=== PATIENT | male | born 1940 | race Caucasian/White ===

== ENCOUNTER → 2019-12-27 | Outpatient (CLI) | payer MEDICARE ==
--- NOTE | 2020-01-03 12:38 | P.ARTDOP ---
Arterial Doppler LOWER EXTREMITY ARTERIAL DOPPLER: DATE OF SERVICE: 12/27/2019 Reason for study: Bilateral leg pain. Doppler waveforms: Multiphasic bilaterally throughout. Pulse volume recording: []. Pressure gradients: None. Ankle-brachial indices: Greater than 1 bilaterally. Toe brachial indices: 0.96 on the right, 0.93 on the left Impression: Normal study.
== END | disposition home or self-care (01) ==
LOC: RADUSWWP 12:59
PROVIDERS: ATTEND Internal Medicine
DX: M79.662 Pain in left lower leg (principal); M79.661 Pain in right lower leg; Z88.8 Allergy status to other drugs, medicaments and biological substances
CPT/HCPCS: 93922

== ENCOUNTER 2021-05-22 09:19 | Inpatient (IN) | payer MEDICARE ==
[2021-05-22] MEDS: SODIUM CHLORIDE 0.9% 1,000 ML IV SCH (11:14)
[2021-05-22 11:39] LABS: Glucose,Whole Blood 158 mg/dL (75-99)
[2021-05-22] MEDS ORDERED: HEPARIN SODIUM 1,000 UN/ML (10ML VL) IV PRN (11:49)
[2021-05-22] MEDS ORDERED: SENNOSIDES 8.6 MG TAB PO PRN (13:17)
[2021-05-22] MEDS ORDERED: FUROSEMIDE 40 MG TAB PO PRN (13:17)
[2021-05-22] MEDS ORDERED: ALPRAZolam 0.25 MG TAB PO PRN (13:19)
--- NOTE | 2021-05-22 14:11 | HP ---
HISTORY AND PHYSICAL DATE OF SERVICE: 05/22/2021 CHIEF COMPLAINT: Shortness of breath. HISTORY OF PRESENT ILLNESS: This 80-year-old gentleman with a past medical history of COPD, hypertension, hyperlipidemia and DJD presented with shortness of breath to [facility]. Because of elevation of troponin, cardiac cath was done which showed three- vessel coronary artery disease. The patient was transferred to [facility] for further evaluation and treatment. There is no history of any chest pain, palpitations, hematochezia or melena at this time. PAST MEDICAL HISTORY: COPD, hypertension, hyperlipidemia. HOME MEDICATIONS: Reviewed. They include fluticasone, prednisone, Flomax and . Doses and other medications are reviewed. ALLERGIES: LISINOPRIL. FAMILY HISTORY: No history of heart disease or strokes in the family. SOCIAL HISTORY: Remote history of smoking. REVIEW OF SYSTEMS: Fourteen-point review of systems negative except as mentioned earlier. PHYSICAL EXAMINATION: Pulse 61, blood pressure 137/84, respiration 18, temperature 97.2. HEENT: Conjunctivae normal. Oral mucosa moist. NECK: No jugular venous distention. No carotid bruit. No lymph node enlargement. CARDIOVASCULAR: S1, S2 muffled. No S3. No S4. RESPIRATION: Breath sounds diminished at the bases. A few scattered rhonchi and crackles. ABDOMEN: Soft, nontender. No mass palpable. LEGS: No edema. No swelling. NERVOUS SYSTEM: Higher functions as mentioned earlier. No focal motor or sensory deficit. LYMPHATICS: No lymph node palpable in neck, axillae or groin. SKIN: No ulcer, rash, bleeding. JOINTS: No active deforming arthropathy. LABS: Glucose 115. Other labs are awaited. ASSESSMENT: 1. Three-vessel coronary artery disease, status post coronary artery bypass grafting. 2. Chronic obstructive pulmonary disease. 3. Hypertension. 4. Hyperlipidemia. 5. History of degenerative joint disease. 6. History of chronic kidney disease. RECOMMENDATIONS AND DISCUSSION: In this 80-year-old gentleman who presented with multiple medical issues, at this time I recommend to continue current medications, resume the home medications. Antiplatelet agents. Cardiology and cardiothoracic surgery evaluations. Prognosis guarded because of the multiple complex medical issues. Will get lab work done also, including chest x- ray and UA. MMODL / IJN: [id number] / [facility]ITALFlora
--- NOTE | 2021-05-22 14:50 | P.CNPUL ---
History of Present Illness Consult date: 05/22/21 Requesting physician: Lalita Dominguez Reason for consult: dyspnea Chief complaint: Acute non-ST elevated myocardial infarction, multivessel CAD History of present illness: This is a 80-year-old white male patient with past medical history of COPD not normally oxygen dependent, stage III chronic kidney disease, diabetes mellitus with diabetic neuropathy, hypertension, hyperlipidemia, carotid artery stenosis, extensive history of smoking, quit 6 months ago but prior to quitting he smoked for 67 years 1 pack a day. Patient was admitted to the [facility] for evaluation of exertional shortness of breath. He was diagnosed with non-ST elevated myocardial infarction, he had a heart catheterization by Dr. Ramirez and was found to have multivessel coronary artery disease with 95% left main stenosis, 90% stenosis of the LAD, 100% stenosis of the left circumflex, and no significant stenosis involving the RCA. Cardiology has recommended transfer to the [facility] and evaluation by the cardiothoracic surgery for possibility of coronary artery bypass grafting. Patient is resting comfortably in bed, room air pulse ox is 96%, he is afebrile, hemodynamically he is stable, patient follows with Dr. Elis Gonzalez for his pulmonary needs, he states he hasn't had a PFT done in over 5 years. He quit smoking 6 months ago, he is maintenance inhalers include Trelegy, Albuterol, and patient states he is on maintenance dose prednisone 5 mg daily. He is currently on heparin infusion per weight-based protocol, he continues on his home dose prednisone 5 mg daily, he i s on Symbicort, Ventolin, she is on oral Lasix 40 mg 3 times daily, is on Coreg, losartan. He is currently awaiting CT surgery evaluation Review of Systems All systems: negative Constitutional: Denies chills, Denies fever Eyes: denies blurred vision, denies pain Ears, nose, mouth and throat: Denies headache, Denies sore throat Cardiovascular: Reports dyspnea on exertion, Denies chest pain, Denies shortness of breath Respiratory: Reports dyspnea, Denies cough Gastrointestinal: Denies abdominal pain, Denies diarrhea, Denies nausea, Denies vomiting Musculoskeletal: Denies myalgias Integumentary: Denies pruritus, Denies rash Neurological: Denies numbness, Denies weakness Psychiatric: Denies anxiety, Denies depression Endocrine: Denies fatigue, Denies weight change Past Medical History Past Medical History: COPD, Hyperlipidemia, Hypertension, Osteoarthritis (OA), Prostate Disorder, Renal Disease, Vascular Disorder Additional Past Medical History / Comment(s): PVC's, CKD stage III, chronic anemia, BPH, urinary retention, UTI, pancreatitis, gastric ulcer, arthritis in multiple joints/occasional low back pain History of Any Multi-Drug Resistant Organisms: None Reported Past Surgical History: Appendectomy, Tonsillectomy Additional Past Surgical History / Comment(s): R caratid endartectomy, arch study, colonoscopies/benign polypectomies, EGD, pilonidal cyst removed x 2, Past Anesthesia/Blood Transfusion Reactions: No Reported Reaction Smoking Status: Former smoker - Past Family History Father Family Medical History: No Reported History Mother Family Medical History: Congestive Heart Failure (CHF) Medications and Allergies Home Medications Medication Instructions Recorded Confirmed Type Albuterol Inhaler [Ventolin Hfa 2 puff INHALATION RT-QID PRN 05/22/21 05/22/21 History Inhaler] Aspirin EC [Ecotrin Low Dose] 81 mg PO DAILY 05/22/21 05/22/21 History Carvedilol [Coreg] 3.125 mg PO BID-W/MEALS 05/22/21 05/22/21 History Cholecalciferol (Vitamin D3) 125 mcg PO DAILY 05/22/21 05/22/21 History [Vitamin D3 (125 MCG = 5,000 IU)] Ferrous Sulfate [Feosol] 325 mg PO W/BRKFST 05/22/21 05/22/21 History Finasteride [Proscar] 5 mg PO DAILY 05/22/21 05/22/21 History Fluticasone/Umeclidin/Vilanter 1 puff INHALATION RT-DAILY 05/22/21 05/22/21 History [Trelegy Ellipta 100-62.5-25] Furosemide [Lasix] 40 mg PO TID PRN 05/22/21 05/22/21 History HYDROcodone/APAP 10-325MG [[place] 1 tab PO Q6H PRN 05/22/21 05/22/21 History 10-325] Losartan Potassium 50 mg PO DAILY 05/22/21 05/22/21 History Omeprazole 20 mg PO DAILY 05/22/21 05/22/21 History Potassium Chloride ER [K-Dur 10] 10 meq PO DAILY 05/22/21 05/22/21 History Rosuvastatin Calcium [Crestor] 20 mg PO HS 05/22/21 05/22/21 History Sennosides [Senna] 8.6 mg PO BID PRN 05/22/21 05/22/21 History Tamsulosin HCl [Flomax] 0.4 mg PO DAILY 05/22/21 05/22/21 History amLODIPine [Norvasc] 10 mg PO DAILY 05/22/21 05/22/21 History predniSONE 5 mg PO DAILY 05/22/21 05/22/21 History Allergies Allergy/AdvReac Type Severity Reaction Status Date / Time lisinopril Allergy Anaphylaxis, Verified 05/22/21 12:58 Tongue swelling Physical Exam Vitals: Vital Signs Temp Pulse Resp BP Pulse Ox 05/22/21 11:14 97.2 F L 61 18 137/84 96 Intake and Output 05/21/21 05/22/21 05/22/21 22:59 06:59 14:59 Intake Total 240 Balance 240 Intake: Oral 240 Other: Weight 111.1 kg GENERAL EXAM: Alert, very pleasant, 80-year-old white male, resting comfortably in bed, on room air with pulse ox of 96% comfortable in no apparent distress. HEAD: Normocephalic/atraumatic. EYES: Normal reaction of pupils, equal size. Conjunctiva pink, sclera white. NOSE: Clear with pink turbinates. THROAT: No erythema or exudates. NECK: No masses, no JVD, no thyroid enlargement, no adenopathy. CHEST: No chest wall deformity. Symmetrical expansion. LUNGS: Equal air entry with no crackles, wheeze, rhonchi or dullness. CVS: Regular rate and rhythm, normal S1 and S2, no gallops, no murmurs, no rubs ABDOMEN: Soft, nontender. No hepatosplenomegaly, normal bowel sounds, no guarding or rigidity. EXTREMITIES: No clubbing, no edema, no cyanosis, 2+ pulses and upper and lower extremities. MUSCULOSKELETAL: Muscle strength and tone normal. SPINE: No scoliosis or deformity SKIN: No rashes CENTRAL NERVOUS SYSTEM: Alert and oriented -3. No focal deficits, tone is normal in all 4 extremities. PSYCHIATRIC: Alert and oriented -3. Appropriate affect. Intact judgment and insight. Results - Laboratory Findings Abnormal lab findings: Abnormal Labs 05/22/21 11:36 POC Glucose (mg/dL) 158 H Assessment and Plan Plan: Assessment: #1. Symptomatic multivessel coronary artery disease with 95% left main stenosis, 90% stenosis of the LAD, and 100% stenosis of the left circumflex, awaiting evaluation for possibility of surgical intervention #2. Acute non-ST elevated myocardial infarction #3. Acute exacerbation of chronic CHF with diastolic dysfunction #4. Hypertensive emergency, currently resolved #5. Acute kidney injury #6. History of stage III chronic kidney disease #7. History of COPD not oxygen dependent at baseline #8. History of smoking, in remission for last 6 months, carries [id number] smoking history #9. Type 2 diabetes mellitus #10. Dyslipidemia #11. History of venous insufficiency #12. History of right carotid artery stenosis status post carotid endarterectomy Plan: Patient was seen and evaluated in consultation Chest x-ray is pending, CT chest without contrast is pending Multiple labs for preop evaluation are ordered and pending Vital signs are currently stable, patient appears to be in no acute distress We will obtain bedside PFT Patient is awaiting surgical evaluation for possibility of surgical intervention Provide incentive spirometer, provide education on the use Continue Symbicort, continue albuterol COPD is stable at this time We'll continue to follow his clinical course I performed a history & physical examination of the patient and discussed their management with my nurse practitioner, Erica Perry. I reviewed the nurse practitioner's note and agree with the documented findings and plan of care. Lung sounds are positive for dim breath sounds throughout the lung almonte. The findings and the impression was discussed with the patient. I attest to the documentation by the nurse practitioner. Time with Patient: Greater than 30
--- NOTE | 2021-05-22 15:08 | XR ---
EXAMINATION TYPE: XR chest 1V portable DATE OF EXAM: 05/22/2021 CLINICAL HISTORY: Difficulty breathing and CHF. TECHNIQUE: Single AP portable upright view of the chest is obtained. COMPARISON: Chest x-ray from one day earlier none FINDINGS: Patchy bibasilar opacities. Cardiac silhouette size mildly enlarged with atherosclerotic c hange aortic knob. No pleural effusion or pneumothorax seen bilaterally. No significant central incre ased markings. Osseous structures are intact. IMPRESSION: Mild cardiomegaly with patchy bibasilar atelectasis and/or infiltrates.
--- NOTE | 2021-05-22 15:36 | P.GSCN ---
<Lalita Dominguez - Last Filed: 05/22/21 15:17> History of Present Illness Consult date: 05/22/21 Reason for Consult: coronary artery disease with left main disease Requesting physician: Zev Ramirez History of present illness: This is an 80-year-old somewhat debilitated gentleman who follows on an outpatient basis with Dr. Ortega for primary care and Dr. Ramirez for cardiology. He has a previous medical history of hypertension, hyperlipidemia, chronic kidney disease stage III, chronic anemia, COPD, pancreatitis, chronic low back pain, right carotid endarterectomy, and previous tobacco dependence with recent cessation 6 months ago. He presented to [facility] yesterday with complaints of exertional shortness of breath. He denied any chest pain. Workup at [facility] revealed non-STEMI as well as evidence of heart failure with BNP greater than 10,000. The patient underwent heart catheterization today by Dr. Ramirez which revealed left main stenosis 90% not involving the bifurcation, proximal LAD stenosis 90%, and circumflex stenosis 100%. Due to these findings the patient was transferred to [facility] for evaluation by cardiothoracic surgery. Of note the patient did have a transthoracic echocardiogram completed at [facility], film is not available at this time but report demonstrates borderline left ventricular systolic function with EF 50%, trace AI without AV stenosis, mild to moderate mitral regurgitation and trace tricuspid regurgitation. Review of Systems review of systems was completed was negative except as noted - Cardiovascular Reports as per HPI, Reports decreased exercise tolerance, Reports dyspnea on exertion, Reports shortness of breath Past Medical History Past Medical History: COPD, Hyperlipidemia, Hypertension, Osteoarthritis (OA), Prostate Disorder, Renal Disease, Vascular Disorder Additional Past Medical History / Comment(s): PVC's, CKD stage III, chronic anemia, BPH, urinary retention, UTI, pancreatitis, gastric ulcer, arthritis in multiple joints/occasional low back pain History of Any Multi-Drug Resistant Organisms: None Reported Past Surgical History: Appendectomy, Cholecystectomy, Tonsillectomy Additional Past Surgical History / Comment(s): R caratid endartectomy, arch study, colonoscopies/benign polypectomies, EGD, pilonidal cyst removed x 2, Past Anesthesia/Blood Transfusion Reactions: No Reported Reaction Past Psychological History: No Psychological Hx Reported Smoking Status: Former smoker Past Alcohol Use History: None Reported Past Drug Use History: None Reported - Past Family History Father Family Medical History: No Reported History Mother Family Medical History: Congestive Heart Failure (CHF) Medications and Allergies Home Medications Medication Instructions Recorded Confirmed Type Carvedilol [Coreg] 3.125 mg PO BID-W/MEALS 05/22/21 05/22/21 History Cholecalciferol (Vitamin D3) 125 mcg PO DAILY 05/22/21 05/22/21 History [Vitamin D3 (125 MCG = 5,000 IU)] Finasteride [Proscar] 5 mg PO DAILY 05/22/21 05/22/21 History Fluticasone/Umeclidin/Vilanter 1 puff INHALATION RT-DAILY 05/22/21 05/22/21 History [Trelegy Ellipta 100-62.5-25] HYDROcodone/APAP 10-325MG [[place] 1 tab PO Q6H PRN 05/22/21 05/22/21 History 10-325] Losartan Potassium 50 mg PO DAILY 05/22/21 05/22/21 History Sennosides [Senna] 8.6 mg PO BID PRN 05/22/21 05/22/21 History Tamsulosin HCl [Flomax] 0.4 mg PO DAILY 05/22/21 05/22/21 History predniSONE 5 mg PO DAILY 05/22/21 05/22/21 History Atorvastatin [Lipitor] 40 mg PO DAILY #90 tab 05/29/21 Rx Clopidogrel [Plavix] 75 mg PO DAILY #90 tab 05/29/21 Rx Ferrous Sulfate [Iron (65 MG 325 mg PO BID-W/MEALS #180 tab 05/29/21 Rx Elemental)] Nitroglycerin Sl Tabs [Nitrostat] 0.4 mg SUBLINGUAL Q5M PRN #100 tab 05/29/21 Rx Albuterol Inhaler [Ventolin Hfa 2 puff INHALATION RT-QID PRN #1 inh 05/30/21 Rx Inhaler] Aspirin EC [Ecotrin Low Dose] 81 mg PO DAILY 30 Days #10 tab 05/30/21 Rx Cefuroxime Axetil [Ceftin] 500 mg PO BID 5 Days #10 tab 05/30/21 Rx Folic Acid 1 mg PO DAILY #30 tablet 05/30/21 Rx Pantoprazole [Protonix] 40 mg PO DAILY #30 tab 05/30/21 Rx predniSONE 10 mg PO DIRECTED #20 tab 05/30/21 Rx Allergies Allergy/AdvReac Type Severity Reaction Status Date / Time lisinopril Allergy Anaphylaxis, Verified 05/22/21 12:58 Tongue swelling Surgical - Exam Vital Signs Temp Pulse Resp BP Pulse Ox 97.2 F L 61 18 137/84 96 05/22/21 11:14 05/22/21 11:14 05/22/21 11:14 05/22/21 11:14 05/22/21 11:14 CONSTITUTIONAL: Awake and alert, appears comfortable, cooperative, well- developed, well-nourished, no pain, no acute distress, very hard of hearing EYES: Pupils equal, round, reactive to light, normal ocular movement ENT: Moist mucous membranes without oral lesions present NECK: No masses, no bruits, trachea midline RESPIRATORY: Lungs sounds clear to auscultation bilaterally. Respirations even, nonlabored. Currently on room air with oxygen saturation 96%. Strong cough. No chest wall deformities. No clubbing or cyanosis present CARDIOVASCULAR: S1, S2 present. Slow but regular rate and rhythm, sinus br adycardia on telemetry. Palpable peripheral pulses bilaterally. No edema present. No calf pain or tenderness noted. No significant lower extremity varicosities noted. GASTROINTESTINAL: Abdomen soft, nontender, nondistended without masses or organomegaly noted. There is no rebound or guarding present. Active bowel sounds present 4 quadrants. GENITOURINARY: Deferred INTEGUMENTARY: Skin is warm and dry with multiple areas of ecchymosis to his upper extremities NEUROLOGIC: Cranial nerves II through XII intact, normal coordination, no obvious motor or sensory deficits, speech is normal MUSKULOSKELETAL: Able to move all extremities, strength equal bilaterally, normal posture, walks with cane PSYCHIATRIC: Alert and oriented to person place and time, appropriate affect, intact judgment and insight Results - Labs Abnormal Lab Results - Last 24 Hours (Table) 05/22/21 Range/Units 11:36 POC Glucose (mg/dL) 158 H (75-99) mg/dL - Imaging Additional studies: heart catheterization films reviewed with Dr. Nicholson Assessment and Plan Assessment: 1. Coronary artery disease with left main disease, non-STEMI 2. Possible heart failure present on admission with BNP greater than 10,000 3. History of hypertension 4. Hyperlipidemia 5. Chronic kidney disease stage III 6. Chronic anemia 7. COPD 8. Pancreatitis 9. Chronic low back pain 10. Right carotid endarterectomy 11. Previous tobacco dependence with recent cessation 6 months ago 12. Vaccinated and boosted against covid Plan: the patient was seen and examined at the bedside on the cardiac stepdown unit with Dr. Nicholson. He was sitting up in bed in no acute distress. Denies any current chest pain or shortness of breath. The usual perioperative course of open heart surgery was discussed in detail with the patient as well as his daughter who was present via phone, risks and benefits were reviewed, all questions were answered. The patient does consent to open heart surgery if that is what is deemed to be appropriate. Preoperative testing was initiated. Will calculate STS risk score and discuss with the patient once testing has been completed. 5 m walk test was completed which patient tolerated without difficulty, #1 8.02 seconds, #2 6.20 seconds, #3 6.33 seconds. Recommend continuing to maximize medical therapy with aspirin, statin, beta jacky therapy, IV heparin. Medical management of other comorbidities per primary care service. More recommendations to follow. Thank you Dr. Ramirez for this consult. We look forward to working with you in the care of your patient. Time with Patient: Greater than 30 <Hao Nicholson - Last Filed: 06/03/21 12:44> Surgical - Exam Vital Signs Temp Pulse Resp BP Pulse Ox 97.2 F L 61 18 137/84 96 05/22/21 11:14 05/22/21 11:14 05/22/21 11:14 05/22/21 11:14 05/22/21 11:14 Results - Labs 05/30/21 11:07 05/28/21 06:43 Assessment and Plan Plan: 80 year old male with a history of multiple medical problems who was found to have multi-vessel CAD. Risks, benefits, and alternatives to CABG discussed with the patient. All of his questions were answered. At this point, we will proceed with our standard pre-operative workup. If no significant issues are found, then we will proceed with surgery on this admission. If he is not felt to be an acceptable candidate, then we will recommend high risk PCI. Discussed with Dr. Ramirez who is in agreement. Further recommendations to follow. I have personally seen and examined the patient, reviewed the documentation and agree with the assessment and plan as written. Number of minutes spent on the v isit: 60
[2021-05-22 16:06] LABS: Glucose,Whole Blood 111 mg/dL (75-99)
[2021-05-22 16:12] LABS: Basophils % (A) 0 %; Eosinophils % (A) 0 %; HCT 33.7 % (39.0-53.0); HGB 10.9 gm/dL (13.0-17.5); Lymphocytes # (A) 1.1 k/uL (1.0-4.8); Lymphocytes % (A) 10 %; MCH 30.8 pg (25.0-35.0); MCHC 32.4 g/dL (31.0-37.0); Mean Platelet Volume 7.2; Monocytes # (A) 0.6 k/uL (0-1.0); Monocytes % (A) 5 %; Neutrophils # (A) 9.2 k/uL (1.3-7.7); Neutrophils % (A) 83 %; Platelet Count 216 k/uL (150-450); RBC 3.55 m/uL (4.30-5.90); RDW 14.8 % (11.5-15.5)
[2021-05-22 16:20] LABS: INR 1.1 (<1.2); Partial Thromboplastin Time 37.4 sec (22.0-30.0); Prothrombin Time 11.6 sec (9.0-12.0)
[2021-05-22 16:22] LABS: ALT 14 U/L (4-49); AST 24 U/L (17-59); African American GFR (CKD) 45 (>60 ml/min/1.73 sqM); Albumin 3.2 g/dL (3.5-5.0); Alkaline Phosphatase 140 U/L (38-126); Anion Gap 8 mmol/L; Blood Urea Nitrogen 39 mg/dL (9-20); Calcium 8.9 mg/dL (8.4-10.2); Carbon Dioxide 26 mmol/L (22-30); Chloride 102 mmol/L (98-107); Glucose 118 mg/dL (74-99); Magnesium 1.7 mg/dL (1.6-2.3); Non-African American GFR(CKD) 39 (>60 ml/min/1.73 sqM); Potassium 4.1 mmol/L (3.5-5.1); Sodium 136 mmol/L (137-145); Total Bilirubin 0.5 mg/dL (0.2-1.3)
--- NOTE | 2021-05-22 16:54 | US ---
EXAMINATION TYPE: US carotid duplex BILAT DATE OF EXAM: 05/22/2021 COMPARISON: NONE CLINICAL HISTORY: preop cardiac surgery. History of right endarterectomy EXAM MEASUREMENTS: RIGHT: Peak Systolic Velocity (PSV) cm/sec ----- Right CCA: 68.1 ----- Right ICA: 97.7 ----- Right ECA: 79.6 ICA/CCA ratio: 1.4 RIGHT: End Diastole cm/sec ----- Right CCA: 0.0 ----- Right ICA: 8.6 ----- Right ECA: 13.1 LEFT: Peak Systolic Velocity (PSV) cm/sec ----- Left CCA: 91.9 ----- Left ICA: 181.0 ----- Left ECA: 84.0 ICA/CCA ratio: 2.0 LEFT: End Diastole cm/sec ----- Left CCA: 10.0 ----- Left ICA: 17.0 ----- Left ECA: 7.5 VERTEBRALS (direction of flow): Right Vertebral: Antegrade Left Vertebral: Antegrade Rhythm: Normal IMPRESSION: 1. 50-69% stenosis of the left carotid bifurcation 2. Less than 50% stenosis of the right carotid bifurcation. Criteria for Assigning % of Stenosis / Diameter reduction (Estimation based on the indirect measurements of the internal carotid artery velocities (ICA PSV). 1. Normal (no stenosis)=ICA PSV < 125 cm/s: ratio < 2.0: ICA EDV<40 cm/s. 2. Less than 50% stenosis=ICA PSV < 125 cm/s: ratio < 2.0: ICA EDV<40 cm/s. 3. 50 to 69% stenosis=ICA PSV of 125 to 230 cm/s: ration 2.0 ? 4.0: ICA EDV 40-100 cm/s. 4. Greater than 70% stenosis to near occlusion= ICA PSV > 230 cm/s: ratio > 4.0: ICA EDV > 100 cm/s. 5. Near occlusion= ICA PSV velocities may be low or undetectable: variable ratio and ICA EDV. 6. Total occlusion=unable to detect flow.
[2021-05-22] MEDS: IPRATROPIUM 0.5 MG/2.5 ML NEBU INHALATION SCH ×2 (17:02→20:47)
[2021-05-22] MEDS: ALBUTEROL NEBULIZED 2.5 MG/3 ML INHALATION SCH ×2 (17:02→20:47)
[2021-05-22] MEDS: HEPARIN SOD,PORK IN 0.45% NACL 25,000 UNIT in 0.45% NACL 1 250ML.BAG IV SCH (17:36)
[2021-05-22] MEDS: carvediloL 3.125 MG TAB PO SCH (17:37)
[2021-05-22] MEDS: HYDROcodone/APAP 10-325MG 1 EACH TAB PO PRN (17:37)
[2021-05-22 18:32] LABS: Appearance,Urine Cloudy (Clear); Bilirubin,Urine Negative (Negative); Blood,Urine Negative (Negative); Color,Urine Yellow; Glucose,Urine (UA) Negative (Negative); Ketones,Urine Negative (Negative); Leukocyte Esterase,Urine Large (Negative); Nitrite,Urine Negative (Negative); Protein,Urine Trace (Negative); RBC,Urine 3 /hpf (0-5); Specific Gravity,Urine 1.019 (1.001-1.035); Urobilinogen,Urine <2.0 mg/dL (<2.0); WBC,Urine 60 /hpf (0-5)
[2021-05-22 20:26] LABS: Glucose,Whole Blood 126 mg/dL (75-99)
[2021-05-22] MEDS: SYMBICORT 80-4.5 MCG INHALER INHALATION SCH (20:47)
[2021-05-22] MEDS: guaiFENesin-DM 600/30MG 1 EACH TAB.ER.12H PO PRN (21:03)
--- NOTE | 2021-05-22 21:37 | CT ---
EXAMINATION TYPE: CT chest wo con CT DLP: 707.8 mGycm, Automated exposure control for dose reduction was used. DATE OF EXAM: 05/22/2021 4:14 PM COMPARISON: Chest radiograph from same day. CLINICAL INDICATION:Male, 80 years old with history of eval aorta for clampability, Eval aorta for cl ampability. TECHNIQUE: Multiple axial images were obtained through the chest without IV contrast. Lack of IV or o ral contrast limits evaluation of solid and hollow organ viscera. FINDINGS: In limits evaluation. LUNGS/ PLEURA: Centrilobular emphysema changes in the lung apices. No evidence of focal consolidation , pneumothorax or pleural effusion. AIRWAY: Patent and unremarkable. HEART: Size within normal limits.There are atherosclerosis. MEDIASTINUM: No gross evidence of adenopathy. VASCULATURE: No aortic aneurysm. 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 MUSCULOSKELETAL: Moderate disc degeneration changes are present throughout the thoracolumbar spine. SOFT TISSUES/LYMPH NODES: Gynecomastia changes bilaterally. LOWER NECK: No significant findings. UPPER ABDOMEN: Gallbladder is surgically absent. There is severe diffuse atherosclerotic disease invo lving the arterial vasculature there is fusiform dilation of the celiac axis just after its origin me asuring up to 13 mm in diameter. Appearing kidneys bilaterally. IMPRESSION: 1. 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 2. Fusiform dilation of the celiac axis. This can be further evaluated with CTA of the chest if clini fransico warranted. 3. Emphysema.
[2021-05-22 23:20] LABS: Hepatitis A Antibody IgM Nonreactive (Nonreactive); Hepatitis B Core IgM Nonreactive (Nonreactive); Hepatitis B Surface Antigen Nonreactive (Nonreactive); Hepatitis C IgG Antibody Nonreactive (Nonreactive)
[2021-05-23] MEDS: SODIUM CHLORIDE 0.9% 1,000 ML IV SCH ×2 (04:14→18:29)
[2021-05-23] MEDS: HYDROcodone/APAP 10-325MG 1 EACH TAB PO PRN ×2 (04:14→18:47)
[2021-05-23 04:19] LABS: Chol/HDL Ratio 3.24 Ratio; LDL Cholesterol,Calculated 73.6 mg/dL (0.0-131.0)
[2021-05-23 06:13] LABS: Basophils % (A) 0 %; Eosinophils % (A) 0 %; HCT 32.6 % (39.0-53.0); HGB 10.7 gm/dL (13.0-17.5); Lymphocytes # (A) 1.9 k/uL (1.0-4.8); Lymphocytes % (A) 19 %; MCH 31.3 pg (25.0-35.0); MCHC 32.9 g/dL (31.0-37.0); MCV 95.2 fL (80.0-100.0); Monocytes # (A) 0.5 k/uL (0-1.0); Monocytes % (A) 6 %; Neutrophils # (A) 7.2 k/uL (1.3-7.7); Neutrophils % (A) 73 %; Platelet Count 201 k/uL (150-450); RBC 3.43 m/uL (4.30-5.90); RDW 14.9 % (11.5-15.5); WBC 9.8 k/uL (3.8-10.6)
[2021-05-23 06:21] LABS: INR 1.1 (<1.2); Partial Thromboplastin Time 52.6 sec (22.0-30.0); Prothrombin Time 11.8 sec (9.0-12.0)
[2021-05-23 06:30] LABS: Calcium 8.6 mg/dL (8.4-10.2); Potassium 4.2 mmol/L (3.5-5.1)
[2021-05-23] MEDS ORDERED: NON FORMULARY DRUG (Fluticasone/Umeclidin/Vilanter [Trelegy Ellipta 100-62.5-25] 1 EACH Bl INHALATION SCH (08:00)
[2021-05-23] MEDS: SYMBICORT 80-4.5 MCG INHALER INHALATION SCH ×2 (08:11→20:08)
[2021-05-23] MEDS: ALBUTEROL NEBULIZED 2.5 MG/3 ML INHALATION SCH ×4 (08:11→20:08)
[2021-05-23] MEDS: IPRATROPIUM 0.5 MG/2.5 ML NEBU INHALATION SCH ×4 (08:11→20:08)
--- NOTE | 2021-05-23 08:50 | P.PN ---
Subjective Progress Note Date: 05/23/21 Principal diagnosis: Coronary artery disease with left main disease, non-STEMI, acute heart failure. Previous medical history of hypertension, hyperlipidemia, chronic kidney disease stage III, chronic anemia, COPD, pancreatitis, chronic low back pain, bilateral carotid stenosis status post right carotid endarterectomy, previous tobacco dependence with recent cessation 6 months ago, vaccinated and boosted against covid The patient was seen laying in bed on the cardiac stepdown unit in no acute distress. Denies any current chest pain or shortness of breath. Remains in o d spirits. Was seen by Dr. Nicholson yesterday and preoperative testing was completed. STS risk score was calculated and patient was found to be high risk for cardiac surgery. Case was discussed between Dr. Nicholson and Dr. Ramirez as well as between Drs. Roman and James. Per nursing, family seems to be leaning towards stenting. Objective - Vital Signs Vital signs: Vital Signs Temp 97.7 F 05/23/21 03:55 Pulse 80 05/23/21 08:11 Resp 18 05/23/21 03:55 BP 156/65 05/23/21 03:55 Pulse Ox 94 L 05/23/21 03:55 Intake & Output 05/22/21 05/23/21 05/23/21 18:59 06:59 18:59 Intake Total 899.120 6131.79 Output Total 275 600 Balance 649.538 9754.79 Weight 111.1 kg 111.9 kg Intake: IV 20 1000 Invasive Line 1 20 Sodium Chloride 0.9% 1, 1000 000 ml @ 75 mls/hr IV . [id number] [facility] Rx#:[id number] Intake, IV Titration 0.555 98.79 Amount Heparin Sod,Pork in 0.45% 0.555 98.79 NaCl 25,000 unit In 0.45 % NaCl 1 250ml.bag @ 9 UNITS/KG/HR 9.99 mls/hr IV .Q24H [facility] Rx#: [id number] Oral 358 600 Output: Urine 275 600 Other: Voiding Method Urinal Urinal # Voids 1,600 - Exam CONSTITUTIONAL: Appears comfortable, cooperative, no acute distress RESPIRATORY: Lungs sounds diminished bilaterally. Respirations even, nonlabored. Currently on room air with oxygen saturation 94%. Able to achieve 3000 mL on incentive spirometry. Strong cough. CARDIOVASCULAR: S1, S2 present. Slow but regular rate and rhythm, sinus maria [place] car[place] on telemetry with heart rate in the 40s-50s. Palpable peripheral pulses bilaterally. No edema present. No calf pain or tenderness noted. GASTROINTESTINAL: Abdomen soft, nontender, nondistended. Active bowel sounds present 4 quadrants. Tolerating diet. GENITOURINARY: Continues to void INTEGUMENTARY: Skin is warm and dry NEUROLOGIC: Cranial nerves II through XII intact MUSKULOSKELETAL: Able to move all extremities, strength equal bilaterally, gait normal PSYCHIATRIC: Alert and oriented to person place and time, appropriate affect, intact judgment and insight - Labs CBC & Chem 7: 05/23/21 05:36 05/23/21 05:36 Labs: Abnormal Lab Results - Last 24 Hours (Table) 05/22/21 05/22/21 05/22/21 Range/Units 11:36 15:31 15:31 WBC 11.0 H (3.8-10.6) k/uL RBC 3.55 L (4.30-5.90) m/uL Hgb 10.9 L (13.0-17.5) gm/dL Hct 33.7 L (39.0-53.0) % Neutrophils # 9.2 H (1.3-7.7) k/uL APTT 37.4 H (22.0-30.0) sec Sodium (137-145) mmol/L BUN (9-20) mg/dL Creatinine (0.66-1.25) mg/dL Glucose (74-99) mg/dL POC Glucose (mg/dL) 158 H (75-99) mg/dL Hemoglobin A1c (0.0-6.0) % Alkaline Phosphatase (38-126) U/L Total Protein (6.3-8.2) g/dL Albumin (3.5-5.0) g/dL Triglycerides (0.00-149.00) mg/dL Urine Protein (Negative) Ur Leukocyte Esterase (Negative) Urine WBC (0-5) /hpf 05/22/21 05/22/21 05/22/21 Range/Units 15:31 15:31 16:04 WBC (3.8-10.6) k/uL RBC (4.30-5.90) m/uL Hgb (13.0-17.5) gm/dL Hct (39.0-53.0) % Neutrophils # (1.3-7.7) k/uL APTT (22.0-30.0) sec Sodium 136 L (137-145) mmol/L BUN 39 H (9-20) mg/dL Creatinine 1.65 H (0.66-1.25) mg/dL Glucose 118 H (74-99) mg/dL POC Glucose (mg/dL) 111 H (75-99) mg/dL Hemoglobin A1c 6.2 H (0.0-6.0) % Alkaline Phosphatase 140 H (38-126) U/L Total Protein 6.0 L (6.3-8.2) g/dL Albumin 3.2 L (3.5-5.0) g/dL Triglycerides 175.00 H (0.00-149.00) mg/dL Urine Protein (Negative) Ur Leukocyte Esterase (Negative) Urine WBC (0-5) /hpf 05/22/21 05/22/21 05/23/21 Range/Units 18:15 20:25 00:13 WBC (3.8-10.6) k/uL RBC (4.30-5.90) m/uL Hgb (13.0-17.5) gm/dL Hct (39.0-53.0) % Neutrophils # (1.3-7.7) k/uL APTT 66.0 H (22.0-30.0) sec Sodium (137-145) mmol/L BUN (9-20) mg/dL Creatinine (0.66-1.25) mg/dL Glucose (74-99) mg/dL POC Glucose (mg/dL) 126 H (75-99) mg/dL Hemoglobin A1c (0.0-6.0) % Alkaline Phosphatase (38-126) U/L Total Protein (6.3-8.2) g/dL Albumin (3.5-5.0) g/dL Triglycerides (0.00-149.00) mg/dL Urine Protein Trace H (Negative) Ur Leukocyte Esterase Large H (Negative) Urine WBC 60 H (0-5) /hpf 05/23/21 05/23/21 05/23/21 Range/Units 05:36 05:36 05:36 WBC (3.8-10.6) k/uL RBC 3.43 L (4.30-5.90) m/uL Hgb 10.7 L (13.0-17.5) gm/dL Hct 32.6 L (39.0-53.0) % Neutrophils # (1.3-7.7) k/uL APTT 52.6 H (22.0-30.0) sec Sodium 135 L (137-145) mmol/L BUN 43 H (9-20) mg/dL Creatinine 1.58 H (0.66-1.25) mg/dL Glucose 102 H (74-99) mg/dL POC Glucose (mg/dL) (75-99) mg/dL Hemoglobin A1c (0.0-6.0) % Alkaline Phosphatase (38-126) U/L Total Protein (6.3-8.2) g/dL Albumin (3.5-5.0) g/dL Triglycerides (0.00-149.00) mg/dL Urine Protein (Negative) Ur Leukocyte Esterase (Negative) Urine WBC (0-5) /hpf Microbiology - Last 24 Hours (Table) 05/22/21 18:15 Urine Culture - Preliminary Urine,Voided 05/22/21 18:15 Nasal Screen MRSA/MSSA - Preliminary Nasopharyngeal Swab - Imaging and Cardiology Chest x-ray: report reviewed, image reviewed CT scan - chest: report reviewed, image reviewed FEV1 and carotid dopplers reviewed Assessment and Plan Assessment: 1. Coronary artery disease with left main disease, non-STEMI 2. Acute heart failure present on admission with BNP greater than 10,000 3. Diffuse calcification of the aorta on CT scan 4. History of hypertension 5. Hyperlipidemia, treated, cholesterol 157, LDL 73 6. Chronic kidney disease stage III 7. Chronic anemia 8. Severe COPD with FEV1 44% of predicted 9. Pancreatitis 10. Chronic low back pain 11. Bilateral carotid artery stenosis, left ICA 50-79%, right ICA <50% with previous carotid endarterectomy 12. Previous tobacco dependence with recent cessation 6 months ago 13. Vaccinated and boosted against covid Plan: 1. Continue to maximize medical therapy with aspirin, statin, beta jacky therapy 2. Patient is considered too high risk for surgical revascularization. This was discussed with Dr. Ramirez by Dr. Roman. This was also discussed with the patient and his family at the bedside. 3. Medical management of other comorbidities per primary care service. 4. Please call us with any further questions Time with Patient: Greater than 30
[2021-05-23] MEDS: POTASSIUM CHLORIDE ER 10 MEQ TAB.ER.PRT PO SCH (09:23)
[2021-05-23] MEDS: predniSONE 5 MG TAB PO SCH (09:23)
[2021-05-23] MEDS: ATORVASTATIN 40 MG TAB PO SCH (09:23)
[2021-05-23] MEDS: ASPIRIN 81 MG PO SCH (09:24)
[2021-05-23] MEDS: TAMSULOSIN 0.4 MG CAP.ER.24H PO SCH (09:24)
[2021-05-23] MEDS: amLODIPine 10 MG TAB PO SCH (09:24)
[2021-05-23] MEDS: LOSARTAN 50 MG TAB PO SCH (09:24)
[2021-05-23] MEDS: PANTOPRAZOLE 40 MG TABLET PO SCH (09:24)
[2021-05-23] MEDS: FINASTERIDE 5 MG TAB PO SCH (09:24)
[2021-05-23] MEDS: carvediloL 3.125 MG TAB PO SCH ×2 (09:26→18:25)
[2021-05-23 11:44] LABS: Glucose,Whole Blood 98 mg/dL (75-99)
[2021-05-23 16:41] LABS: Glucose,Whole Blood 139 mg/dL (75-99)
--- NOTE | 2021-05-23 17:42 | P.PN ---
Subjective Progress Note Date: 05/23/21 Principal diagnosis: Coronary disease. This is a 80-year-old white male patient with past medical history of COPD not normally oxygen dependent, stage III chronic kidney disease, diabetes mellitus with diabetic neuropathy, hypertension, hyperlipidemia, carotid artery stenosis, extensive history of smoking, quit 6 months ago but prior to quitting he smoked for 67 years 1 pack a day. Patient was admitted to the [facility] for evaluation of exertional shortness of breath. He was diagnosed with non-ST elevated myocardial infarction, he had a heart catheterization by Dr. Ramirez and was found to have multivessel coronary artery disease with 95% left main stenosis, 90% stenosis of the LAD, 100% stenosis of the left circumflex, and no significant stenosis involving the RCA. Cardiology has recommended transfer to the [facility] and evaluation by the cardiothoracic surgery for possibility of coronary artery bypass grafting. Patient is resting comfortably in bed, room air pulse ox is 96%, he is afebrile, hemodynamically he is stable, patient follows with Dr. Elis Gonzalez for his pulmonary needs, he states he hasn't had a PFT done in over 5 years. He quit smoking 6 months ago, he is maintenance inhalers include Trelegy, Albuterol, and patient states he is on maintenance dose prednisone 5 mg daily. He is currently on heparin infusion per weight-based protocol, he continues on his home dose prednisone 5 mg daily, he is on Symbicort, Ventolin, she is on oral Lasix 40 mg 3 times daily, is on Coreg, losartan. He is currently awaiting CT surgery evaluation Progress note dated 05/23/2021. The patient was transferred from [facility], after having a catheterization, which revealed significant coronary disease. Initially, the patient did not want to be considered for bypass grafting. Subsequent to that, he changed his mind, he was evaluated by cardiothoracic surgery, without the patient was not a good candidate for revascularization. The patient has a history of heavy tobacco use, smoking at least a pack a day for 67 years. Currently, the patient's on room air. He is on IV heparin, the patient's getting saline at 75 mL an hour. White count 9.8, hemoglobin 10.7, hematocrit 32.6, platelet count 201,000. PTT is 15.6. Sodium 135, potassium 4.2, chlorides 104, CO2 25, anion gap 6, BUN 43, and creatinine 1.58. Chest CT showed severe atherosclerotic disease of the aorta and its branches. 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 Emphysematous changes are also noted. Objective - Vital Signs Vital signs: Vital Signs Temp 98.2 F 05/23/21 12:00 Pulse 58 L 05/23/21 16:45 Resp 16 05/23/21 12:00 BP 157/70 05/23/21 12:00 Pulse Ox 91 L 05/23/21 12:00 Intake & Output 05/22/21 05/23/21 05/23/21 18:59 06:59 18:59 Intake Total 226.559 5966.79 930 Output Total 275 600 Balance 887.031 4021.79 930 Weight 111.1 kg 111.9 kg Intake: IV 20 1000 Invasive Line 1 20 Sodium Chloride 0.9% 1, 1000 000 ml @ 75 mls/hr IV . [id number] [facility] Rx#:[id number] Intake, IV Titration 0.555 98.79 450 Amount Heparin Sod,Pork in 0.45% 0.555 98.79 NaCl 25,000 unit In 0.45 % NaCl 1 250ml.bag @ 9 UNITS/KG/HR 9.99 mls/hr IV .Q24H [facility] Rx#: [id number] Sodium Chloride 0.9% 1, 450 000 ml @ 75 mls/hr IV . [id number] [facility] Rx#:[id number] Oral 358 600 480 Output: Urine 275 600 Other: Voiding Method Urinal Urinal Urinal # Voids 1,600 - Exam No acute distress, oriented 3. Currently on room air. No respiratory difficulty or distress. HEENT examination is grossly unremarkable. Neck supple. Full range of motion. No adenopathy thyromegaly or neck vein distention. Cardiovascular examination reveals regular rhythm rate. S1-S2 normal. No S3 or S4. No discernible murmur noted. Heart rate 58 bpm. Lungs reveal scattered mild rhonchi. No wheezes or crackles. Breath sounds equal bilaterally but diminished throughout. Room air saturation 94%. Abdomen is soft and nontender. Bowel sounds are noted. Extremities are intact. No cyanosis clubbing or edema. Skin is without rash or lesion. Neurologic examination is brief but nonfocal. - Labs CBC & Chem 7: 05/23/21 05:36 05/23/21 05:36 Labs: Abnormal Lab Results - Last 24 Hours (Table) 05/22/21 05/22/21 05/22/21 Range/Units 15:31 15:31 18:15 RBC (4.30-5.90) m/uL Hgb (13.0-17.5) gm/dL Hct (39.0-53.0) % APTT (22.0-30.0) sec Sodium (137-145) mmol/L BUN (9-20) mg/dL Creatinine (0.66-1.25) mg/dL Glucose (74-99) mg/dL POC Glucose (mg/dL) (75-99) mg/dL Hemoglobin A1c 6.2 H (0.0-6.0) % Triglycerides 175.00 H (0.00-149.00) mg/dL Urine Protein Trace H (Negative) Ur Leukocyte Esterase Large H (Negative) Urine WBC 60 H (0-5) /hpf 05/22/21 05/23/21 05/23/21 Range/Units 20:25 00:13 05:36 RBC (4.30-5.90) m/uL Hgb (13.0-17.5) gm/dL Hct (39.0-53.0) % APTT 66.0 H 52.6 H (22.0-30.0) sec Sodium (137-145) mmol/L BUN (9-20) mg/dL Creatinine (0.66-1.25) mg/dL Glucose (74-99) mg/dL POC Glucose (mg/dL) 126 H (75-99) mg/dL Hemoglobin A1c (0.0-6.0) % Triglycerides (0.00-149.00) mg/dL Urine Protein (Negative) Ur Leukocyte Esterase (Negative) Urine WBC (0-5) /hpf 05/23/21 05/23/21 05/23/21 Range/Units 05:36 05:36 16:38 RBC 3.43 L (4.30-5.90) m/uL Hgb 10.7 L (13.0-17.5) gm/dL Hct 32.6 L (39.0-53.0) % APTT (22.0-30.0) sec Sodium 135 L (137-145) mmol/L BUN 43 H (9-20) mg/dL Creatinine 1.58 H (0.66-1.25) mg/dL Glucose 102 H (74-99) mg/dL POC Glucose (mg/dL) 139 H (75-99) mg/dL Hemoglobin A1c (0.0-6.0) % Triglycerides (0.00-149.00) mg/dL Urine Protein (Negative) Ur Leukocyte Esterase (Negative) Urine WBC (0-5) /hpf Microbiology - Last 24 Hours (Table) 05/22/21 18:15 Urine Culture - Preliminary Urine,Voided 05/22/21 18:15 Nasal Screen MRSA/MSSA - Preliminary Nasopharyngeal Swab Assessment and Plan Assessment: Symptomatic coronary disease, involving the main coronary artery, left anterior descending coronary artery, and circumflex. Acute non-ST segment elevation myocardial infarction. Acute exacerbation of chronic CHF. Poorly controlled hypertension. Acute kidney injury. History of stage III chronic kidney disease. History of COPD, from heavy tobacco use, for more than 65 years. Type 2 diabetes mellitus. Hyperlipidemia. History of venous insufficiency. History of right carotid artery stenosis, status post carotid endarterectomy. Plan: Plan dated 05/23/2021. The patient was evaluated by cardiothoracic surgery. The patient is not thought to be a candidate for cardiothoracic revascularization at this time. The patient is going to be considered for stent placement. The patient also had significantly impaired pulmonary function, for many years of tobacco use. Additional recommendations and suggestions are forthcoming. We will like to see the patient in the office after he is discharged, for formal pulmonary function testing. Prognosis is guarded. The patient is counseled about the importance of smoking cessation. Time with Patient: Less than 30
--- NOTE | 2021-05-23 18:05 | P.PN ---
Subjective Progress Note Date: 05/23/21 This is a 80-year-old gentleman who was transferred from [facility] after cardiac catheterization because of severe coronary artery disease including left main. Patient was transferred here with intention of possible bypass surgery. 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 Dr. Ramirez felt patient could be treated with stent placement of the left main. Dr. Gonzalez is going to evaluate the patient Wednesday and possibly schedule him for intervention on Wednesday. We'll monitor him closely. Patient otherwise doing well. Lungs are clear. Heart is regular. Continue current medical therapy Objective - Vital Signs Vital signs: Vital Signs Temp 97.5 F L 05/23/21 16:00 Pulse 58 L 05/23/21 16:45 Resp 18 05/23/21 16:00 BP 177/77 05/23/21 16:00 Pulse Ox 94 L 05/23/21 16:00 Intake & Output 05/22/21 05/23/21 05/23/21 18:59 06:59 18:59 Intake Total 059.277 6026.79 930 Output Total 275 600 Balance 752.368 6880.79 930 Weight 111.1 kg 111.9 kg Intake: IV 20 1000 Invasive Line 1 20 Sodium Chloride 0.9% 1, 1000 000 ml @ 75 mls/hr IV . [id number] [facility] Rx#:[id number] Intake, IV Titration 0.555 98.79 450 Amount Heparin Sod,Pork in 0.45% 0.555 98.79 NaCl 25,000 unit In 0.45 % NaCl 1 250ml.bag @ 9 UNITS/KG/HR 9.99 mls/hr IV .Q24H [facility] Rx#: [id number] Sodium Chloride 0.9% 1, 450 000 ml @ 75 mls/hr IV . [id number] [facility] Rx#:[id number] Oral 358 600 480 Output: Urine 275 600 Other: Voiding Method Urinal Urinal Urinal # Voids 1,600 - Exam GENERAL EXAM: Patient is alert and oriented and doesn't appear to be in any acute distress HEENT: Normocephalic. Normal reaction of pupils, equal size, normal range of extraocular motion. No erythema or exudates in the throat. NECK: No masses, no nuchal rigidity. CHEST: No chest wall deformity. LUNGS: Equal air entry with no crackles or wheeze. HEART: S1 and S2 normal with no audible mumurs or gallops. Regular rhythm, femorals equal on both sides.. ABDOMEN: No hepatosplenomegaly, normal bowel sounds, no guarding or rigidity. SKIN: No rashes CENTRAL NERVOUS SYSTEM: No focal deficits. EXTREMITIES: No cyanosis, clubbing or edema. - Labs CBC & Chem 7: 05/23/21 05:36 05/23/21 05:36 Labs: Abnormal Lab Results - Last 24 Hours (Table) 05/22/21 05/22/21 05/22/21 Range/Units 15:31 15:31 18:15 RBC (4.30-5.90) m/uL Hgb (13.0-17.5) gm/dL Hct (39.0-53.0) % APTT (22.0-30.0) sec Sodium (137-145) mmol/L BUN (9-20) mg/dL Creatinine (0.66-1.25) mg/dL Glucose (74-99) mg/dL POC Glucose (mg/dL) (75-99) mg/dL Hemoglobin A1c 6.2 H (0.0-6.0) % Triglycerides 175.00 H (0.00-149.00) mg/dL Urine Protein Trace H (Negative) Ur Leukocyte Esterase Large H (Negative) Urine WBC 60 H (0-5) /hpf 05/22/21 05/23/21 05/23/21 Range/Units 20:25 00:13 05:36 RBC (4.30-5.90) m/uL Hgb (13.0-17.5) gm/dL Hct (39.0-53.0) % APTT 66.0 H 52.6 H (22.0-30.0) sec Sodium (137-145) mmol/L BUN (9-20) mg/dL Creatinine (0.66-1.25) mg/dL Glucose (74-99) mg/dL POC Glucose (mg/dL) 126 H (75-99) mg/dL Hemoglobin A1c (0.0-6.0) % Triglycerides (0.00-149.00) mg/dL Urine Protein (Negative) Ur Leukocyte Esterase (Negative) Urine WBC (0-5) /hpf 05/23/21 05/23/21 05/23/21 Range/Units 05:36 05:36 16:38 RBC 3.43 L (4.30-5.90) m/uL Hgb 10.7 L (13.0-17.5) gm/dL Hct 32.6 L (39.0-53.0) % APTT (22.0-30.0) sec Sodium 135 L (137-145) mmol/L BUN 43 H (9-20) mg/dL Creatinine 1.58 H (0.66-1.25) mg/dL Glucose 102 H (74-99) mg/dL POC Glucose (mg/dL) 139 H (75-99) mg/dL Hemoglobin A1c (0.0-6.0) % Triglycerides (0.00-149.00) mg/dL Urine Protein (Negative) Ur Leukocyte Esterase (Negative) Urine WBC (0-5) /hpf Microbiology - Last 24 Hours (Table) 05/22/21 18:15 Urine Culture - Preliminary Urine,Voided 05/22/21 18:15 Nasal Screen MRSA/MSSA - Preliminary Nasopharyngeal Swab Assessment and Plan (1) CAD (coronary artery disease) Current Visit: Yes Status: Acute Code(s): I25.10 - ATHSCL HEART DISEASE OF [place] CORONARY ARTERY W/O ANG PCTRS SNOMED Code(s): 54822759 (2) NSTEMI (non-ST elevated myocardial infarction) Current Visit: Yes Status: Acute Code(s): I21.4 - NON-ST ELEVATION (NSTEMI) MYOCARDIAL INFARCTION SNOMED Code(s): 88974408 Plan: Continue current medical therapy. Increase activity slowly. Possible intervention for left main disease next week
[2021-05-23] MEDS: HEPARIN SOD,PORK IN 0.45% NACL 25,000 UNIT in 0.45% NACL 1 250ML.BAG IV SCH (18:26)
[2021-05-23 20:14] LABS: Glucose,Whole Blood 127 mg/dL (75-99)
[2021-05-23] MEDS: TEMAZEPAM 15 MG CAP PO PRN (20:39)
[2021-05-24 06:05] LABS: Glucose,Whole Blood 115 mg/dL (75-99)
[2021-05-24] MEDS: SODIUM CHLORIDE 0.9% 1,000 ML IV SCH ×2 (06:07→17:35)
[2021-05-24] MEDS: HYDROcodone/APAP 10-325MG 1 EACH TAB PO PRN ×2 (07:30→17:37)
--- NOTE | 2021-05-24 07:45 | P.PN ---
Subjective Progress Note Date: 05/23/21 This is a 80-year-old male who was recently admitted from [facility] after cardiac catheterization which showed triple vessel heart disease and for CT surgery evaluation for possible CABG. CT surgery has initiated the work up and discussion is now being had about possible stenting with DR. Ramirez as he is not a good candidate for CABG. Cardiology following as well and will continue with maximizing medical management. UA culture growing gram negative bacilli as part of the work up. Patient is denying chest pain, shortness of breath, or palpitations. Patient is afebrile. Patient continues on current home medications. Review of systems: Constitutional: No reports of fatigue, fever, or chills Cardiovascular: No reports of chest pain or palpitations Respiratory: No reports of shortness of breath or cough GI: no reports of nausea, vomiting, or diarrhea : No reports of dysuria or retention Neurovascular: No reports of weakness or numbness All medications have been reviewed Active Medications Hydrocodone Bitart/Acetaminophen (Hydrocodone/Apap 10-325mg 1 Each Tab) 1 each PO Q6H PRN PRN Reason: Pain Last Admin: 05/23/21 18:47 Dose: 1 each Documented by: Albuterol Sulfate (Albuterol Nebulized 2.5 Mg/3 Ml) 2.5 mg INHALATION RT-QID [facility] Last Admin: 05/23/21 20:08 Dose: 2.5 mg Documented by: Alprazolam (Alprazolam 0.25 Mg Tab) 0.25 mg PO TID PRN PRN Reason: Anxiety Last Admin: 05/22/21 21:03 Dose: 0.25 mg Documented by: Amlodipine Besylate (Amlodipine 10 Mg Tab) 10 mg PO DAILY [facility] Last Admin: 05/23/21 09:24 Dose: 10 mg Documented by: Aspirin (Aspirin 81 Mg) 81 mg PO DAILY [facility] Last Admin: 05/23/21 09:24 Dose: 81 mg Documented by: Atorvastatin Calcium (Atorvastatin 40 Mg Tab) 40 mg PO DAILY [facility] Last Admin: 05/23/21 09:23 Dose: 40 mg Documented by: Budesonide/Formoterol Fumarate (Symbicort 80-4.5 Mcg Inhaler) 2 puff INHALATION RT-BID [facility] Last Admin: 05/23/21 20:08 Dose: 2 puff Documented by: Carvedilol (Carvedilol 3.125 Mg Tab) 3.125 mg PO BID-W/MEALS [facility] Last Admin: 05/23/21 18:25 Dose: 3.125 mg Documented by: Finasteride (Finasteride 5 Mg Tab) 5 mg PO DAILY [facility] Last Admin: 05/23/21 09:24 Dose: 5 mg Documented by: Furosemide (Furosemide 40 Mg Tab) 40 mg PO TID PRN PRN Reason: Edema Last Admin: 05/22/21 21:03 Dose: 40 mg Documented by: Guaifenesin/Dextromethorphan (Guaifenesin-Dm 600/30mg 1 Each Tab.Er.12h) 1 each PO Q12HR PRN PRN Reason: Congestion Last Admin: 05/22/21 21:03 Dose: 1 each Documented by: Heparin Sodium (Porcine) (Heparin Sodium 1,000 Un/Ml (10ml Vl)) 0 unit IV PER PROTOCOL PRN; Protocol PRN Reason: Low PTT Last Admin: 05/22/21 17:38 Dose: 2,777.5 unit Documented by: Heparin Sodium/Sodium Chloride (25,000 unit/ Sodium Chloride) 250 mls @ 9.99 mls/hr IV .Q24H [facility]; Protocol Last Admin: 05/23/21 18:26 Dose: 10 units/kg/hr, 11.1 mls/hr Documented by: Sodium Chloride (Saline 0.9%) 1,000 mls @ 75 mls/hr IV .[id number] [facility] Last Admin: 05/24/21 06:07 Dose: Not Given Documented by: Ceftriaxone Sodium 2 gm/ (Sodium Chloride) 50 mls @ 100 mls/hr IVPB Q24HR [facility] Ipratropium [place] (Ipratropium 0.5 Mg/2.5 Ml Nebu) 0.5 mg INHALATION RT-QID [facility] Last Admin: 05/23/21 20:08 Dose: 0.5 mg Documented by: Losartan Potassium (Losartan 50 Mg Tab) 50 mg PO DAILY [facility] Last Admin: 05/23/21 09:24 Dose: 50 mg Documented by: Pantoprazole Sodium (Pantoprazole 40 Mg Tablet) 40 mg PO DAILY [facility] Last Admin: 05/23/21 09:24 Dose: 40 mg Documented by: Potassium Chloride (Potassium Chloride Er 10 Meq Tab.Er.Prt) 10 meq PO DAILY [facility] Last Admin: 05/23/21 09:23 Dose: 10 meq Documented by: Prednisone (Prednisone 5 Mg Tab) 5 mg PO DAILY [facility] Last Admin: 05/23/21 09:23 Dose: 5 mg Documented by: Senna (Sennosides 8.6 Mg Tab) 8.6 mg PO BID PRN PRN Reason: Constipation Tamsulosin HCl (Tamsulosin 0.4 Mg Cap.Er.24h) 0.4 mg PO DAILY [facility] Last Admin: 05/23/21 09:24 Dose: 0.4 mg Documented by: Temazepam (Temazepam 15 Mg Cap) 15 mg PO HS PRN PRN Reason: Insomnia Last Admin: 05/23/21 20:39 Dose: 15 mg Documented by: PHYSICAL EXAMINATION: GENERAL: The patient is alert and oriented x4, Well developed, well nourished. HEENT: Pupils are round and equally reacting to light. EOMI. does have scleral icterus. No conjunctival pallor. Normocephalic, atraumatic. No pharyngeal erythema. No thyromegaly. CARDIOVASCULAR: S1 and S2 muffled PULMONARY: diminished breath sounds bilaterally with Few scattered rhonchi noted. ABDOMEN: soft. obese. non-distended, normoactive bowel sounds. No palpable organomegaly. MUSCULOSKELETAL: No joint swelling or deformity. EXTREMITIES: No cyanosis, clubbing, or pedal edema. NEUROLOGICAL: Gross neurological examination did not reveal any focal deficits. SKIN: No rashes. Assessment: triple vessel coronary artery disease, status post cardiac catheterization chronic obstructive pulmonary disease hypertension hyperlipidemia History of degenerative joint disease History of chronic kidney disease GI prophylaxis DVT prophylaxis Plan: Recommend to continue with current medications and management. Cardiology and CT surgery following and being worked up for possible CABG although high risk and not a good candidate for CABG. Cardiology Dr. Ramirez planning for possible stenting early next week. Incidently urine culture growing gram negative bacilli and will await finalization and start rocephin at this time. Home medications have been resumed. Will repeat am labs and continue to monitor closely. Prognosis is guarded. The impression and plan of care has been dictated by Ellen Young, nurse practitioner as directed. MD Edil I have performed a history and examination and MDM of this patient, discussed the same with the dictator, and agree with the dictator's assessment and plan as written ,documented as a scribe. Based on total visit time, I have performed more than 50% of the visit. Any additional findings or plans will be noted. Objective - Vital Signs Vital signs: Vital Signs Temp 98.2 F 05/23/21 12:00 Pulse 70 05/23/21 14:00 Resp 16 05/23/21 12:00 BP 157/70 05/23/21 12:00 Pulse Ox 91 L 05/23/21 12:00 Intake & Output 05/22/21 05/23/21 05/23/21 18:59 06:59 18:59 Intake Total 182.188 3173.79 930 Output Total 275 600 Balance 054.350 0661.79 930 Weight 111.1 kg 111.9 kg Intake: IV 20 1000 Invasive Line 1 20 Sodium Chloride 0.9% 1, 1000 000 ml @ 75 mls/hr IV . [id number] [facility] Rx#:[id number] Intake, IV Titration 0.555 98.79 450 Amount Heparin Sod,Pork in 0.45% 0.555 98.79 NaCl 25,000 unit In 0.45 % NaCl 1 250ml.bag @ 9 UNITS/KG/HR 9.99 mls/hr IV .Q24H [facility] Rx#: [id number] Sodium Chloride 0.9% 1, 450 000 ml @ 75 mls/hr IV . [id number] [facility] Rx#:[id number] Oral 358 600 480 Output: Urine 275 600 Other: Voiding Method Urinal Urinal Urinal # Voids 1,600 - Labs CBC & Chem 7: 05/23/21 05:36 05/23/21 05:36 Labs: Abnormal Lab Results - Last 24 Hours (Table) 05/22/21 05/22/21 05/22/21 Range/Units 15:31 15:31 15:31 RBC (4.30-5.90) m/uL Hgb (13.0-17.5) gm/dL Hct (39.0-53.0) % APTT 37.4 H (22.0-30.0) sec Sodium 136 L (137-145) mmol/L BUN 39 H (9-20) mg/dL Creatinine 1.65 H (0.66-1.25) mg/dL Glucose 118 H (74-99) mg/dL POC Glucose (mg/dL) (75-99) mg/dL Hemoglobin A1c 6.2 H (0.0-6.0) % Alkaline Phosphatase 140 H (38-126) U/L Total Protein 6.0 L (6.3-8.2) g/dL Albumin 3.2 L (3.5-5.0) g/dL Triglycerides 175.00 H (0.00-149.00) mg/dL Urine Protein (Negative) Ur Leukocyte Esterase (Negative) Urine WBC (0-5) /hpf 05/22/21 05/22/21 05/23/21 Range/Units 18:15 20:25 00:13 RBC (4.30-5.90) m/uL Hgb (13.0-17.5) gm/dL Hct (39.0-53.0) % APTT 66.0 H (22.0-30.0) sec Sodium (137-145) mmol/L BUN (9-20) mg/dL Creatinine (0.66-1.25) mg/dL Glucose (74-99) mg/dL POC Glucose (mg/dL) 126 H (75-99) mg/dL Hemoglobin A1c (0.0-6.0) % Alkaline Phosphatase (38-126) U/L Total Protein (6.3-8.2) g/dL Albumin (3.5-5.0) g/dL Triglycerides (0.00-149.00) mg/dL Urine Protein Trace H (Negative) Ur Leukocyte Esterase Large H (Negative) Urine WBC 60 H (0-5) /hpf 05/23/21 05/23/21 05/23/21 Range/Units 05:36 05:36 05:36 RBC 3.43 L (4.30-5.90) m/uL Hgb 10.7 L (13.0-17.5) gm/dL Hct 32.6 L (39.0-53.0) % APTT 52.6 H (22.0-30.0) sec Sodium 135 L (137-145) mmol/L BUN 43 H (9-20) mg/dL Creatinine 1.58 H (0.66-1.25) mg/dL Glucose 102 H (74-99) mg/dL POC Glucose (mg/dL) (75-99) mg/dL Hemoglobin A1c (0.0-6.0) % Alkaline Phosphatase (38-126) U/L Total Protein (6.3-8.2) g/dL Albumin (3.5-5.0) g/dL Triglycerides (0.00-149.00) mg/dL Urine Protein (Negative) Ur Leukocyte Esterase (Negative) Urine WBC (0-5) /hpf Microbiology - Last 24 Hours (Table) 05/22/21 18:15 Urine Culture - Preliminary Urine,Voided 05/22/21 18:15 Nasal Screen MRSA/MSSA - Preliminary Nasopharyngeal Swab
[2021-05-24 08:02] LABS: Basophils # (A) 0.1 k/uL (0-0.2); Basophils % (A) 1 %; Eosinophils # (A) 0.2 k/uL (0-0.7); Eosinophils % (A) 3 %; HCT 33.5 % (39.0-53.0); HGB 10.9 gm/dL (13.0-17.5); Lymphocytes # (A) 2.3 k/uL (1.0-4.8); Lymphocytes % (A) 25 %; MCH 31.3 pg (25.0-35.0); MCHC 32.6 g/dL (31.0-37.0); MCV 96.2 fL (80.0-100.0); Mean Platelet Volume 7.5; Monocytes # (A) 0.5 k/uL (0-1.0); Monocytes % (A) 6 %; Neutrophils # (A) 6.1 k/uL (1.3-7.7); Neutrophils % (A) 65 %; Platelet Count 193 k/uL (150-450); RBC 3.48 m/uL (4.30-5.90); RDW 14.9 % (11.5-15.5); WBC 9.4 k/uL (3.8-10.6)
[2021-05-24 08:10] LABS: Calcium 8.6 mg/dL (8.4-10.2)
[2021-05-24] MEDS: ALBUTEROL NEBULIZED 2.5 MG/3 ML INHALATION SCH ×4 (08:49→20:42)
[2021-05-24] MEDS: IPRATROPIUM 0.5 MG/2.5 ML NEBU INHALATION SCH ×4 (08:49→20:42)
[2021-05-24] MEDS: SYMBICORT 80-4.5 MCG INHALER INHALATION SCH ×2 (08:49→20:42)
[2021-05-24] MEDS: carvediloL 3.125 MG TAB PO SCH ×2 (09:14→17:34)
[2021-05-24] MEDS: PANTOPRAZOLE 40 MG TABLET PO SCH (09:14)
[2021-05-24] MEDS: FINASTERIDE 5 MG TAB PO SCH (09:14)
[2021-05-24] MEDS: LOSARTAN 50 MG TAB PO SCH (09:14)
[2021-05-24] MEDS: ASPIRIN 81 MG PO SCH (09:14)
[2021-05-24] MEDS: TAMSULOSIN 0.4 MG CAP.ER.24H PO SCH (09:14)
[2021-05-24] MEDS: ATORVASTATIN 40 MG TAB PO SCH (09:14)
[2021-05-24] MEDS: amLODIPine 10 MG TAB PO SCH (09:14)
[2021-05-24] MEDS: POTASSIUM CHLORIDE ER 10 MEQ TAB.ER.PRT PO SCH (09:14)
[2021-05-24] MEDS: predniSONE 5 MG TAB PO SCH (09:14)
--- NOTE | 2021-05-24 11:55 | P.PN ---
Subjective Progress Note Date: 05/24/21 HISTORY OF PRESENT ILLNESS This is a 80-year-old gentleman who was transferred from [facility] after cardiac catheterization because of severe coronary artery disease including left main. Patient was transferred here with intention of possible bypass surgery. 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 Dr. Ramirez felt patient could be treated with stent placement of the left main. Dr. Gonzalez is going to evaluate the patient Wednesday and possibly schedule him for intervention on Wednesday. We'll monitor him closely. Patient otherwise doing well. Lungs are clear. Heart is regular. Continue current medical therapy 05/24: Patient denies any new concerns, no chest pain or shortness of breath. PHYSICAL EXAMINATION GENERAL EXAM: Patient is alert and oriented and doesn't appear to be in any acu te distress HEENT: Normocephalic. Normal reaction of pupils, equal size, normal range of extraocular motion. No erythema or exudates in the throat. NECK: No masses, no nuchal rigidity. CHEST: No chest wall deformity. LUNGS: Equal air entry with no crackles or wheeze. HEART: S1 and S2 normal with no audible mumurs or gallops. Regular rhythm, femorals equal on both sides.. ABDOMEN: No hepatosplenomegaly, normal bowel sounds, no guarding or rigidity. SKIN: No rashes CENTRAL NERVOUS SYSTEM: No focal deficits. EXTREMITIES: No cyanosis, clubbing or edema. ASSESSMENT Coronary artery disease Non-ST elevated myocardial infarction Acute kidney injury Chronic kidney disease stage III COPD Diabetes mellitus type 2 Hyperlipidemia Right carotid artery stenosis status post endarterectomy PLAN Continue aspirin, Lipitor, Coreg, losartan Patient will be evaluated by Dr. VANCE Gonzalez on Wednesday with possible PCI on Wednesday Further recommendations to follow based upon clinical course Thank you kindly for this consultation. Nurse practitioner note has been reviewed, I agree with documented findings and plan of care. Patient was seen and examined. Objective - Vital Signs Vital signs: Vital Signs Temp 97.4 F L 05/24/21 08:00 Pulse 72 05/24/21 09:06 Resp 20 05/24/21 08:00 BP 148/64 05/24/21 08:00 Pulse Ox 95 05/24/21 08:00 Intake & Output 05/23/21 05/24/21 05/24/21 18:59 06:59 18:59 Intake Total 1648.655 404.465 Output Total 825 300 Balance 1648.655 -825 104.465 Intake: Intake, IV Titration 1050.655 164.465 Amount Heparin Sod,Pork in 0.45% 150.655 164.465 NaCl 25,000 unit In 0.45 % NaCl 1 250ml.bag @ 9 UNITS/KG/HR 9.99 mls/hr IV .Q24H [facility] Rx#: [id number] Sodium Chloride 0.9% 1, 900 000 ml @ 75 mls/hr IV . [id number] [facility] Rx#:[id number] Oral 598 240 Output: Urine 825 300 Other: Voiding Method Urinal Urinal Urinal - Labs CBC & Chem 7: 05/24/21 07:43 05/24/21 07:43 Labs: Abnormal Lab Results - Last 24 Hours (Table) 05/23/21 05/23/21 05/24/21 Range/Units 16:38 20:09 06:02 RBC (4.30-5.90) m/uL Hgb (13.0-17.5) gm/dL Hct (39.0-53.0) % APTT (22.0-30.0) sec Chloride (98-107) mmol/L Carbon Dioxide (22-30) mmol/L BUN (9-20) mg/dL Creatinine (0.66-1.25) mg/dL Glucose (74-99) mg/dL POC Glucose (mg/dL) 139 H 127 H 115 H (75-99) mg/dL 05/24/21 05/24/21 05/24/21 Range/Units 07:43 07:43 07:43 RBC 3.48 L (4.30-5.90) m/uL Hgb 10.9 L (13.0-17.5) gm/dL Hct 33.5 L (39.0-53.0) % APTT 39.2 H (22.0-30.0) sec Chloride 109 H (98-107) mmol/L Carbon Dioxide 20 L (22-30) mmol/L BUN 41 H (9-20) mg/dL Creatinine 1.35 H (0.66-1.25) mg/dL Glucose 147 H (74-99) mg/dL POC Glucose (mg/dL) (75-99) mg/dL Microbiology - Last 24 Hours (Table) 05/22/21 18:15 Nasal Screen MRSA/MSSA - Final Nasopharyngeal Swab 05/22/21 18:15 Urine Culture - Preliminary Urine,Voided Gram Neg Bacilli
[2021-05-24 12:17] LABS: Glucose,Whole Blood 140 mg/dL (75-99)
[2021-05-24] MEDS: HEPARIN SOD,PORK IN 0.45% NACL 25,000 UNIT in 0.45% NACL 1 250ML.BAG IV SCH (12:50)
--- NOTE | 2021-05-24 16:32 | P.PN ---
Subjective Progress Note Date: 05/24/21 Principal diagnosis: Coronary disease. This is a 80-year-old white male patient with past medical history of COPD not normally oxygen dependent, stage III chronic kidney disease, diabetes mellitus with diabetic neuropathy, hypertension, hyperlipidemia, carotid artery stenosis, extensive history of smoking, quit 6 months ago but prior to quitting he smoked for 67 years 1 pack a day. Patient was admitted to the [facility] for evaluation of exertional shortness of breath. He was diagnosed with non-ST elevated myocardial infarction, he had a heart catheterization by Dr. Ramirez and was found to have multivessel coronary artery disease with 95% left main stenosis, 90% stenosis of the LAD, 100% stenosis of the left circumflex, and no significant stenosis involving the RCA. Cardiology has recommended transfer to the [facility] and evaluation by the cardiothoracic surgery for possibility of coronary artery bypass grafting. Patient is resting comfortably in bed, room air pulse ox is 96%, he is afebrile, hemodynamically he is stable, patient follows with Dr. Elis Gonzalez for his pulmonary needs, he states he hasn't had a PFT done in over 5 years. He quit smoking 6 months ago, he is maintenance inhalers include Trelegy, Albuterol, and patient states he is on maintenance dose prednisone 5 mg daily. He is currently on heparin infusion per weight-based protocol, he continues on his home dose prednisone 5 mg daily, he is on Symbicort, Ventolin, she is on oral Lasix 40 mg 3 times daily, is on Coreg, losartan. He is currently awaiting CT surgery evaluation Progress note dated 05/23/2021. The patient was transferred from [facility], after having a catheterization, which revealed significant coronary disease. Initially, the patient did not want to be considered for bypass grafting. Subsequent to that, he changed his mind, he was evaluated by cardiothoracic surgery, without the patient was not a good candidate for revascularization. The patient has a history of heavy tobacco use, smoking at least a pack a day for 67 years. Currently, the patient's on room air. He is on IV heparin, the patient's getting saline at 75 mL an hour. White count 9.8, hemoglobin 10.7, hematocrit 32.6, platelet count 201,000. PTT is 15.6. Sodium 135, potassium 4.2, chlorides 104, CO2 25, anion gap 6, BUN 43, and creatinine 1.58. Chest CT showed severe atherosclerotic disease of the aorta and its branches. 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 Emphysematous changes are also noted. Progress note dated 05/24/2021. The patient was initially transferred from [facility] with suspected coronary disease, following catheterization, and the potential for bypass grafting. The patient was seen by cardiothoracic surgery, and it was decided that he was too high risk. The patient is a heavy tobacco user, having smoked for 67 years. His lung function was borderline. The patient instead will have stent placements performed on Wednesday of next week. He is currently resting comfortably. The patient is on some basic IV, as well as IV heparin. He is not requiring any supplemental oxygen. Currently laboratory data includes a white count 9.4, hemoglobin 10.9, hematocrit 33.5, and platelet count of 193,000. PTT is 39.2. Sodium 138, potassium 4.0, chlorides 109, CO2 20, anion gap 9, BUN 41, and creatinine 1.35. Objective - Vital Signs Vital signs: Vital Signs Temp 97.4 F L 05/24/21 08:00 Pulse 73 05/24/21 16:06 Resp 20 05/24/21 14:00 BP 138/61 05/24/21 12:00 Pulse Ox 96 05/24/21 12:00 Intake & Output 05/23/21 05/24/21 05/24/21 18:59 06:59 18:59 Intake Total 1648.655 452.195 Output Total 825 700 Balance 1648.655 -825 -247.805 Intake: Intake, IV Titration 1050.655 212.195 Amount Heparin Sod,Pork in 0.45% 150.655 212.195 NaCl 25,000 unit In 0.45 % NaCl 1 250ml.bag @ 9 UNITS/KG/HR 9.99 mls/hr IV .Q24H [facility] Rx#: [id number] Sodium Chloride 0.9% 1, 900 000 ml @ 75 mls/hr IV . [id number] [facility] Rx#:[id number] Oral 598 240 Output: Urine 825 700 Other: Voiding Method Urinal Urinal Urinal - Exam No acute distress, oriented 3. Currently on room air. No respiratory difficulty or distress. HEENT examination is grossly unremarkable. Neck supple. Full range of motion. No adenopathy thyromegaly or neck vein distention. Cardiovascular examination reveals regular rhythm rate. S1-S2 normal. No S3 or S4. No discernible murmur noted. Heart rate 73 bpm. Lungs reveal scattered mild rhonchi. No wheezes or crackles. Breath sounds equal bilaterally but diminished throughout. Room air saturation 96%. Abdomen is soft and nontender. Bowel sounds are noted. Extremities are intact. No cyanosis clubbing or edema. Skin is without rash or lesion. Neurologic examination is brief but nonfocal. - Labs CBC & Chem 7: 05/24/21 07:43 05/24/21 07:43 Labs: Abnormal Lab Results - Last 24 Hours (Table) 05/23/21 05/23/21 05/24/21 Range/Units 16:38 20:09 06:02 RBC (4.30-5.90) m/uL Hgb (13.0-17.5) gm/dL Hct (39.0-53.0) % APTT (22.0-30.0) sec Chloride (98-107) mmol/L Carbon Dioxide (22-30) mmol/L BUN (9-20) mg/dL Creatinine (0.66-1.25) mg/dL Glucose (74-99) mg/dL POC Glucose (mg/dL) 139 H 127 H 115 H (75-99) mg/dL 05/24/21 05/24/21 05/24/21 Range/Units 07:43 07:43 07:43 RBC 3.48 L (4.30-5.90) m/uL Hgb 10.9 L (13.0-17.5) gm/dL Hct 33.5 L (39.0-53.0) % APTT 39.2 H (22.0-30.0) sec Chloride 109 H (98-107) mmol/L Carbon Dioxide 20 L (22-30) mmol/L BUN 41 H (9-20) mg/dL Creatinine 1.35 H (0.66-1.25) mg/dL Glucose 147 H (74-99) mg/dL POC Glucose (mg/dL) (75-99) mg/dL 05/24/21 Range/Units 12:01 RBC (4.30-5.90) m/uL Hgb (13.0-17.5) gm/dL Hct (39.0-53.0) % APTT (22.0-30.0) sec Chloride (98-107) mmol/L Carbon Dioxide (22-30) mmol/L BUN (9-20) mg/dL Creatinine (0.66-1.25) mg/dL Glucose (74-99) mg/dL POC Glucose (mg/dL) 140 H (75-99) mg/dL Microbiology - Last 24 Hours (Table) 05/22/21 18:15 Nasal Screen MRSA/MSSA - Final Nasopharyngeal Swab 05/22/21 18:15 Urine Culture - Preliminary Urine,Voided Gram Neg Bacilli Assessment and Plan Assessment: Symptomatic coronary disease, involving the left main coronary artery, left anterior descending coronary artery, and circumflex artery. Acute non-ST segment elevation myocardial infarction. Acute exacerbation of chronic CHF. Poorly controlled hypertension. Acute kidney injury. History of stage III chronic kidney disease. History of COPD, from heavy tobacco use, for more than 65 years. Type 2 diabetes mellitus. Hyperlipidemia. History of venous insufficiency. History of right carotid artery stenosis, status post carotid endarterectomy. Plan: Plan dated 05/23/2021. The patient was evaluated by cardiothoracic surgery. The patient is not thought to be a candidate for cardiothoracic revascularization at this time. The patient is going to be considered for stent placement. The patient also had significantly impaired pulmonary function, for many years of tobacco use. Additional recommendations and suggestions are forthcoming. We will like to see the patient in the office after he is discharged, for formal pulmonary function testing. Prognosis is guarded. The patient is counseled about the importance of smoking cessation. Plan dated 05/24/2021. The patient was evaluated by cardiothoracic surgery was thought not to be a good candidate for revascularization. Instead, the patient is going to have stent placements performed on Wednesday of next week. The patient's currently on room air. The patient is getting saline, and IV heparin. His respiratory status is currently stable. Additional recommendations and suggestions are forthcoming. Prognosis is guarded. He is counseled about the importance of smoking cessation . Time with Patient: Less than 30
[2021-05-24 16:43] LABS: Glucose,Whole Blood 103 mg/dL (75-99)
[2021-05-24 20:02] LABS: Glucose,Whole Blood 132 mg/dL (75-99)
--- NOTE | 2021-05-24 22:18 | P.PN ---
Subjective This is a 80-year-old male who was recently admitted from [facility] after cardiac catheterization which showed triple vessel heart disease and for CT surgery evaluation for possible CABG. CT surgery has initiated the work up and discussion is now being had about possible stenting with DR. Ramirez as he is not a good candidate for CABG. Cardiology following as well and will continue with maximizing medical management. UA culture growing gram negative bacilli as part of the work up. Patient is denying chest pain, shortness of breath, or palpitations. Patient is afebrile. Patient continues on current home medications. Subjective: 05/24/2021 Patient is a pleasant 8 years old male with multiple medical problems presents w ith signs and symptoms of coronary artery disease and non-ST elevation myocardial infarction. He has severe coronary artery disease evaluated by copy clerk and cardiovascular services he is not a surgical candidate and instead planned for Wednesday placement of stent. Currently he is covered with heparin drip. Also patient is on normal saline 75 mL/h for suspected acute kidney injury however his creatinine close to his baseline. UTI is suspected secondary to E. coli which is sensitive at currently on Rocephin. CT of the chest without contrast showing severe aortic atherosclerosis and the branches. With fusiform dilatation of the celiac axis. Carotid Dopplers showing less than 50% stenosis on the right side and 50-69% STENOSIS of the left ICA. Objective - Vital Signs Vital signs: Vital Signs Temp 97.4 F L 05/24/21 08:00 Pulse 72 05/24/21 09:06 Resp 20 05/24/21 08:00 BP 148/64 05/24/21 08:00 Pulse Ox 95 05/24/21 08:00 Intake & Output 05/23/21 05/24/21 05/24/21 18:59 06:59 18:59 Intake Total 1648.655 404.465 Output Total 825 300 Balance 1648.655 -825 104.465 Intake: Intake, IV Titration 1050.655 164.465 Amount Heparin Sod,Pork in 0.45% 150.655 164.465 NaCl 25,000 unit In 0.45 % NaCl 1 250ml.bag @ 9 UNITS/KG/HR 9.99 mls/hr IV .Q24H [facility] Rx#: [id number] Sodium Chloride 0.9% 1, 900 000 ml @ 75 mls/hr IV . [id number] [facility] Rx#:[id number] Oral 598 240 Output: Urine 825 300 Other: Voiding Method Urinal Urinal Urinal - Exam -GENERAL: The patient is alert and oriented x3, not in any acute distress. Generally weak HEENT: Pupils are round and equally reacting to light. EOMI. No scleral icterus. No conjunctival pallor. Normocephalic, atraumatic. No pharyngeal erythema. No thyromegaly. CARDIOVASCULAR: S1 and S2 present. No murmurs, rubs, or gallops. PULMONARY: Chest is clear to auscultation, no wheezing or crackles. ABDOMEN: Soft, nontender, nondistended, normoactive bowel sounds. No palpable organomegaly. MUSCULOSKELETAL: No joint swelling or deformity. EXTREMITIES: No cyanosis, clubbing, or pedal edema. NEUROLOGICAL: Gross neurological examination did not reveal any focal deficits. SKIN: No rashes. no petechiae. - Labs CBC & Chem 7: 05/24/21 07:43 05/24/21 07:43 Labs: Abnormal Lab Results - Last 24 Hours (Table) 05/23/21 05/23/21 05/24/21 Range/Units 16:38 20:09 06:02 RBC (4.30-5.90) m/uL Hgb (13.0-17.5) gm/dL Hct (39.0-53.0) % APTT (22.0-30.0) sec Chloride (98-107) mmol/L Carbon Dioxide (22-30) mmol/L BUN (9-20) mg/dL Creatinine (0.66-1.25) mg/dL Glucose (74-99) mg/dL POC Glucose (mg/dL) 139 H 127 H 115 H (75-99) mg/dL 05/24/21 05/24/21 05/24/21 Range/Units 07:43 07:43 07:43 RBC 3.48 L (4.30-5.90) m/uL Hgb 10.9 L (13.0-17.5) gm/dL Hct 33.5 L (39.0-53.0) % APTT 39.2 H (22.0-30.0) sec Chloride 109 H (98-107) mmol/L Carbon Dioxide 20 L (22-30) mmol/L BUN 41 H (9-20) mg/dL Creatinine 1.35 H (0.66-1.25) mg/dL Glucose 147 H (74-99) mg/dL POC Glucose (mg/dL) (75-99) mg/dL 05/24/21 Range/Units 12:01 RBC (4.30-5.90) m/uL Hgb (13.0-17.5) gm/dL Hct (39.0-53.0) % APTT (22.0-30.0) sec Chloride (98-107) mmol/L Carbon Dioxide (22-30) mmol/L BUN (9-20) mg/dL Creatinine (0.66-1.25) mg/dL Glucose (74-99) mg/dL POC Glucose (mg/dL) 140 H (75-99) mg/dL Microbiology - Last 24 Hours (Table) 05/22/21 18:15 Nasal Screen MRSA/MSSA - Final Nasopharyngeal Swab 05/22/21 18:15 Urine Culture - Preliminary Urine,Voided Gram Neg Bacilli Assessment and Plan Assessment: triple vessel coronary artery disease, status post cardiac catheterization Possible sensitive E. coli urinary tract infection Bilateral internal carotid artery stenosis, less than 50% on the right side and 50-69% on the left ICA Chronic kidney disease, stage III chronic obstructive pulmonary disease, no exacerbation hypertension hyperlipidemia History of degenerative joint disease GI prophylaxis DVT prophylaxis Plan: This is a pleasant 80 years old male who presents with non-STEMI Cardiology, cardiothoracic surgery and pulmonary services on the case Plan for PCI next week of the coronary arteries as he is not a surgical candidate Continue with heparin drip Continue with ceftriaxone and gentle hydration. Labs and medication were reviewed.. Continue same treatment. Continue with symptomatic treatment. Resume home medication. Monitor lytes and vitals. DVT and GI prophylaxis. Further recommendations as per clinical course of the patient DVT prophylaxis: heparin GI Prophylaxis: Ppi PT/OT: Pending Prognosis is guarded
[2021-05-24] MEDS: TEMAZEPAM 15 MG CAP PO PRN (22:47)
[2021-05-25] MEDS: HYDROcodone/APAP 10-325MG 1 EACH TAB PO PRN ×3 (01:05→17:16)
[2021-05-25] MEDS: guaiFENesin-DM 600/30MG 1 EACH TAB.ER.12H PO PRN ×2 (03:17→17:16)
[2021-05-25 06:11] LABS: Glucose,Whole Blood 98 mg/dL (75-99)
[2021-05-25] MEDS: SODIUM CHLORIDE 0.9% 1,000 ML IV SCH ×3 (06:52→21:16)
[2021-05-25] MEDS: carvediloL 3.125 MG TAB PO SCH ×2 (07:10→17:16)
[2021-05-25] MEDS: IPRATROPIUM 0.5 MG/2.5 ML NEBU INHALATION SCH ×4 (08:41→20:30)
[2021-05-25] MEDS: SYMBICORT 80-4.5 MCG INHALER INHALATION SCH ×2 (08:41→20:29)
[2021-05-25] MEDS: ALBUTEROL NEBULIZED 2.5 MG/3 ML INHALATION SCH ×4 (08:41→20:29)
[2021-05-25] MEDS: TAMSULOSIN 0.4 MG CAP.ER.24H PO SCH (08:54)
[2021-05-25] MEDS: amLODIPine 10 MG TAB PO SCH (08:54)
[2021-05-25] MEDS: predniSONE 5 MG TAB PO SCH (08:54)
[2021-05-25] MEDS: ASPIRIN 81 MG PO SCH (08:54)
[2021-05-25] MEDS: POTASSIUM CHLORIDE ER 10 MEQ TAB.ER.PRT PO SCH (08:54)
[2021-05-25] MEDS: ATORVASTATIN 40 MG TAB PO SCH (08:54)
[2021-05-25] MEDS: FINASTERIDE 5 MG TAB PO SCH (08:54)
[2021-05-25] MEDS: LOSARTAN 50 MG TAB PO SCH (08:54)
[2021-05-25] MEDS: PANTOPRAZOLE 40 MG TABLET PO SCH (08:55)
[2021-05-25 09:16] LABS: Basophils % (A) 0 %; Eosinophils # (A) 0.4 k/uL (0-0.7); Eosinophils % (A) 4 %; HCT 31.9 % (39.0-53.0); HGB 10.2 gm/dL (13.0-17.5); Hypochromasia Slight; Lymphocytes % (A) 24 %; MCH 31.1 pg (25.0-35.0); MCHC 31.9 g/dL (31.0-37.0); MCV 97.5 fL (80.0-100.0); Mean Platelet Volume 7.4; Monocytes # (A) 0.4 k/uL (0-1.0); Monocytes % (A) 5 %; Neutrophils # (A) 5.4 k/uL (1.3-7.7); Neutrophils % (A) 65 %; Platelet Count 178 k/uL (150-450); RBC 3.27 m/uL (4.30-5.90); RDW 15.1 % (11.5-15.5); WBC 8.4 k/uL (3.8-10.6)
[2021-05-25 09:27] LABS: Calcium 8.3 mg/dL (8.4-10.2); Potassium 3.8 mmol/L (3.5-5.1)
--- NOTE | 2021-05-25 11:31 | P.PN ---
Subjective This is a 80-year-old male who was recently admitted from [facility] after cardiac catheterization which showed triple vessel heart disease and for CT surgery evaluation for possible CABG. CT surgery has initiated the work up and discussion is now being had about possible stenting with DR. Ramirez as he is not a good candidate for CABG. Cardiology following as well and will continue with maximizing medical management. UA culture growing gram negative bacilli as part of the work up. Patient is denying chest pain, shortness of breath, or palpitations. Patient is afebrile. Patient continues on current home medications. Subjective: 05/24/2021 Patient is a pleasant 8 years old male with multiple medical problems presents w ith signs and symptoms of coronary artery disease and non-ST elevation myocardial infarction. He has severe coronary artery disease evaluated by cutting machine tender and cardiovascular services he is not a surgical candidate and instead planned for Wednesday placement of stent. Currently he is covered with heparin drip. Also patient is on normal saline 75 mL/h for suspected acute kidney injury however his creatinine close to his baseline. UTI is suspected secondary to E. coli which is sensitive at currently on Rocephin. CT of the chest without contrast showing severe aortic atherosclerosis and the branches. With fusiform dilatation of the celiac axis. Carotid Dopplers showing less than 50% stenosis on the right side and 50-69% STENOSIS of the left ICA. 05/25/2021 patient lying in bed comfortable, denies chest pain or dyspnea. No specific urinary symptoms over the last 2 days and he is on room air. Patient aware he is going for cardiac stent on this coming Wednesday and he is agreeable. CBC and BMP are reviewed and looks slightly improving, hemoglobin 10.2, creatinine 1.2 Patient remains on heparin drip, normal saline 75 mL/h and ceftriaxone for E. coli UTI. Objective - Vital Signs Vital signs: Vital Signs Temp 98.1 F 05/25/21 03:05 Pulse 78 05/25/21 03:05 Resp 18 05/25/21 03:05 BP 174/67 05/25/21 03:05 Pulse Ox 94 L 05/25/21 03:05 Intake & Output 05/24/21 05/25/21 05/25/21 18:59 06:59 18:59 Intake Total 452.195 Output Total 700 975 Balance -247.805 -975 Weight 76.1 kg Intake: Intake, IV Titration 212.195 Amount Heparin Sod,Pork in 0.45% 212.195 NaCl 25,000 unit In 0.45 % NaCl 1 250ml.bag @ 9 UNITS/KG/HR 9.99 mls/hr IV .Q24H [facility] Rx#: [id number] Oral 240 Output: Urine 700 975 Other: Voiding Method Urinal Urinal - Exam -GENERAL: The patient is alert and oriented x3, not in any acute distress. Generally weak HEENT: Pupils are round and equally reacting to light. EOMI. No scleral icterus. No conjunctival pallor. Normocephalic, atraumatic. No pharyngeal erythema. No thyromegaly. CARDIOVASCULAR: S1 and S2 present. No murmurs, rubs, or gallops. PULMONARY: Chest is clear to auscultation, no wheezing or crackles. ABDOMEN: Soft, nontender, nondistended, normoactive bowel sounds. No palpable organomegaly. MUSCULOSKELETAL: No joint swelling or deformity. EXTREMITIES: No cyanosis, clubbing, or pedal edema. NEUROLOGICAL: Gross neurological examination did not reveal any focal deficits. SKIN: No rashes. no petechiae. - Labs CBC & Chem 7: 05/25/21 08:30 05/25/21 08:30 Labs: Abnormal Lab Results - Last 24 Hours (Table) 05/24/21 05/24/21 05/24/21 Range/Units 12:01 15:59 16:38 RBC (4.30-5.90) m/uL Hgb (13.0-17.5) gm/dL Hct (39.0-53.0) % APTT 44.7 H (22.0-30.0) sec Chloride (98-107) mmol/L Carbon Dioxide (22-30) mmol/L BUN (9-20) mg/dL Glucose (74-99) mg/dL POC Glucose (mg/dL) 140 H 103 H (75-99) mg/dL Calcium (8.4-10.2) mg/dL 05/24/21 05/25/21 05/25/21 Range/Units 20:00 08:30 08:30 RBC 3.27 L (4.30-5.90) m/uL Hgb 10.2 L (13.0-17.5) gm/dL Hct 31.9 L (39.0-53.0) % APTT 53.4 H (22.0-30.0) sec Chloride (98-107) mmol/L Carbon Dioxide (22-30) mmol/L BUN (9-20) mg/dL Glucose (74-99) mg/dL POC Glucose (mg/dL) 132 H (75-99) mg/dL Calcium (8.4-10.2) mg/dL 05/25/21 Range/Units 08:30 RBC (4.30-5.90) m/uL Hgb (13.0-17.5) gm/dL Hct (39.0-53.0) % APTT (22.0-30.0) sec Chloride 114 H (98-107) mmol/L Carbon Dioxide 20 L (22-30) mmol/L BUN 33 H (9-20) mg/dL Glucose 137 H (74-99) mg/dL POC Glucose (mg/dL) (75-99) mg/dL Calcium 8.3 L (8.4-10.2) mg/dL Microbiology - Last 24 Hours (Table) 05/22/21 18:15 Urine Culture - Final Urine,Voided Escherichia coli 05/22/21 18:15 Nasal Screen MRSA/MSSA - Final Nasopharyngeal Swab Assessment and Plan Assessment: triple vessel coronary artery disease, status post cardiac catheterization Possible sensitive E. coli urinary tract infection Bilateral internal carotid artery stenosis, less than 50% on the right side and 50-69% on the left ICA Chronic kidney disease, stage III chronic obstructive pulmonary disease, no exacerbation hypertension hyperlipidemia History of degenerative joint disease GI prophylaxis DVT prophylaxis Plan: This is a pleasant 80 years old male who presents with non-STEMI Cardiology, cardiothoracic surgery and pulmonary services on the case Plan for PCI next week of the coronary arteries as he is not a surgical candidate Continue with heparin drip Continue with ceftriaxone and gentle hydration. Labs and medication were reviewed.. Continue same treatment. Continue with symptomatic treatment. Resume home medication. Monitor lytes and vitals. DVT and GI prophylaxis. Further recommendations as per clinical course of the patient DVT prophylaxis: heparin GI Prophylaxis: Ppi PT/OT: Pending Prognosis is guarded
--- NOTE | 2021-05-25 11:55 | P.PN ---
Subjective Progress Note Date: 05/25/21 HISTORY OF PRESENT ILLNESS This is a 80-year-old gentleman who was transferred from [facility] after cardiac catheterization because of severe coronary artery disease including left main. Patient was transferred here with intention of possible bypass surgery. 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 Dr. Ramirez felt patient could be treated with stent placement of the left main. Dr. Gonzalez is going to evaluate the patient Wednesday and possibly schedule him for intervention on Wednesday. We'll monitor him closely. Patient otherwise doing well. Lungs are clear. Heart is regular. Continue current medical therapy 05/24: Patient denies any new concerns, no chest pain or shortness of breath. 05/25: She denies having any chest pain or shortness of breath, he is comfortable at rest. cafeteria monitor is sinus rhythm. Heart rate running in the 70s, blood pressure 116/55, pulse ox 97% on room air. PHYSICAL EXAMINATION GENERAL EXAM: Patient is alert and oriented and doesn't appear to be in any acute distress HEENT: Normocephalic. Normal reaction of pupils, equal size, normal range of extraocular motion. No erythema or exudates in the throat. NECK: No masses, no nuchal rigidity. CHEST: No chest wall deformity. LUNGS: Equal air entry with no crackles or wheeze. HEART: S1 and S2 normal with no audible mumurs or gallops. Regular rhythm, femorals equal on both sides.. ABDOMEN: No hepatosplenomegaly, normal bowel sounds, no guarding or rigidity. SKIN: No rashes CENTRAL NERVOUS SYSTEM: No focal deficits. EXTREMITIES: No cyanosis, clubbing or edema. ASSESSMENT Coronary artery disease Non-ST elevated myocardial infarction Acute kidney injury Chronic kidney disease stage III COPD Diabetes mellitus type 2 Hyperlipidemia Right carotid artery stenosis status post endarterectomy PLAN Continue aspirin, Lipitor, Coreg, losartan Patient will be evaluated by Dr. VANCE Gonzalez on Wednesday with possible PCI on Wednesday Further recommendations to follow based upon clinical course Thank you kindly for this consultation. Nurse practitioner note has been reviewed, I agree with documented findings and plan of care. Patient was seen and examined. Objective - Vital Signs Vital signs: Vital Signs Temp 98.1 F 05/25/21 03:05 Pulse 78 02/20/22 03:05 Resp 18 05/25/21 03:05 BP 174/67 05/25/21 03:05 Pulse Ox 94 L 05/25/21 03:05 Intake & Output 05/24/21 05/25/21 05/25/21 18:59 06:59 18:59 Intake Total 452.195 Output Total 700 975 Balance -247.805 -975 Weight 76.1 kg Intake: Intake, IV Titration 212.195 Amount Heparin Sod,Pork in 0.45% 212.195 NaCl 25,000 unit In 0.45 % NaCl 1 250ml.bag @ 9 UNITS/KG/HR 9.99 mls/hr IV .Q24H [facility] Rx#: [id number] Oral 240 Output: Urine 700 975 Other: Voiding Method Urinal Urinal - Labs CBC & Chem 7: 05/25/21 08:30 05/25/21 08:30 Labs: Abnormal Lab Results - Last 24 Hours (Table) 05/24/21 05/24/21 05/24/21 Range/Units 12:01 15:59 16:38 APTT 44.7 H (22.0-30.0) sec POC Glucose (mg/dL) 140 H 103 H (75-99) mg/dL 05/24/21 Range/Units 20:00 APTT (22.0-30.0) sec POC Glucose (mg/dL) 132 H (75-99) mg/dL Microbiology - Last 24 Hours (Table) 05/22/21 18:15 Urine Culture - Final Urine,Voided Escherichia coli 05/22/21 18:15 Nasal Screen MRSA/MSSA - Final Nasopharyngeal Swab
--- NOTE | 2021-05-25 16:02 | P.PN ---
Subjective Progress Note Date: 05/25/21 Principal diagnosis: Coronary disease. This is a 80-year-old white male patient with past medical history of COPD not normally oxygen dependent, stage III chronic kidney disease, diabetes mellitus with diabetic neuropathy, hypertension, hyperlipidemia, carotid artery stenosis, extensive history of smoking, quit 6 months ago but prior to quitting he smoked for 67 years 1 pack a day. Patient was admitted to the [facility] for evaluation of exertional shortness of breath. He was diagnosed with non-ST elevated myocardial infarction, he had a heart catheterization by Dr. Ramirez and was found to have multivessel coronary artery disease with 95% left main stenosis, 90% stenosis of the LAD, 100% stenosis of the left circumflex, and no significant stenosis involving the RCA. Cardiology has recommended transfer to the [facility] and evaluation by the cardiothoracic surgery for possibility of coronary artery bypass grafting. Patient is resting comfortably in bed, room air pulse ox is 96%, he is afebrile, hemodynamically he is stable, patient follows with Dr. Elis Gonzalez for his pulmonary needs, he states he hasn't had a PFT done in over 5 years. He quit smoking 6 months ago, he is maintenance inhalers include Trelegy, Albuterol, and patient states he is on maintenance dose prednisone 5 mg daily. He is currently on heparin infusion per weight-based protocol, he continues on his home dose prednisone 5 mg daily, he is on Symbicort, Ventolin, she is on oral Lasix 40 mg 3 times daily, is on Coreg, losartan. He is currently awaiting CT surgery evaluation Progress note dated 05/23/2021. The patient was transferred from [facility], after having a catheterization, which revealed significant coronary disease. Initially, the patient did not want to be considered for bypass grafting. Subsequent to that, he changed his mind, he was evaluated by cardiothoracic surgery, without the patient was not a good candidate for revascularization. The patient has a history of heavy tobacco use, smoking at least a pack a day for 67 years. Currently, the patient's on room air. He is on IV heparin, the patient's getting saline at 75 mL an hour. White count 9.8, hemoglobin 10.7, hematocrit 32.6, platelet count 201,000. PTT is 15.6. Sodium 135, potassium 4.2, chlorides 104, CO2 25, anion gap 6, BUN 43, and creatinine 1.58. Chest CT showed severe atherosclerotic disease of the aorta and its branches. 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 Emphysematous changes are also noted. Progress note dated 05/24/2021. The patient was initially transferred from [facility] with suspected coronary disease, following catheterization, and the potential for bypass grafting. The patient was seen by cardiothoracic surgery, and it was decided that he was too high risk. The patient is a heavy tobacco user, having smoked for 67 years. His lung function was borderline. The patient instead will have stent placements performed on Wednesday of next week. He is currently resting comfortably. The patient is on some basic IV, as well as IV heparin. He is not requiring any supplemental oxygen. Currently laboratory data includes a white count 9.4, hemoglobin 10.9, hematocrit 33.5, and platelet count of 193,000. PTT is 39.2. Sodium 138, potassium 4.0, chlorides 109, CO2 20, anion gap 9, BUN 41, and creatinine 1.35. Progress note dated 05/25/2021. 80-year-old male, seen in room 381. The patient was discovered on cardiac catheterization have significant coronary disease. The patient was evaluated by cardiothoracic surgery, and was thought not to be a good candidate for revascularization. The patient apparently has a history of heavy tobacco use, for more than 65 years. His lung function were borderline. The patient apparently is going to have stenting performed sometime this week, maybe on Wednesday. Clinically stable. He's on room air. He is receiving IV heparin. Labs today include a white count of 8.4, hemoglobin 10.2, hematocrit 31.9, platelet count 178,000. PTT is 53.4. Sodium 141, potassium 3.8, chlorides 114, CO2 20, anion gap 7, BUN 33, creatinine 1.22. Calcium 8.3. Objective - Vital Signs Vital signs: Vital Signs Temp 98.0 F 05/25/21 08:00 Pulse 110 H 05/25/21 14:00 Resp 18 05/25/21 14:00 BP 131/63 05/25/21 12:00 Pulse Ox 94 L 05/25/21 12:00 Intake & Output 05/24/21 05/25/2122 18:59 06:59 18:59 Intake Total 452.195 350 Output Total 700 975 Balance -247.805 -975 350 Weight 76.1 kg Intake: Intake, IV Titration 212.195 350 Amount Heparin Sod,Pork in 0.45% 212.195 NaCl 25,000 unit In 0.45 % NaCl 1 250ml.bag @ 9 UNITS/KG/HR 9.99 mls/hr IV .Q24H [facility] Rx#: [id number] Sodium Chloride 0.9% 1, 300 000 ml @ 75 mls/hr IV . [id number] [facility] Rx#:[id number] cefTRIAXone 2 gm In 50 Sodium Chloride 0.9% 50 ml @ 100 mls/hr IVPB Q24HR [facility] Rx#:[id number] Oral 240 Output: Urine 700 975 Other: Voiding Method Urinal Urinal Urinal - Exam No acute distress, oriented 3. Currently on room air. No respiratory difficulty or distress. HEENT examination is grossly unremarkable. Neck supple. Full range of motion. No adenopathy thyromegaly or neck vein distention. Cardiovascular examination reveals regular rhythm rate. S1-S2 normal. No S3 or S4. No discernible murmur noted. Heart rate 88 bpm. Lungs reveal scattered mild rhonchi. No wheezes or crackles. Breath sounds equal bilaterally but diminished throughout. Room air saturation 94%. Abdomen is soft and nontender. Bowel sounds are noted. Extremities are intact. No cyanosis clubbing or edema. Skin is without rash or lesion. Neurologic examination is brief but nonfocal. - Labs CBC & Chem 7: 05/25/21 08:30 05/25/21 08:30 Labs: Abnormal Lab Results - Last 24 Hours (Table) 05/24/21 05/24/21 05/24/21 Range/Units 15:59 16:38 20:00 RBC (4.30-5.90) m/uL Hgb (13.0-17.5) gm/dL Hct (39.0-53.0) % APTT 44.7 H (22.0-30.0) sec Chloride (98-107) mmol/L Carbon Dioxide (22-30) mmol/L BUN (9-20) mg/dL Glucose (74-99) mg/dL POC Glucose (mg/dL) 103 H 132 H (75-99) mg/dL Calcium (8.4-10.2) mg/dL 05/25/21 05/25/21 05/25/21 Range/Units 08:30 08:30 08:30 RBC 3.27 L (4.30-5.90) m/uL Hgb 10.2 L (13.0-17.5) gm/dL Hct 31.9 L (39.0-53.0) % APTT 53.4 H (22.0-30.0) sec Chloride 114 H (98-107) mmol/L Carbon Dioxide 20 L (22-30) mmol/L BUN 33 H (9-20) mg/dL Glucose 137 H (74-99) mg/dL POC Glucose (mg/dL) (75-99) mg/dL Calcium 8.3 L (8.4-10.2) mg/dL Microbiology - Last 24 Hours (Table) 05/22/21 18:15 Urine Culture - Final Urine,Voided Escherichia coli 05/22/21 18:15 Nasal Screen MRSA/MSSA - Final Nasopharyngeal Swab Assessment and Plan Assessment: Symptomatic coronary disease, involving the left main coronary artery, left anterior descending coronary artery, and circumflex coronary artery. Acute non-ST segment elevation myocardial infarction. Acute exacerbation of chronic CHF. Poorly controlled hypertension. Acute kidney injury. History of stage III chronic kidney disease. History of COPD, from heavy tobacco use, for more than 65 years. Type 2 diabetes mellitus. Hyperlipidemia. History of venous insufficiency. History of right carotid artery stenosis, status post carotid endarterectomy. Plan: Plan dated 05/23/2021. The patient was evaluated by cardiothoracic surgery. The patient is not thought to be a candidate for cardiothoracic revascularization at this time. The patient is going to be considered for stent placement. The patient also had significantly impaired pulmonary function, for many years of tobacco use. Additional recommendations and suggestions are forthcoming. We will like to see the patient in the office after he is discharged, for formal pulmonary function testing. Prognosis is guarded. The patient is counseled about the importance of smoking cessation. Plan dated 05/24/2021. The patient was evaluated by cardiothoracic surgery was thought not to be a good candidate for revascularization. Instead, the patient is going to have stent placements performed on Wednesday of next week. The patient's currently on room air. The patient is getting saline, and IV heparin. His respiratory status is currently stable. Additional recommendations and suggestions are forthcoming. Prognosis is guarded. He is counseled about the importance of smoking cessation. Plan dated 05/25/2021. Currently, the patient is stable. He remains on a basic IV and IV heparin. He is currently on room air. The plan is for stenting this week. He was thought not to be a good candidate by cardiothoracic surgery for bypass grafting. His lung function were borderline as the patient has smoked for more than 65 years. Additional recommendations and suggestions are forthcoming. Prognosis is guarded. Time with Patient: Less than 30
[2021-05-25 17:04] LABS: Glucose,Whole Blood 108 mg/dL (75-99)
[2021-05-25] MEDS: HEPARIN SOD,PORK IN 0.45% NACL 25,000 UNIT in 0.45% NACL 1 250ML.BAG IV SCH (17:18)
[2021-05-25 20:11] LABS: Glucose,Whole Blood 135 mg/dL (75-99)
[2021-05-25 20:46] LABS: Glucose,Whole Blood 135 mg/dL (75-99)
[2021-05-25] MEDS: TEMAZEPAM 15 MG CAP PO PRN (22:51)
[2021-05-26] MEDS: HYDROcodone/APAP 10-325MG 1 EACH TAB PO PRN ×3 (01:55→20:06)
[2021-05-26 06:23] LABS: Glucose,Whole Blood 118 mg/dL (75-99)
[2021-05-26] MEDS: carvediloL 3.125 MG TAB PO SCH ×2 (06:28→17:11)
[2021-05-26] MEDS: guaiFENesin-DM 600/30MG 1 EACH TAB.ER.12H PO PRN ×2 (07:35→20:06)
[2021-05-26] MEDS: IPRATROPIUM 0.5 MG/2.5 ML NEBU INHALATION SCH ×4 (07:50→19:43)
[2021-05-26] MEDS: ALBUTEROL NEBULIZED 2.5 MG/3 ML INHALATION SCH ×4 (07:50→19:43)
[2021-05-26] MEDS: SYMBICORT 80-4.5 MCG INHALER INHALATION SCH ×2 (07:50→19:43)
[2021-05-26] MEDS: PANTOPRAZOLE 40 MG TABLET PO SCH (08:34)
[2021-05-26] MEDS: ASPIRIN 81 MG PO SCH (08:34)
[2021-05-26] MEDS: amLODIPine 10 MG TAB PO SCH (08:34)
[2021-05-26] MEDS: POTASSIUM CHLORIDE ER 10 MEQ TAB.ER.PRT PO SCH (08:34)
[2021-05-26] MEDS: TAMSULOSIN 0.4 MG CAP.ER.24H PO SCH (08:34)
[2021-05-26] MEDS: FINASTERIDE 5 MG TAB PO SCH (08:34)
[2021-05-26] MEDS: ATORVASTATIN 40 MG TAB PO SCH (08:34)
[2021-05-26] MEDS: predniSONE 5 MG TAB PO SCH (08:34)
[2021-05-26] MEDS: LOSARTAN 50 MG TAB PO SCH (08:34)
[2021-05-26] MEDS ORDERED: NITROGLYCERIN SL TABS 0.4 MG TAB SUBLINGUAL PRN (09:13)
[2021-05-26] MEDS ORDERED: ALPRAZolam 0.25 MG TAB PO PRN (09:13)
[2021-05-26] MEDS ORDERED: ALPRAZolam 0.5 MG TAB PO PRN (09:13)
[2021-05-26 10:31] LABS: Calcium 8.7 mg/dL (8.4-10.2); Potassium 4.2 mmol/L (3.5-5.1)
--- NOTE | 2021-05-26 11:06 | P.PN ---
Subjective This is a 80-year-old male who was recently admitted from [facility] after cardiac catheterization which showed triple vessel heart disease and for CT surgery evaluation for possible CABG. CT surgery has initiated the work up and discussion is now being had about possible stenting with DR. Ramirez as he is not a good candidate for CABG. Cardiology following as well and will continue with maximizing medical management. UA culture growing gram negative bacilli as part of the work up. Patient is denying chest pain, shortness of breath, or palpitations. Patient is afebrile. Patient continues on current home medications. Subjective: 05/24/2021 Patient is a pleasant 8 years old male with multiple medical problems presents w ith signs and symptoms of coronary artery disease and non-ST elevation myocardial infarction. He has severe coronary artery disease evaluated by [facility] and cardiovascular services he is not a surgical candidate and instead planned for Wednesday placement of stent. Currently he is covered with heparin drip. Also patient is on normal saline 75 mL/h for suspected acute kidney injury however his creatinine close to his baseline. UTI is suspected secondary to E. coli which is sensitive at currently on Rocephin. CT of the chest without contrast showing severe aortic atherosclerosis and the branches. With fusiform dilatation of the celiac axis. Carotid Dopplers showing less than 50% stenosis on the right side and 50-69% STENOSIS of the left ICA. 05/25/2021 patient lying in bed comfortable, denies chest pain or dyspnea. No specific urinary symptoms over the last 2 days and he is on room air. Patient aware he is going for cardiac stent on this coming Wednesday and he is agreeable. CBC and BMP are reviewed and looks slightly improving, hemoglobin 10.2, creatinine 1.2 Patient remains on heparin drip, normal saline 75 mL/h and ceftriaxone for E. coli UTI. 05/26/2021 Is going for cardiac stenting tomorrow as he is not a surgical candidate Pulmonary and cardiology team on the case Hemodynamically stable and with no chest pain today. Creatinine improved to 1.1 Patient is on heparin drip and ceftriaxone for E. coli UTI. Repeat urine analysis is requested Objective - Vital Signs Vital signs: Vital Signs Temp 97.8 F 05/26/21 08:40 Pulse 74 05/26/21 08:40 Resp 18 05/26/21 08:40 BP 146/87 05/26/21 08:40 Pulse Ox 95 05/26/21 08:40 Intake & Output 05/25/21 05/26/21 05/26/21 18:59 06:59 18:59 Intake Total 1000 360 Output Total 1200 425 150 Balance -200 -425 210 Weight 117.2 kg Intake: Intake, IV Titration 600 Amount Heparin Sod,Pork in 0.45% 250 NaCl 25,000 unit In 0.45 % NaCl 1 250ml.bag @ 9 UNITS/KG/HR 9.99 mls/hr IV .Q24H [facility] Rx#: [id number] Sodium Chloride 0.9% 1, 300 000 ml @ 75 mls/hr IV . [id number] [facility] Rx#:[id number] cefTRIAXone 2 gm In 50 Sodium Chloride 0.9% 50 ml @ 100 mls/hr IVPB Q24HR [facility] Rx#:[id number] Oral 400 360 Output: Urine 1200 425 150 Other: Voiding Method Urinal Urinal # Bowel Movements 1 - Exam -GENERAL: The patient is alert and oriented x3, not in any acute distress. Generally weak HEENT: Pupils are round and equally reacting to light. EOMI. No scleral icterus. No conjunctival pallor. Normocephalic, atraumatic. No pharyngeal erythema. No thyromegaly. CARDIOVASCULAR: S1 and S2 present. No murmurs, rubs, or gallops. PULMONARY: Chest is clear to auscultation, no wheezing or crackles. ABDOMEN: Soft, nontender, nondistended, normoactive bowel sounds. No palpable organomegaly. MUSCULOSKELETAL: No joint swelling or deformity. EXTREMITIES: No cyanosis, clubbing, or pedal edema. NEUROLOGICAL: Gross neurological examination did not reveal any focal deficits. SKIN: No rashes. no petechiae. - Labs CBC & Chem 7: 05/25/21 08:30 05/26/21 09:39 Labs: Abnormal Lab Results - Last 24 Hours (Table) 05/25/21 05/25/21 05/25/21 Range/Units 12:15 16:55 20:44 POC Glucose (mg/dL) 135 H 108 H 135 H (75-99) mg/dL 05/26/21 Range/Units 06:21 POC Glucose (mg/dL) 118 H (75-99) mg/dL Assessment and Plan Assessment: triple vessel coronary artery disease, status post cardiac catheterization Possible sensitive E. coli urinary tract infection Bilateral internal carotid artery stenosis, less than 50% on the right side and 50-69% on the left ICA Chronic kidney disease, stage III chronic obstructive pulmonary disease, no exacerbation hypertension hyperlipidemia History of degenerative joint disease GI prophylaxis DVT prophylaxis Plan: This is a pleasant 80 years old male who presents with non-STEMI Cardiology, cardiothoracic surgery and pulmonary services on the case Plan for PCI next week of the coronary arteries as he is not a surgical candidate Continue with heparin drip Continue with ceftriaxone and gentle hydration. Labs and medication were reviewed.. Continue same treatment. Continue with symptomatic treatment. Resume home medication. Monitor lytes and vitals. DVT and GI prophylaxis. Further recommendations as per clinical course of the patient DVT prophylaxis: heparin GI Prophylaxis: Ppi PT/OT: Pending Prognosis is guarded
[2021-05-26 12:02] LABS: Glucose,Whole Blood 131 mg/dL (75-99)
--- NOTE | 2021-05-26 13:12 | P.PN ---
Subjective Progress Note Date: 05/26/21 Principal diagnosis: Shortness of breath On 05/26/2021 patient seen in follow-up on selective care unit, he sitting up on the edge of the bed, awake and alert, oriented 3, denies any chest pain, denies any shortness of breath, room air pulse ox is 97%, vital signs have been stable, no fever chills, no chest discomfort. Patient was evaluated by CT surgery, she was found to be high risk for surgical intervention, and at this time the decision has been made To proceed with coronary artery stenting possibly tomorrow, has had no acute events overnight. Currently remains on heparin infusion. Patient has a long history of smoking, his preop FEV1 was 1.38 L or 44% of predicted. This was consistent with severe obstructive pulmonary defect. Patient continues on inhaled Symbicort, remains on Rocephin, he is on Mucinex, his on maintenance dose of prednisone. Objective - Vital Signs Vital signs: Vital Signs Temp 98.0 F 05/26/21 12:15 Pulse 103 H 05/26/21 12:15 Resp 18 05/26/21 12:15 BP 159/63 05/26/21 12:15 Pulse Ox 97 05/26/21 12:15 Intake & Output 05/25/21 05/26/21 05/26/21 18:59 06:59 18:59 Intake Total 1000 960 Output Total 1200 425 450 Balance -200 -425 510 Weight 117.2 kg Intake: Intake, IV Titration 600 Amount Heparin Sod,Pork in 0.45% 250 NaCl 25,000 unit In 0.45 % NaCl 1 250ml.bag @ 9 UNITS/KG/HR 9.99 mls/hr IV .Q24H [facility] Rx#: [id number] Sodium Chloride 0.9% 1, 300 000 ml @ 75 mls/hr IV . [id number] [facility] Rx#:[id number] cefTRIAXone 2 gm In 50 Sodium Chloride 0.9% 50 ml @ 100 mls/hr IVPB Q24HR [facility] Rx#:[id number] Oral 400 960 Output: Urine 1200 425 450 Other: Voiding Method Urinal Urinal Urinal # Bowel Movements 1 - Exam GENERAL EXAM: Alert, very pleasant, 80-year-old white male, with a pulse ox of 97% comfortable in no apparent distress. HEAD: Normocephalic/atraumatic. EYES: Normal reaction of pupils, equal size. Conjunctiva pink, sclera white. NOSE: Clear with pink turbinates. THROAT: No erythema or exudates. NECK: No masses, no JVD, no thyroid enlargement, no adenopathy. CHEST: No chest wall deformity. Symmetrical expansion. LUNGS: Equal air entry with no crackles, wheeze, rhonchi or dullness. CVS: Regular rate and rhythm, normal S1 and S2, no gallops, no murmurs, no rubs ABDOMEN: Soft, nontender. No hepatosplenomegaly, normal bowel sounds, no g uarding or rigidity. EXTREMITIES: No clubbing, no edema, no cyanosis, 2+ pulses and upper and lower extremities. MUSCULOSKELETAL: Muscle strength and tone normal. SPINE: No scoliosis or deformity SKIN: No rashes CENTRAL NERVOUS SYSTEM: Alert and oriented -3. No focal deficits, tone is normal in all 4 extremities. PSYCHIATRIC: Alert and oriented -3. Appropriate affect. Intact judgment and insight. - Labs CBC & Chem 7: 05/25/21 08:30 05/26/21 09:39 Labs: Abnormal Lab Results - Last 24 Hours (Table) 05/25/21 05/25/21 05/25/21 Range/Units 12:15 16:55 20:44 Chloride (98-107) mmol/L Carbon Dioxide (22-30) mmol/L BUN (9-20) mg/dL Glucose (74-99) mg/dL POC Glucose (mg/dL) 135 H 108 H 135 H (75-99) mg/dL 05/26/21 05/26/21 05/26/21 Range/Units 06:21 09:39 11:53 Chloride 116 H (98-107) mmol/L Carbon Dioxide 20 L (22-30) mmol/L BUN 26 H (9-20) mg/dL Glucose 115 H (74-99) mg/dL POC Glucose (mg/dL) 118 H 131 H (75-99) mg/dL Assessment and Plan Plan: Assessment: #1. Symptomatic multivessel coronary artery disease with 95% left main stenosis, 90% stenosis of the LAD, and 100% stenosis of the left circumflex, patient was found to be high risk for surgical intervention, and at this time the plan is to proceed with coronary artery stenting possibly on 05/27/2021. #2. Severe COPD, and preop FEV1 showed FEV1 of 1.38 L or 44% of predicted, and MVV was in the order of 51.8 #3. Acute non-ST elevated myocardial infarction #4. Acute exacerbation of chronic CHF with diastolic dysfunction #5. Hypertensive emergency, currently resolved #6. Acute kidney injury #7. History of stage III chronic kidney disease #8. History of COPD not oxygen dependent at baseline #9. 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 Type 2 diabetes mellitus #11. Dyslipidemia #12. History of venous insufficiency #13. History of right carotid artery stenosis status post carotid endarterectomy #14. Acute urinary tract infection related to E. coli, patient is on Rocephin Plan: Patient is breathing comfortably, vital signs are stable No complaint of dyspnea, no cough, no chest discomfort or phlegm production His preop FEV1 has been reviewed showing severe COPD, with FEV1 of 44% of predicted and MVV of 51.8 Patient was deemed high risk for surgical intervention and at this time he is awaiting coronary artery stenting possibly tomorrow Patient's COPD seems to be stable at this time Continue with this home dose inhalers He is on antibiotics for his urinary tract infection I performed a history & physical examination of the patient and discussed their management with my nurse practitioner, Erica Perry. I reviewed the nurse practitioner's note and agree with the documented findings and plan of care. Lung sounds are positive for dim breath sounds throughout the lung almonte. The findings and the impression was discussed with the patient. I attest to the documentation by the nurse practitioner. Time with Patient: Less than 30
--- NOTE | 2021-05-26 14:39 | PN ---
PROGRESS NOTE Mr. Parra has a significant left main and mid LAD lesion, total occlusion of mid circumflex after a small OM branch, and no significant disease in RCA. He was evaluated by Cardiac Surgery and they felt that he is too high of a risk. I will therefore perform stenting of left main and LAD. He was seen and evaluated by Dr. Ramirez, who discussed with me on Wednesday. Patient and family, specifically his son Alan Jung and daughter Janett, have been informed, and I talked to both of them on the phone. I am recommending that we will perform an Impella-supported high-risk PCI of left main and LAD. We can do provisional stenting of circumflex. I discussed this with the patient at length. He and family understand the rationale, risks, benefits, options, and are fully aware of the risks related to Impella placement with vascular injury, infection, bleeding, and also stroke, [place] and . I will proceed with the procedure tomorrow. Will perform an Impella-supported PCI. Prognosis remains guarded. Same medical regimen. S1-S2 heard normally. Short systolic murmur noted. Lungs reveal diminished air entry. Abdomen is soft, nontender. Lower extremities reveal diminished pulses. Central nervous system grossly within normal limits. Plan is to continue current medical regimen and proceed with PCI tomorrow. MMODL / IJN: [id number] /
[2021-05-26 15:10] LABS: Appearance,Urine Clear (Clear); Bacteria,Urine Rare /hpf; Bilirubin,Urine Negative (Negative); Blood,Urine Negative (Negative); Color,Urine Yellow; Glucose,Urine (UA) 3+ (Negative); Ketones,Urine Negative (Negative); Leukocyte Esterase,Urine Moderate (Negative); Nitrite,Urine Negative (Negative); PH, Urine 5.5 (5.0-8.0); Protein,Urine Trace (Negative); RBC,Urine 3 /hpf (0-5); Specific Gravity,Urine 1.012 (1.001-1.035); Squamous Epithelial Cell,Urine <1 /hpf (0-4); Urobilinogen,Urine <2.0 mg/dL (<2.0); WBC,Urine 22 /hpf (0-5)
[2021-05-26 16:47] LABS: Glucose,Whole Blood 302 mg/dL (75-99)
[2021-05-26] MEDS: INSULIN ASPART (NovoLOG) 100 UNIT/ML VIAL SQ SCH ×2 (17:11→20:38)
[2021-05-26] MEDS: HEPARIN SOD,PORK IN 0.45% NACL 25,000 UNIT in 0.45% NACL 1 250ML.BAG IV SCH ×2 (17:39→21:32)
[2021-05-26] MEDS: SODIUM CHLORIDE 0.9% 1,000 ML IV SCH ×2 (17:39→20:07)
[2021-05-26 20:34] LABS: Glucose,Whole Blood 122 mg/dL (75-99)
[2021-05-26] MEDS: SODIUM CHLORIDE 0.9% 1,000 ML in EMPTY BAG 1 BAG IV SCH (22:46)
[2021-05-27] MEDS: INSULIN ASPART (NovoLOG) 100 UNIT/ML VIAL SQ SCH ×4 (01:09→22:07)
[2021-05-27] MEDS: HYDROcodone/APAP 10-325MG 1 EACH TAB PO PRN ×2 (02:55→17:02)
[2021-05-27 06:07] LABS: Glucose,Whole Blood 99 mg/dL (75-99)
[2021-05-27] MEDS: SODIUM CHLORIDE 0.9% 1,000 ML in EMPTY BAG 1 BAG IV SCH ×3 (06:14→16:48)
[2021-05-27] MEDS: carvediloL 3.125 MG TAB PO SCH ×2 (06:14→17:36)
[2021-05-27] MEDS: HEPARIN SOD,PORK IN 0.45% NACL 25,000 UNIT in 0.45% NACL 1 250ML.BAG IV SCH (06:37)
[2021-05-27] MEDS ORDERED: HEPARIN SODIUM,PORCINE 10,000 UNIT in SODIUM CHLORIDE 0.9% 1,000 ML IRRIGATION PRN (07:00)
[2021-05-27] MEDS ORDERED: ASPIRIN 325 MG TAB PO ONE (07:00)
[2021-05-27] MEDS ORDERED: HEPARIN SODIUM,PORCINE 2,500 UNIT in SODIUM CHLORIDE 0.9% 250 ML IRRIGATION PRN (07:00)
[2021-05-27] MEDS ORDERED: ATORVASTATIN 80 MG TAB PO ONE (07:00)
[2021-05-27] MEDS: ALBUTEROL NEBULIZED 2.5 MG/3 ML INHALATION SCH ×2 (07:44→11:36)
[2021-05-27] MEDS: IPRATROPIUM 0.5 MG/2.5 ML NEBU INHALATION SCH ×2 (07:44→11:36)
[2021-05-27] MEDS: SYMBICORT 80-4.5 MCG INHALER INHALATION SCH (08:16)
[2021-05-27] MEDS: POTASSIUM CHLORIDE ER 10 MEQ TAB.ER.PRT PO SCH (08:26)
[2021-05-27] MEDS: LOSARTAN 50 MG TAB PO SCH (08:26)
[2021-05-27] MEDS: ATORVASTATIN 40 MG TAB PO SCH (08:26)
[2021-05-27] MEDS: amLODIPine 10 MG TAB PO SCH (08:26)
[2021-05-27] MEDS: PANTOPRAZOLE 40 MG TABLET PO SCH (08:26)
[2021-05-27] MEDS: TAMSULOSIN 0.4 MG CAP.ER.24H PO SCH (08:26)
[2021-05-27] MEDS: predniSONE 5 MG TAB PO SCH (08:26)
[2021-05-27] MEDS: FINASTERIDE 5 MG TAB PO SCH (08:26)
[2021-05-27] MEDS: ASPIRIN 81 MG PO SCH (08:30)
[2021-05-27] MEDS ORDERED: IPRATROPIUM-ALBUTEROL 3 ML NEB INHALATION PRN (10:36)
--- NOTE | 2021-05-27 10:44 | P.PN ---
Subjective Progress Note Date: 05/27/21 Principal diagnosis: Shortness of breath On 05/26/2021 patient seen in follow-up on selective care unit, he sitting up on the edge of the bed, awake and alert, oriented 3, denies any chest pain, denies any shortness of breath, room air pulse ox is 97%, vital signs have been stable, no fever chills, no chest discomfort. Patient was evaluated by CT surgery, she was found to be high risk for surgical intervention, and at this time the decision has been made To proceed with coronary artery stenting possibly tomorrow, has had no acute events overnight. Currently remains on heparin infusion. Patient has a long history of smoking, his preop FEV1 was 1.38 L or 44% of predicted. This was consistent with severe obstructive pulmonary defect. Patient continues on inhaled Symbicort, remains on Rocephin, he is on Mucinex, his on maintenance dose of prednisone. On 05/27/2021 patient seen in follow-up on selective care unit, he is sitting up in a recliner, currently on room air, he states for the past 2 mornings he has been experiencing shortness of breath early in the morning, and this morning he also had some chest tightness on the right side of his chest. Occasional cough, no phlegm production however physical exam reveals chest congestion, scattered rhonchi and rales. Patient continues on his maintenance dose prednisone 5 mg daily, he is on Symbicort. Chest x-ray is pending, vital signs have been stable overnight, patient is scheduled for cardiac catheterization and stenting today. His procedure is scheduled for 12:30. He remains on heparin infusion, cardiology is closely following. He remains on aspirin 81 mg daily, she remains on Lipitor, Cozaar Objective - Vital Signs Vital signs: Vital Signs Temp 98.0 F 05/27/21 08:33 Pulse 68 05/27/21 08:33 Resp 18 05/27/21 08:33 BP 158/83 05/27/21 08:33 Pulse Ox 94 L 05/27/21 08:33 Intake & Output 05/26/21 05/27/21 05/27/21 18:59 06:59 18:59 Intake Total 1450 120.99 30.636 Output Total 675 600 Balance 775 -479.01 30.636 Weight 118 kg Intake: Intake, IV Titration 250 120.99 30.636 Amount Heparin Sod,Pork in 0.45% 250 120.99 30.636 NaCl 25,000 unit In 0.45 % NaCl 1 250ml.bag @ 9 UNITS/KG/HR 9.99 mls/hr IV .Q24H [facility] Rx#: [id number] Oral 1200 Output: Urine 675 600 Other: Voiding Method Urinal Urinal Urinal # Bowel Movements 1 1 - Exam GENERAL EXAM: Alert, very pleasant, 80-year-old white male, with a pulse ox of 97% comfortable in no apparent distress. HEAD: Normocephalic/atraumatic. EYES: Normal reaction of pupils, equal size. Conjunctiva pink, sclera white. NOSE: Clear with pink turbinates. THROAT: No erythema or exudates. NECK: No masses, no JVD, no thyroid enlargement, no adenopathy. CHEST: No chest wall deformity. Symmetrical expansion. LUNGS: Equal air entry with diffuse rhonchi and rales CVS: Regular rate and rhythm, normal S1 and S2, no gallops, no murmurs, no rubs ABDOMEN: Soft, nontender. No hepatosplenomegaly, normal bowel sounds, no guard ing or rigidity. EXTREMITIES: No clubbing, no edema, no cyanosis, 2+ pulses and upper and lower extremities. MUSCULOSKELETAL: Muscle strength and tone normal. SPINE: No scoliosis or deformity SKIN: No rashes CENTRAL NERVOUS SYSTEM: Alert and oriented -3. No focal deficits, tone is normal in all 4 extremities. PSYCHIATRIC: Alert and oriented -3. Appropriate affect. Intact judgment and insight. - Labs CBC & Chem 7: 05/25/21 08:30 05/26/21 09:39 Labs: Abnormal Lab Results - Last 24 Hours (Table) 05/26/21 05/26/21 05/26/21 Range/Units 11:53 14:13 15:10 APTT 49.1 H (22.0-30.0) sec POC Glucose (mg/dL) 131 H (75-99) mg/dL Urine Protein Trace H (Negative) Urine Glucose (UA) 3+ H (Negative) Ur Leukocyte Esterase Moderate H (Negative) Urine WBC 22 H (0-5) /hpf Urine Bacteria Rare H (None) /hpf 05/26/21 05/26/21 05/27/21 Range/Units 16:38 20:33 06:53 APTT >200.0 H* (22.0-30.0) sec POC Glucose (mg/dL) 302 H 122 H (75-99) mg/dL Urine Protein (Negative) Urine Glucose (UA) (Negative) Ur Leukocyte Esterase (Negative) Urine WBC (0-5) /hpf Urine Bacteria (None) /hpf Assessment and Plan Plan: Assessment: #1. Symptomatic multivessel coronary artery disease with 95% left main stenosis, 90% stenosis of the LAD, and 100% stenosis of the left circumflex, lucinda montiel was found to be high risk for surgical intervention, and at this time the plan is to proceed with coronary artery stenting possibly on 05/27/2021. #2. Severe COPD, and preop FEV1 showed FEV1 of 1.38 L or 44% of predicted, and MVV was in the order of 51.8 #3. Acute non-ST elevated myocardial infarction #4. Acute exacerbation of chronic CHF with diastolic dysfunction #5. Hypertensive emergency, currently resolved #6. Acute kidney injury, improved #7. History of stage III chronic kidney disease #8. History of COPD not oxygen dependent at baseline #9. 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 Type 2 diabetes mellitus #11. Dyslipidemia #12. History of venous insufficiency #13. History of right carotid artery stenosis status post carotid endarterectomy #14. Acute urinary tract infection related to E. coli, patient is on Rocephin Plan: Patient had an episode of chest ache this am he also sounds more congested on today's exam Obtain CXr this am increase Prednisone to 30 mg daily Swtch Symbicort to Pulmicort and Perforomist Duoneb QID and q2 PRN dyspnea will continue to follow his clinical course I performed a history & physical examination of the patient and discussed their management with my nurse practitioner, Erica Perry. I reviewed the nurse practitioner's note and agree with the documented findings and plan of care. Lung sounds are positive for dim breath sounds throughout the lung almonte. The findings and the impression was discussed with the patient. I attest to the documentation by the nurse practitioner. Time with Patient: Less than 30
--- NOTE | 2021-05-27 10:55 | PN ---
PROGRESS NOTE Mr. Parra is doing well. He is going to go for an Impella-supported PCI of left main and LAD. Risks, benefits, options, rationale were explained. I spoke to the patient's son and daughter yesterday. Patient understands all details, wishes to proceed with the procedure. Physical exam revealed vitals are stable. No JVD. S1-S2 heard normally. Distant. heart sounds. Lungs are clear. Abdomen is soft, non-tender. Lower extremities reveal palpable pulses. No edema. Central nervous system is normal. MMODL / IJN: [id number] /
--- NOTE | 2021-05-27 11:25 | XR ---
EXAMINATION TYPE: XR chest 1V portable DATE OF EXAM: 05/27/2021 COMPARISON: Chest x-ray and CT dated 05/22/2021 HISTORY: Shortness of breath TECHNIQUE: Single frontal view of the chest is obtained. FINDINGS: Minimal patchy basilar density, prominence interstitium is again noted. No evident pneumot horax or pleural effusion. Surgical clips are present in the right neck. Cardiac mediastinal silhouet te is stable. Aorta is dense. There may be an underlying spinal curvature, there is thoracic spondylo sis. IMPRESSION: Difficult to exclude early basilar airspace, interstitial lung disease. There is underly ing emphysema.
[2021-05-27] MEDS ORDERED: IV FLUID CONTINUATION 1,000 ML IV ONE (11:40)
--- NOTE | 2021-05-27 11:40 | P.PN ---
Subjective This is a 80-year-old male who was recently admitted from [facility] after cardiac catheterization which showed triple vessel heart disease and for CT surgery evaluation for possible CABG. CT surgery has initiated the work up and discussion is now being had about possible stenting with DR. Ramirez as he is not a good candidate for CABG. Cardiology following as well and will continue with maximizing medical management. UA culture growing gram negative bacilli as part of the work up. Patient is denying chest pain, shortness of breath, or palpitations. Patient is afebrile. Patient continues on current home medications. Subjective: 05/24/2021 Patient is a pleasant 8 years old male with multiple medical problems presents w ith signs and symptoms of coronary artery disease and non-ST elevation myocardial infarction. He has severe coronary artery disease evaluated by tile and marble setter and cardiovascular services he is not a surgical candidate and instead planned for Wednesday placement of stent. Currently he is covered with heparin drip. Also patient is on normal saline 75 mL/h for suspected acute kidney injury however his creatinine close to his baseline. UTI is suspected secondary to E. coli which is sensitive at currently on Rocephin. CT of the chest without contrast showing severe aortic atherosclerosis and the branches. With fusiform dilatation of the celiac axis. Carotid Dopplers showing less than 50% stenosis on the right side and 50-69% STENOSIS of the left ICA. 05/25/2021 patient lying in bed comfortable, denies chest pain or dyspnea. No specific urinary symptoms over the last 2 days and he is on room air. Patient aware he is going for cardiac stent on this coming Wednesday and he is agreeable. CBC and BMP are reviewed and looks slightly improving, hemoglobin 10.2, creatinine 1.2 Patient remains on heparin drip, normal saline 75 mL/h and ceftriaxone for E. coli UTI. 05/26/2021 Is going for cardiac stenting tomorrow as he is not a surgical candidate Pulmonary and cardiology team on the case Hemodynamically stable and with no chest pain today. Creatinine improved to 1.1 Patient is on heparin drip and ceftriaxone for E. coli UTI. Repeat urine analysis is requested 05/27/2021 Undergoing stent placement today as he is not a surgical candidate Also his prednisone today increased from 5 home dose up to 30 mg daily because there is some evidence of wheezing on chest exam and chest x-rays: Difficult to exclude purely basilar airspace, interstitial lung disease. There is also underlying Emphysema. He remains on heparin drip, ceftriaxone for UTI with E. coli. Urine analysis from yesterday still shows an infection in the urine. Objective - Vital Signs Vital signs: Vital Signs Temp 98.0 F 05/27/21 08:33 Pulse 68 05/27/21 08:33 Resp 18 05/27/21 08:33 BP 158/83 05/27/21 08:33 Pulse Ox 94 L 05/27/21 08:33 Intake & Output 05/26/21 05/27/21 05/27/21 18:59 06:59 18:59 Intake Total 1450 120.99 30.636 Output Total 675 600 Balance 775 -479.01 30.636 Weight 118 kg Intake: Intake, IV Titration 250 120.99 30.636 Amount Heparin Sod,Pork in 0.45% 250 120.99 30.636 NaCl 25,000 unit In 0.45 % NaCl 1 250ml.bag @ 9 UNITS/KG/HR 9.99 mls/hr IV .Q24H [facility] Rx#: [id number] Oral 1200 Output: Urine 675 600 Other: Voiding Method Urinal Urinal Urinal # Bowel Movements 1 1 - Exam -GENERAL: The patient is alert and oriented x3, not in any acute distress. Generally weak HEENT: Pupils are round and equally reacting to light. EOMI. No scleral icterus. No conjunctival pallor. Normocephalic, atraumatic. No pharyngeal erythema. No thyromegaly. CARDIOVASCULAR: S1 and S2 present. No murmurs, rubs, or gallops. PULMONARY: Chest is clear to auscultation, no wheezing or crackles. ABDOMEN: Soft, nontender, nondistended, normoactive bowel sounds. No palpable organomegaly. MUSCULOSKELETAL: No joint swelling or deformity. EXTREMITIES: No cyanosis, clubbing, or pedal edema. NEUROLOGICAL: Gross neurological examination did not reveal any focal deficits. SKIN: No rashes. no petechiae. - Labs CBC & Chem 7: 05/25/21 08:30 05/26/21 09:39 Labs: Abnormal Lab Results - Last 24 Hours (Table) 05/26/21 05/26/21 05/26/21 Range/Units 11:53 14:13 15:10 APTT 49.1 H (22.0-30.0) sec POC Glucose (mg/dL) 131 H (75-99) mg/dL Urine Protein Trace H (Negative) Urine Glucose (UA) 3+ H (Negative) Ur Leukocyte Esterase Moderate H (Negative) Urine WBC 22 H (0-5) /hpf Urine Bacteria Rare H (None) /hpf 05/26/21 05/26/21 05/27/21 Range/Units 16:38 20:33 06:53 APTT >200.0 H* (22.0-30.0) sec POC Glucose (mg/dL) 302 H 122 H (75-99) mg/dL Urine Protein (Negative) Urine Glucose (UA) (Negative) Ur Leukocyte Esterase (Negative) Urine WBC (0-5) /hpf Urine Bacteria (None) /hpf Assessment and Plan Assessment: triple vessel coronary artery disease, status post cardiac catheterization sensitive E. coli urinary tract infection Severe COPD with mild exacerbation Bilateral internal carotid artery stenosis, less than 50% on the right side and 50-69% on the left ICA Chronic kidney disease, stage III chronic obstructive pulmonary disease, no exacerbation hypertension hyperlipidemia History of degenerative joint disease GI prophylaxis DVT prophylaxis Plan: This is a pleasant 80 years old male who presents with non-STEMI Cardiology, cardiothoracic surgery and pulmonary services on the case Plan for PCI next week of the coronary arteries as he is not a surgical candidate Continue with heparin drip Continue with ceftriaxone and gentle hydration. Increase prednisone 30 mg per hammer setter Labs and medication were reviewed.. Continue same treatment. Continue with symptomatic treatment. Resume home medication. Monitor lytes and vitals. DVT and GI prophylaxis. Further recommendations as per clinical course of the lucinda montiel DVT prophylaxis: heparin GI Prophylaxis: Ppi PT/OT: Pending Prognosis is guarded
[2021-05-27] MEDS ORDERED: LIDOCAINE 1% INJ 10MG/ML (20 ML MDV) ONE ×2 (11:59→12:19)
[2021-05-27] MEDS ORDERED: HEPARIN SODIUM 1,000 UN/ML (10ML VL) ONE (11:59)
[2021-05-27] MEDS: MIDAZOLAM 2 MG/2 ML VIAL IVP ONE ×3 (12:10→13:41)
[2021-05-27] MEDS: IPRATROPIUM-ALBUTEROL 3 ML NEB INHALATION SCH ×3 (12:11→21:21)
[2021-05-27] MEDS ORDERED: LIDOCAINE 1% INJ 10MG/ML (10 ML MDV) SQ ONE ×2 (12:12)
[2021-05-27] MEDS ORDERED: LIDOCAINE 1% INJ 10MG/ML (20 ML MDV) SQ ONE (12:32)
[2021-05-27] MEDS: HEPARIN SODIUM 1,000 UN/ML (10ML VL) IV ONE ×2 (13:18→14:17)
[2021-05-27] MEDS ORDERED: VERAPAMIL 2.5 MG/ML 2 ML AMP ONE (13:52)
[2021-05-27] MEDS ORDERED: VERAPAMIL SYRINGE (5 MG/10 ML) INTRAARTER ONE (13:55)
[2021-05-27] MEDS ORDERED: IOPAMIDOL-370 100ML BTL INJ ONE ×3 (14:18→15:02)
[2021-05-27] MEDS ORDERED: HYDROmorphone 1 MG/ML 1 ML SYRINGE ONE (15:00)
[2021-05-27] MEDS: HYDROmorphone 1 MG/ML 1 ML SYRINGE IVP ONE ×2 (15:03→15:10)
[2021-05-27] MEDS ORDERED: PHENYLEPHRINE 10 MG/ML VIAL IV ONE (15:15)
[2021-05-27] MEDS ORDERED: NOREPINEPHRINE 4 MG in SODIUM CHLORIDE 0.9% 250 ML IV ONE (15:21)
[2021-05-27] MEDS ORDERED: CLOPIDOGREL 75 MG TAB ONE (15:25)
[2021-05-27] MEDS ORDERED: CLOPIDOGREL 75 MG TAB PO ONE (15:27)
[2021-05-27] MEDS ORDERED: ATROPINE SULFATE 0.1 MG/ML 10ML SYRINGE IV PRN (15:35)
[2021-05-27] MEDS ORDERED: MAG HYDROX/AL HYDROX/SIMETH 30 ML CUP PO PRN (15:35)
[2021-05-27] MEDS ORDERED: RX INFO: IV CONTRAST WAS GIVEN 1 EACH MISC MISCELLANE PRN (15:35)
[2021-05-27] MEDS ORDERED: ZOLPIDEM 5 MG TAB PO PRN (15:35)
[2021-05-27] MEDS: NOREPINEPHRINE 4 MG in SODIUM CHLORIDE 0.9% 250 ML IV SCH ×3 (16:00→16:54)
[2021-05-27 16:12] LABS: Glucose,Whole Blood 215 mg/dL (75-99)
[2021-05-27] MEDS: SODIUM CHLORIDE 0.9% 1,000 ML IV SCH (16:43)
[2021-05-27] MEDS: predniSONE 10 MG TAB PO SCH (16:43)
[2021-05-27 17:33] LABS: Glucose,Whole Blood 179 mg/dL (75-99)
[2021-05-27] MEDS ORDERED: HYDROmorphone 1 MG/ML 1 ML SYRINGE IVP PRN (19:09)
[2021-05-27 20:13] LABS: Basophils % (A) 0 %; Eosinophils # (A) 0.2 k/uL (0-0.7); Eosinophils % (A) 2 %; HCT 27.1 % (39.0-53.0); Lymphocytes # (A) 1.4 k/uL (1.0-4.8); Lymphocytes % (A) 11 %; MCH 31.9 pg (25.0-35.0); MCHC 33.2 g/dL (31.0-37.0); MCV 96.1 fL (80.0-100.0); Mean Platelet Volume 9.2; Monocytes # (A) 0.6 k/uL (0-1.0); Monocytes % (A) 5 %; Neutrophils # (A) 10.5 k/uL (1.3-7.7); Neutrophils % (A) 82 %; Platelet Count 182 k/uL (150-450); RBC 2.82 m/uL (4.30-5.90); RDW 15.7 % (11.5-15.5); WBC 12.8 k/uL (3.8-10.6)
--- NOTE | 2021-05-27 20:22 | PCN ---
PROCEDURE NOTE DATE OF SERVICE: 05/27/2021 PROCEDURE: 1. Transvenous temporary pacemaker from right femoral venous approach. 2. Impella heart pump placement from left femoral arterial approach. 3. Orbital atherectomy of left main and mid LAD. 4. Percutaneous transluminal coronary angioplasty and stenting of left main coronary artery and mid LAD with drug-eluting stents. Left main stent was 4.0 caliber, post- dilated with a 4.5 NC balloon. Mid LAD stent was also 4.0 caliber. PERFORMED BY: Dr. Nel Gonzalez. Moderate conscious sedation time was 200 minutes. Patient was administered Versed, Dilaudid. Oxygen saturation, hemodynamics and EKG were monitored closely. CLINICAL INFORMATION: Mr. Alan Parra is an 80-year-old morbidly obese gentleman with a history of hypertension, hypercholesterolemia, degenerative joint disease, COPD and smoking. He came in with a [id number] HI to [facility] and underwent a cardiac catheterization by Dr. Ramirez which revealed an 80% left main stenosis starting from the ostium to the bifurcation and also a mid LAD stenosis of 95% with heavy calcification. He was advised aortocoronary bypass surgery. 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 Patient then wished to proceed with percutaneous coronary intervention. After due discussion with his daughters and son and the patient himself, I set up for the procedure today. The procedure would be Impella-supported orbital atherectomy and PCI with a temporary pacer backup. PROCEDURE NOTE: Under local anesthesia and strict aseptic precautions, a 6-[place] introducer was placed in the right femoral vein. A transvenous balloon-tipped pacemaker was placed in the right ventricular apex with good thresholds. Pacemaker was set at a backup rate of 40, mA of 5.0. I then placed a 7-[place] introducer in the right femoral artery. I then turned my attention to the left femoral artery. Access was very difficult and there was extreme tortuosity in the iliac system. However, I was able to gain access and advance slowly over a wire an 8-[place] introducer, then a 10-[place] introducer, and eventually I placed a 13-[place] sheath. Prior to placement of the 13-[place] sheath after the 6-[place] introducer was placed, I pre-closed it with two Perclose devices, one in a 10 o'clock and one in a 2 o'clock position. The Impella sheath was placed and this was a 13-[place] sheath. I used a pigtail catheter with a regular wire and gained access into the LV. The pigtail was kept in the LV. The pigtail was exchanged over an 0.018 wire and Impella catheter was advanced and positioned. Very good recordings were obtained and the cardiac output was about 2.5 L. This was an Impella 2.5 device. Subsequently from the right femoral arterial approach I tried to advance a 7-[place] of a 4.0 Curve into the left coronary artery, but I had considerable difficulty because of tortuosity. As I was manipulating it the sheath came out and we had to hold pressure for hemostasis. After securing modest amount of hemostasis, I turned my attention to the right radial approach. However, there was a large hematoma, and manual compression was applied for about 15 minutes, but ACT was 239 by that time. I then advanced and positioned under fluoroscopic guidance a 6-[place] introducer into the right radial artery. I used a JL3.5 guide catheter of 6-[place] caliber and positioned it in the left coronary artery just before the ostium. A run-through wire was used to cross the lesion in the LAD and wire was kept distally. Patient received intravenous heparin. ACT initially was 239. Subsequently it was about 340. Then, using a Teleport catheter, I exchanged this wire and advanced a nitinol atherectomy wire into the distal LAD. Over the nitinol atherectomy wire I advanced the CSI Diamondback device and, using the Dynaglide, I advanced it into the mid LAD and did three passes of the mid LAD with good improvement. Then with the same Diamondback CSI catheter, I performed atherectomy of the left main, both retrograde and antegrade. Subsequently I used a 3.0 caliber NC Trek balloon of 15 mm length and dilated the mid LAD lesion as well as the left main lesion. Using the same nitinol wire, I advanced and positioned a 15 mm long 4.0 caliber Xience stent in the mid LAD with a good expansion. I then deployed an 18 mm long 4.0 caliber Xience stent in the left main, starting from the ostium extending into the LAD and crossing the circumflex vessel, which did not have any ostial lesions. I then used a 4.5 caliber 15 mm balloon and post-dilated the left main stent at 14 atmospheres. Excellent angiographic result was achieved. Patient had significant hypotension with left main inflations. I then turned my attention to taking the Impella sheath out. The Impella was taken out after reducing the cardiac output down to P2. Subsequently, with a Perclose device, I tried to secure hemostasis as the sheath came out over a guidewire. The right 10 o'clock sutures of the Perclose broke. I then advanced an 8-[place]er Angio-Seal and secure hemostasis. I then was able to get good hemostasis from the 2 o'clock Perclose device. Excellent hemostasis was secured. Patient then became suddenly vasovagal, hypotensive, and had transient use of the temporary pacemaker. I gave him phenylephrine 400 mcg and then placed him on a small dose of Levophed drip. He improved. He had transient bradycardia requiring administration of phenylephrine and he promptly came back and remained hemodynamically stable on a small dose of Levophed at 2.5 mcg. I then noted that he had a significant hematoma in the right groin. This was compressed and then a FemoStop was applied to the right groin. I left the right femoral venous 6-[place]er sheath with the pacemaker intact in a good position. I then noted that the right radial sheath also had become dislodged, and this was addressed with manual compression and then a TR band application. Saturation in the fingers of the right hand was 94%. Excellent angiographic result was achieved, but I had an issue with the right groin. The left groin was excellent with good hemostasis. Right groin had a hematoma and FemoStop was applied and he was sent to the ICU on 2.5 mcg of dopamine, hemodynamically stable, free of any chest pain. Results and details of the procedure and events were discussed with the patient as well as his daughter who was available. Patient will be watched in the ICU carefully. Hemoglobin will be checked and I will take the pacemaker out tomorrow morning and see how he does. Overall angiographic result was excellent. I am concerned about the right groin where he had a hematoma, but that seems to also have settled down well. MMODL / IJN: [id number] /
[2021-05-27 20:59] LABS: Glucose,Whole Blood 112 mg/dL (75-99)
[2021-05-27] MEDS: BUDESONIDE 1 MG/2 ML NEBU INHALATION SCH (21:21)
[2021-05-27] MEDS: FORMOTEROL FUMARATE 20 MCG/2 ML NEBU INHALATION SCH (21:21)
[2021-05-27] MEDS ORDERED: SODIUM CHLORIDE 0.9% 500 ML 200 ML IV ONE (22:06)
[2021-05-27] MEDS: TEMAZEPAM 15 MG CAP PO PRN (22:08)
[2021-05-28] MEDS ORDERED: ATROPINE SULFATE 0.1 MG/ML 10ML SYRINGE ONE (04:00)
[2021-05-28] MEDS: HYDROcodone/APAP 10-325MG 1 EACH TAB PO PRN ×3 (04:03→20:41)
[2021-05-28] MEDS: SODIUM CHLORIDE 0.9% 1,000 ML IV SCH ×2 (04:45→16:45)
[2021-05-28] MEDS: SODIUM CHLORIDE 0.9% 1,000 ML in EMPTY BAG 1 BAG IV SCH (04:45)
[2021-05-28 06:45] LABS: Glucose,Whole Blood 124 mg/dL (75-99)
[2021-05-28] MEDS: IPRATROPIUM-ALBUTEROL 3 ML NEB INHALATION SCH ×4 (07:09→19:30)
[2021-05-28] MEDS: FORMOTEROL FUMARATE 20 MCG/2 ML NEBU INHALATION SCH ×2 (07:09→19:30)
[2021-05-28] MEDS: BUDESONIDE 1 MG/2 ML NEBU INHALATION SCH ×2 (07:10→19:30)
[2021-05-28 07:46] LABS: Calcium 8.2 mg/dL (8.4-10.2); Potassium 4.6 mmol/L (3.5-5.1)
[2021-05-28 07:50] LABS: Basophils % (A) 0 %; Eosinophils # (A) 0.5 k/uL (0-0.7); Eosinophils % (A) 5 %; HCT 24.2 % (39.0-53.0); HGB 7.9 gm/dL (13.0-17.5); Hypochromasia Slight; Lymphocytes # (A) 1.6 k/uL (1.0-4.8); Lymphocytes % (A) 14 %; MCH 32.5 pg (25.0-35.0); MCHC 32.7 g/dL (31.0-37.0); MCV 99.5 fL (80.0-100.0); Macrocytosis Slight; Mean Platelet Volume 7.6; Monocytes # (A) 0.6 k/uL (0-1.0); Monocytes % (A) 5 %; Neutrophils % (A) 74 %; Platelet Count 167 k/uL (150-450); RBC 2.44 m/uL (4.30-5.90); RDW 15.6 % (11.5-15.5); WBC 10.8 k/uL (3.8-10.6)
[2021-05-28] MEDS: INSULIN ASPART (NovoLOG) 100 UNIT/ML VIAL SQ SCH ×4 (08:52→20:42)
--- NOTE | 2021-05-28 08:53 | PN ---
PROGRESS NOTE Mr. Parra underwent stenting of an unprotected left main and mid LAD with an Impella support yesterday with good result. He had a post-procedure vasovagal episode and also bleeding from the right groin which required manual compression. He also had a temporary pacemaker that was taken out yesterday, and the sheath was pulled today. He is doing well. He is sitting up in the chair this morning. His hemoglobin before the procedure was 10.0 and yesterday it was 9.0. I expect it to drop another gram because of the bleeding he had. However, good hemostasis is noted. He is asymptomatic. He is in sinus rhythm, resting comfortably. Vitals are stable. He is off the Levophed drip. S1, S2 heard normally. Short systolic murmur noted. Lungs reveal decent air entry. Abdomen is soft. Both groins have areas of ecchymosis but no significant hematoma. His right radial site is also clean and dry with a good pulse. Plan is to increase activity and have him sit up in a chair, move him to telemetry this afternoon and possible discharge tomorrow if he remains stable. Discussed my thoughts in detail with the patient. MMODL / IJN: [id number] /
[2021-05-28] MEDS: ASPIRIN 81 MG PO SCH (08:56)
[2021-05-28] MEDS: PANTOPRAZOLE 40 MG TABLET PO SCH (08:56)
[2021-05-28] MEDS: CLOPIDOGREL 75 MG TAB PO SCH (08:56)
[2021-05-28] MEDS: ATORVASTATIN 40 MG TAB PO SCH (08:56)
[2021-05-28] MEDS: POTASSIUM CHLORIDE ER 10 MEQ TAB.ER.PRT PO SCH (08:57)
[2021-05-28] MEDS: predniSONE 10 MG TAB PO SCH (08:57)
[2021-05-28] MEDS: TAMSULOSIN 0.4 MG CAP.ER.24H PO SCH (08:57)
[2021-05-28] MEDS: carvediloL 3.125 MG TAB PO SCH ×2 (08:57→16:59)
[2021-05-28] MEDS: FINASTERIDE 5 MG TAB PO SCH (09:00)
--- NOTE | 2021-05-28 09:29 | P.ARTDOP ---
Arterial Doppler This is bilateral lower extremity greater saphenous vein mapping. Date of service: 05/22/2021 Vein quality and ultrasound appearance: We see no intraluminal thrombus or obvious wall changes. Vein size groin right : 5.6 x 6.1 groin left: 6.8 x 7.2 High thigh right: 5.8 x 5.9 high thigh left: 4.9 x 5.8 Mid thigh right: 5.4 x 5.7 mid thigh left: 5.2 x 4.8 Above-knee right: 4.5 x 4.4 above-knee left: 3.9 x 4.7 Below knee right: 3.4 x 4.0 below-knee left: 2.7 x 2.7 Mid calf right: 4.5 x 4.3 mid calf left:2.8 x 3.1 Ankle right: 2.8 x 3.7 ankle left: 2.2 x 2.2 Impression: Usable bilateral greater saphenous vein.
[2021-05-28] MEDS: LOSARTAN 50 MG TAB PO SCH (10:35)
[2021-05-28 11:33] LABS: Glucose,Whole Blood 197 mg/dL (75-99)
[2021-05-28 11:55] VITALS: BMI 37.3
--- NOTE | 2021-05-28 13:54 | P.PN ---
Subjective Progress Note Date: 05/28/21 Principal diagnosis: Symptomatic multivessel coronary artery disease and severe COPD On 05/26/2021 patient seen in follow-up on [facility] care unit, he sitting up on the edge of the bed, awake and alert, oriented 3, denies any chest pain, denies any shortness of breath, room air pulse ox is 97%, vital signs have been stable, no fever chills, no chest discomfort. Patient was evaluated by CT surgery, she was found to be high risk for surgical intervention, and at this time the decision has been made To proceed with coronary artery stenting possibly tomorrow, has had no acute events overnight. Currently remains on heparin infusion. Patient has a long history of smoking, his preop FEV1 was 1.38 L or 44% of predicted. This was consistent with severe obstructive pulmo nary defect. Patient continues on inhaled Symbicort, remains on Rocephin, he is on Mucinex, his on maintenance dose of prednisone. On 05/27/2021 patient seen in follow-up on selective care unit, he is sitting up in a recliner, currently on room air, he states for the past 2 mornings he has been experiencing shortness of breath early in the morning, and this morning he also had some chest tightness on the right side of his chest. Occasional cough, no phlegm production however physical exam reveals chest congestion, scattered rhonchi and rales. Patient continues on his maintenance dose prednisone 5 mg daily, he is on Symbicort. Chest x-ray is pending, vital signs have been stable overnight, patient is scheduled for cardiac catheterization and stenting today. His procedure is scheduled for 12:30. He remains on heparin infusion, cardiology is closely following. He remains on aspirin 81 mg daily, she remains on Lipitor, Cozaar Reevaluated today on 05/28/2021, yesterday, patient underwent transvenous temporary pacemaker placement from right femoral venous approach, ImPella heart pump placement from the left femoral arterial approach, athrectomy of left main and mid LAD, percutaneous transluminal coronary angioplasty and stenting of the left main coronary artery and mid LAD with drug-eluting stents. Patient tolerated the procedure well, he is now in the ICU, seems to be asymptomatic, patient is on 2 L nasal cannula, in no form of distress, patient basically had an uneventful procedure yesterday by cardiology. is on room air, O2 sats is 97%. CBC is relatively normal hemoglobin is 7.9 lites are normal renal profile is normal Objective - Vital Signs Vital signs: Vital Signs Temp 97.6 F 05/28/21 13:37 Pulse 70 05/28/21 13:37 Resp 16 05/28/21 13:37 BP 152/76 05/28/21 13:37 Pulse Ox 97 05/28/21 13:37 Intake & Output 05/27/21 05/28/21 05/28/21 18:59 06:59 18:59 Intake Total 849.178 6653.818 650 Output Total 200 475 450 Balance 510.363 992.818 200 Weight 125 kg 125 kg Intake: IV 379 1025 450 Sodium Chloride 0.9% 1, 225 825 450 000 ml @ 75 mls/hr IV . [id number] [facility] Rx#:[id number] Sodium Chloride 0.9% 500 200 ml 200 ml @ 999 mls/hr IV .Q13M [facility] Rx#:[id number] Intake, IV Titration 81.363 142.818 Amount Heparin Sod,Pork in 0.45% 30.636 NaCl 25,000 unit In 0.45 % NaCl 1 250ml.bag @ 9 UNITS/KG/HR 9.99 mls/hr IV .Q24H [facility] Rx#: [id number] Norepinephrine 4 mg In 50.727 142.818 Sodium Chloride 0.9% 250 ml @ 0.05 MCG/KG/MIN 22. 479 mls/hr IV .[id number] [facility] Rx#:[id number] Oral 250 300 200 Output: Urine 200 475 450 Other: Voiding Method Urinal Urinal Urinal # Bowel Movements 1 - Exam Physical Exam: Revealed 80-year old in no distress. HEENT:[Neck is supple.] [No neck masses.] [No thyromegaly.] [No JVD.] Chest: [Symmetrical chest expansion, diminished breath sounds at the bases. Cardiac Exam: [Normal S1 and S2, no S3 gallop, no murmur.] Abdomen: [Soft, nontender, no megaly, no rebound, no guarding, normal bowel sounds.] Extremities: [No clubbing, no edema, no cyanosis.] Neurological Exam: [No focal neurologic deficit.] Alert and oriented 3. Psychiatric: Normal mood, affect and normal mental status examination. Skin: No rashes - Labs CBC & Chem 7: 05/28/21 06:43 05/28/21 06:43 Labs: Abnormal Lab Results - Last 24 Hours (Table) 05/27/21 05/27/21 05/27/21 Range/Units 15:59 17:32 19:02 WBC 12.8 H (3.8-10.6) k/uL RBC 2.82 L (4.30-5.90) m/uL Hgb 9.0 L (13.0-17.5) gm/dL Hct 27.1 L (39.0-53.0) % RDW 15.7 H (11.5-15.5) % Neutrophils # 10.5 H (1.3-7.7) k/uL Chloride (98-107) mmol/L Carbon Dioxide (22-30) mmol/L BUN (9-20) mg/dL Glucose (74-99) mg/dL POC Glucose (mg/dL) 215 H 179 H (75-99) mg/dL Calcium (8.4-10.2) mg/dL 05/27/21 05/28/21 05/28/21 Range/Units 20:57 06:43 06:43 WBC 10.8 H (3.8-10.6) k/uL RBC 2.44 L (4.30-5.90) m/uL Hgb 7.9 L (13.0-17.5) gm/dL Hct 24.2 L (39.0-53.0) % RDW 15.6 H (11.5-15.5) % Neutrophils # 8.0 H (1.3-7.7) k/uL Chloride 115 H (98-107) mmol/L Carbon Dioxide 20 L (22-30) mmol/L BUN 24 H (9-20) mg/dL Glucose 115 H (74-99) mg/dL POC Glucose (mg/dL) 112 H (75-99) mg/dL Calcium 8.2 L (8.4-10.2) mg/dL 05/28/21 05/28/21 Range/Units 06:44 11:32 WBC (3.8-10.6) k/uL RBC (4.30-5.90) m/uL Hgb (13.0-17.5) gm/dL Hct (39.0-53.0) % RDW (11.5-15.5) % Neutrophils # (1.3-7.7) k/uL Chloride (98-107) mmol/L Carbon Dioxide (22-30) mmol/L BUN (9-20) mg/dL Glucose (74-99) mg/dL POC Glucose (mg/dL) 124 H 197 H (75-99) mg/dL Calcium (8.4-10.2) mg/dL Assessment and Plan Assessment: Impression: Symptomatic multivessel coronary artery disease, status post stenting, postoperative day #1. Severe COPD, FEV1 is 44% of the predicted value. Acute non-ST elevation myocardial infarction Acute on chronic diastolic congestive heart failure Hypertensive emergency, resolved. Acute kidney injury improved. History of severe COPD, not oxygen dependent. Patient has a 11-[id number]-suvv smoking history Type 2 diabetes. Chronic venous insufficiency. History of right carotid endarterectomy History of urinary tract infection secondary to E. coli, treated with Rocephin. Recommendation: Continue bronchodilators. Continue cardiac meds as per cardiology. Continue prednisone. Continue inhalers. Continued without. Transfer out of the ICU to cardiac floor today. Time with Patient: Less than 30
[2021-05-28] MEDS: FERROUS SULFATE 325 MG TAB PO SCH (16:59)
[2021-05-28 17:08] LABS: Glucose,Whole Blood 198 mg/dL (75-99)
--- NOTE | 2021-05-28 19:55 | P.PN ---
Subjective This is a 80-year-old male who was recently admitted from [facility] after cardiac catheterization which showed triple vessel heart disease and for CT surgery evaluation for possible CABG. CT surgery has initiated the work up and discussion is now being had about possible stenting with DR. Ramirez as he is not a good candidate for CABG. Cardiology following as well and will continue with maximizing medical management. UA culture growing gram negative bacilli as part of the work up. Patient is denying chest pain, shortness of breath, or palpitations. Patient is afebrile. Patient continues on current home medications. Subjective: 05/24/2021 Patient is a pleasant 8 years old male with multiple medical problems presents w ith signs and symptoms of coronary artery disease and non-ST elevation myocardial infarction. He has severe coronary artery disease evaluated by insurance producer and cardiovascular services he is not a surgical candidate and instead planned for Wednesday placement of stent. Currently he is covered with heparin drip. Also patient is on normal saline 75 mL/h for suspected acute kidney injury however his creatinine close to his baseline. UTI is suspected secondary to E. coli which is sensitive at currently on Rocephin. CT of the chest without contrast showing severe aortic atherosclerosis and the branches. With fusiform dilatation of the celiac axis. Carotid Dopplers showing less than 50% stenosis on the right side and 50-69% STENOSIS of the left ICA. 05/25/2021 patient lying in bed comfortable, denies chest pain or dyspnea. No specific urinary symptoms over the last 2 days and he is on room air. Patient aware he is going for cardiac stent on this coming Wednesday and he is agreeable. CBC and BMP are reviewed and looks slightly improving, hemoglobin 10.2, creatinine 1.2 Patient remains on heparin drip, normal saline 75 mL/h and ceftriaxone for E. coli UTI. 05/26/2021 Is going for cardiac stenting tomorrow as he is not a surgical candidate Pulmonary and cardiology team on the case Hemodynamically stable and with no chest pain today. Creatinine improved to 1.1 Patient is on heparin drip and ceftriaxone for E. coli UTI. Repeat urine analysis is requested 05/27/2021 Undergoing stent placement today as he is not a surgical candidate Also his prednisone today increased from 5 home dose up to 30 mg daily because there is some evidence of wheezing on chest exam and chest x-rays: Difficult to exclude purely basilar airspace, interstitial lung disease. There is also underlying Emphysema. He remains on heparin drip, ceftriaxone for UTI with E. coli. Urine analysis from yesterday still shows an infection in the urine. 05/28/2021 Patient is a status post stenting of the LAD and left main coronary artery, he was monitored in the ICU for 24 hours and today he is doing well with no chest pain or dyspnea and hemodynamically stable. Flaps looks stable except mild reactive leukocytosis that's improvement and a drop of hemoglobin 7.9 most likely secondary to surgery and patient was placed on for a sulfate. Also patient is started on aspirin and Plavix. He continue on ceftriaxone for E. coli UTI. Also he is on the prednisone which may contribute to her leukocytosis. Patient is going to be moved to select floor today Subacute rehab is recommended and social services on the case Objective - Vital Signs Vital signs: Vital Signs Temp 98.2 F 05/28/21 08:00 Pulse 77 05/28/21 11:00 Resp 15 05/28/21 11:00 BP 132/54 05/28/21 11:00 Pulse Ox 96 05/28/21 11:00 Intake & Output 05/27/21 05/28/21 05/28/21 18:59 06:59 18:59 Intake Total 054.929 7557.818 300 Output Total 200 475 250 Balance 510.363 992.818 50 Weight 125 kg Intake: IV 379 1025 300 Sodium Chloride 0.9% 1, 225 825 300 000 ml @ 75 mls/hr IV . [id number] [facility] Rx#:[id number] Sodium Chloride 0.9% 500 200 ml 200 ml @ 999 mls/hr IV .Q13M [facility] Rx#:[id number] Intake, IV Titration 81.363 142.818 Amount Heparin Sod,Pork in 0.45% 30.636 NaCl 25,000 unit In 0.45 % NaCl 1 250ml.bag @ 9 UNITS/KG/HR 9.99 mls/hr IV .Q24H [facility] Rx#: [id number] Norepinephrine 4 mg In 50.727 142.818 Sodium Chloride 0.9% 250 ml @ 0.05 MCG/KG/MIN 22. 479 mls/hr IV .[id number] [facility] Rx#:[id number] Oral 250 300 Output: Urine 200 475 250 Other: Voiding Method Urinal Urinal Urinal # Bowel Movements 1 - Exam -GENERAL: The patient is alert and oriented x3, not in any acute distress. Generally weak HEENT: Pupils are round and equally reacting to light. EOMI. No scleral icterus. No conjunctival pallor. Normocephalic, atraumatic. No pharyngeal erythema. No thyromegaly. CARDIOVASCULAR: S1 and S2 present. No murmurs, rubs, or gallops. PULMONARY: Chest is clear to auscultation, no wheezing or crackles. ABDOMEN: Soft, nontender, nondistended, normoactive bowel sounds. No palpable organomegaly. MUSCULOSKELETAL: No joint swelling or deformity. EXTREMITIES: No cyanosis, clubbing, or pedal edema. NEUROLOGICAL: Gross neurological examination did not reveal any focal deficits. SKIN: No rashes. no petechiae. - Labs CBC & Chem 7: 05/28/21 06:43 05/28/21 06:43 Labs: Abnormal Lab Results - Last 24 Hours (Table) 05/27/21 05/27/21 05/27/21 Range/Units 15:59 17:32 19:02 WBC 12.8 H (3.8-10.6) k/uL RBC 2.82 L (4.30-5.90) m/uL Hgb 9.0 L (13.0-17.5) gm/dL Hct 27.1 L (39.0-53.0) % RDW 15.7 H (11.5-15.5) % Neutrophils # 10.5 H (1.3-7.7) k/uL Chloride (98-107) mmol/L Carbon Dioxide (22-30) mmol/L BUN (9-20) mg/dL Glucose (74-99) mg/dL POC Glucose (mg/dL) 215 H 179 H (75-99) mg/dL Calcium (8.4-10.2) mg/dL 05/27/21 05/28/21 05/28/21 Range/Units 20:57 06:43 06:43 WBC 10.8 H (3.8-10.6) k/uL RBC 2.44 L (4.30-5.90) m/uL Hgb 7.9 L (13.0-17.5) gm/dL Hct 24.2 L (39.0-53.0) % RDW 15.6 H (11.5-15.5) % Neutrophils # 8.0 H (1.3-7.7) k/uL Chloride 115 H (98-107) mmol/L Carbon Dioxide 20 L (22-30) mmol/L BUN 24 H (9-20) mg/dL Glucose 115 H (74-99) mg/dL POC Glucose (mg/dL) 112 H (75-99) mg/dL Calcium 8.2 L (8.4-10.2) mg/dL 05/28/21 Range/Units 06:44 WBC (3.8-10.6) k/uL RBC (4.30-5.90) m/uL Hgb (13.0-17.5) gm/dL Hct (39.0-53.0) % RDW (11.5-15.5) % Neutrophils # (1.3-7.7) k/uL Chloride (98-107) mmol/L Carbon Dioxide (22-30) mmol/L BUN (9-20) mg/dL Glucose (74-99) mg/dL POC Glucose (mg/dL) 124 H (75-99) mg/dL Calcium (8.4-10.2) mg/dL Assessment and Plan Assessment: triple vessel coronary artery disease, status post cardiac catheterization and stent placement to the LAD and left main coronary artery sensitive E. coli urinary tract infection Severe COPD with mild exacerbation Bilateral internal carotid artery stenosis, less than 50% on the right side and 50-69% on the left ICA Chronic kidney disease, stage III chronic obstructive pulmonary disease, no exacerbation hypertension hyperlipidemia History of degenerative joint disease GI prophylaxis DVT prophylaxis Plan: This is a pleasant 80 years old male who presents with non-STEMI Cardiology, cardiothoracic surgery and pulmonary services on the case Continue with aspirin and Plavix Continue with further sulfate Continue with ceftriaxone and gentle hydration. Increase prednisone 30 mg per airplane captain Labs and medication were reviewed.. Continue same treatment. Continue with s ymptomatic treatment. Resume home medication. Monitor lytes and vitals. DVT and GI prophylaxis. Further recommendations as per clinical course of the patient DVT prophylaxis:sc heparin GI Prophylaxis: Ppi PT/OT: KATHY Prognosis is guarded
[2021-05-28 20:12] LABS: Glucose,Whole Blood 213 mg/dL (75-99)
[2021-05-28] MEDS ORDERED: HEPARIN SODIUM,PORCINE/PF 5,000 UNIT/0.5 ML SYRINGE SQ SCH (21:00)
[2021-05-29 06:09] LABS: Glucose,Whole Blood 125 mg/dL (75-99)
[2021-05-29] MEDS: carvediloL 3.125 MG TAB PO SCH ×2 (06:37→17:56)
[2021-05-29] MEDS: FERROUS SULFATE 325 MG TAB PO SCH ×2 (06:37→17:56)
[2021-05-29] MEDS: SODIUM CHLORIDE 0.9% 1,000 ML IV SCH (06:38)
[2021-05-29 08:14] LABS: Basophils % (A) 0 %; Eosinophils # (A) 0.3 k/uL (0-0.7); Eosinophils % (A) 3 %; HCT 22.7 % (39.0-53.0); HGB 7.2 gm/dL (13.0-17.5); Hypochromasia Slight; Lymphocytes # (A) 1.8 k/uL (1.0-4.8); Lymphocytes % (A) 15 %; MCH 31.5 pg (25.0-35.0); MCV 98.7 fL (80.0-100.0); Macrocytosis Slight; Mean Platelet Volume 7.3; Monocytes # (A) 0.6 k/uL (0-1.0); Monocytes % (A) 5 %; Neutrophils # (A) 8.9 k/uL (1.3-7.7); Neutrophils % (A) 76 %; Platelet Count 160 k/uL (150-450); RDW 15.9 % (11.5-15.5); WBC 11.7 k/uL (3.8-10.6)
[2021-05-29] MEDS: BUDESONIDE 1 MG/2 ML NEBU INHALATION SCH ×2 (08:14→20:05)
[2021-05-29] MEDS: FORMOTEROL FUMARATE 20 MCG/2 ML NEBU INHALATION SCH ×2 (08:14→20:05)
[2021-05-29] MEDS: IPRATROPIUM-ALBUTEROL 3 ML NEB INHALATION SCH ×4 (08:14→20:05)
[2021-05-29] MEDS: FINASTERIDE 5 MG TAB PO SCH (09:27)
[2021-05-29] MEDS: ATORVASTATIN 40 MG TAB PO SCH (09:27)
[2021-05-29] MEDS: predniSONE 10 MG TAB PO SCH (09:27)
[2021-05-29] MEDS: CLOPIDOGREL 75 MG TAB PO SCH (09:27)
[2021-05-29] MEDS: INSULIN ASPART (NovoLOG) 100 UNIT/ML VIAL SQ SCH ×4 (09:27→21:09)
[2021-05-29] MEDS: PANTOPRAZOLE 40 MG TABLET PO SCH (09:27)
[2021-05-29] MEDS: POTASSIUM CHLORIDE ER 10 MEQ TAB.ER.PRT PO SCH (09:27)
[2021-05-29] MEDS: ASPIRIN 81 MG PO SCH (09:27)
[2021-05-29] MEDS: TAMSULOSIN 0.4 MG CAP.ER.24H PO SCH (09:27)
[2021-05-29] MEDS: LOSARTAN 50 MG TAB PO SCH (09:27)
--- NOTE | 2021-05-29 09:30 | P.PN ---
Subjective Progress Note Date: 05/29/21 Principal diagnosis: Shortness of breath On 05/26/2021 patient seen in follow-up on selective care unit, he sitting up on the edge of the bed, awake and alert, oriented 3, denies any chest pain, denies any shortness of breath, room air pulse ox is 97%, vital signs have been stable, no fever chills, no chest discomfort. Patient was evaluated by CT surgery, she was found to be high risk for surgical intervention, and at this time the decision has been made To proceed with coronary artery stenting possibly tomorrow, has had no acute events overnight. Currently remains on heparin infusion. Patient has a long history of smoking, his preop FEV1 was 1.38 L or 44% of predicted. This was consistent with severe obstructive pulmonary defect. Patient continues on inhaled Symbicort, remains on Rocephin, he is on Mucinex, his on maintenance dose of prednisone. On 05/27/2021 patient seen in follow-up on selective care unit, he is sitting up in a recliner, currently on room air, he states for the past 2 mornings he has been experiencing shortness of breath early in the morning, and this morning he also had some chest tightness on the right side of his chest. Occasional cough, no phlegm production however physical exam reveals chest congestion, scattered rhonchi and rales. Patient continues on his maintenance dose prednisone 5 mg daily, he is on Symbicort. Chest x-ray is pending, vital signs have been stable overnight, patient is scheduled for cardiac catheterization and stenting today. His procedure is scheduled for 12:30. He remains on heparin infusion, cardiology is closely following. He remains on aspirin 81 mg daily, she remains on Lipitor, Cozaar On 05/29/2021 patient seen in follow-up on selective care unit, he has been transferred out of intensive care unit yesterday, he has had no acute events overnight, no complaints of chest pain or worsening shortness of breath, he is currently on room air with a pulse ox of 94%, breathing comfortably, lung sounds revealed bibasilar crackles, with a few scattered wheezes, no fever or chills, patient is status post cardiac catheterization, atherectomy of the left main and mid LAD, PTCA and stenting of the left main coronary artery and mid LAD with drug-eluting stents. Patient also required transvenous temporary pacemaker placement from right femoral venous approach, and Impella heart pump placement, and patient required admission to the intensive care unit following his procedure, was successfully weaned from the Impala device, and subsequently his transvenous pacemaker and Impella device were removed. Patient continues on aspirin 81 mg, Plavix, he is on Lipitor 40 mg daily, he is on breathing treatments, prednisone 30 mg. he reports no acute events overnight, he is currently sitting up in the chair, breathing comfortably, he states that the chaperon told him that he would be discharged today Objective - Vital Signs Vital signs: Vital Signs Temp 98.4 F 05/29/21 04:00 Pulse 84 05/29/21 08:35 Resp 18 05/29/21 04:00 BP 117/56 05/29/21 04:00 Pulse Ox 94 L 05/29/21 04:00 Intake & Output 05/28/21 05/29/21 05/29/21 18:59 06:59 18:59 Intake Total 650 Output Total 450 825 Balance 200 -825 Weight 125 kg Intake: IV 450 Sodium Chloride 0.9% 1, 450 000 ml @ 75 mls/hr IV . [id number] [facility] Rx#:[id number] Oral 200 Output: Urine 450 825 Other: Voiding Method Urinal # Bowel Movements 1 - Exam GENERAL EXAM: Alert, very pleasant, 80-year-old white male, with a pulse ox of 97% comfortable in no apparent distress. HEAD: Normocephalic/atraumatic. EYES: Normal reaction of pupils, equal size. Conjunctiva pink, sclera white. NOSE: Clear with pink turbinates. THROAT: No erythema or exudates. NECK: No masses, no JVD, no thyroid enlargement, no adenopathy. CHEST: No chest wall deformity. Symmetrical expansion. LUNGS: Equal air entry with mild wheezes and bibasilar crackles CVS: Regular rate and rhythm, normal S1 and S2, no gallops, no murmurs, no rubs ABDOMEN: Soft, nontender. No hepatosplenomegaly, normal bowel sounds, no guarding or rigidity. EXTREMITIES: No clubbing, no edema, no cyanosis, 2+ pulses and upper and lower extremities. MUSCULOSKELETAL: Muscle strength and tone normal. SPINE: No scoliosis or deformity SKIN: No rashes CENTRAL NERVOUS SYSTEM: Alert and oriented -3. No focal deficits, tone is normal in all 4 extremities. PSYCHIATRIC: Alert and oriented -3. Appropriate affect. Intact judgment and insight. - Labs CBC & Chem 7: 05/29/21 07:41 05/28/21 06:43 Labs: Abnormal Lab Results - Last 24 Hours (Table) 05/28/21 05/28/21 05/28/21 Range/Units 11:32 17:03 19:57 WBC (3.8-10.6) k/uL RBC (4.30-5.90) m/uL Hgb (13.0-17.5) gm/dL Hct (39.0-53.0) % RDW (11.5-15.5) % Neutrophils # (1.3-7.7) k/uL POC Glucose (mg/dL) 197 H 198 H 213 H (75-99) mg/dL 05/29/21 05/29/21 Range/Units 06:02 07:41 WBC 11.7 H (3.8-10.6) k/uL RBC 2.30 L (4.30-5.90) m/uL Hgb 7.2 L (13.0-17.5) gm/dL Hct 22.7 L (39.0-53.0) % RDW 15.9 H (11.5-15.5) % Neutrophils # 8.9 H (1.3-7.7) k/uL POC Glucose (mg/dL) 125 H (75-99) mg/dL Assessment and Plan Plan: Assessment: #1. Symptomatic multivessel coronary artery disease with 95% left main stenosis, 90% stenosis of the LAD, and 100% stenosis of the left circumflex, patient was found to be high risk for surgical intervention. Patient is status post cardiac catheterization, atherectomy of the left main and mid LAD, PTCA and stenting of the left main coronary artery and mid LAD with drug-eluting stents. He required TVP and Impella device assist, currently those have been discontinued #2. Severe COPD, and preop FEV1 showed FEV1 of 1.38 L or 44% of predicted, and MVV was in the order of 51.8 #3. Acute non-ST elevated myocardial infarction #4. Acute exacerbation of chronic CHF with diastolic dysfunction #5. Hypertensive emergency, currently resolved #6. Acute kidney injury, improved #7. History of stage III chronic kidney disease #8. History of COPD not oxygen dependent at baseline #9. 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 Type 2 diabetes mellitus #11. Dyslipidemia #12. History of venous insufficiency #13. History of right carotid artery stenosis status post carotid endarterectomy #14. Acute urinary tract infection related to E. coli, patient is on Rocephin Plan: Patient had an uneventful night Vital signs are stable No worsening dyspnea No complaints of chest pain Increase activity as tolerated Possible discharge home today once cleared by cardiology From pulmonary perspective patient can be discharged home on prednisone taper, and he can resume his maintenance dose of prednisone 5 mg afterward He can resume his maintenance inhalers Patient can follow up with Dr. SHAYNA Gonzalez I performed a history & physical examination of the patient and discussed their management with my nurse practitioner, Erica Perry. I reviewed the nurse practitioner's note and agree with the documented findings and plan of care. Lung sounds are positive for dim breath sounds throughout the lung [place]. The findings and the impression was discussed with the patient. I attest to the documentation by the nurse practitioner. I have personally seen and examined the patient, performed the documentation and the assessment and plan as written. Number of minutes spent on the visit: [10] Time with Patient: Less than 30
--- NOTE | 2021-05-29 10:32 | PN ---
PROGRESS NOTE Mr. Parra underwent an Impella supported PCI of the left main and LAD 48 hours ago. This was complicated by a right groin bleed which has settled down. He lost about 2 g of hemoglobin. Right groin is soft. No large hematoma. Ecchymosis is noted. Left groin is clean and dry. Right radial site is also clean and dry. He is doing well without symptoms. I am recommending that he can be discharged on current medications including iron supplements. He is on dual antiplatelet therapy. All medications reviewed. Discharge instructions were given. He is advised to do only activities of daily living and not do anything strenuous. He will come and see Dr. Ramirez in 1 week in the office. Vital signs stable. Blood pressure is 118/70, pulse rate is 70 per minute. S1-S2 heard normally. Short, systolic murmur at the base is noted. Lungs revealed decent air entry. Abdomen is soft, nontender. Lower extremities reveal ecchymosis right groin. Left groin is clean, dry. Pulses are palpable. Lower extremities reveal trace edema. Distal pulses are palpable. Central nervous system grossly within normal limits. The right radial site is clean and dry. Plan is to discharge him today and he will see Dr. Ramirez in 1 week. MMODL / IJN: [id number] /
[2021-05-29 11:34] LABS: Glucose,Whole Blood 151 mg/dL (75-99)
[2021-05-29 16:33] LABS: Glucose,Whole Blood 200 mg/dL (75-99)
[2021-05-29] MEDS: HYDROcodone/APAP 10-325MG 1 EACH TAB PO PRN (17:56)
[2021-05-29 19:52] LABS: Glucose,Whole Blood 256 mg/dL (75-99)
--- NOTE | 2021-05-29 21:34 | P.PN ---
Subjective This is a 80-year-old male who was recently admitted from [facility] after cardiac catheterization which showed triple vessel heart disease and for CT surgery evaluation for possible CABG. CT surgery has initiated the work up and discussion is now being had about possible stenting with DR. Ramirez as he is not a good candidate for CABG. Cardiology following as well and will continue with maximizing medical management. UA culture growing gram negative bacilli as part of the work up. Patient is denying chest pain, shortness of breath, or palpitations. Patient is afebrile. Patient continues on current home medications. Subjective: 05/24/2021 Patient is a pleasant 8 years old male with multiple medical problems presents w ith signs and symptoms of coronary artery disease and non-ST elevation myocardial infarction. He has severe coronary artery disease evaluated by vice president payer and cardiovascular services he is not a surgical candidate and instead planned for Wednesday placement of stent. Currently he is covered with heparin drip. Also patient is on normal saline 75 mL/h for suspected acute kidney injury however his creatinine close to his baseline. UTI is suspected secondary to E. coli which is sensitive at currently on Rocephin. CT of the chest without contrast showing severe aortic atherosclerosis and the branches. With fusiform dilatation of the celiac axis. Carotid Dopplers showing less than 50% stenosis on the right side and 50-69% STENOSIS of the left ICA. 05/25/2021 patient lying in bed comfortable, denies chest pain or dyspnea. No specific urinary symptoms over the last 2 days and he is on room air. Patient aware he is going for cardiac stent on this coming Wednesday and he is agreeable. CBC and BMP are reviewed and looks slightly improving, hemoglobin 10.2, creatinine 1.2 Patient remains on heparin drip, normal saline 75 mL/h and ceftriaxone for E. coli UTI. 05/26/2021 Is going for cardiac stenting tomorrow as he is not a surgical candidate Pulmonary and cardiology team on the case Hemodynamically stable and with no chest pain today. Creatinine improved to 1.1 Patient is on heparin drip and ceftriaxone for E. coli UTI. Repeat urine analysis is requested 05/27/2021 Undergoing stent placement today as he is not a surgical candidate Also his prednisone today increased from 5 home dose up to 30 mg daily because there is some evidence of wheezing on chest exam and chest x-rays: Difficult to exclude purely basilar airspace, interstitial lung disease. There is also underlying Emphysema. He remains on heparin drip, ceftriaxone for UTI with E. coli. Urine analysis from yesterday still shows an infection in the urine. 05/28/2021 Patient is a status post stenting of the LAD and left main coronary artery, he was monitored in the ICU for 24 hours and today he is doing well with no chest pain or dyspnea and hemodynamically stable. Flaps looks stable except mild reactive leukocytosis that's improvement and a drop of hemoglobin 7.9 most likely secondary to surgery and patient was placed on for a sulfate. Also patient is started on aspirin and Plavix. He continue on ceftriaxone for E. coli UTI. Also he is on the prednisone which may contribute to her leukocytosis. Patient is going to be moved to select floor today Subacute rehab is recommended and director social on the case 05/29/2011 Patient today as well with no chest pain or dyspnea, is hemodynamically stable. Patient with no other complaints and she wants to go home. He is cleared for discharge by cardiology and pulmonary service However occupational therapy recommended subacute rehab due to his generalized weakness related to his recent heart attack and urinary tract infection, currently he is on ceftriaxone for E. coli UTI. ALLERGIES think his hemoglobin is trending down 7.9 down to 7.2 today we'll keep monitoring him one more day. Physical discharge tomorrow if remains stable and once he got approved by his medical insurance provider to go to rehab. tree worker and case Objective - Vital Signs Vital signs: Vital Signs Temp 98.3 F 05/29/21 09:25 Pulse 92 05/29/21 09:25 Resp 16 05/29/21 09:25 BP 146/63 05/29/21 09:25 Pulse Ox 96 05/29/21 09:25 Intake & Output 05/28/21 05/29/21 05/29/21 18:59 06:59 18:59 Intake Total 650 Output Total 450 825 Balance 200 -825 Weight 125 kg Intake: IV 450 Sodium Chloride 0.9% 1, 450 000 ml @ 75 mls/hr IV . [id number] [facility] Rx#:[id number] Oral 200 Output: Urine 450 825 Other: Voiding Method Urinal # Bowel Movements 1 - Exam -GENERAL: The patient is alert and oriented x3, not in any acute distress. Generally weak HEENT: Pupils are round and equally reacting to light. EOMI. No scleral icterus. No conjunctival pallor. Normocephalic, atraumatic. No pharyngeal erythema. No thyromegaly. CARDIOVASCULAR: S1 and S2 present. No murmurs, rubs, or gallops. PULMONARY: Chest is clear to auscultation, no wheezing or crackles. ABDOMEN: Soft, nontender, nondistended, normoactive bowel sounds. No palpable organomegaly. MUSCULOSKELETAL: No joint swelling or deformity. EXTREMITIES: No cyanosis, clubbing, or pedal edema. NEUROLOGICAL: Gross neurological examination did not reveal any focal deficits. SKIN: No rashes. no petechiae. - Labs CBC & Chem 7: 05/29/21 07:41 05/28/21 06:43 Labs: Abnormal Lab Results - Last 24 Hours (Table) 05/28/21 05/28/21 05/28/21 Range/Units 11:32 17:03 19:57 WBC (3.8-10.6) k/uL RBC (4.30-5.90) m/uL Hgb (13.0-17.5) gm/dL Hct (39.0-53.0) % RDW (11.5-15.5) % Neutrophils # (1.3-7.7) k/uL POC Glucose (mg/dL) 197 H 198 H 213 H (75-99) mg/dL 05/29/21 05/29/21 Range/Units 06:02 07:41 WBC 11.7 H (3.8-10.6) k/uL RBC 2.30 L (4.30-5.90) m/uL Hgb 7.2 L (13.0-17.5) gm/dL Hct 22.7 L (39.0-53.0) % RDW 15.9 H (11.5-15.5) % Neutrophils # 8.9 H (1.3-7.7) k/uL POC Glucose (mg/dL) 125 H (75-99) mg/dL Assessment and Plan Assessment: triple vessel coronary artery disease, status post cardiac catheterization and stent placement to the LAD and left main coronary artery sensitive E. coli urinary tract infection Severe COPD with mild exacerbation Bilateral internal carotid artery stenosis, less than 50% on the right side and 50-69% on the left ICA Chronic kidney disease, stage III chronic obstructive pulmonary disease, no exacerbation hypertension hyperlipidemia History of degenerative joint disease GI prophylaxis DVT prophylaxis Plan: This is a pleasant 80 years old male who presents with non-STEMI Cardiology, cardiothoracic surgery and pulmonary services on the case. Patient was cleared for discharge by all consultants Continue with aspirin and Plavix Continue with ferrous sulfate Continue with ceftriaxone and gentle hydration. Increase prednisone 30 mg per tobacco weigher. Steroids will be tapered upon discharge Labs and medication were reviewed.. Continue same treatment. Continue with symptomatic treatment. Resume home medication. Monitor lytes and vitals. DVT and GI prophylaxis. Further recommendations as per clinical course of the patient DVT prophylaxis:sc heparin GI Prophylaxis: Ppi PT/OT: KATHY Prognosis is guarded
[2021-05-30] MEDS: FERROUS SULFATE 325 MG TAB PO SCH ×2 (05:16→18:38)
[2021-05-30] MEDS: HYDROcodone/APAP 10-325MG 1 EACH TAB PO PRN ×2 (05:16→18:39)
[2021-05-30] MEDS: carvediloL 3.125 MG TAB PO SCH ×2 (05:17→18:38)
[2021-05-30 06:13] LABS: Glucose,Whole Blood 108 mg/dL (75-99)
[2021-05-30] MEDS: FORMOTEROL FUMARATE 20 MCG/2 ML NEBU INHALATION SCH (08:15)
[2021-05-30] MEDS: IPRATROPIUM-ALBUTEROL 3 ML NEB INHALATION SCH ×3 (08:15→17:02)
[2021-05-30] MEDS: BUDESONIDE 1 MG/2 ML NEBU INHALATION SCH (08:15)
[2021-05-30] MEDS: POTASSIUM CHLORIDE ER 10 MEQ TAB.ER.PRT PO SCH (09:14)
[2021-05-30] MEDS: ATORVASTATIN 40 MG TAB PO SCH (09:14)
[2021-05-30] MEDS: ASPIRIN 81 MG PO SCH (09:14)
[2021-05-30] MEDS: PANTOPRAZOLE 40 MG TABLET PO SCH (09:14)
[2021-05-30] MEDS: LOSARTAN 50 MG TAB PO SCH (09:14)
[2021-05-30] MEDS: CLOPIDOGREL 75 MG TAB PO SCH (09:14)
[2021-05-30] MEDS: predniSONE 10 MG TAB PO SCH (09:14)
[2021-05-30] MEDS: TAMSULOSIN 0.4 MG CAP.ER.24H PO SCH (09:14)
[2021-05-30] MEDS: FINASTERIDE 5 MG TAB PO SCH (09:14)
[2021-05-30] MEDS: INSULIN ASPART (NovoLOG) 100 UNIT/ML VIAL SQ SCH ×3 (09:15→18:38)
[2021-05-30 11:22] LABS: HCT 21.8 % (39.0-53.0); HGB 7.1 gm/dL (13.0-17.5); Hypochromasia Slight; MCH 32.3 pg (25.0-35.0); MCHC 32.3 g/dL (31.0-37.0); MCV 99.8 fL (80.0-100.0); Macrocytosis Slight; Mean Platelet Volume 7.8; Platelet Count 159 k/uL (150-450); RBC 2.19 m/uL (4.30-5.90); RDW 15.8 % (11.5-15.5); WBC 11.4 k/uL (3.8-10.6)
[2021-05-30 11:37] LABS: Glucose,Whole Blood 143 mg/dL (75-99)
--- NOTE | 2021-05-30 12:35 | P.PN ---
Subjective Progress Note Date: 05/30/21 HISTORY OF PRESENT ILLNESS: Patient is status post Impella supported PCI of the left main and LAD. Patient examined this morning at the bedside. Patient denies chest pain or pressure. Denies shortness of breath. Vital signs are stable. Patient is possibly being discharged to [facility] today for rehab. PHYSICAL EXAM: VITAL SIGNS: Reviewed. GENERAL: Well-developed in no acute distress. NECK: Supple. No JVD or thyromegaly LUNGS: Respirations even and unlabored. Lungs essentially clear to auscultation bilaterally. HEART: Regular rate and rhythm. S1 and S2 heard. Soft murmur noted. EXTREMITIES: Normal range of motion. No clubbing or cyanosis. Peripheral pulses intact. No lower extremity edema ASSESSMENT: Non-STEMI, status post Impella supported PCI of the left main and LAD Post procedure right groin bleeding, resolved Coronary artery disease Chronic kidney disease Anemia Hypertension Hyperlipidemia Diabetes COPD PLAN: Continue current cardiac medications Stable for DC today from a cardiac standpoint Follow up outpatient with Dr. Ramirez Nurse practitioner note has been reviewed by physician. Signing provider agrees with the documented findings, assessment, and plan of care. Objective - Vital Signs Vital signs: Vital Signs Temp 98.5 F 05/30/21 09:10 Pulse 94 05/30/21 09:10 Resp 20 05/30/21 09:10 BP 175/72 05/30/21 09:10 Pulse Ox 99 05/30/21 09:10 Intake & Output 05/29/21 05/30/21 05/30/21 18:59 06:59 18:59 Output Total 400 Balance -400 Output: Urine 400 - Labs CBC & Chem 7: 05/30/21 11:07 05/28/21 06:43 Labs: Abnormal Lab Results - Last 24 Hours (Table) 05/29/21 05/29/21 05/30/21 Range/Units 16:31 19:49 06:11 WBC (3.8-10.6) k/uL RBC (4.30-5.90) m/uL Hgb (13.0-17.5) gm/dL Hct (39.0-53.0) % RDW (11.5-15.5) % POC Glucose (mg/dL) 200 H 256 H 108 H (75-99) mg/dL 05/30/21 05/30/21 Range/Units 11:07 11:36 WBC 11.4 H (3.8-10.6) k/uL RBC 2.19 L (4.30-5.90) m/uL Hgb 7.1 L (13.0-17.5) gm/dL Hct 21.8 L (39.0-53.0) % RDW 15.8 H (11.5-15.5) % POC Glucose (mg/dL) 143 H (75-99) mg/dL
--- NOTE | 2021-05-30 15:09 | P.PN ---
<Erica Perry M - Last Filed: 05/30/21 14:58> Subjective Progress Note Date: 05/30/21 Principal diagnosis: Shortness of breath On 05/26/2021 patient seen in follow-up on selective care unit, he sitting up on the edge of the bed, awake and alert, oriented 3, denies any chest pain, denies any shortness of breath, room air pulse ox is 97%, vital signs have been stable, no fever chills, no chest discomfort. Patient was evaluated by CT surgery, she was found to be high risk for surgical intervention, and at this time the decision has been made To proceed with coronary artery stenting p ossibly tomorrow, has had no acute events overnight. Currently remains on heparin infusion. Patient has a long history of smoking, his preop FEV1 was 1.38 L or 44% of predicted. This was consistent with severe obstructive pulmonary defect. Patient continues on inhaled Symbicort, remains on Rocephin, he is on Mucinex, his on maintenance dose of prednisone. On 05/27/2021 patient seen in follow-up on selective care unit, he is sitting up in a recliner, currently on room air, he states for the past 2 mornings he has been experiencing shortness of breath early in the morning, and this morning he also had some chest tightness on the right side of his chest. Occasional cough, no phlegm production however physical exam reveals chest congestion, scattered rhonchi and rales. Patient continues on his maintenance dose prednisone 5 mg daily, he is on Symbicort. Chest x-ray is pending, vital signs have been stable overnight, patient is scheduled for cardiac catheterization and stenting today. His procedure is scheduled for 12:30. He remains on heparin infusion, cardiology is closely following. He remains on aspirin 81 mg daily, she remains on Lipitor, Cozaar On 05/29/2021 patient seen in follow-up on selective care unit, he has been transferred out of intensive care unit yesterday, he has had no acute events overnight, no complaints of chest pain or worsening shortness of breath, he is currently on room air with a pulse ox of 94%, breathing comfortably, lung sounds revealed bibasilar crackles, with a few scattered wheezes, no fever or chills, patient is status post cardiac catheterization, atherectomy of the left main and mid LAD, PTCA and stenting of the left main coronary artery and mid LAD with drug-eluting stents. Patient also required transvenous temporary pacemaker placement from right femoral venous approach, and Impella heart pump placement, and patient required admission to the intensive care unit following his procedure, was successfully weaned from the Impala device, and subsequently his transvenous pacemaker and Impella device were removed. Patient continues on aspirin 81 mg, Plavix, he is on Lipitor 40 mg daily, he is on breathing treatments, prednisone 30 mg. he reports no acute events overnight, he is currently sitting up in the chair, breathing comfortably, he states that the glaucoma specialist told him that he would be discharged today. On 05/30/2021 patient seen in follow-up on selective care unit. Patient has been stable in last 24 hours, room air pulse ox was 99% earlier today, however patient ambulated in the hallway, and was noted to be desaturating and was subsequently placed on supplemental oxygen currently at 4 L. Breathing comfo rtably, no complaints of dyspnea or cough, no complaints of chest pain. Patient has been cleared by cardiology for discharge home. Patient has had no worsening dyspnea or cough. He continues on DuoNeb, continues on prednisone 30 mg daily, Pulmicort and Perforomist Objective - Vital Signs Vital signs: Vital Signs Temp 98.5 F 05/30/21 09:10 Pulse 102 H 05/30/21 12:51 Resp 20 05/30/21 09:10 BP 175/72 05/30/21 09:10 Pulse Ox 99 05/30/21 09:10 Intake & Output 05/29/21 05/30/21 05/30/21 18:59 06:59 18:59 Output Total 400 Balance -400 Output: Urine 400 - Exam GENERAL EXAM: Alert, very pleasant, 80-year-old white male, on 4 l/min with a pulse ox of 97% comfortable in no apparent distress. HEAD: Normocephalic/atraumatic. EYES: Normal reaction of pupils, equal size. Conjunctiva pink, sclera white. NOSE: Clear with pink turbinates. THROAT: No erythema or exudates. NECK: No masses, no JVD, no thyroid enlargement, no adenopathy. CHEST: No chest wall deformity. Symmetrical expansion. LUNGS: Equal air entry with mild wheezes and bibasilar crackles CVS: Regular rate and rhythm, normal S1 and S2, no gallops, no murmurs, no rubs ABDOMEN: Soft, nontender. No hepatosplenomegaly, normal bowel sounds, no guarding or rigidity. EXTREMITIES: No clubbing, no edema, no cyanosis, 2+ pulses and upper and lower extremities. MUSCULOSKELETAL: Muscle strength and tone normal. SPINE: No scoliosis or deformity SKIN: No rashes CENTRAL NERVOUS SYSTEM: Alert and oriented -3. No focal deficits, tone is normal in all 4 extremities. PSYCHIATRIC: Alert and oriented -3. Appropriate affect. Intact judgment and insight. - Labs CBC & Chem 7: 05/30/21 11:07 05/28/21 06:43 Labs: Abnormal Lab Results - Last 24 Hours (Table) 05/29/21 05/29/21 05/30/21 Range/Units 16:31 19:49 06:11 WBC (3.8-10.6) k/uL RBC (4.30-5.90) m/uL Hgb (13.0-17.5) gm/dL Hct (39.0-53.0) % RDW (11.5-15.5) % POC Glucose (mg/dL) 200 H 256 H 108 H (75-99) mg/dL 05/30/21 05/30/21 Range/Units 11:07 11:36 WBC 11.4 H (3.8-10.6) k/uL RBC 2.19 L (4.30-5.90) m/uL Hgb 7.1 L (13.0-17.5) gm/dL Hct 21.8 L (39.0-53.0) % RDW 15.8 H (11.5-15.5) % POC Glucose (mg/dL) 143 H (75-99) mg/dL Assessment and Plan Plan: Assessment: #1. Symptomatic multivessel coronary artery disease with 95% left main stenosis, 90% stenosis of the LAD, and 100% stenosis of the left circumflex, patient was found to be high risk for surgical intervention. Patient is status post cardiac catheterization, atherectomy of the left main and mid LAD, PTCA and stenting of the left main coronary artery and mid LAD with drug-eluting stents. He required TVP and Impella device assist, currently those have been discontinued #2. Severe COPD, and preop FEV1 showed FEV1 of 1.38 L or 44% of predicted, and MVV was in the order of 51.8 #3. Acute non-ST elevated myocardial infarction #4. Acute exacerbation of chronic CHF with diastolic dysfunction #5. Hypertensive emergency, currently resolved #6. Acute kidney injury, improved #7. History of stage III chronic kidney disease #8. History of COPD not oxygen dependent at baseline #9. History of smoking, in remission for last 6 months, carries [id number] smoking history #10. Type 2 diabetes mellitus #11. Dyslipidemia #12. History of venous insufficiency #13. History of right carotid artery stenosis status post carotid endarterecto my #14. Acute urinary tract infection related to E. coli, patient is on Rocephin Plan: Vital signs are stable No worsening dyspnea or cough Vital signs have been stable Patient has been tolerating ambulation No acute events overnight Cleared for discharge from pulmonary perspective From pulmonary perspective patient can be discharged home on prednisone taper, and he can resume his maintenance dose of prednisone 5 mg afterward He can resume his maintenance inhalers Patient can follow up with Dr. SHAYNA Gonzalez I performed a history & physical examination of the patient and discussed their management with my nurse practitioner, Erica Perry. I reviewed the nurse practitioner's note and agree with the documented findings and plan of care. Lung sounds are positive for dim breath sounds throughout the lung almonte. The findings and the impression was discussed with the patient. I attest to the documentation by the nurse practitioner. I have personally seen and examined the patient, performed the documentation and the assessment and plan as written. Number of minutes spent on the visit: [10] Time with Patient: Less than 30 <Faustina aMlave - Last Filed: 05/30/21 19:05> Objective - Vital Signs Vital signs: Vital Signs Temp 98.5 F 05/30/21 09:10 Pulse 102 H 05/30/21 12:51 Resp 20 05/30/21 09:10 BP 175/72 05/30/21 09:10 Pulse Ox 99 05/30/21 09:10 Intake & Output 05/30/21 05/30/21 05/31/21 06:59 18:59 06:59 Output Total 400 Balance -400 Output: Urine 400 - Labs CBC & Chem 7: 05/30/21 11:07 05/28/21 06:43 Labs: Abnormal Lab Results - Last 24 Hours (Table) 05/29/21 05/30/21 05/30/21 Range/Units 19:49 06:11 11:07 WBC 11.4 H (3.8-10.6) k/uL RBC 2.19 L (4.30-5.90) m/uL Hgb 7.1 L (13.0-17.5) gm/dL Hct 21.8 L (39.0-53.0) % RDW 15.8 H (11.5-15.5) % POC Glucose (mg/dL) 256 H 108 H (75-99) mg/dL 05/30/21 05/30/21 Range/Units 11:36 16:15 WBC (3.8-10.6) k/uL RBC (4.30-5.90) m/uL Hgb (13.0-17.5) gm/dL Hct (39.0-53.0) % RDW (11.5-15.5) % POC Glucose (mg/dL) 143 H 224 H (75-99) mg/dL Assessment and Plan Plan: On today's evaluation of 05/30/2021, on doing this joint evaluation along with nurse practitioner. This evaluation within 10 minutes. The patient is post coronary intervention and stenting. Doing well. Nonspecific complaints. Vitals are stable. Clinically stable. Ambulating. Overall pulmonary status is stable for now. Prednisone being tapered as the patient remains on 5 mg of prednisone a daily basis.
--- NOTE | 2021-05-30 15:14 | P.GSCN ---
History of Present Illness Consult date: 05/30/21 History of present illness: CHIEF COMPLAINT: shortness of breath HISTORY OF PRESENT ILLNESS: this is a 80-year-old male who initially presented to [facility] with shortness of breath was found to have elevated troponin. He had a heart catheterization completed that showed three-vessel coronary artery disease and was transferred to [facility]. Patient underwent an Impella supported PCI on the left main and LAD with 2 stents placed on 05/27/2021 with cardiology. Patient had significant bleeding from the right groin. He has a large hematoma. Is currently soft and stable. Nontender. And he had a significant drop in his hemoglobin. Hemoglobin on admission was 10.9.hemoglobin today of procedure was 9 and had dropped down now to 7.1. Patient has no other signs or symptoms of bleeding. Denies any blood in his stools or black stools. Denies any abdominal pain. His last colonoscopy was over 10 years ago he reports having some polyps removed at that time that were noncancerous. He has a prior history of peptic ulcer disease and reports his EGD was also over at least 4-5 years ago. Denies any NSAID use. He is tolerating diet. Denies any shortness of breath. Denies any dizziness or lightheadedness with ambulating. They're planning on possible discharge later today and follow-up with consultants outpatient.Patient is also on aspirin and Plavix due to his recent stents. PAST MEDICAL HISTORY: COPD, Hyperlipidemia, Hypertension, Osteoarthritis (OA), Prostate Disorder, Renal Disease, Vascular Disorder, PVC's, CKD stage III, chronic anemia, BPH, urinary retention, UTI, pancreatitis, gastric ulcer, arthritis in multiple joints/occasional low back pain PAST SURGICAL HISTORY: appendectomy, tonsillectomy, right carotid endarterectomy MEDICATIONS: See list. ALLERGIES: See list. SOCIAL HISTORY: No illicit drug use. REVIEW OF SYSTEMS: CONSTITUTIONAL: Denies fever or chills. HEENT: Denies blurred vision, vision changes, or eye pain. Denies hemoptysis CARDIOVASCULAR: Denies chest pain or pressure. RESPIRATORY: No shortness of breath. GASTROINTESTINAL: See HPI for pertinent findings HEMATOLOGIC: Denies bleeding disorders. GENITOURINARY: Denies any blood in urine or increased urinary frequency. SKIN: Denies pruitis. Denies rash. PHYSICAL EXAM: VITAL SIGNS: Reviewed GENERAL: Well-developed in no acute distress. HEENT: No sclera icterus. Extraocular movements grossly intact. Moist buccal mucosa. Head is atraumatic, normocephalic. No nasal drainage. ABDOMEN: Soft. Obese. Nondistended. nontender NEUROLOGIC: Alert and oriented. Cranial nerves II through XII grossly intact. skin: Patient has significant bruising and hematoma of the right groin. It is soft and nontender. Patient also has some ecchymosis along the left groin. Soft nontender. LABORATORY DATA: WBC 11.4 hemoglobin 7.1+159 creatinine 1.07 IMAGING: ASSESSMENT: 1. Anemia likely secondary to patient's large right groin hematoma 2. Recent non-ST elevated MT status post Impella supported PCI on the left main and LAD with 2 stents placed on 05/27/2021 with cardiology service PLAN: -No surgical intervention planned -Patient is stable from surgical standpoint for discharge -Patient to follow-up with Dr. moreno next Wednesday in office -Recommend follow-up CBC outpatient -Continue supportive care Thank you for this consultation Physician Talent Assistant note has been reviewed by physician. Signing provider agrees with the documented findings, assessment, and plan of care. Past Medical History Past Medical History: COPD, Hyperlipidemia, Hypertension, Osteoarthritis (OA), Prostate Disorder, Renal Disease, Vascular Disorder Additional Past Medical History / Comment(s): PVC's, CKD stage III, chronic anemia, BPH, urinary retention, UTI, pancreatitis, gastric ulcer, arthritis in multiple joints/occasional low back pain History of Any Multi-Drug Resistant Organisms: None Reported Past Surgical History: Appendectomy, Cholecystectomy, Tonsillectomy Additional Past Surgical History / Comment(s): R caratid endartectomy, arch study, colonoscopies/benign polypectomies, EGD, pilonidal cyst removed x 2, Past Anesthesia/Blood Transfusion Reactions: No Reported Reaction Past Psychological History: No Psychological Hx Reported Smoking Status: Former smoker Past Alcohol Use History: None Reported Past Drug Use History: None Reported - Past Family History Father Family Medical History: No Reported History Mother Family Medical History: Congestive Heart Failure (CHF) Medications and Allergies Home Medications Medication Instructions Recorded Confirmed Type Albuterol Inhaler [Ventolin Hfa 2 puff INHALATION RT-QID PRN 05/22/21 05/22/21 History Inhaler] Aspirin EC [Ecotrin Low Dose] 81 mg PO DAILY 05/22/21 05/22/21 History Carvedilol [Coreg] 3.125 mg PO BID-W/MEALS 05/22/21 05/22/21 History Cholecalciferol (Vitamin D3) 125 mcg PO DAILY 05/22/21 05/22/21 History [Vitamin D3 (125 MCG = 5,000 IU)] Finasteride [Proscar] 5 mg PO DAILY 05/22/21 05/22/21 History Fluticasone/Umeclidin/Vilanter 1 puff INHALATION RT-DAILY 05/22/21 05/22/21 History [Trelegy Ellipta 100-62.5-25] Furosemide [Lasix] 40 mg PO TID PRN 05/22/21 05/22/21 History HYDROcodone/APAP 10-325MG [[place] 1 tab PO Q6H PRN 05/22/21 05/22/21 History 10-325] Losartan Potassium 50 mg PO DAILY 05/22/21 05/22/21 History Omeprazole 20 mg PO DAILY 05/22/21 05/22/21 History Potassium Chloride ER [K-Dur 10] 10 meq PO DAILY 05/22/21 05/22/21 History Sennosides [Senna] 8.6 mg PO BID PRN 05/22/21 05/22/21 History Tamsulosin HCl [Flomax] 0.4 mg PO DAILY 05/22/21 05/22/21 History predniSONE 5 mg PO DAILY 05/22/21 05/22/21 History Atorvastatin [Lipitor] 40 mg PO DAILY #90 tab 05/29/21 Rx Clopidogrel [Plavix] 75 mg PO DAILY #90 tab 05/29/21 Rx Ferrous Sulfate [Iron (65 MG 325 mg PO BID-W/MEALS #180 tab 05/29/21 Rx Elemental)] Nitroglycerin Sl Tabs [Nitrostat] 0.4 mg SUBLINGUAL Q5M PRN #100 tab 05/29/21 Rx Allergies Allergy/AdvReac Type Severity Reaction Status Date / Time lisinopril Allergy Anaphylaxis, Verified 05/22/21 12:58 Tongue swelling Surgical - Exam Vital Signs Temp Pulse Resp BP Pulse Ox 97.2 F L 61 18 137/84 96 05/22/21 11:14 05/22/21 11:14 05/22/21 11:14 05/22/21 11:14 05/22/21 11:14 Results - Labs 05/30/21 11:07 05/28/21 06:43 Abnormal Lab Results - Last 24 Hours (Table) 05/29/21 05/29/21 05/30/21 Range/Units 16:31 19:49 06:11 WBC (3.8-10.6) k/uL RBC (4.30-5.90) m/uL Hgb (13.0-17.5) gm/dL Hct (39.0-53.0) % RDW (11.5-15.5) % POC Glucose (mg/dL) 200 H 256 H 108 H (75-99) mg/dL 05/30/21 05/30/21 Range/Units 11:07 11:36 WBC 11.4 H (3.8-10.6) k/uL RBC 2.19 L (4.30-5.90) m/uL Hgb 7.1 L (13.0-17.5) gm/dL Hct 21.8 L (39.0-53.0) % RDW 15.8 H (11.5-15.5) % POC Glucose (mg/dL) 143 H (75-99) mg/dL
[2021-05-30 16:17] LABS: Glucose,Whole Blood 224 mg/dL (75-99)
[2021-05-30 19:05] LABS: Folate, Serum 3.4 ng/mL (4.40-31.00)
[2021-05-30 19:34] VITALS: BP 125/57; PULSE 73; RESP 18; TEMP 96.6
[2021-05-30 19:59] LABS: % Iron Saturation 19.12 (15.00-50.00)
--- NOTE | 2021-06-04 09:17 | CDI ---
Documentation Clarification Form Date: 06/04/2021 08:00:56 AM From: Tory Ziegler RN CCDS Admit Date: 05/22/2021 11:34:00 AM Patient Name: Alan Parra Visit Number: [id number] Discharge Date: 05/30/2021 07:35:00 PM ATTENTION: The Clinical Documentation Specialists (CDI) and [facility] Coding Staff appreciate your assistance in clarifying documentation. Please respond to the clarification below the line at the bottom and electronically sign. The CDI & [facility] Coding staff will review the response and follow-up if needed. Please note: Queries are made part of the Legal Health Record. If you have any questions, please contact the author of this message via ITS. Dr. Marie Gonzalez Right groin hematoma is documented 05/27, Procedure note and patient had PTCA, Transvenous temporary pacemaker, Impella heart pump, Orbital atherectomy, 05/27. Additional clarification is requested regarding the relationship, if any, that exists between the diagnosis and the procedure. Patients Admitting Diagnosis: NSTEMI, 80% left main stenosis starting from the ostium to the bifurcation and also a mid LAD stenosis of 95% with heavy calcification. Post-Operative Diagnosis: Stenting of an unprotected left main and mid LAD with an Impella support. Procedure performed: Impella supported orbital atherectomy and PCI with a temporary pacer backup. History/Risk Factors: 80-year-old male presents to [facility] as a transfer from [facility] after cardiac catheterization. Medical History: Multi vessel CAD, HTN, HLD, chronic anemia and CKD. Clinical Indicators: Procedure note 05/27: I then noted that he had a significant hematoma in the right groin. This was compressed and then a FemoStop was applied to the right groin. 05/25 Hgb 10.2 05/27 Hgb 9.0 05/28 Hgb 7.9 05/29 Hgb 7.2 05/22: INR 1.1; PTT 37.4 05/23: PTT 66.0 05/26: PTT 49.1 05/27: PTT >200.0 Surgical consult 05/30: Anemia likely secondary to patients large right groin hematoma. No surgical intervention planned. Treatment: 05/27 FemoStop applied to right groin; 05/28 05/30 Feosol 325mg PO BID. 05/22 0- 05/27 Heparin 25,000 units at 9 Units HR; 05/22 Heparin IV 2,777.5 units; 05/27 Heparin 7,500-unit IV x1 and 1,500 unit ; 05/28 What relationship, if any, exists between the diagnosis of Right groin hematoma and the procedure: [ ] Right groin hematoma with bleeding is a complication of surgical procedure [ ] Right groin hematoma with bleeding is related to patients co-morbid condition(s) of [insert co-morbid dxs & not a complication of the procedure [ ] Other please specify ____ [ ] Unable to determine (Template Last Revised: June 2020) Right groin hematoma with bleeding is a complication of surgical procedure MTDD
--- NOTE | 2021-06-04 09:48 | CDI ---
Documentation Clarification Form Date: 06/04/2021 09:18:16 AM From: Tory Ziegler RN CCDS Admit Date: 05/22/2021 11:34:00 AM Patient Name: Alan Parra Visit Number: [id number] Discharge Date: 05/30/2021 07:35:00 PM ATTENTION: The Clinical Documentation Specialists (CDI) and [facility] Coding Staff appreciate your assistance in clarifying documentation. Please respond to the clarification below the line at the bottom and electronically sign. The CDI & [facility] Coding staff will review the response and follow-up if needed. Please note: Queries are made part of the Legal Health Record. If you have any questions, please contact the author of this message via ITS. Dr. Marie Gonzalez Anemia is documented 05/30, Surgical consult and patient had Procedure note and patient had PTCA, Transvenous temporary pacemaker, Impella heart pump, Orbital atherectomy, 05/27Additional clarification is requested regarding the relationship, if any, that exists between the diagnosis and the procedure. Patients Admitting Diagnosis: NSTEMI, 80% left main stenosis starting from the ostium to the bifurcation and also a mid LAD stenosis of 95% with heavy calcification. Post-Operative Diagnosis: Stenting of an unprotected left main and mid LAD with an Impella support. Procedure performed: Impella supported orbital atherectomy and PCI with a temporary pacer backup. History/Risk Factors: 80-year-old male presents to [facility] as a transfer from [facility] after cardiac catheterization. Medical History: Multi vessel CAD, HTN, HLD, chronic anemia and CKD. H&P, 05/22. Clinical Indicators: VSS: 05/27 16:02 B/P 64/44; HR 99; RR 22; SpO2 93% 2L nasal cannula. B/P: 05/27 16:30 B/P108/6; HR: 81 B/P: 05/27 17:00 B/P 88/43; HR 83 B/P: 05/27 19:30 B/P 111/50; HR 78 B/P: 05/28 08:30 B/P 94/49; HR 84 Procedure note 05/27: I then noted that he had a significant hematoma in the right groin. This was compressed and then a FemoStop was applied to the right groin. Surgical consult 05/30: Anemia likely secondary to patients large right groin hematoma. No surgical intervention planned. 05/25 Hgb 10.2 05/27 Hgb 9.0 05/28 Hgb 7.9 05/29 Hgb 7.2 Treatment: 05/27 FemoStop applied to right groin; 05/28 05/30 Feosol 325mg PO BID. 05/27 Norerepinephrine 4mg IV x 1; 05/27 05/28 Norepinephrine 4mg 254 mls @22.479mls/hr IV. 05/27 Phenylephrine Hcl 3mg IV x 1 What relationship, if any, exists between the diagnosis of Anemia and the procedure: [ ] Anemia is a complication of surgical procedure [ ] Anemia is related to patients co-morbid condition(s) of [insert co-morbid dxs] & not a complication of the procedure [ ] Other please specify ____ [ ] Unable to determine (Template Last Revised: June 2020) Anemia is a complication of surgical procedure [ ] Anemia is related to patients co-morbid condition(s) MTDD
--- NOTE | 2021-06-04 10:25 | CDI ---
Documentation Clarification Form Date: 06/04/2021 09:52:29 AM From: Tory Ziegler RN CCDS Admit Date: 05/22/2021 11:34:00 AM Patient Name: Alan Parra Visit Number: [id number] Discharge Date: 05/30/2021 07:35:00 PM ATTENTION: The Clinical Documentation Specialists (CDI) and [facility] Coding Staff appreciate your assistance in clarifying documentation. Please respond to the clarification below the line at the bottom and electronically sign. The CDI & [facility] Coding staff will review the response and follow-up if needed. Please note: Queries are made part of the Legal Health Record. If you have any questions, please contact the author of this message via ITS. Dr. Marie Gonzalez Hypotension is documented 05/27, Procedure Note and patient had PTCA, Transvenous temporary pacemaker, Impella heart pump, Orbital atherectomy, 05/27. Additional clarification is requested regarding the relationship, if any, that exists between the diagnosis and the procedure. Patients Admitting Diagnosis: NSTEMI, 80% left main stenosis starting from the ostium to the bifurcation and also a mid LAD stenosis of 95% with heavy calcification. Post-Operative Diagnosis: Stenting of an unprotected left main and mid LAD with an Impella support. Procedure performed: Impella supported orbital atherectomy and PCI with a temporary pacer backup. History/Risk Factors: 80-year-old male presents to [facility] as a transfer from [facility] after cardiac catheterization. Medical History: Multi vessel CAD, HTN, HLD, chronic anemia and CKD. H&P, 05/22. Clinical Indicators: 05/27 Procedure note: Patient had significant hypotension with left main inflations. Patient then became suddenly vasovagal, hypotensive and transient use of the temporary pacemaker. Treatment: 05/27 Intraoperatively Phenylephrine 400mcg IV; Levophed drip @ 2.5mcg; 05/27 05/28 Norepinephrine 4mg 254 mls @22.479mls/hr IV. What relationship, if any, exists between the diagnosis of Hypotension and the procedure: [ ] Hypotension is a complication of surgical procedure [ ] Hypotension is an expected outcome of the surgical procedure [ ] Hypotension is related to patients co-morbid condition(s) of [insert co- morbid dxs] & not a complication of the procedure [ ] Other please specify ____ [ ] Unable to determine (Template Last Revised: June 2020) There is no significant Hypotension MTDD
--- NOTE | 2021-06-04 10:44 | CDI ---
Documentation Clarification Form Date: 06/04/2021 10:26:55 AM From: Tory Ziegler RN CCDS Admit Date: 05/22/2021 11:34:00 AM Patient Name: Alan Parra Visit Number: [id number] Discharge Date: 05/30/2021 07:35:00 PM ATTENTION: The Clinical Documentation Specialists (CDI) and [facility] Coding Staff appreciate your assistance in clarifying documentation. Please respond to the clarification below the line at the bottom and electronically sign. The CDI & [facility] Coding staff will review the response and follow-up if needed. Please note: Queries are made part of the Legal Health Record. If you have any questions, please contact the author of this message via ITS. Dr. Marie Gonzalez Bradycardia is documented 05/27, Procedure Note and patient had PTCA, Transvenous temporary pacemaker, Impella heart pump, Orbital atherectomy, 05/27. Additional clarification is requested regarding the relationship, if any, that exists between the diagnosis and the procedure. Patients Admitting Diagnosis: NSTEMI, 80% left main stenosis starting from the ostium to the bifurcation and also a mid LAD stenosis of 95% with heavy calcification. Post-Operative Diagnosis: Stenting of an unprotected left main and mid LAD with an Impella support. Procedure performed: Impella supported orbital atherectomy and PCI with a temporary pacer backup. History/Risk Factors: 80-year-old male presents to [facility] as a transfer from [facility] after cardiac catheterization. Medical History: Multi vessel CAD, HTN, HLD, chronic anemia and CKD. H&P, 05/22. Clinical Indicators: 05/22 Cardiovascular Thoracic Surgery: Slow but regular rate and rhythm, sinus bradycardia on telemetry. 05/27, Procedure Note: He had transient bradycardia requiring administration of phenylephrine and he promptly came back and remained hemodynamically stable on small does of Levophed at 2.5mcg. Treatment: 05/27 Levophed at 2.5mcg; 05/27 Verapamil HCI 4ml. What relationship, if any, exists between the diagnosis of and the procedure: [ ] Bradycardia is a complication of surgical procedure [ ] Bradycardia is an expected outcome of the surgical procedure [ ] Bradycardia is related to patients co-morbid condition(s) of [insert co- morbid dxs] & not a complication of the procedure [ ] Other please specify ____ [ ] Unable to determine (Template Last Revised: June 2020) Bradycardia is not a complication MTDD
--- NOTE | 2021-06-08 08:52 | P.DS ---
Providers Date of admission: 05/22/21 11:34 Attending physician: Jayla Azar Consults: 05/22/21 12:31 Consult Physician Routine Consulting Provider: Nieves Perez Consult Reason/Comments: CAD Do you want consulting provider notified?: Yes 05/22/21 12:32 Consult Physician Routine Consulting Provider: Lanny Ray Consult Reason/Comments: CAD Do you want consulting provider notified?: Yes 05/22/21 14:19 Consult Physician Routine Consulting Provider: Pola Gee Consult Reason/Comments: preop cabg Do you want consulting provider notified?: Already Contacted 05/27/21 15:35 Consult Physician Routine Consulting Provider: [facility] Consult Reason/Comments: Post Interventional patient Do you want consulting provider notified?: Already Contacted 05/30/21 12:27 Consult Physician Urgent Consulting Provider: Huy Harris Consult Reason/Comments: anemia Do you want consulting provider notified?: Yes Primary care physician: Shannon Weaver Hospital Course: Diagnoses: triple vessel coronary artery disease, status post cardiac catheterization and stent placement to the LAD and left main coronary artery sensitive E. coli urinary tract infection Normocytic, normochromic anemia, secondary to iron deficiency anemia. Severe COPD with mild exacerbation Bilateral internal carotid artery stenosis, less than 50% on the right side and 50-69% on the left ICA Chronic kidney disease, stage III chronic obstructive pulmonary disease, no exacerbation hypertension hyperlipidemia History of degenerative joint disease Hospital course: This is a 80-year-old male who was recently [facility] after cardiac catheterization which showed triple vessel heart disease and for CT surgery evaluation for possible CABG. CT surgery has initiated the wo rk up however he was found not a candidate for surgical intervention therefore he underwent cardiac cath and PCI placed to his left main coronary artery and left anterior descending artery on 05/27/21, he tolerated the procedure well, currently is chest pain-free, no dyspnea and no other complaints, no change in urine or bowel habits and cardiology on the case and they cleared to be discharged. Patient is started on aspirin and Plavix and importance of keeping dual antiplatelet therapy are explained for him and he verbalized understanding and acceptance Also patient is been treated for E. coli UTI and received antibiotics with ceftriaxone and he is going to finish the epical short course upon discharge. He had mild COPD exacerbation and pulmonary was on the case, he is on prednisone 5 mg daily at home which is increased to 30 mg here in the hospital and on discharge were going to taper it down back to 5 mg daily. Post operatively hemoglobin was 7.2 and stapled 7.1, with evidence of iron deficiency, firrous sulfate started, and surgery consult obtained, recommend discharge patient and follow-up as an outpatient, patient and daughter informed, risks including but not limited to cancer and bleeding explained and they verbalized understanding Today patient was fully awake and oriented denying any other symptoms as above and asking to be discharged. He denies any other symptoms stating that he is back to his baseline. No chest pain or dyspnea. No change in urine or bowel habits. No fever. Patient declined going to rehab and he wants to go home with home care. However his medical insurance provider declined him to go to rehab. Patient was cleared for discharge by stone processing machine operator and automatic quilling machine operator. Also patient found to have a week and rehab recommended and patient agrees Problems and management plan were discussed with the patient and he verbalized understanding and acceptance. Also I called his daughter Mrs. Walsh at [phone] and discussed the case with her with a recommendation for close outpatient follow-up for his hemoglobin and with the surgeon Patient was found stable and can be discharged home however he needs follow-up as an outpatient. Patient was instructed to follow up with PCP Dr. Ortega within one week and patient agrees Patient was instructed to follow up with Dr. Ramirez on 06/11, and automatic quilling machine operator Dr. Murry on 06/17 and he agrees. Also patient was instructed to follow up with surgeon Dr. Harris in one week and he agrees to call and make appointment Gen: patient is a AAOx3, no distress. Generally weak CVS: S1-S2, RRR, no murmur Lungs: B/L CTA, no wheezing Abdomen: soft, no distention, no tenderness, positive bowel sounds Extremity: no leg edema or induration Time spent more than 35 minutes Plan - Discharge Summary Discharge Rx Participant: No New Discharge Prescriptions: New Ferrous Sulfate [Iron (65 MG Elemental)] 325 mg PO BID-W/MEALS #180 tab Atorvastatin [Lipitor] 40 mg PO DAILY #90 tab Cefuroxime Axetil [Ceftin] 500 mg PO BID 5 Days #10 tab Folic Acid 1 mg PO DAILY #30 tablet Nitroglycerin Sl Tabs [Nitrostat] 0.4 mg SUBLINGUAL Q5M PRN #100 tab PRN Reason: Chest Pain Clopidogrel [Plavix] 75 mg PO DAILY #90 tab predniSONE 10 mg PO DIRECTED #20 tab Pantoprazole [Protonix] 40 mg PO DAILY #30 tab Continue Tamsulosin HCl [Flomax] 0.4 mg PO DAILY Sennosides [Senna] 8.6 mg PO BID PRN PRN Reason: Constipation HYDROcodone/APAP 10-325MG [Kelliher 10-325] 1 tab PO Q6H PRN PRN Reason: Pain Finasteride [Proscar] 5 mg PO DAILY Carvedilol [Coreg] 3.125 mg PO BID-W/MEALS Albuterol Inhaler [Ventolin Hfa Inhaler] 2 puff INHALATION RT-QID PRN #1 inh PRN Reason: Shortness Of Breath predniSONE 5 mg PO DAILY Cholecalciferol (Vitamin D3) [Vitamin D3 (125 MCG = 5,000 IU)] 125 mcg PO DAILY Losartan Potassium 50 mg PO DAILY Fluticasone/Umeclidin/Vilanter [Trelegy Ellipta 100-62.5-25] 1 puff INHALATION RT-DAILY Aspirin EC [Ecotrin Low Dose] 81 mg PO DAILY 30 Days #10 tab Discontinued Rosuvastatin Calcium [Crestor] 20 mg PO HS Potassium Chloride ER [K-Dur 10] 10 meq PO DAILY Omeprazole 20 mg PO DAILY Ferrous Sulfate [Feosol] 325 mg PO W/BRKFST amLODIPine [Norvasc] 10 mg PO DAILY Furosemide [Lasix] 40 mg PO TID PRN PRN Reason: Edema Discharge Medication List Carvedilol [Coreg] 3.125 mg PO BID-W/MEALS 05/22/21 [History] Cholecalciferol (Vitamin D3) [Vitamin D3 (125 MCG = 5,000 IU)] 125 mcg PO DAILY 05/22/21 [History] Finasteride [Proscar] 5 mg PO DAILY 05/22/21 [History] Fluticasone/Umeclidin/Vilanter [Trelegy Ellipta 100-62.5-25] 1 puff INHALATION RT-DAILY 05/22/21 [History] HYDROcodone/APAP 10-325MG [Kelliher 10-325] 1 tab PO Q6H PRN 05/22/21 [History] Losartan Potassium 50 mg PO DAILY 05/22/21 [History] Sennosides [Senna] 8.6 mg PO BID PRN 05/22/21 [History] Tamsulosin HCl [Flomax] 0.4 mg PO DAILY 05/22/21 [History] predniSONE 5 mg PO DAILY 05/22/21 [History] Atorvastatin [Lipitor] 40 mg PO DAILY #90 tab 05/29/21 [Rx] Clopidogrel [Plavix] 75 mg PO DAILY #90 tab 05/29/21 [Rx] Ferrous Sulfate [Iron (65 MG Elemental)] 325 mg PO BID-W/MEALS #180 tab 05/29/21 [Rx] Nitroglycerin Sl Tabs [Nitrostat] 0.4 mg SUBLINGUAL Q5M PRN #100 tab 05/29/21 [Rx] Albuterol Inhaler [Ventolin Hfa Inhaler] 2 puff INHALATION RT-QID PRN #1 inh 05/30/21 [Rx] Aspirin EC [Ecotrin Low Dose] 81 mg PO DAILY 30 Days #10 tab 05/30/21 [Rx] Cefuroxime Axetil [Ceftin] 500 mg PO BID 5 Days #10 tab 05/30/21 [Rx] Folic Acid 1 mg PO DAILY #30 tablet 05/30/21 [Rx] Pantoprazole [Protonix] 40 mg PO DAILY #30 tab 05/30/21 [Rx] predniSONE 10 mg PO DIRECTED #20 tab 05/30/21 [Rx] Follow up Appointment(s)/Referral(s): Owen Ortega MD [Primary Care Provider] - 1 Week (Office closed at time of discharge, ensure office is aware that this is a follow up appointment from a hospital stay.) Zev Ramirez DO [STAFF PHYSICIAN] - 06/11/21 3:00 pm Pola Gee DO [Doctor of Osteopathic Medicine] - 06/17/21 9:30 am (Lung doctor) Mary Jane Gonzalez MD [REFERRING] - 2 Weeks (your lung doctor ) Huy Harris MD [STAFF PHYSICIAN] - 1 Week (Office closed at time of discharge, ensure office is aware that this is a follow up appointment from a hospital stay and that Dr. Harris requested the patient be seen on Marisela 06/03/2021.) Patient Instructions/Handouts: *Surgery [facility] - After Heart Catheterization - Commercial Property Administrator Instructions Activity/Diet/Wound Care/Special Instructions: Heart healthy diet Activity is restricted till you see your doctor Discharge Disposition: HOME WITH HOME HEALTH SERVICES
[2021-06-09] MEDS ORDERED: CYANOCOBALAMIN 500 MCG TAB PO SCH (09:00)
[2021-06-09] MEDS ORDERED: FOLIC ACID 1 MG TAB PO SCH (09:00)
== END 2021-05-30 19:35 | disposition home health service (06) | DRG 219 ==
LOC: 3SCARD 11:34 → 2SICU 05-27 11:36 → 3SCARD 05-28 13:51
PROVIDERS: ADMIT Hospitalist; ATTEND Hospitalist
PROC: 3E033XZ Introduction of Vasopressor into Peripheral Vein, Percutaneous Approach (ICD-10-PCS; principal; 2021-05-27 12:00)
PROC: 5A0221D Assistance with Cardiac Output using Impeller Pump, Continuous (ICD-10-PCS; principal; 2021-05-27 12:00)
PROC: 02C13Z7 Extirpation of Matter from Coronary Artery, Two Arteries, Orbital Atherectomy Technique, Percutaneous Approach (ICD-10-PCS; principal; 2021-05-27 12:00)
PROC: 027135Z Dilation of Coronary Artery, Two Arteries with Two Drug-eluting Intraluminal Devices, Percutaneous Approach (ICD-10-PCS; principal; 2021-05-27 12:00)
PROC: 5A1223Z Performance of Cardiac Pacing, Continuous (ICD-10-PCS; principal; 2021-05-27 12:00)
PROC: 02HA3RJ Insertion of Short-term External Heart Assist System into Heart, Intraoperative, Percutaneous Approach (ICD-10-PCS; principal; 2021-05-27 12:00)
DX: I25.10 Atherosclerotic heart disease of native coronary artery without angina pectoris (principal); I21.4 Non-ST elevation (NSTEMI) myocardial infarction; I50.33 Acute on chronic diastolic (congestive) heart failure; N17.9 Acute kidney failure, unspecified; I13.0 Hypertensive heart and chronic kidney disease with heart failure and stage 1 through stage 4 chronic kidney disease, or unspecified chronic kidney disease; N39.0 Urinary tract infection, site not specified; I16.1 Hypertensive emergency; I97.410 Intraoperative hemorrhage and hematoma of a circulatory system organ or structure complicating a cardiac catheterization; I97.790 Other intraoperative cardiac functional disturbances during cardiac surgery; D62 Acute posthemorrhagic anemia; I95.89 Other hypotension; D63.1 Anemia in chronic kidney disease; E11.22 Type 2 diabetes mellitus with diabetic chronic kidney disease; E11.40 Type 2 diabetes mellitus with diabetic neuropathy, unspecified; E11.51 Type 2 diabetes mellitus with diabetic peripheral angiopathy without gangrene; E66.01 Morbid (severe) obesity due to excess calories; E78.5 Hyperlipidemia, unspecified; N18.30 Chronic kidney disease, stage 3 unspecified; I70.0 Atherosclerosis of aorta; J43.9 Emphysema, unspecified; Z68.37 Body mass index [BMI] 37.0-37.9, adult; B96.20 Unspecified Escherichia coli [E. coli] as the cause of diseases classified elsewhere; I65.23 Occlusion and stenosis of bilateral carotid arteries; E78.00 Pure hypercholesterolemia, unspecified; D72.828 Other elevated white blood cell count; N40.0 Benign prostatic hyperplasia without lower urinary tract symptoms; I08.3 Combined rheumatic disorders of mitral, aortic and tricuspid valves; I87.2 Venous insufficiency (chronic) (peripheral); G89.29 Other chronic pain; M54.50 Low back pain, unspecified; M15.9 Polyosteoarthritis, unspecified; Z79.82 Long term (current) use of aspirin; Z79.51 Long term (current) use of inhaled steroids; Z79.899 Other long term (current) drug therapy; Z87.891 Personal history of nicotine dependence; Z86.79 Personal history of other diseases of the circulatory system; Z87.440 Personal history of urinary (tract) infections; Z87.19 Personal history of other diseases of the digestive system; Z90.49 Acquired absence of other specified parts of digestive tract; Z90.89 Acquired absence of other organs; Z87.11 Personal history of peptic ulcer disease; Z98.890 Other specified postprocedural states; Z71.3 Dietary counseling and surveillance; Y84.0 Cardiac catheterization as the cause of abnormal reaction of the patient, or of later complication, without mention of misadventure at the time of the procedure; Y92.234 Operating room of hospital as the place of occurrence of the external cause; Z88.8 Allergy status to other drugs, medicaments and biological substances; Z82.49 Family history of ischemic heart disease and other diseases of the circulatory system
CPT/HCPCS: 33210; 71045; 71250; 80048; 80053; 80061; 80074; 81001; 82607; 82728; 82746; 83036; 83540; 83550; 83735; 84443; 85025; 85027; 85610; 85730; 87070; 87077; 87086; 87186; 93880; 93970; 94150; 94640

== ENCOUNTER → 2021-06-04 | Outpatient (CLI) | payer MEDICARE ==
[2021-06-04 18:55] LABS: Basophils # (A) 0.02 X 10*3/uL (0.00-0.10); Basophils % (A) 0.2 %; Eosinophils # (A) 0.01 X 10*3/uL (0.04-0.35); Eosinophils % (A) 0.1 %; HCT 22.3 % (39.6-50.0); HGB 7.1 g/dL (13.0-17.0); Immature Grans, Automated 1.7 %; Lymphocytes # (A) 0.79 X 10*3/uL (0.90-5.00); Lymphocytes % (A) 6.9 %; MCH 32.7 pg (27.0-32.0); MCHC 31.8 g/dL (32.0-37.0); MCV 102.8 fL (80.0-97.0); Mean Platelet Volume 10.2 fL (9.5-12.2); Monocytes # (A) 0.44 X 10*3/uL (0.20-1.00); Monocytes % (A) 3.8 %; NRBC Per 100 WBC 0.3 /100 WBCS (0.0-0.0); Neutrophils # (A) 10.02 X 10*3/uL (1.80-7.70); Neutrophils % (A) 87.3 %; Platelet Count 260 X 10*3/uL (140-440); RBC 2.17 X 10*6/uL (4.40-5.60); RDW 16.7 % (11.5-14.5); WBC 11.47 X 10*3/uL (4.50-10.00)
[2021-06-04 19:44] LABS: African American GFR (CKD) 63.2 (60.0-200.0); Albumin 3.4 g/dL (3.8-4.9); BUN/Creat Ratio 18.23 Ratio (12.00-20.00); Blood Urea Nitrogen 22.6 mg/dL (9.0-27.0); Calcium 8.4 mg/dL (8.7-10.3); Carbon Dioxide 19.8 mmol/L (20.0-27.5); Non-African American GFR(CKD) 54.6 (60.0-200.0); Phosphorus 3.5 mg/dL (2.4-5.1); Potassium 4.1 mmol/L (3.5-5.5)
== END | disposition home or self-care (01) ==
LOC: LABWHC1 12:16
PROVIDERS: ATTEND Internal Medicine
DX: D63.1 Anemia in chronic kidney disease (principal); N18.9 Chronic kidney disease, unspecified; I50.9 Heart failure, unspecified; R06.00 Dyspnea, unspecified
CPT/HCPCS: 36415; 80069; 85025

== ENCOUNTER 2021-06-08 10:01 | Inpatient (IN) | payer MEDICARE ==
--- NOTE | 2021-06-08 10:24 | ED ---
General Adult HPI - General Chief complaint: Shortness of Breath Stated complaint: Dyspnea Time Seen by Provider: 06/08/21 10:08 Source: patient, family, RN notes reviewed Mode of arrival: ambulatory Limitations: no limitations - History of Present Illness Initial comments: Patient is a pleasant 80-year-old male presenting to the emergency Department wi th dyspnea. Onset of symptoms was yesterday evening. No cough. Patient did have stent placement done just over week ago. Patient was off his Lasix from 8 days however has been on it for the past almost week. No fevers at home. No chest pain. Patient has had some leg swelling. Patient has felt lightheaded. - Related Data Home Medications Medication Instructions Recorded Confirmed Carvedilol [Coreg] 3.125 mg PO BID-W/MEALS 05/22/21 05/22/21 Cholecalciferol (Vitamin D3) 125 mcg PO DAILY 05/22/21 05/22/21 [Vitamin D3 (125 MCG = 5,000 IU)] Finasteride [Proscar] 5 mg PO DAILY 05/22/21 05/22/21 Fluticasone/Umeclidin/Vilanter 1 puff INHALATION RT-DAILY 05/22/21 05/22/21 [Trelegy Ellipta 100-62.5-25] HYDROcodone/APAP 10-325MG [Arpin 1 tab PO Q6H PRN 05/22/21 05/22/21 10-325] Losartan Potassium 50 mg PO DAILY 05/22/21 05/22/21 Sennosides [Senna] 8.6 mg PO BID PRN 05/22/21 05/22/21 Tamsulosin HCl [Flomax] 0.4 mg PO DAILY 05/22/21 05/22/21 predniSONE 5 mg PO DAILY 05/22/21 05/22/21 Previous Rx's Medication Instructions Recorded Atorvastatin [Lipitor] 40 mg PO DAILY #90 tab 05/29/21 Clopidogrel [Plavix] 75 mg PO DAILY #90 tab 05/29/21 Ferrous Sulfate [Iron (65 MG 325 mg PO BID-W/MEALS #180 tab 05/29/21 Elemental)] Nitroglycerin Sl Tabs [Nitrostat] 0.4 mg SUBLINGUAL Q5M PRN #100 tab 05/29/21 Albuterol Inhaler [Ventolin Hfa 2 puff INHALATION RT-QID PRN #1 inh 05/30/21 Inhaler] Aspirin EC [Ecotrin Low Dose] 81 mg PO DAILY 30 Days #10 tab 05/30/21 Cefuroxime Axetil [Ceftin] 500 mg PO BID 5 Days #10 tab 05/30/21 Folic Acid 1 mg PO DAILY #30 tablet 05/30/21 Pantoprazole [Protonix] 40 mg PO DAILY #30 tab 05/30/21 predniSONE 10 mg PO DIRECTED #20 tab 05/30/21 Allergies Allergy/AdvReac Type Severity Reaction Status Date / Time lisinopril Allergy Anaphylaxis, Verified 06/08/21 10:06 Tongue swelling Review of Systems ROS Statement: Those systems with pertinent positive or pertinent negative responses have been documented in the HPI. ROS Other: All systems not noted in ROS Statement are negative. Constitutional: Denies: fever, chills Eyes: Denies: eye pain ENT: Denies: ear pain Respiratory: Reports: as per HPI, dyspnea. Denies: cough Cardiovascular: Denies: chest pain Endocrine: Reports: fatigue Gastrointestinal: Denies: abdominal pain Genitourinary: Denies: dysuria Musculoskeletal: Denies: back pain Skin: Denies: rash Neurological: Denies: weakness Past Medical History Past Medical History: COPD, Hyperlipidemia, Hypertension, Osteoarthritis (OA), Prostate Disorder, Renal Disease, Vascular Disorder Additional Past Medical History / Comment(s): PVC's, CKD stage III, chronic anemia, BPH, urinary retention, UTI, pancreatitis, gastric ulcer, arthritis in multiple joints/occasional low back pain History of Any Multi-Drug Resistant Organisms: None Reported Past Surgical History: Appendectomy, Cholecystectomy, Tonsillectomy Additional Past Surgical History / Comment(s): R caratid endartectomy, arch study, colonoscopies/benign polypectomies, EGD, pilonidal cyst removed x 2, Past Anesthesia/Blood Transfusion Reactions: No Reported Reaction Past Psychological History: No Psychological Hx Reported Smoking Status: Former smoker Past Alcohol Use History: None Reported Past Drug Use History: None Reported - Past Family History Father Family Medical History: No Reported History Mother Family Medical History: Congestive Heart Failure (CHF) General Exam Limitations: no limitations General appearance: alert, in no apparent distress Head exam: Present: normocephalic Eye exam: Present: normal appearance Neck exam: Present: normal inspection Respiratory exam: Present: rales (Right greater than left base) Cardiovascular Exam: Present: regular rate, normal rhythm GI/Abdominal exam: Present: soft. Absent: tenderness Extremities exam: Present: pedal edema. Absent: calf tenderness Neurological exam: Present: alert Psychiatric exam: Present: normal affect, normal mood Skin exam: Present: normal color Course Vital Signs 06/08/21 06/08/21 10:04 10:33 Temperature 99.7 F H Pulse Rate 87 Respiratory 20 18 Rate Blood Pressure 185/61 O2 Sat by Pulse 96 Oximetry EKG Findings - EKG Comments: EKG Findings:: Sinus rhythm rate 79. OR 168. QRS 1:30. QT 405. QTC 439. Left axis. Intraventricular conduction delay. T wave inversion V3 through V6. Inferior biphasic and T wave inversion. Medical Decision Making - Medical Decision Making Patient reevaluated and updated. Case discussed with Dr. Hayward, who will admit covering Dr. Reinoso. - Lab Data Result diagrams: 06/08/21 10:34 06/08/21 10:34 Lab Results 06/08/21 06/08/21 06/08/21 Range/Units 10:34 10:34 10:34 WBC 10.2 (3.8-10.6) k/uL RBC 2.69 L (4.30-5.90) m/uL Hgb 8.5 L (13.0-17.5) gm/dL Hct 26.2 L (39.0-53.0) % MCV 97.4 (80.0-100.0) fL MCH 31.7 (25.0-35.0) pg MCHC 32.6 (31.0-37.0) g/dL RDW 15.8 H (11.5-15.5) % Plt Count 274 (150-450) k/uL MPV 7.0 Neutrophils % 85 % Lymphocytes % 8 % Monocytes % 4 % Eosinophils % 2 % Basophils % 0 % Neutrophils # 8.7 H (1.3-7.7) k/uL Lymphocytes # 0.8 L (1.0-4.8) k/uL Monocytes # 0.4 (0-1.0) k/uL Eosinophils # 0.2 (0-0.7) k/uL Basophils # 0.0 (0-0.2) k/uL Macrocytosis Slight PT 11.1 (9.0-12.0) sec INR 1.0 (<1.2) APTT 22.0 (22.0-30.0) sec D-Dimer 2.05 H (<0.60) mg/L FEU Sodium 134 L (137-145) mmol/L Potassium 4.3 (3.5-5.1) mmol/L Chloride 95 L (98-107) mmol/L Carbon Dioxide 30 (22-30) mmol/L Anion Gap 9 mmol/L BUN 33 H (9-20) mg/dL Creatinine 1.31 H (0.66-1.25) mg/dL Est GFR (CKD-EPI)AfAm 59 (>60 ml/min/1.73 sqM) Est GFR (CKD-EPI)NonAf 51 (>60 ml/min/1.73 sqM) Glucose 137 H (74-99) mg/dL Plasma Lactic Acid Tima (0.7-2.0) mmol/L Calcium 8.5 (8.4-10.2) mg/dL Total Bilirubin 1.1 (0.2-1.3) mg/dL AST 30 (17-59) U/L ALT 21 (4-49) U/L Alkaline Phosphatase 168 H (38-126) U/L Troponin I (0.000-0.034) ng/mL NT-Pro-B Natriuret Pep pg/mL Total Protein 6.1 L (6.3-8.2) g/dL Albumin 3.4 L (3.5-5.0) g/dL Coronavirus (PCR) (Not Detectd) Influenza Type A RNA (Not Detectd) Influenza Type B (PCR) (Not Detectd) 06/08/21 06/08/21 06/08/21 Range/Units 10:34 10:34 10:34 WBC (3.8-10.6) k/uL RBC (4.30-5.90) m/uL Hgb (13.0-17.5) gm/dL Hct (39.0-53.0) % MCV (80.0-100.0) fL MCH (25.0-35.0) pg MCHC (31.0-37.0) g/dL RDW (11.5-15.5) % Plt Count (150-450) k/uL MPV Neutrophils % % Lymphocytes % % Monocytes % % Eosinophils % % Basophils % % Neutrophils # (1.3-7.7) k/uL Lymphocytes # (1.0-4.8) k/uL Monocytes # (0-1.0) k/uL Eosinophils # (0-0.7) k/uL Basophils # (0-0.2) k/uL Macrocytosis PT (9.0-12.0) sec INR (<1.2) APTT (22.0-30.0) sec D-Dimer (<0.60) mg/L FEU Sodium (137-145) mmol/L Potassium (3.5-5.1) mmol/L Chloride (98-107) mmol/L Carbon Dioxide (22-30) mmol/L Anion Gap mmol/L BUN (9-20) mg/dL Creatinine (0.66-1.25) mg/dL Est GFR (CKD-EPI)AfAm (>60 ml/min/1.73 sqM) Est GFR (CKD-EPI)NonAf (>60 ml/min/1.73 sqM) Glucose (74-99) mg/dL Plasma Lactic Acid Tima 1.8 (0.7-2.0) mmol/L Calcium (8.4-10.2) mg/dL Total Bilirubin (0.2-1.3) mg/dL AST (17-59) U/L ALT (4-49) U/L Alkaline Phosphatase (38-126) U/L Troponin I 0.086 H* (0.000-0.034) ng/mL NT-Pro-B Natriuret Pep 9520 pg/mL Total Protein (6.3-8.2) g/dL Albumin (3.5-5.0) g/dL Coronavirus (PCR) (Not Detectd) Influenza Type A RNA (Not Detectd) Influenza Type B (PCR) (Not Detectd) 06/08/21 06/08/21 Range/Units 11:00 11:00 WBC (3.8-10.6) k/uL RBC (4.30-5.90) m/uL Hgb (13.0-17.5) gm/dL Hct (39.0-53.0) % MCV (80.0-100.0) fL MCH (25.0-35.0) pg MCHC (31.0-37.0) g/dL RDW (11.5-15.5) % Plt Count (150-450) k/uL MPV Neutrophils % % Lymphocytes % % Monocytes % % Eosinophils % % Basophils % % Neutrophils # (1.3-7.7) k/uL Lymphocytes # (1.0-4.8) k/uL Monocytes # (0-1.0) k/uL Eosinophils # (0-0.7) k/uL Basophils # (0-0.2) k/uL Macrocytosis PT (9.0-12.0) sec INR (<1.2) APTT (22.0-30.0) sec D-Dimer (<0.60) mg/L FEU Sodium (137-145) mmol/L Potassium (3.5-5.1) mmol/L Chloride (98-107) mmol/L Carbon Dioxide (22-30) mmol/L Anion Gap mmol/L BUN (9-20) mg/dL Creatinine (0.66-1.25) mg/dL Est GFR (CKD-EPI)AfAm (>60 ml/min/1.73 sqM) Est GFR (CKD-EPI)NonAf (>60 ml/min/1.73 sqM) Glucose (74-99) mg/dL Plasma Lactic Acid Tima (0.7-2.0) mmol/L Calcium (8.4-10.2) mg/dL Total Bilirubin (0.2-1.3) mg/dL AST (17-59) U/L ALT (4-49) U/L Alkaline Phosphatase (38-126) U/L Troponin I (0.000-0.034) ng/mL NT-Pro-B Natriuret Pep pg/mL Total Protein (6.3-8.2) g/dL Albumin (3.5-5.0) g/dL Coronavirus (PCR) Not Detected (Not Detectd) Influenza Type A RNA Not Detected (Not Detectd) Influenza Type B (PCR) Not Detected (Not Detectd) - Radiology Data Radiology results: image reviewed (Chest x-ray reviewed) Disposition Clinical Impression: Congestive heart failure Disposition: ADMITTED IP TO THIS HOSP Is patient prescribed a controlled substance at d/c from ED?: No Referrals: Owen Ortega MD [Primary Care Provider] - 1-2 days Decision Time: 11:50
[2021-06-08 10:54] LABS: Basophils % (A) 0 %; Eosinophils # (A) 0.2 k/uL (0-0.7); Eosinophils % (A) 2 %; HCT 26.2 % (39.0-53.0); HGB 8.5 gm/dL (13.0-17.5); Lymphocytes # (A) 0.8 k/uL (1.0-4.8); Lymphocytes % (A) 8 %; MCH 31.7 pg (25.0-35.0); MCHC 32.6 g/dL (31.0-37.0); MCV 97.4 fL (80.0-100.0); Macrocytosis Slight; Monocytes # (A) 0.4 k/uL (0-1.0); Monocytes % (A) 4 %; Neutrophils # (A) 8.7 k/uL (1.3-7.7); Neutrophils % (A) 85 %; Platelet Count 274 k/uL (150-450); RBC 2.69 m/uL (4.30-5.90); RDW 15.8 % (11.5-15.5); WBC 10.2 k/uL (3.8-10.6)
[2021-06-08 11:02] LABS: Albumin 3.4 g/dL (3.5-5.0); Calcium 8.5 mg/dL (8.4-10.2); Potassium 4.3 mmol/L (3.5-5.1); Total Bilirubin 1.1 mg/dL (0.2-1.3); Total Protein 6.1 g/dL (6.3-8.2)
[2021-06-08 11:15] LABS: Prothrombin Time 11.1 sec (9.0-12.0)
--- NOTE | 2021-06-08 11:22 | XR ---
EXAMINATION TYPE: XR chest 2V DATE OF EXAM: 06/08/2021 COMPARISON: HISTORY: Shortness of breath TECHNIQUE: Frontal and lateral views of the chest are obtained. FINDINGS: Scattered senescent parenchymal changes noted. Hyperinflation compatible with COPD. No evidence for infiltrate. No evidence for atelectasis. Heart size is stable. Mediastinal structures are stable and grossly unremarkable. No evidence for hilar prominence. Degenerative changes dorsal spine. IMPRESSION: 1. No evidence for acute pulmonary disease.
[2021-06-08] MEDS ORDERED: ASPIRIN 325 MG TAB PO STA (11:50)
[2021-06-08] MEDS: FUROSEMIDE 10 MG/ML 4 ML VIAL IV SCH ×2 (12:02→20:30)
[2021-06-08] MEDS: NITROGLYCERIN OINT 1 INCH/GM PACKET TOPICAL SCH ×3 (12:03→22:11)
--- NOTE | 2021-06-08 12:07 | CT ---
EXAMINATION TYPE: CT angio chest DATE OF EXAM: 06/08/2021 COMPARISON: HISTORY: Dyspnea CT DLP: 765.1 mGycm CONTRAST: CT chest with contrast and 3D reconstruction with MIP imaging is performed with IV Contrast, patient injected with 100 mL of Isovue 370. Contrast-enhanced CT of the chest was performed through the course of the pulmonary arteries with chad g and mediastinal window settings submitted. 3D reconstruction with MIP imaging was also performed. PULMONARY ARTERIES: The pulmonary arteries and their major tributaries are patent. I do not see jeovany dence for sizable filling defect to suggest pulmonary embolic process. LUNGS: The lungs are clear and free of infiltrate. No evidence for atelectasis. No pulmonary nodule or mass is detected. Small right-sided pleural effusion. Emphysematous change. MEDIASTINUM: Thoracic aorta is of normal caliber. The heart is enlarged. No evidence for mediastina l mass. No mediastinal lymph nodes greater than 1cm. HILAR STRUCTURES: No evidence for mass. No hilar lymph nodes greater than 1 cm. UPPER ABDOMEN: No significant abnormality is seen. Gynecomastia. IMPRESSION: 1. No evidence for Pulmonary embolism at this time.
[2021-06-08 15:39] LABS: Appearance,Urine Clear (Clear); Bilirubin,Urine Negative (Negative); Blood,Urine Negative (Negative); Color,Urine Light Yellow; Glucose,Urine (UA) Negative (Negative); Ketones,Urine Negative (Negative); Leukocyte Esterase,Urine Negative (Negative); Nitrite,Urine Negative (Negative); PH, Urine 7.5 (5.0-8.0); Protein,Urine Negative (Negative); Urobilinogen,Urine <2.0 mg/dL (<2.0)
[2021-06-08] MEDS: HYDROcodone/APAP 10-325MG 1 EACH TAB PO PRN (18:09)
[2021-06-08] MEDS ORDERED: SENNOSIDES 8.6 MG TAB PO PRN (21:39)
[2021-06-08] MEDS ORDERED: ACETAMINOPHEN TAB 325 MG TAB PO PRN (21:50)
[2021-06-08] MEDS: MELATONIN 3 MG TABLET PO SCH (22:11)
--- NOTE | 2021-06-08 23:39 | P.HPIM ---
History of Present Illness H&P Date: 06/08/21 Chief Complaint: Shortness of breath 80-year-old male with history of hypertension, hyperlipidemia, CAD, presenting to the emergency Department with dyspnea. Onset of symptoms was yesterday evening. No cough. Patient did have stent placement done just over week ago. Patient was off his Lasix from 8 days however has been on it for the past almost week. No fevers at home. No chest pain. Patient has had some leg swelling. Patient has felt lightheaded. EKG Findings:: Sinus rhythm rate 79. RI 168. QRS 1:30. QT 405. QTC 439. Left axis. Intraventricular conduction delay. T wave inversion V3 through V6. Inferior biphasic and T wave inversion. Blood work completed in ED reveals a WBC of 10.2, hemoglobin 8.5, and platelet count of 274, sodium 134, potassium 4.3, BUN/creatinine of 32/1.31, blood glucose of 137; d-dimer is elevated at 2.05, troponin elevated at 0.086 with BNP of 9520 Patient is admitted for further cardiac evaluation and CHF exacerbation Review of Systems REVIEW OF SYSTEMS: CONSTITUTIONAL: No fever, no malaise, no fatigue. HEENT: No recent visual problems or hearing problems. Denied any sore throat. CARDIOVASCULAR: No chest pain, orthopnea, PND, no palpitations, no syncope. PULMONARY: No shortness of breath, no cough, no hemoptysis. GASTROINTESTINAL: No diarrhea, no nausea, no vomiting, no abdominal pain. NEUROLOGICAL: No headaches, no weakness, no numbness. HEMATOLOGICAL: Denies any bleeding or petechiae. GENITOURINARY: Denies any burning micturition, frequency, or urgency. MUSCULOSKELETAL/RHEUMATOLOGICAL: Denies any joint pain, swelling, or any muscle pain. ENDOCRINE: Denies any polyuria or polydipsia. The rest of the 14-point review of systems is negative. Past Medical History Past Medical History: COPD, Hyperlipidemia, Hypertension, Osteoarthritis (OA), Prostate Disorder, Renal Disease, Vascular Disorder Additional Past Medical History / Comment(s): PVC's, CKD stage III, chronic anemia, BPH, urinary retention, UTI, pancreatitis, gastric ulcer, arthritis in multiple joints/occasional low back pain History of Any Multi-Drug Resistant Organisms: None Reported Past Surgical History: Appendectomy, Cholecystectomy, Tonsillectomy Additional Past Surgical History / Comment(s): R caratid endartectomy, arch study, colonoscopies/benign polypectomies, EGD, pilonidal cyst removed x 2, Past Anesthesia/Blood Transfusion Reactions: No Reported Reaction Past Psychological History: No Psychological Hx Reported Smoking Status: Former smoker Past Alcohol Use History: None Reported Past Drug Use History: None Reported - Past Family History Father Family Medical History: No Reported History Mother Family Medical History: Congestive Heart Failure (CHF) Medications and Allergies Home Medications Medication Instructions Recorded Confirmed Type Carvedilol [Coreg] 3.125 mg PO BID-W/MEALS 05/22/21 05/22/21 History Cholecalciferol (Vitamin D3) 125 mcg PO DAILY 05/22/21 05/22/21 History [Vitamin D3 (125 MCG = 5,000 IU)] Finasteride [Proscar] 5 mg PO DAILY 05/22/21 05/22/21 History Fluticasone/Umeclidin/Vilanter 1 puff INHALATION RT-DAILY 05/22/21 05/22/21 History [Trelegy Ellipta 100-62.5-25] HYDROcodone/APAP 10-325MG [[place] 1 tab PO Q6H PRN 05/22/21 05/22/21 History 10-325] Losartan Potassium 50 mg PO DAILY 05/22/21 05/22/21 History Sennosides [Senna] 8.6 mg PO BID PRN 05/22/21 05/22/21 History Tamsulosin HCl [Flomax] 0.4 mg PO DAILY 05/22/21 05/22/21 History predniSONE 5 mg PO DAILY 05/22/21 05/22/21 History Atorvastatin [Lipitor] 40 mg PO DAILY #90 tab 05/29/21 Rx Clopidogrel [Plavix] 75 mg PO DAILY #90 tab 05/29/21 Rx Ferrous Sulfate [Iron (65 MG 325 mg PO BID-W/MEALS #180 tab 05/29/21 Rx Elemental)] Nitroglycerin Sl Tabs [Nitrostat] 0.4 mg SUBLINGUAL Q5M PRN #100 tab 05/29/21 Rx Albuterol Inhaler [Ventolin Hfa 2 puff INHALATION RT-QID PRN #1 inh 05/30/21 Rx Inhaler] Aspirin EC [Ecotrin Low Dose] 81 mg PO DAILY 30 Days #10 tab 05/30/21 Rx Cefuroxime Axetil [Ceftin] 500 mg PO BID 5 Days #10 tab 05/30/21 Rx Folic Acid 1 mg PO DAILY #30 tablet 05/30/21 Rx Pantoprazole [Protonix] 40 mg PO DAILY #30 tab 05/30/21 Rx predniSONE 10 mg PO DIRECTED #20 tab 05/30/21 Rx Allergies Allergy/AdvReac Type Severity Reaction Status Date / Time lisinopril Allergy Anaphylaxis, Verified 06/08/21 10:06 Tongue swelling Physical Exam Vitals: Vital Signs Temp Pulse Resp BP Pulse Ox 06/08/21 12:07 83 18 176/76 99 06/08/21 10:33 18 06/08/21 10:04 99.7 F H 87 20 185/61 96 Intake and Output 06/07/21 06/08/21 06/08/21 22:59 06:59 14:59 Other: Weight 113.398 kg - Constitutional General appearance: Present: average body habitus, cooperative, no acute distress - EENT Eyes: Present: anicteric sclerae, EOMI, PERRLA, normal appearance ENT: Present: hearing grossly normal, normal oropharynx Ears: bilateral: normal - Neck Neck: Present: normal ROM. Absent: lymphadenopathy, rigidity, thyromegaly Carotids: negative: bruit present Thyroid: bilateral: normal size, negative: enlarged, nodule - Respiratory Respiratory: bilateral: CTA, negative: rales, rhonchi, wheezing - Cardiovascular Rhythm: regular Heart sounds: normal: S1, S2 Abnormal Heart Sounds: Absent: systolic murmur, diastolic murmur - Gastrointestinal General gastrointestinal: Present: normal bowel sounds, soft. Absent: distended, organomegaly, tenderness - Genitourinary Genitourinary Comment(s): deferred - Integumentary Integumentary: Present: normal turgor. Absent: jaundiced, rash, ulcer - Neurologic Neurologic: Present: CNII-XII intact. Absent: focal deficits - Musculoskeletal Musculoskeletal: Present: gait normal, strength equal bilaterally - Psychiatric Psychiatric: Present: A&O x's 3, appropriate affect, intact judgment & insight Results CBC & Chem 7: 06/08/21 10:34 06/08/21 10:34 Labs: Abnormal Lab Results - Last 24 Hours (Table) 06/08/21 06/08/21 06/08/21 Range/Units 10:34 10:34 10:34 RBC 2.69 L (4.30-5.90) m/uL Hgb 8.5 L (13.0-17.5) gm/dL Hct 26.2 L (39.0-53.0) % RDW 15.8 H (11.5-15.5) % Neutrophils # 8.7 H (1.3-7.7) k/uL Lymphocytes # 0.8 L (1.0-4.8) k/uL D-Dimer 2.05 H (<0.60) mg/L FEU Sodium 134 L (137-145) mmol/L Chloride 95 L (98-107) mmol/L BUN 33 H (9-20) mg/dL Creatinine 1.31 H (0.66-1.25) mg/dL Glucose 137 H (74-99) mg/dL Alkaline Phosphatase 168 H (38-126) U/L Troponin I (0.000-0.034) ng/mL Total Protein 6.1 L (6.3-8.2) g/dL Albumin 3.4 L (3.5-5.0) g/dL 06/08/21 Range/Units 10:34 RBC (4.30-5.90) m/uL Hgb (13.0-17.5) gm/dL Hct (39.0-53.0) % RDW (11.5-15.5) % Neutrophils # (1.3-7.7) k/uL Lymphocytes # (1.0-4.8) k/uL D-Dimer (<0.60) mg/L FEU Sodium (137-145) mmol/L Chloride (98-107) mmol/L BUN (9-20) mg/dL Creatinine (0.66-1.25) mg/dL Glucose (74-99) mg/dL Alkaline Phosphatase (38-126) U/L Troponin I 0.086 H* (0.000-0.034) ng/mL Total Protein (6.3-8.2) g/dL Albumin (3.5-5.0) g/dL Assessment and Plan Assessment: 1. Acute exacerbation CHF - Patient reports being off of Lasix for past 2 weeks; received Lasix 40 mg IV in ED with good urine output; patient has been placed on Lasix 40 mg IV every 8 hours - We will plan to monitor strict EVELIN's, daily weights, low salt didn't fluid restricted diet - Recommend 2-D echo to further assess left ventricular function; cardiology is consulted and recommendations are appreciated 2. Elevated troponin; likely related to CHF exacerbation with baseline chronic kidney disease; we will monitor and trend troponin; patient was placed on aspirin, Plavix, beta blockers; further recommendations pending results 3. Acute renal injury/CKD; not sure of baseline renal function; we will hold off on IV fluids given CHF exacerbation; monitor renal function, strict EVELIN's, daily weights, electrolytes; avoid hypotension and nephrotoxins; patient has been placed on home dose of losartan; we will plan to place a hold if renal function deteriorates 4. Elevated d-dimer; rule out PE; CTA chest done in ED with PE protocol reveals no evidence of pulmonary embolism at this time 5. Hypertension; Coreg 3.125 mg twice a day; losartan 50 mg daily 6. Hyperlipidemia; Lipitor 40 mg by mouth daily at bedtime 7. COPD; not in exacerbation; continue with home inhaler therapy in form of Trelegy Ellipta; albuterol inhaler 2 puffs 4 times a day 8. BPH; Proscar 5 mg daily, Flomax 0.4 mg daily DVT prophylaxis; SCDs/subcu heparin CODE STATUS; full code
[2021-06-09] MEDS: HYDROcodone/APAP 10-325MG 1 EACH TAB PO PRN ×2 (03:23→15:08)
[2021-06-09] MEDS: FUROSEMIDE 10 MG/ML 4 ML VIAL IV SCH ×2 (03:24→15:09)
[2021-06-09] MEDS: FERROUS SULFATE 325 MG TAB PO SCH ×2 (06:10→16:59)
[2021-06-09] MEDS: carvediloL 3.125 MG TAB PO SCH ×2 (06:10→16:59)
[2021-06-09] MEDS ORDERED: ALBUTEROL NEBULIZED 2.5 MG/3 ML INHALATION PRN (07:14)
[2021-06-09 07:35] LABS: Calcium 8.3 mg/dL (8.4-10.2); Potassium 3.9 mmol/L (3.5-5.1)
--- NOTE | 2021-06-09 08:11 | US ---
EXAMINATION TYPE: US venous doppler duplex LE DATE OF EXAM: 06/09/2021 7:54 AM COMPARISON: NONE CLINICAL HISTORY: leg swelling. Patient states having recent stents, poor historian. SIDE PERFORMED: Bilateral TECHNIQUE: The lower extremity deep venous system is examined utilizing real time linear array sonog ines with graded compression, doppler sonography and color-flow sonography. VESSELS IMAGED: Common Femoral Vein Deep Femoral Vein Greater Saphenous Vein * Femoral Vein Popliteal Vein Small Saphenous Vein * Proximal Calf Veins (* superficial vessels) Arterial shadowing seen Right Leg: Negative for DVT Left Leg: Negative for DVT IMPRESSION: Grayscale, color doppler, spectral doppler imaging performed of the deep veins of the lo wer extremities. There is normal flow, compressibility, vascular waveforms. No evidence of DVT of t he lower extremities.
[2021-06-09] MEDS: ATORVASTATIN 40 MG TAB PO SCH (08:18)
[2021-06-09] MEDS: ASPIRIN 81 MG PO SCH (08:18)
[2021-06-09] MEDS: CYANOCOBALAMIN 500 MCG TAB PO SCH (08:19)
[2021-06-09] MEDS: TAMSULOSIN 0.4 MG CAP.ER.24H PO SCH (08:19)
[2021-06-09] MEDS: FOLIC ACID 1 MG TAB PO SCH (08:19)
[2021-06-09] MEDS: CLOPIDOGREL 75 MG TAB PO SCH (08:19)
[2021-06-09] MEDS: LOSARTAN 25 MG TAB PO SCH (08:19)
[2021-06-09] MEDS: predniSONE 10 MG TAB PO SCH (08:19)
[2021-06-09] MEDS: FINASTERIDE 5 MG TAB PO SCH (08:19)
[2021-06-09] MEDS ORDERED: FUROSEMIDE 10 MG/ML 4 ML VIAL IV SCH (09:00)
[2021-06-09] MEDS ORDERED: LOSARTAN 50 MG TAB PO SCH (09:00)
[2021-06-09] MEDS ORDERED: ASPIRIN 325 MG TAB PO SCH (09:00)
--- NOTE | 2021-06-09 10:36 | P.CRDCN ---
History of Present Illness History of present illness: HISTORY OF PRESENTING ILLNESS This is a pleasant 80-year-old male past medical history significant for hypertension, chronic heart failure with preserved ejection fraction, BPH, PVCs, prior nicotine dependence, prior diabetes, coronary artery stenosis status post right carotid endarterectomy, venous insufficiency, chronic kidney disease, recent NSTEMI, coronary artery disease status post PCI to the LAD in 05/2021. He follows in the office with Dr. Ramirez. We have been asked to see in consultation for congestive heart failure. Patient presents to the emergency department with complaints of worsening shortness of breath at rest and with activity, increased bilateral lower extremity edema, and symptoms of orthopnea. He states while he was sleeping he had difficulty breathing and "a weird sensation" when he would fall asleep. Patient was started on IV Lasix 40mg Q8hr, he states he has been urinating a decent amount. His shortness of breath has improved and his lower extremity edema has improved. He states that he was not discharged last admission with Lasix for about a week and then was prescribed recently outpatient with PO Lasix and metolazone. He denies any chest pain, p alpitations, lightheadedness, dizziness, syncope or near syncope. In May 2021, he presented to [facility] with complaints of exertional shortness of breath. Workup at [facility] revealed non-STEMI as well as evidence of heart failure with BNP greater than 10,000. The patient underwent heart catheterization today by Dr. Ramirez which revealed left main stenosis 90% not involving the bifurcation, proximal LAD stenosis 90%, and circumflex stenosis 100%. Due to these findings the patient was transferred to [facility] for evaluation by cardiothoracic surgery, he was deemed not a surgical candidate due to high risk. ON 05/27/2021, He underwent impella supported PCI to the left main and mid LAD with Dr. Gonzalez. DIAGNOSTICS -EKG reveals sinus rhythm, heart rate 79, T wave inversions in inferior lateral leads and V3 and V4. Prior EKG with similar findings. -Telemetry tracings indicate sinus mechanism. -CTA with no evidence of pulmonary embolism. Lungs are clear and free of infiltrate. Small right sided pleural effusion. -Chest xray no acute cardiopulmonary process. -Echocardiogram at [facility] 05/2021 Report revealed EF 50%, trace AI without Aortiv valve stenosis, mild to moderate mitral regurgitation and trace tricuspid regurgitation. -Laboratory reviewed, sodium 134, potassium 3.9, BUN 35, serum creatinine 1.4, viral PCR negative, UA negative, troponin 0.08, 0.08, 0.10, WBC 10.2, hemoglobin 8.5, platelets 274 -Current home medications include metolazone 2.5 mg Wednesday and Wednesday, prednisone, Protonix, losartan 50 mg daily, Lasix 160 mg twice a day, Plavix 75 mg daily, carvedilol 3.125 mg twice a day, atorvastatin 40 mg daily, aspirin 81 mg daily REVIEW OF SYSTEMS At the time of my exam: CONSTITUTIONAL: Denies fever or chills. CARDIOVASCULAR: Denies chest pain, shortness of breath, orthopnea, PND or palpit ations. RESPIRATORY: Denies cough. GASTROINTESTINAL: Denies abdominal pain, diarrhea, constipation, nausea or vomiting. MUSCULOSKELETAL: Denies myalgias. NEUROLOGIC: Denies numbness, tingling, headacbe or weakness. ENDOCRINE: Denies fatigue, weight change, polydipsia or polyurina. GENITOURINARY: Denies burning, hematuria or urgency with micturation. HEMATOLOGIC: Denies history of anemia or bleeding. PHYSICAL EXAMINATION Blood pressure 143/64, heart rate 74, afebrile, saturation 96% on 2 L nasal cannula CONSTITUTIONAL: No apparent distress. HEENT: Head is normocephalic. Pupils are equal, round. Sclerae anicteric. Mucous membranes of the mouth are moist. No JVD. No carotid bruit. CHEST EXAMINATION: Lungs diminish in the bases to auscultation. No chest wall tenderness is noted on palpation or with deep breathing. HEART EXAMINATION: Regular rate and rhythm. S1, S2 heard. Systolic ejection murmur at apex ABDOMEN: Soft, nontender. Positive bowel sounds. EXTREMITIES: 2+ peripheral pulses, 1+ bilateral lower extremity edema L >R and no calf tenderness. Right groin/Right leg bruising noted. NEUROLOGIC EXAMINATION: Patient is awake, alert and oriented x3. ASSESSMENT Acute on chronic heart failure with preserved ejection fraction Recent Non-STEMI 05/27/2021, status post Impella supported PCI of the left main and LAD Elevated troponin, not indicative of acute coronary syndrome, possibly related to recent stent placements, patient without chest pain, no acute ischemia noted on EKG Coronary artery disease s/p PCI left main and LAD Chronic kidney disease Anemia Hypertension Hyperlipidemia Type 2 Diabetes COPD PLAN Obtain 2D echocardiogram and doppler study to assess cardiac structure and function. IV Lasix 40mg BID Continue to monitor renal function and electrolytes, monitor I's and O's and daily weights Continue dual antiplatelet therapy with aspirin and Plavix, statin, carvedilol, losartan Further recommendations based on clinical course Nurse practitioner note has been reviewed by physician. Signing provider agrees with the documented findings, assessment, and plan of care. Past Medical History Past Medical History: COPD, Hyperlipidemia, Hypertension, Osteoarthritis (OA), Prostate Disorder, Renal Disease, Vascular Disorder Additional Past Medical History / Comment(s): PVC's, CKD stage III, chronic anemia, BPH, urinary retention, UTI, pancreatitis, gastric ulcer, arthritis in multiple joints/occasional low back pain History of Any Multi-Drug Resistant Organisms: None Reported Past Surgical History: Appendectomy, Cholecystectomy, Tonsillectomy Additional Past Surgical History / Comment(s): R caratid endartectomy, arch study, colonoscopies/benign polypectomies, EGD, pilonidal cyst removed x 2, Past Anesthesia/Blood Transfusion Reactions: No Reported Reaction Date of Last Stent Placement:: 05/27/21 Past Psychological History: No Psychological Hx Reported Smoking Status: Former smoker Past Alcohol Use History: None Reported Past Drug Use History: None Reported - Past Family History Father Family Medical History: No Reported History Mother Family Medical History: Congestive Heart Failure (CHF) Medications and Allergies Home Medications Medication Instructions Recorded Confirmed Type Carvedilol [Coreg] 3.125 mg PO BID-W/MEALS 05/22/21 06/08/21 History Cholecalciferol (Vitamin D3) 125 mcg PO DAILY 05/22/21 06/08/21 History [Vitamin D3 (125 MCG = 5,000 IU)] Finasteride [Proscar] 5 mg PO DAILY 05/22/21 06/08/21 History Fluticasone/Umeclidin/Vilanter 1 puff INHALATION RT-DAILY 05/22/21 06/08/21 Hist ory [Trelegy Ellipta 100-62.5-25] HYDROcodone/APAP 10-325MG [[place] 1 tab PO Q6H PRN 05/22/21 06/08/21 History 10-325] Losartan Potassium 50 mg PO DAILY 05/22/21 06/08/21 History Sennosides [Senna] 8.6 mg PO BID PRN 05/22/21 06/08/21 History Tamsulosin HCl [Flomax] 0.4 mg PO DAILY 05/22/21 06/08/21 History predniSONE 5 mg PO DIRECTED 05/22/21 06/08/21 History Atorvastatin [Lipitor] 40 mg PO DAILY #90 tab 05/29/21 06/08/21 Rx Clopidogrel [Plavix] 75 mg PO DAILY #90 tab 05/29/21 06/08/21 Rx Ferrous Sulfate [Iron (65 MG 325 mg PO BID-W/MEALS #180 tab 05/29/21 06/08/21 Rx Elemental)] Albuterol Inhaler [Ventolin Hfa 2 puff INHALATION RT-QID PRN #1 inh 05/30/21 0 06/08/21 Rx Inhaler] Aspirin EC [Ecotrin Low Dose] 81 mg PO DAILY 30 Days #10 tab 05/30/21 06/08/21 Rx Folic Acid 1 mg PO DAILY #30 tablet 05/30/21 06/08/21 Rx Furosemide [Lasix] 160 mg PO BID 06/08/21 06/08/21 History Nitroglycerin Sl Tabs [Nitrostat] 0.4 mg SL Q5M PRN 06/08/21 06/08/21 History Pantoprazole [Protonix] 40 mg PO BID 06/08/21 06/08/21 History metOLazone [Zaroxolyn] 2.5 mg PO SUWE 06/08/21 06/08/21 History predniSONE See Taper PO DIRECTED 06/08/21 06/08/21 History Allergies Allergy/AdvReac Type Severity Reaction Status Date / Time lisinopril Allergy Anaphylaxis, Verified 06/08/21 10:06 Tongue swelling Physical Exam Vitals: Vital Signs Temp Pulse Pulse Resp BP BP Pulse Ox 06/09/21 03:20 98.3 F 64 18 113/54 97 06/08/21 23:25 65 19 107/56 95 06/08/21 20:50 99.9 F H 88 18 122/61 94 L 06/08/21 20:30 98.5 F 80 18 126/85 96 06/08/21 19:00 89 18 126/85 97 06/08/21 18:59 76 18 136/78 96 06/08/21 16:56 89 18 152/73 96 06/08/21 16:18 73 18 146/76 97 06/08/21 15:00 78 18 136/69 96 06/08/21 12:07 83 18 176/76 99 06/08/21 10:33 18 06/08/21 10:04 99.7 F H 87 20 185/61 96 Intake and Output 06/08/21 06/09/21 06/09/21 22:59 06:59 14:59 Output Total 350 Balance -350 Output: Urine 350 Other: Weight 113.398 kg 111.6 kg Results 06/08/21 10:34 06/09/21 05:47 Cardiac Enzymes 06/08/21 06/08/21 06/08/21 Range/Units 10:34 10:34 12:10 AST 30 (17-59) U/L Troponin I 0.086 H* 0.088 H* (0.000-0.034) ng/mL 06/08/21 Range/Units 17:03 AST (17-59) U/L Troponin I 0.104 H* (0.000-0.034) ng/mL Coagulation 06/08/21 Range/Units 10:34 PT 11.1 (9.0-12.0) sec APTT 22.0 (22.0-30.0) sec CBC 06/08/21 Range/Units 10:34 WBC 10.2 (3.8-10.6) k/uL RBC 2.69 L (4.30-5.90) m/uL Hgb 8.5 L (13.0-17.5) gm/dL Hct 26.2 L (39.0-53.0) % Plt Count 274 (150-450) k/uL Comprehensive Metabolic Panel 06/08/21 Range/Units 10:34 Sodium 134 L (137-145) mmol/L Potassium 4.3 (3.5-5.1) mmol/L Chloride 95 L (98-107) mmol/L Carbon Dioxide 30 (22-30) mmol/L BUN 33 H (9-20) mg/dL Creatinine 1.31 H (0.66-1.25) mg/dL Glucose 137 H (74-99) mg/dL Calcium 8.5 (8.4-10.2) mg/dL AST 30 (17-59) U/L ALT 21 (4-49) U/L Alkaline Phosphatase 168 H (38-126) U/L Total Protein 6.1 L (6.3-8.2) g/dL Albumin 3.4 L (3.5-5.0) g/dL Current Medications Generic Name Dose Route Start Last Admin Trade Name Freq PRN Reason Stop Dose Admin Acetaminophen 650 mg 06/08/21 21:50 Acetaminophen Tab 325 Mg Tab PO Q6HR PRN Fever and/ or Pain Hydrocodone Bitart/Acetaminophen 1 each 06/08/21 17:44 06/09/21 03:23 Hydrocodone/Apap 10-325mg 1 Each Tab PO 1 each Q6HR PRN Administration Pain Aspirin 325 mg 06/09/21 09:00 Aspirin 325 Mg Tab PO DAILY ARTEMIO Carvedilol 3.125 mg 06/09/21 07:30 06/09/21 06:10 Carvedilol 3.125 Mg Tab PO 3.125 mg BID-W/MEALS ARTEMIO Administration Ferrous Sulfate 325 mg 06/09/21 07:30 06/09/21 06:10 Ferrous Sulfate 325 Mg Tab PO 325 mg BID-W/MEALS ARTEMIO Administration Furosemide 40 mg 06/08/21 12:00 06/09/21 03:24 Furosemide 10 Mg/Ml 4 Ml Vial IV 40 mg Q8H ARTEMIO Administration Melatonin 6 mg 06/08/21 22:00 06/08/21 22:11 Melatonin 3 Mg Tablet PO 6 mg HS ARTEMIO Administration Nitroglycerin 1 inch 06/08/21 13:00 06/08/21 22:11 Nitroglycerin Oint 1 Inch/Gm Packet TOPICAL 1 inch QID ARTEMIO Administration Senna 8.6 mg 06/08/21 21:39 Sennosides 8.6 Mg Tab PO BID PRN Constipation Sodium Chloride 10 ml 06/08/21 21:00 06/08/21 20:30 Sodium Chloride 0.9% Flush 10 Ml Syringe IV 10 ml BID ARTEMIO Administration Intake and Output 06/08/21 06/09/21 06/09/21 22:59 06:59 14:59 Output Total 350 Balance -350 Output: Urine 350 Other: Weight 113.398 kg 111.6 kg 06/08/21 10:34 06/08/21 10:34
[2021-06-09] MEDS: IPRATROPIUM-ALBUTEROL 3 ML NEB INHALATION PRN ×2 (12:56→16:06)
--- NOTE | 2021-06-09 16:49 | ECHOF ---
Referral Reason:LV function. Shortness of breath MEASUREMENTS -------- HEIGHT: 180.3 cm WEIGHT: 111.6 kg BP: IVSd: 1.3 cm (0.6 - 1.1) LVIDd: 5.5 cm (3.9 - 5.3) LVPWd: 1.5 cm (0.6 - 1.1) IVSs: 2.2 cm LVIDs: 4.2 cm LVPWs: 1.5 cm Ao Diam: 3.7 cm (2.0 - 3.7) AV Cusp: 1.6 cm (1.5 - 2.6) LA Diam: 3.0 cm (2.7 - 3.8) MV EXCURSION: 16.009 mm (> 18.000) MV EF SLOPE: 115 mm/s (70 - 150) EPSS: 0.8 cm MV E Jimmy: 0.59 m/s MV DecT: 321 ms MV A Jimmy: 0.97 m/s MV E/A Ratio: 0.61 RAP: 5.00 mmHg RVSP: 12.99 mmHg FINDINGS -------- This was a technically difficult study with suboptimal views. The left ventricular size is normal. There is moderate concentric left ventricular hypertrophy. O verall left ventricular systolic function is mild-moderately impaired with, an EF between 40 - 45 %. Inferiorlateral Hypokinesis The RV was not well visualized. The left atrial size is normal. The right atrium was not well visualized. Lumason used The aortic valve was not well visualized. The mitral valve was not well visualized. There is trace mitral regurgitation. The tricuspid valve was not well visualized. Trace tricuspid regurgitation present. Right ventric ular systolic pressure is normal at < 35 mmHg. The pulmonic valve was not well visualized. The aortic root size is normal. IVC Not well visulized. There is no pericardial effusion. CONCLUSIONS -------- 1. The left ventricular size is normal. 2. There is moderate concentric left ventricular hypertrophy. 3. Overall left ventricular systolic function is mild-moderately impaired with, an EF between 40 - 45 %. 4. Inferiorlateral Hypokinesis 5. There is trace mitral regurgitation. 6. Trace tricuspid regurgitation present. 7. There is no pericardial effusion. [employer] WRAPPING MACHINE TENDER: Lalita Mata RDCS
[2021-06-09 17:00] VITALS: BMI 33.3
[2021-06-09] MEDS: MELATONIN 3 MG TABLET PO SCH (21:14)
--- NOTE | 2021-06-09 22:52 | P.PN ---
Subjective From the records 80-year-old male with history of hypertension, hyperlipidemia, CAD, presenting to the emergency Department with dyspnea. Onset of symptoms was yesterday evening. No cough. Patient did have stent placement done just over week ago. Patient was off his Lasix from 8 days however has been on it for the past almost week. No fevers at home. No chest pain. Patient has had some leg swelling. Patient has felt lightheaded. EKG Findings:: Sinus rhythm rate 79. AK 168. QRS 1:30. QT 405. QTC 439. Left axis. Intraventricular conduction delay. T wave inversion V3 through V6. Inferior biphasic and T wave inversion. Blood work completed in ED reveals a WBC of 10.2, hemoglobin 8.5, and platelet count of 274, sodium 134, potassium 4.3, BUN/creatinine of 32/1.31, blood glucose of 137; d-dimer is elevated at 2.05, troponin elevated at 0.086 with BNP of 9520 Patient is admitted for further cardiac evaluation and CHF exacerbatio Subjective: Resuming with the care of the patient today This is a pleasant 80 years old male with multiple medical problems who was recently discharged from the hospital for non-STEMI and stent placement 2 to LAD and left main artery as he was found not a surgical candidate. He returns with dyspnea secondary to acute systolic CHF with ejection fraction 40-45%, curr ently On IV Lasix 40 mg twice daily, he was on 3 times a day. Also he was kept on prednisone 10 mg tapered down to his home dose 5 mg which is a maintenance dose. Creatinine at baseline 1.4, hemoglobin is significantly improved up to 8.5 mg, he supposed to follow up with Dr. Whipple the surgeon for possible colonoscopy tomorrow. Patient was informed he may need to reschedule within one week and he agrees. Aware with his appointment with Dr. Sierra on 06/17 and he agrees He had low-grade fever on admission 99.9, no fever today, Protonix calcitonin 0.18, we will monitor for any further fever. Patient states almost back to his baseline and his breathing is improving even with exertion or with deep monitored Objective - Vital Signs Vital signs: Vital Signs Temp 98.0 F 06/09/21 12:00 Pulse 82 06/09/21 16:18 Resp 18 06/09/21 15:14 BP 101/49 06/09/21 15:14 Pulse Ox 95 06/09/21 15:14 Intake & Output 06/08/21 06/09/21 06/09/21 18:59 06:59 18:59 Intake Total 420 Output Total 350 950 Balance -350 -530 Weight 113.398 kg 111.6 kg 111.584 kg Intake: Oral 420 Output: Urine 350 950 Other: Voiding Method Urinal - Exam GENERAL: The patient is alert and oriented x3, not in any acute distress. Well developed, well nourished. HEENT: Pupils are round and equally reacting to light. EOMI. No scleral icterus. No conjunctival pallor. Normocephalic, atraumatic. No pharyngeal erythema. No thyromegaly. CARDIOVASCULAR: S1 and S2 present. No murmurs, rubs, or gallops. -PULMONARY: Chest is clear to auscultation, no wheezing . Bilateral basal crepitation ABDOMEN: Soft, nontender, nondistended, normoactive bowel sounds. No palpable organomegaly. MUSCULOSKELETAL: No joint swelling or deformity. -EXTREMITIES: No cyanosis, clubbing, . Mild bilateral pitting Rios pedal edema. NEUROLOGICAL: Gross neurological examination did not reveal any focal deficits. SKIN: No rashes. no petechiae. - Labs CBC & Chem 7: 06/08/21 10:34 06/09/21 05:47 Labs: Abnormal Lab Results - Last 24 Hours (Table) 06/08/21 06/09/21 06/09/21 Range/Units 17:03 05:47 05:47 Sodium 134 L (137-145) mmol/L Chloride 96 L (98-107) mmol/L Carbon Dioxide 34 H (22-30) mmol/L BUN 35 H (9-20) mg/dL Creatinine 1.48 H (0.66-1.25) mg/dL Calcium 8.3 L (8.4-10.2) mg/dL Troponin I 0.104 H* (0.000-0.034) ng/mL Procalcitonin 0.18 H (0.02-0.09) ng/mL Microbiology - Last 24 Hours (Table) 06/08/21 10:34 Blood Culture - Preliminary Blood No Growth after 24 hours 06/08/21 10:17 Blood Culture - Preliminary Blood No Growth after 24 hours Assessment and Plan Assessment: 1. Acute exacerbation CHF Continue with IV Lasix 40 mg every 12 hours per Edging Machine Operator R following the case closely. 2. Elevated troponin; likely related to CHF exacerbation with baseline chronic kidney disease; we will monitor and trend troponin; patient was placed on aspirin, Plavix, beta blockers; further recommendations pending results 3. CKD; creatinine at baseline. Continue keep monitoring creatinine 4. Elevated d-dimer; no PE per CTA no DVT. Venous Doppler of both legs 5. Hypertension; Coreg 3.125 mg twice a day; losartan 50 mg daily. Continue with same treatment 6. Hyperlipidemia; Lipitor 40 mg by mouth daily at bedtime 7. COPD; not in exacerbation; continue with home inhaler therapy in form of Trelegy Ellipta; albuterol inhaler 2 puffs 4 times a day 8. BPH; Proscar 5 mg daily, Flomax 0.4 mg daily 9. Anemia, hemoglobin is significantly improved 7.1+ admission and to 8.5 during this admission. Patient will follow up with surgery as an outpatient for possible colonoscopy with DVT prophylaxis; aspirin and Plavix CODE STATUS; full code
[2021-06-10] MEDS: HYDROcodone/APAP 10-325MG 1 EACH TAB PO PRN ×3 (01:22→23:32)
[2021-06-10] MEDS: FUROSEMIDE 10 MG/ML 4 ML VIAL IV SCH (03:40)
[2021-06-10] MEDS: FERROUS SULFATE 325 MG TAB PO SCH ×2 (06:18→16:36)
[2021-06-10] MEDS: carvediloL 3.125 MG TAB PO SCH ×2 (06:18→16:36)
[2021-06-10] MEDS: CYANOCOBALAMIN 500 MCG TAB PO SCH (08:14)
[2021-06-10] MEDS: FINASTERIDE 5 MG TAB PO SCH (08:14)
[2021-06-10] MEDS: ASPIRIN 81 MG PO SCH (08:14)
[2021-06-10] MEDS: CLOPIDOGREL 75 MG TAB PO SCH (08:14)
[2021-06-10] MEDS: FOLIC ACID 1 MG TAB PO SCH (08:14)
[2021-06-10] MEDS: predniSONE 10 MG TAB PO SCH (08:14)
[2021-06-10] MEDS: ATORVASTATIN 40 MG TAB PO SCH (08:14)
[2021-06-10] MEDS: TAMSULOSIN 0.4 MG CAP.ER.24H PO SCH (08:14)
[2021-06-10] MEDS: LOSARTAN 25 MG TAB PO SCH (08:14)
[2021-06-10 09:38] LABS: Calcium 8.5 mg/dL (8.4-10.2); Potassium 3.9 mmol/L (3.5-5.1)
--- NOTE | 2021-06-10 13:30 | P.PN ---
Subjective This is a pleasant 80-year-old male past medical history significant for hypertension, chronic heart failure with preserved ejection fraction, BPH, PVCs, prior nicotine dependence, prior diabetes, coronary artery stenosis status post right carotid endarterectomy, venous insufficiency, chronic kidney disease, recent NSTEMI, coronary artery disease status post PCI to the LAD in 05/2021. He follows in the office with Dr. Ramirez. We have been asked to see in consultation for congestive heart failure. Patient presents to the emergency department with complaints of worsening shortness of breath at rest and with activity, increased bilateral lower extremity edema, and symptoms of orthopnea. He states while he was sleeping he had difficulty breathing and "a weird sensation" when he would fall asleep. Patient was started on IV Lasix 40mg Q8hr, he states he has been urinating a decent amount. His shortness of breath has improved and his lower extremity edema has improved. He states that he was not discharged last admission with Lasix for about a week and then was prescribed recently outpatient with PO Lasix and metolazone. He denies any chest pain, palpitations, lightheadedness, dizziness, syncope or near syncope. In May 2021, he presented to [facility] with complaints of exertional shortness of breath. Workup at [facility] revealed non-STEMI as well as evidence of heart failure with BNP greater than 10,000. The patient underwent heart catheterization today by Dr. Ramirez which revealed left main stenosis 90% not involving the bifurcation, proximal LAD stenosis 90%, and circumflex stenosis 100%. Due to these findings the patient was transferred to [facility] for evaluation by cardiothoracic surgery, he was deemed not a surgical candidate due to high risk. ON 05/27/2021, He underwent impella supported PCI to the left main and mid LAD with Dr. Gonzalez. 06/10/2021 Patient seen and examined at bedside. He is lying flat in bed with no acute distress. He denies any shortness of breath, chest pain. His bilateral lower extremity edema has improved since admission. 1250mL urine output over the past 24 hours.echocardiogram revealed EF of 4045 percent, anterolateral hypokinesis, trace mitral regurgitation, trace tricuspid regurgitation He is currently on IV Lasix, aspirin 81 mg daily, atorvastatin 40 mg daily, carvedilol 3.125 mg BID, Plavix 70 mg daily, losartan 25 mg daily, metolazone 2.5 mg Wednesday and Wednesday Labs: Sodium 136, K 3.9, BUN 40, sCr 1.39. PHYSICAL EXAMINATION Vitals reviewed CONSTITUTIONAL: No apparent distress. HEENT: Neck Supple. No JVD. CHEST EXAMINATION: Lungs diminish in the bases to auscultation. No chest wall tenderness is noted on palpation or with deep breathing. HEART EXAMINATION: Regular rate and rhythm. S1, S2 heard. Systolic ejection murmur at apex ABDOMEN: Soft, nontender. Positive bowel sounds. EXTREMITIES: 2+ peripheral pulses, 1+ bilateral lower extremity edema L >R and no calf tenderness. Right groin/Right leg bruising noted. NEUROLOGIC EXAMINATION: Patient is awake, alert and oriented x3. ASSESSMENT Acute on chronic heart failure with preserved ejection fraction borderline EF 40-45% Recent Non-STEMI 05/27/2021, status post Impella supported PCI of the left main and LAD Elevated troponin, not indicative of acute coronary syndrome, possibly related to recent stent placements, patient without chest pain, no acute ischemia noted on EKG Coronary artery disease s/p PCI left main and LAD Chronic kidney disease Anemia Hypertension Hyperlipidemia Type 2 Diabetes COPD PLAN Transition to PO Lasix 80mg BID Continue to monitor renal function and electrolytes, monitor I's and O's and daily weights Continue dual antiplatelet therapy with aspirin and Plavix, statin, carvedilol, losartan Hopefully discharge in the next 24 hours Further recommendations based on clinical course Nurse practitioner note has been reviewed by physician. Signing provider agrees with the documented findings, assessment, and plan of care. Objective - Vital Signs Vital signs: Vital Signs Temp 98.0 F 06/10/21 11:58 Pulse 73 06/10/21 11:58 Resp 16 06/10/21 11:58 BP 165/70 06/10/21 11:58 Pulse Ox 94 L 06/10/21 11:58 Intake & Output 06/09/21 06/10/21 06/10/21 18:59 06:59 18:59 Intake Total 600 Output Total 950 300 Balance -350 -300 Weight 111.584 kg 113.9 kg Intake: Oral 600 Output: Urine 950 300 Other: Voiding Method Urinal Urinal Urinal - Labs CBC & Chem 7: 06/08/21 10:34 06/10/21 08:26 Labs: Abnormal Lab Results - Last 24 Hours (Table) 06/10/21 Range/Units 08:26 Sodium 136 L (137-145) mmol/L Chloride 95 L (98-107) mmol/L Carbon Dioxide 34 H (22-30) mmol/L BUN 40 H (9-20) mg/dL Creatinine 1.39 H (0.66-1.25) mg/dL Glucose 138 H (74-99) mg/dL Microbiology - Last 24 Hours (Table) 06/08/21 10:17 Blood Culture - Preliminary Blood No Growth after 48 hours 06/08/21 10:34 Blood Culture - Preliminary Blood No Growth after 48 hours
--- NOTE | 2021-06-10 13:31 | P.PN ---
Subjective From the records 80-year-old male with history of hypertension, hyperlipidemia, CAD, presenting to the emergency Department with dyspnea. Onset of symptoms was yesterday evening. No cough. Patient did have stent placement done just over week ago. Patient was off his Lasix from 8 days however has been on it for the past almost week. No fevers at home. No chest pain. Patient has had some leg swelling. Patient has felt lightheaded. EKG Findings:: Sinus rhythm rate 79. UT 168. QRS 1:30. QT 405. QTC 439. Left axis. Intraventricular conduction delay. T wave inversion V3 through V6. Inferior biphasic and T wave inversion. Blood work completed in ED reveals a WBC of 10.2, hemoglobin 8.5, and platelet count of 274, sodium 134, potassium 4.3, BUN/creatinine of 32/1.31, blood glucose of 137; d-dimer is elevated at 2.05, troponin elevated at 0.086 with BNP of 9520 Patient is admitted for further cardiac evaluation and CHF exacerbatio Subjective: Resuming with the care of the patient today This is a pleasant 80 years old male with multiple medical problems who was recently discharged from the hospital for non-STEMI and stent placement 2 to LAD and left main artery as he was found not a surgical candidate. He returns with dyspnea secondary to acute systolic CHF with ejection fraction 40-45%, curr ently On IV Lasix 40 mg twice daily, he was on 3 times a day. Also he was kept on prednisone 10 mg tapered down to his home dose 5 mg which is a maintenance dose. Creatinine at baseline 1.4, hemoglobin is significantly improved up to 8.5 mg, he supposed to follow up with Dr. Whipple the surgeon for possible colonoscopy tomorrow. Patient was informed he may need to reschedule within one week and he agrees. Aware with his appointment with Dr. Sierra on 06/17 and he agrees He had low-grade fever on admission 99.9, no fever today, Protonix calcitonin 0.18, we will monitor for any further fever. Patient states almost back to his baseline and his breathing is improving even with exertion or with deep monitored 06/11/2011 Patient pulmonary condition is improving and his Lasix was switched to oral dose 40 mg twice daily by inventory control coordinator today. His breathing at baseline while at rest, with exertion he has some dyspnea but improving. Fever or leukocytosis ProCalcitonin is pending. Patient missed his appointment with Dr. Whipple today and is going to reschedule in one week as he was informed and he agrees. Possible discharge in 24-48 hours if he keeps stable and improving Objective - Vital Signs Vital signs: Vital Signs Temp 97.9 F 06/10/21 08:00 Pulse 74 06/10/21 08:00 Resp 18 06/10/21 08:00 BP 159/69 06/10/21 08:00 Pulse Ox 94 L 06/10/21 08:00 Intake & Output 06/09/21 06/10/21 06/10/21 18:59 06:59 18:59 Intake Total 600 Output Total 950 300 Balance -350 -300 Weight 111.584 kg 113.9 kg Intake: Oral 600 Output: Urine 950 300 Other: Voiding Method Urinal Urinal Urinal - Exam GENERAL: The patient is alert and oriented x3, not in any acute distress. Well developed, well nourished. HEENT: Pupils are round and equally reacting to light. EOMI. No scleral icterus. No conjunctival pallor. Normocephalic, atraumatic. No pharyngeal erythema. No thyromegaly. CARDIOVASCULAR: S1 and S2 present. No murmurs, rubs, or gallops. -PULMONARY: Chest is clear to auscultation, no wheezing . Bilateral basal crepitation ABDOMEN: Soft, nontender, nondistended, normoactive bowel sounds. No palpable organomegaly. MUSCULOSKELETAL: No joint swelling or deformity. -EXTREMITIES: No cyanosis, clubbing, . Mild bilateral pitting Rios pedal edema. NEUROLOGICAL: Gross neurological examination did not reveal any focal deficits. SKIN: No rashes. no petechiae. - Labs CBC & Chem 7: 06/08/21 10:34 06/10/21 08:26 Labs: Abnormal Lab Results - Last 24 Hours (Table) 06/09/21 06/10/21 Range/Units 05:47 08:26 Sodium 136 L (137-145) mmol/L Chloride 95 L (98-107) mmol/L Carbon Dioxide 34 H (22-30) mmol/L BUN 40 H (9-20) mg/dL Creatinine 1.39 H (0.66-1.25) mg/dL Glucose 138 H (74-99) mg/dL Procalcitonin 0.18 H (0.02-0.09) ng/mL Microbiology - Last 24 Hours (Table) 06/08/21 10:34 Blood Culture - Preliminary Blood No Growth after 24 hours 06/08/21 10:17 Blood Culture - Preliminary Blood No Growth after 24 hours Assessment and Plan Assessment: 1. Acute exacerbation CHF Continue with IV Lasix 40 mg every 12 hours per Supervisor Special Services R following the case closely. 2. Elevated troponin; likely related to CHF exacerbation with baseline chronic kidney disease; we will monitor and trend troponin; patient was placed on aspirin, Plavix, beta blockers; further recommendations pending results 3. CKD; creatinine at baseline. Continue keep monitoring creatinine 4. Elevated d-dimer; no PE per CTA no DVT. Venous Doppler of both legs 5. Hypertension; Coreg 3.125 mg twice a day; losartan 50 mg daily. Continue wi same treatment 6. Hyperlipidemia; Lipitor 40 mg by mouth daily at bedtime 7. COPD; not in exacerbation; continue with home inhaler therapy in form of Trelegy Ellipta; albuterol inhaler 2 puffs 4 times a day 8. BPH; Proscar 5 mg daily, Flomax 0.4 mg daily 9. Anemia, hemoglobin is significantly improved 7.1+ admission and to 8.5 during this admission. Patient will follow up with surgery as an outpatient for possible colonoscopy with DVT prophylaxis; aspirin and Plavix CODE STATUS; full code
[2021-06-10] MEDS ORDERED: FUROSEMIDE 40 MG TAB PO SCH (16:00)
[2021-06-10] MEDS ORDERED: FUROSEMIDE 80 MG TAB PO SCH (16:00)
[2021-06-10] MEDS: FUROSEMIDE 80 MG TAB PO SCH (16:36)
[2021-06-10] MEDS: MELATONIN 3 MG TABLET PO SCH (22:33)
[2021-06-10] MEDS: guaiFENesin 600 MG TABLET.ER PO SCH (22:33)
[2021-06-11 05:27] VITALS: RESP 18
[2021-06-11] MEDS: carvediloL 3.125 MG TAB PO SCH (06:36)
[2021-06-11] MEDS: FERROUS SULFATE 325 MG TAB PO SCH (06:36)
[2021-06-11 08:35] LABS: Calcium 8.4 mg/dL (8.4-10.2); Potassium 3.8 mmol/L (3.5-5.1)
[2021-06-11] MEDS ORDERED: metOLazone 2.5 MG TAB PO SCH (09:00)
[2021-06-11] MEDS: LOSARTAN 25 MG TAB PO SCH (09:54)
[2021-06-11] MEDS: ATORVASTATIN 40 MG TAB PO SCH (09:54)
[2021-06-11] MEDS: FOLIC ACID 1 MG TAB PO SCH (09:55)
[2021-06-11] MEDS: TAMSULOSIN 0.4 MG CAP.ER.24H PO SCH (09:55)
[2021-06-11] MEDS: FUROSEMIDE 80 MG TAB PO SCH (09:55)
[2021-06-11] MEDS: ASPIRIN 81 MG PO SCH (09:55)
[2021-06-11] MEDS: HYDROcodone/APAP 10-325MG 1 EACH TAB PO PRN (09:55)
[2021-06-11] MEDS: CYANOCOBALAMIN 500 MCG TAB PO SCH (09:55)
[2021-06-11] MEDS: predniSONE 10 MG TAB PO SCH (09:55)
[2021-06-11] MEDS: FINASTERIDE 5 MG TAB PO SCH (09:55)
[2021-06-11] MEDS: CLOPIDOGREL 75 MG TAB PO SCH (09:55)
[2021-06-11] MEDS: guaiFENesin 600 MG TABLET.ER PO SCH (09:55)
[2021-06-11 12:16] VITALS: BP 139/62; PULSE 70; TEMP 98.2
--- NOTE | 2021-06-11 12:44 | P.PN ---
Subjective This is a pleasant 80-year-old male past medical history significant for hypertension, chronic heart failure with preserved ejection fraction, BPH, PVCs, prior nicotine dependence, prior diabetes, coronary artery stenosis status post right carotid endarterectomy, venous insufficiency, chronic kidney disease, recent NSTEMI, coronary artery disease status post PCI to the LAD in 05/2021. He follows in the office with Dr. Ramirez. We have been asked to see in consultation for congestive heart failure. Patient presents to the emergency department with complaints of worsening shortness of breath at rest and with activity, increased bilateral lower extremity edema, and symptoms of orthopnea. He states while he was sleeping he had difficulty breathing and "a weird sensation" when he would fall asleep. Patient was started on IV Lasix 40mg Q8hr, he states he has been urinating a decent amount. His shortness of breath has improved and his lower extremity edema has improved. He states that he was not discharged last admission with Lasix for about a week and then was prescribed recently outpatient with PO Lasix and metolazone. He denies any chest pain, palpitations, lightheadedness, dizziness, syncope or near syncope. In May 2021, he presented to [facility] with complaints of exertional shortness of breath. Workup at [facility] revealed non-STEMI as well as evidence of heart failure with BNP greater than 10,000. The patient underwent heart catheterization today by Dr. Ramirez which revealed left main stenosis 90% not involving the bifurcation, proximal LAD stenosis 90%, and circumflex stenosis 100%. Due to these findings the patient was transferred to [facility] for evaluation by cardiothoracic surgery, he was deemed not a surgical candidate due to high risk. ON 05/27/2021, He underwent impella supported PCI to the left main and mid LAD with Dr. Gonzalez. 06/11/2021 Patient seen and examined at bedside. He is lying flat in bed with no acute distress. He denies any shortness of breath, chest pain. His bilateral lower extremity edema has improved since admission. 1175mL urine output over the past 24 hours.echocardiogram revealed EF of 4045%, anterolateral hypokinesis, trace mitral regurgitation, trace tricuspid regurgitation He is currently on PO Lasix 80mg BID , aspirin 81 mg daily, atorvastatin 40 mg daily, carvedilol 3.125 mg BID, Plavix 70 mg daily, losartan 25 mg daily, metolazone 2.5 mg Wednesday and Wednesday Labs: Sodium 135, K 3.8, BUN 45, sCr 1.41. PHYSICAL EXAMINATION Vitals reviewed CONSTITUTIONAL: No apparent distress. HEENT: Neck Supple. No JVD. CHEST EXAMINATION: Lungs diminish in the bases to auscultation. No chest wall tenderness is noted on palpation or with deep breathing. HEART EXAMINATION: Regular rate and rhythm. S1, S2 heard. Systolic ejection murmur at apex ABDOMEN: Soft, nontender. Positive bowel sounds. EXTREMITIES: 2+ peripheral pulses, no bilateral lower extremity edema and no calf tenderness. Right groin/Right leg bruising noted. NEUROLOGIC EXAMINATION: Patient is awake, alert and oriented x3. ASSESSMENT Acute on chronic heart failure with preserved ejection fraction borderline EF 40-45% Recent Non-STEMI 05/27/2021, status post Impella supported PCI of the left main and LAD Elevated troponin, not indicative of acute coronary syndrome, possibly related to recent stent placements, patient without chest pain, no acute ischemia noted on EKG Coronary artery disease s/p PCI left main and LAD Chronic kidney disease Anemia Hypertension Hyperlipidemia Type 2 Diabetes COPD PLAN Continue PO Lasix 80mg BID Continue dual antiplatelet therapy with aspirin and Plavix, statin, carvedilol, losartan From a cardiology perspective, stable for discharge. Follow up outpatient with Dr. Ramirez. Nurse practitioner note has been reviewed by physician. Signing provider agrees with the documented findings, assessment, and plan of care. Objective - Vital Signs Vital signs: Vital Signs Temp 98.2 F 06/11/21 12:00 Pulse 70 06/11/21 12:00 Resp 18 06/11/21 12:00 BP 139/62 06/11/21 12:00 Pulse Ox 95 06/11/21 12:00 Intake & Output 06/10/21 06/11/21 06/11/21 18:59 06:59 18:59 Intake Total 240 Output Total 600 1175 Balance -600 -1175 240 Intake: Oral 240 Output: Urine 600 1175 Other: Voiding Method Urinal Urinal Urinal - Labs CBC & Chem 7: 06/08/21 10:34 06/11/21 07:36 Labs: Abnormal Lab Results - Last 24 Hours (Table) 06/10/21 06/11/21 Range/Units 08:26 07:36 Sodium 135 L (137-145) mmol/L Carbon Dioxide 33 H (22-30) mmol/L BUN 45 H (9-20) mg/dL Creatinine 1.41 H (0.66-1.25) mg/dL Glucose 118 H (74-99) mg/dL Procalcitonin 0.16 H (0.02-0.09) ng/mL Microbiology - Last 24 Hours (Table) 06/08/21 10:17 Blood Culture - Preliminary Blood No Growth after 48 hours 06/08/21 10:34 Blood Culture - Preliminary Blood No Growth after 48 hours
--- NOTE | 2021-06-11 22:16 | P.DS ---
Providers Date of admission: 06/08/21 11:51 Attending physician: Kojo Weller MD Consults: 06/08/21 11:50 Consult Physician Routine Consulting Provider: Ricardo Gavin Consult Reason/Comments: chf Do you want consulting provider notified?: Yes Primary care physician: Shannon Weaver Hospital Course: Diagnoses: 1. Acute exacerbation CHF 2. Elevated troponin; likely related to CHF exacerbation with baseline chronic kidney disease 3. CKD; creatinine at baseline. Continue keep monitoring creatinine 4. Elevated d-dimer; no PE per CTA no DVT per Venous Doppler of both legs 5. Hypertension 6. Hyperlipidemia 7. COPD; not in exacerbation 8. BPH 9. Anemia, hemoglobin is significantly improved 7.1+ admission and to 8.5 during this admission. Patient will follow up with surgery as an outpatient for possible colonoscopy with 10. Low-grade fever on admission, completely resolved. Pro-calcitonin is very low 2 @ 0.18 and 0.16. No signs and symptoms of infection. No need for antibiotic Hospital course: 80-year-old male with history of hypertension, hyperlipidemia, CAD, presenting to the emergency Department with dyspnea. Found to have an acute CHF exacerbation with echocardiogram showed ejection fraction 40-45%, he was evaluated by ocular pathologist and treated with IV Lasix 40 mg every 8 hours and then Q 12 hours, patient hypovolemia improved and became euvolemic and Lasix dose switched to oral route. Patient continued on aspirin and Plavix Patient is back to baseline with no chest pain or dyspnea. No change in urine or bowel habits. No fever. Patient was cleared for discharge by ocular pathologist Upon discharge patient confirmed to me he has oral Lasix and he did not want prescription for it. Problems and management plan were discussed with the patient and he verbalized understanding and acceptance Patient was found stable and can be discharged home in guarded prognosis however he needs follow-up as an outpatient. Patient was instructed to follow up with PCP within one week and patient agrees Patient was instructed to follow up with ocular pathologist Dr. Ramirez in 1 week and he agrees. And to follow up with Dr. Gee on 06/17 and on 06/19 and he agrees with these appointment and recommendation stating he will follow-up Physical exam Gen: patient is a AAOx3, no distress CVS: S1-S2, RRR, no murmur Lungs: B/L CTA, no wheezing Abdomen: soft, no distention, no tenderness, positive bowel sounds Extremity: no leg edema or induration Time spent more than 35 minutes Onset of symptoms was yesterday evening. No cough. Patient did have stent placement done just over week ago. Patient was off his Lasix from 8 days however has been on it for the past almost week. No fevers at home. No chest pain. Patient has had some leg swelling. Patient has felt lightheaded. EKG Findings:: Sinus rhythm rate 79. IA 168. QRS 1:30. QT 405. QTC 439. Left axis. Intraventricular conduction delay. T wave inversion V3 through V6. Inferior biphasic and T wave inversion. Blood work completed in ED reveals a WBC of 10.2, hemoglobin 8.5, and platelet count of 274, sodium 134, potassium 4.3, BUN/creatinine of 32/1.31, blood glucose of 137; d-dimer is elevated at 2.05, troponin elevated at 0.086 with BNP of 9520 Patient is admitted for further cardiac evaluation and CHF exacerbatio Subjective: Resuming with the care of the patient today This is a pleasant 80 years old male with multiple medical problems who was recently discharged from the hospital for non-STEMI and stent placement 2 to LAD and left main artery as he was found not a surgical candidate. He returns with dyspnea secondary to acute systolic CHF with ejection fraction 40-45%, currently On IV Lasix 40 mg twice daily, he was on 3 times a day. Also he was kept on prednisone 10 mg tapered down to his home dose 5 mg which is a maintenance dose. Creatinine at baseline 1.4, hemoglobin is significantly improved up to 8.5 mg, he supposed to follow up with Dr. Whipple the surgeon for possible colonoscopy tomorrow. Patient was informed he may need to reschedule within one week and he agrees. Aware with his appointment with Dr. Sierra on 06/17 and he agrees He had low-grade fever on admission 99.9, no fever today, Protonix calcitonin 0.18, we will monitor for any further fever. Patient states almost back to his baseline and his breathing is improving even with exertion or with deep monitored 06/11/2011 Patient pulmonary condition is improving and his Lasix was switched to oral dose 40 mg twice daily by ocular pathologist today. His breathing at baseline while at rest, with exertion he has some dyspnea but improving. Fever or leukocytosis ProCalcitonin is pending. Patient missed his appointment with Dr. Whipple today and is going to reschedule in one week as he was informed and he agrees. Possible discharge in 24-48 hours if he keeps stable and improving Objective - Vital Signs Vital signs: Vital Signs Temp 97.9 F 06/10/21 08:00 Pulse 74 06/10/21 08:00 Resp 18 06/10/21 08:00 BP 159/69 06/10/21 08:00 Pulse Ox 94 L 06/10/21 08:00 Intake & Output 06/09/21 06/10/21 06/10/21 18:59 06:59 18:59 Intake Total 600 Output Total 950 300 Balance -350 -300 Weight 111.584 kg 113.9 kg Intake: Oral 600 Output: Urine 950 300 Other: Voiding Method Urinal Urinal Urinal - Exam GENERAL: The patient is alert and oriented x3, not in any acute distress. Well developed, well nourished. HEENT: Pupils are round and equally reacting to light. EOMI. No scleral icterus. No conjunctival pallor. Normocephalic, atraumatic. No pharyngeal erythema. No thyromegaly. CARDIOVASCULAR: S1 and S2 present. No murmurs, rubs, or gallops. -PULMONARY: Chest is clear to auscultation, no wheezing . Bilateral basal crepitation ABDOMEN: Soft, nontender, nondistended, normoactive bowel sounds. No palpable organomegaly. MUSCULOSKELETAL: No joint swelling or deformity. -EXTREMITIES: No cyanosis, clubbing, . Mild bilateral pitting Rios pedal edema. NEUROLOGICAL: Gross neurological examination did not reveal any focal deficits. SKIN: No rashes. no petechiae. - Labs CBC & Chem 7: 06/08/21 10:34 [Image 0] 06/10/21 08:26 [Image 1] Labs: Abnormal Lab Results - Last 24 Hours (Table) 06/09/21 06/10/21 Range/Units 05:47 08:26 Sodium 136 L (137-145) mmol/L Chloride 95 L (98-107) mmol/L Carbon Dioxide 34 H (22-30) mmol/L BUN 40 H (9-20) mg/dL Creatinine 1.39 H (0.66-1.25) mg/dL Glucose 138 H (74-99) mg/dL Procalcitonin 0.18 H (0.02-0.09) ng/mL Microbiology - Last 24 Hours (Table) 06/08/21 10:34 Blood Culture - Preliminary Blood No Growth after 24 hours 06/08/21 10:17 Blood Culture - Preliminary Blood No Growth after 24 hours Assessment and Plan Assessment: Plan - Discharge Summary Discharge Rx Participant: No New Discharge Prescriptions: New Melatonin 6 mg PO HS PRN 10 Days #20 tablet PRN Reason: Insomnia Cyanocobalamin [Vitamin B-12] 500 mcg PO DAILY 30 Days #30 tab Folic Acid 1 mg PO DAILY #30 tab Continue Tamsulosin HCl [Flomax] 0.4 mg PO DAILY Sennosides [Senna] 8.6 mg PO BID PRN PRN Reason: Constipation HYDROcodone/APAP 10-325MG [[place] 10-325] 1 tab PO Q6H PRN PRN Reason: Pain Finasteride [Proscar] 5 mg PO DAILY Carvedilol [Coreg] 3.125 mg PO BID-W/MEALS Ferrous Sulfate [Iron (65 MG Elemental)] 325 mg PO BID-W/MEALS #180 tab Atorvastatin [Lipitor] 40 mg PO DAILY #90 tab Albuterol Inhaler [Ventolin Hfa Inhaler] 2 puff INHALATION RT-QID PRN #1 inh PRN Reason: Shortness Of Breath Folic Acid 1 mg PO DAILY #30 tablet Furosemide [Lasix] 80 mg PO BID predniSONE See Taper PO DIRECTED Cholecalciferol (Vitamin D3) [Vitamin D3 (125 MCG = 5,000 IU)] 125 mcg PO DAILY Losartan Potassium 50 mg PO DAILY Fluticasone/Umeclidin/Vilanter [Trelegy Ellipta 100-62.5-25] 1 puff INHALATION RT-DAILY Clopidogrel [Plavix] 75 mg PO DAILY #90 tab Aspirin EC [Ecotrin Low Dose] 81 mg PO DAILY 30 Days #10 tab Pantoprazole [Protonix] 40 mg PO BID Nitroglycerin Sl Tabs [Nitrostat] 0.4 mg SL Q5M PRN PRN Reason: Chest Pain metOLazone [Zaroxolyn] 2.5 mg PO SUWE Changed predniSONE 5 mg PO DAILY 30 Days #15 tab Discharge Medication List Carvedilol [Coreg] 3.125 mg PO BID-W/MEALS 05/22/21 [History] Cholecalciferol (Vitamin D3) [Vitamin D3 (125 MCG = 5,000 IU)] 125 mcg PO DAILY 05/22/21 [History] Finasteride [Proscar] 5 mg PO DAILY 05/22/21 [History] Fluticasone/Umeclidin/Vilanter [Trelegy Ellipta 100-62.5-25] 1 puff INHALATION RT-DAILY 05/22/21 [History] HYDROcodone/APAP 10-325MG [[place] 10-325] 1 tab PO Q6H PRN 05/22/21 [History] Losartan Potassium 50 mg PO DAILY 05/22/21 [History] Sennosides [Senna] 8.6 mg PO BID PRN 05/22/21 [History] Tamsulosin HCl [Flomax] 0.4 mg PO DAILY 05/22/21 [History] Atorvastatin [Lipitor] 40 mg PO DAILY #90 tab 05/29/21 [Rx] Clopidogrel [Plavix] 75 mg PO DAILY #90 tab 05/29/21 [Rx] Ferrous Sulfate [Iron (65 MG Elemental)] 325 mg PO BID-W/MEALS #180 tab 05/29/21 [Rx] Albuterol Inhaler [Ventolin Hfa Inhaler] 2 puff INHALATION RT-QID PRN #1 inh 05/30/21 [Rx] Aspirin EC [Ecotrin Low Dose] 81 mg PO DAILY 30 Days #10 tab 05/30/21 [Rx] Folic Acid 1 mg PO DAILY #30 tablet 05/30/21 [Rx] Furosemide [Lasix] 80 mg PO BID 06/08/21 [History] Nitroglycerin Sl Tabs [Nitrostat] 0.4 mg SL Q5M PRN 06/08/21 [History] Pantoprazole [Protonix] 40 mg PO BID 06/08/21 [History] metOLazone [Zaroxolyn] 2.5 mg PO SUWE 06/08/21 [History] predniSONE See Taper PO DIRECTED 06/08/21 [History] Cyanocobalamin [Vitamin B-12] 500 mcg PO DAILY 30 Days #30 tab 06/11/21 [Rx] Folic Acid 1 mg PO DAILY #30 tab 06/11/21 [Rx] Melatonin 6 mg PO HS PRN 10 Days #20 tablet 06/11/21 [Rx] predniSONE 5 mg PO DAILY 30 Days #15 tab 06/11/21 [Rx] Follow up Appointment(s)/Referral(s): Owen Ortega MD [Primary Care Provider] - 1-2 days (Office is closed. Please call to make appointment.) Zev Ramirez DO [STAFF PHYSICIAN] - 1 Week (June 26 10:00) Pola Gee DO [Doctor of Osteopathic Medicine] - 06/17/21 9:30 am Huy Harris MD [STAFF PHYSICIAN] - 06/19/21 3:30 pm (cancelled appointment for and rescheduled for 06/19 at 330 pm) Patient Instructions/Handouts: Heart Failure (DC), Coronary Artery Disease (DC) Activity/Diet/Wound Care/Special Instructions: heart healthy diet with water and salt restriction activity is limited till you see your doctor Discharge Disposition: HOME WITH HOME HEALTH SERVICES
== END 2021-06-11 13:11 | disposition home health service (06) | DRG 280 ==
LOC: EC 10:01 → 3SCARD 11:51
PROVIDERS: ADMIT Internal Medicine; ATTEND Internal Medicine
DX: I13.0 Hypertensive heart and chronic kidney disease with heart failure and stage 1 through stage 4 chronic kidney disease, or unspecified chronic kidney disease (principal); I50.23 Acute on chronic systolic (congestive) heart failure; I21.4 Non-ST elevation (NSTEMI) myocardial infarction; N17.9 Acute kidney failure, unspecified; R42 Dizziness and giddiness; D64.9 Anemia, unspecified; N40.1 Benign prostatic hyperplasia with lower urinary tract symptoms; Z20.822 Contact with and (suspected) exposure to COVID-19; J44.9 Chronic obstructive pulmonary disease, unspecified; I49.3 Ventricular premature depolarization; N18.30 Chronic kidney disease, stage 3 unspecified; I08.1 Rheumatic disorders of both mitral and tricuspid valves; R74.01 Elevation of levels of liver transaminase levels; R79.89 Other specified abnormal findings of blood chemistry; E11.22 Type 2 diabetes mellitus with diabetic chronic kidney disease; E78.5 Hyperlipidemia, unspecified; I25.10 Atherosclerotic heart disease of native coronary artery without angina pectoris; I45.9 Conduction disorder, unspecified; I25.2 Old myocardial infarction; Z79.02 Long term (current) use of antithrombotics/antiplatelets; Z79.82 Long term (current) use of aspirin; Z79.899 Other long term (current) drug therapy; Z82.49 Family history of ischemic heart disease and other diseases of the circulatory system; Z87.11 Personal history of peptic ulcer disease; Z87.891 Personal history of nicotine dependence; Z98.61 Coronary angioplasty status; Z88.8 Allergy status to other drugs, medicaments and biological substances; Z86.73 Personal history of transient ischemic attack (TIA), and cerebral infarction without residual deficits
CPT/HCPCS: 36415; 71046; 71275; 80048; 80053; 81003; 83605; 83880; 84145; 84484; 85025; 85379; 85610; 85730; 87040; 87502; 87635; 93005; 93306; 93970; 94640; 96374; 96376; 99285

== ENCOUNTER 2021-06-12 04:01 | Observation (INO) | payer MEDICARE ==
--- NOTE | 2021-06-12 04:50 | XR ---
EXAMINATION TYPE: XR chest 1V portable DATE OF EXAM: 06/12/2021 COMPARISON: 06/08/2021 HISTORY: Short of breath TECHNIQUE: Single view FINDINGS: There is no heart failure nor confluent pneumonic infiltrate. There are chest leads. Costop hrenic angles are clear. There is slight coarsening of interstitial markings at the lung bases. IMPRESSION: Mild fibrotic changes. No acute lung disease. No change compared to old exam.
[2021-06-12 05:03] LABS: Anisocytosis Slight; Basophils % (A) 1 %; Eosinophils # (A) 0.4 k/uL (0-0.7); Eosinophils % (A) 5 %; HCT 27.4 % (39.0-53.0); HGB 8.8 gm/dL (13.0-17.5); Lymphocytes # (A) 0.7 k/uL (1.0-4.8); Lymphocytes % (A) 9 %; MCH 31.5 pg (25.0-35.0); MCHC 32.2 g/dL (31.0-37.0); Macrocytosis Slight; Monocytes # (A) 0.6 k/uL (0-1.0); Monocytes % (A) 7 %; Neutrophils # (A) 6.1 k/uL (1.3-7.7); Neutrophils % (A) 76 %; Platelet Count 270 k/uL (150-450); RBC 2.79 m/uL (4.30-5.90)
[2021-06-12 05:19] LABS: Albumin 3.3 g/dL (3.5-5.0); Calcium 8.3 mg/dL (8.4-10.2); Magnesium 1.8 mg/dL (1.6-2.3); Potassium 4.2 mmol/L (3.5-5.1); Total Bilirubin 1.1 mg/dL (0.2-1.3); Total Protein 6.1 g/dL (6.3-8.2)
[2021-06-12 05:27] LABS: Partial Thromboplastin Time 23.4 sec (22.0-30.0); Prothrombin Time 11.1 sec (9.0-12.0)
--- NOTE | 2021-06-12 07:38 | ED ---
SOB HPI - General Source: patient, family Mode of arrival: wheelchair Limitations: no limitations - History of Present Illness MD Complaint: shortness of breath -: hour(s) Severity scale (1-10): 0 Consistency: constant Improves With: nothing Worsens With: lying flat Known History Of: COPD, congestive heart failure Associated Symptoms: denies other symptoms Treatments Prior to Arrival: none - Related Data Home Oxygen Therapy: No <Reyes Trivedi - Last Filed: 06/12/21 07:38> <Pola Hess - Last Filed: 06/12/21 08:35> - General Chief Complaint: Shortness of Breath Stated Complaint: SOB Time Seen by Provider: 06/12/21 04:17 - History of Present Illness Initial Comments: This patient is an 80-year-old man with history of some underlying lung disease as well as congestive heart failure who returns today after being discharged yesterday. He had been in the hospital for approximately 4 days for a congestive heart failure exacerbation. The patient states that when he went home he started having shortness of breath again and feels that he needs to have oxygen for home use and that he was not prescribed this. The patient's room air pulse oximetry on arrival 96%. Patient not having fever or chills. No cough. No chest pain. He states that his leg edema had decreased from what it was when he was admitted to the hospital. He is not having any change in urination or bowel movements. No dark tarry stools. (Reyes Trivedi) - Related Data Home Medications Medication Instructions Recorded Confirmed Carvedilol [Coreg] 3.125 mg PO BID-W/MEALS 05/22/21 06/12/21 Cholecalciferol (Vitamin D3) 125 mcg PO DAILY 05/22/21 06/12/21 [Vitamin D3 (125 MCG = 5,000 IU)] Finasteride [Proscar] 5 mg PO DAILY 05/22/21 06/12/21 Fluticasone/Umeclidin/Vilanter 1 puff INHALATION RT-DAILY 05/22/21 06/12/21 [Trelegy Ellipta 100-62.5-25] HYDROcodone/APAP 10-325MG [[place] 1 tab PO Q6H PRN 05/22/21 06/12/21 10-325] Losartan Potassium 50 mg PO DAILY 05/22/21 06/12/21 Sennosides [Senna] 8.6 mg PO BID PRN 05/22/21 06/12/21 Tamsulosin HCl [Flomax] 0.4 mg PO DAILY 05/22/21 06/12/21 Furosemide [Lasix] 80 mg PO BID 06/08/21 06/12/21 Nitroglycerin Sl Tabs [Nitrostat] 0.4 mg SL Q5M PRN 06/08/21 06/12/21 Pantoprazole [Protonix] 40 mg PO BID 06/08/21 06/12/21 metOLazone [Zaroxolyn] 2.5 mg PO SUWE 06/08/21 06/12/21 Previous Rx's Medication Instructions Recorded Atorvastatin [Lipitor] 40 mg PO DAILY #90 tab 05/29/21 Clopidogrel [Plavix] 75 mg PO DAILY #90 tab 05/29/21 Ferrous Sulfate [Iron (65 MG 325 mg PO BID-W/MEALS #180 tab 05/29/21 Elemental)] Albuterol Inhaler [Ventolin Hfa 2 puff INHALATION RT-QID PRN #1 inh 05/30/21 Inhaler] Aspirin EC [Ecotrin Low Dose] 81 mg PO DAILY 30 Days #10 tab 05/30/21 Cyanocobalamin [Vitamin B-12] 500 mcg PO DAILY 30 Days #30 tab 06/11/21 Folic Acid 1 mg PO DAILY #30 tab 06/11/21 Melatonin 6 mg PO HS PRN 10 Days #20 tablet 06/11/21 predniSONE 5 mg PO DAILY 30 Days #15 tab 06/11/21 Allergies Allergy/AdvReac Type Severity Reaction Status Date / Time lisinopril Allergy Anaphylaxis, Verified 06/12/21 07:51 Tongue swelling Review of Systems ROS Other: All systems not noted in ROS Statement are negative. Constitutional: Denies: fever, chills Respiratory: Reports: dyspnea. Denies: cough, wheezes, hemoptysis Cardiovascular: Reports: orthopnea. Denies: chest pain, palpitations, edema, syncope Gastrointestinal: Denies: abdominal pain, vomiting, diarrhea, melena, hematochezia Genitourinary: Denies: dysuria, hematuria Musculoskeletal: Denies: back pain Skin: Denies: rash Neurological: Denies: headache, weakness <Reyes Trivedi - Last Filed: 06/12/21 07:38> ROS Other: All systems not noted in ROS Statement are negative. <Pola Hess - Last Filed: 06/12/21 08:35> ROS Statement: Those systems with pertinent positive or pertinent negative responses have been documented in the HPI. Past Medical History Past Medical History: COPD, Hyperlipidemia, Hypertension, Osteoarthritis (OA), Prostate Disorder, Renal Disease, Vascular Disorder Additional Past Medical History / Comment(s): PVC's, CKD stage III, chronic anemia, BPH, urinary retention, UTI, pancreatitis, gastric ulcer, arthritis in multiple joints/occasional low back pain History of Any Multi-Drug Resistant Organisms: None Reported Past Surgical History: Appendectomy, Cholecystectomy, Heart Catheterization With Stent, Tonsillectomy Additional Past Surgical History / Comment(s): R caratid endartectomy, arch study, colonoscopies/benign polypectomies, EGD, pilonidal cyst removed x 2, Past Anesthesia/Blood Transfusion Reactions: No Reported Reaction Date of Last Stent Placement:: 05/27/21 Past Psychological History: No Psychological Hx Reported Smoking Status: Former smoker Past Alcohol Use History: None Reported Past Drug Use History: None Reported - Past Family History Father Family Medical History: No Reported History Mother Family Medical History: Congestive Heart Failure (CHF) <Reyes Trivedi - Last Filed: 06/12/21 07:38> General Exam Limitations: no limitations General appearance: alert, in no apparent distress Head exam: Present: atraumatic, normocephalic Eye exam: Present: normal appearance. Absent: scleral icterus, conjunctival injection Neck exam: Present: normal inspection Respiratory exam: Present: normal lung sounds bilaterally. Absent: respiratory distress, wheezes, rales, rhonchi, stridor, accessory muscle use Cardiovascular Exam: Present: regular rate, normal rhythm, normal heart sounds. Absent: systolic murmur, diastolic murmur, rubs, gallop GI/Abdominal exam: Present: soft. Absent: distended, tenderness, guarding, rebound, rigid, mass, pulsatile mass Extremities exam: Present: normal inspection, normal capillary refill, pedal edema. Absent: calf tenderness Back exam: Present: normal inspection. Absent: CVA tenderness (R), CVA tenderness (L) Neurological exam: Present: alert Skin exam: Present: warm, dry, intact, normal color. Absent: rash <Reyes Trivedi - Last Filed: 06/12/21 07:38> Course Vital Signs 06/12/21 06/12/21 06/12/21 04:02 04:22 05:30 Temperature 98.0 F Pulse Rate 56 L 64 Respiratory 20 24 20 Rate Blood Pressure 143/69 124/92 O2 Sat by Pulse 97 96 Oximetry 06/12/21 07:47 Temperature 98.2 F Pulse Rate 67 Respiratory 22 Rate Blood Pressure 153/62 O2 Sat by Pulse 96 Oximetry Medical Decision Making - Lab Data Result diagrams: 06/12/21 04:24 06/12/21 04:24 <Reyes Trivedi - Last Filed: 06/12/21 07:38> - Lab Data Result diagrams: 06/12/21 04:24 06/12/21 04:24 <Pola Hess - Last Filed: 06/12/21 08:35> - Medical Decision Making 80-year-old male recent admission for congestive heart failure returning with chief complaint of dyspnea. Patient had been evaluated by the previous ER phys ician and was awaiting VQ scan. These results are still pending. Patient will be observed awaiting VQ scan to Dr. palmer who is where the patient. Cardiology placed on consult. His cardiac enzymes will be trended to ensure there is no increased. (Pola Hess) - Lab Data Lab Results 06/12/21 06/12/21 06/12/21 Range/Units 04:24 04:24 04:24 WBC 8.0 (3.8-10.6) k/uL RBC 2.79 L (4.30-5.90) m/uL Hgb 8.8 L (13.0-17.5) gm/dL Hct 27.4 L (39.0-53.0) % MCV 98.0 (80.0-100.0) fL MCH 31.5 (25.0-35.0) pg MCHC 32.2 (31.0-37.0) g/dL RDW 16.0 H (11.5-15.5) % Plt Count 270 (150-450) k/uL MPV 7.0 Neutrophils % 76 % Lymphocytes % 9 % Monocytes % 7 % Eosinophils % 5 % Basophils % 1 % Neutrophils # 6.1 (1.3-7.7) k/uL Lymphocytes # 0.7 L (1.0-4.8) k/uL Monocytes # 0.6 (0-1.0) k/uL Eosinophils # 0.4 (0-0.7) k/uL Basophils # 0.0 (0-0.2) k/uL Anisocytosis Slight Macrocytosis Slight PT 11.1 (9.0-12.0) sec INR 1.0 (<1.2) APTT 23.4 (22.0-30.0) sec D-Dimer 1.66 H (<0.60) mg/L FEU Sodium 135 L (137-145) mmol/L Potassium 4.2 (3.5-5.1) mmol/L Chloride 98 (98-107) mmol/L Carbon Dioxide 27 (22-30) mmol/L Anion Gap 10 mmol/L BUN 49 H (9-20) mg/dL Creatinine 1.73 H (0.66-1.25) mg/dL Est GFR (CKD-EPI)AfAm 42 (>60 ml/min/1.73 sqM) Est GFR (CKD-EPI)NonAf 37 (>60 ml/min/1.73 sqM) Glucose 123 H (74-99) mg/dL Plasma Lactic Acid Tima (0.7-2.0) mmol/L Calcium 8.3 L (8.4-10.2) mg/dL Magnesium 1.8 (1.6-2.3) mg/dL Total Bilirubin 1.1 (0.2-1.3) mg/dL AST 34 (17-59) U/L ALT 19 (4-49) U/L Alkaline Phosphatase 184 H (38-126) U/L Troponin I (0.000-0.034) ng/mL NT-Pro-B Natriuret Pep pg/mL Total Protein 6.1 L (6.3-8.2) g/dL Albumin 3.3 L (3.5-5.0) g/dL 06/12/21 06/12/21 06/12/21 Range/Units 04:24 04:24 04:24 WBC (3.8-10.6) k/uL RBC (4.30-5.90) m/uL Hgb (13.0-17.5) gm/dL Hct (39.0-53.0) % MCV (80.0-100.0) fL MCH (25.0-35.0) pg MCHC (31.0-37.0) g/dL RDW (11.5-15.5) % Plt Count (150-450) k/uL MPV Neutrophils % % Lymphocytes % % Monocytes % % Eosinophils % % Basophils % % Neutrophils # (1.3-7.7) k/uL Lymphocytes # (1.0-4.8) k/uL Monocytes # (0-1.0) k/uL Eosinophils # (0-0.7) k/uL Basophils # (0-0.2) k/uL Anisocytosis Macrocytosis PT (9.0-12.0) sec INR (<1.2) APTT (22.0-30.0) sec D-Dimer (<0.60) mg/L FEU Sodium (137-145) mmol/L Potassium (3.5-5.1) mmol/L Chloride (98-107) mmol/L Carbon Dioxide (22-30) mmol/L Anion Gap mmol/L BUN (9-20) mg/dL Creatinine (0.66-1.25) mg/dL Est GFR (CKD-EPI)AfAm (>60 ml/min/1.73 sqM) Est GFR (CKD-EPI)NonAf (>60 ml/min/1.73 sqM) Glucose (74-99) mg/dL Plasma Lactic Acid Tima 1.5 (0.7-2.0) mmol/L Calcium (8.4-10.2) mg/dL Magnesium (1.6-2.3) mg/dL Total Bilirubin (0.2-1.3) mg/dL AST (17-59) U/L ALT (4-49) U/L Alkaline Phosphatase (38-126) U/L Troponin I 0.115 H* (0.000-0.034) ng/mL NT-Pro-B Natriuret Pep 6090 pg/mL Total Protein (6.3-8.2) g/dL Albumin (3.5-5.0) g/dL Disposition <Reyes Trivedi - Last Filed: 06/12/21 07:38> Is patient prescribed a controlled substance at d/c from ED?: No Decision to Admit Reason: Admit from EC Decision Date: 06/12/21 Decision Time: 08:35 <Pola Hess - Last Filed: 06/12/21 08:35> Clinical Impression: Congestive heart failure, Dyspnea Disposition: ADMITTED IP TO THIS [facility] Condition: Stable Referrals: Owen Ortega MD [Primary Care Provider] - 1-2 days
[2021-06-12] MEDS ORDERED: NALOXONE 0.4 MG/ML 1 ML VIAL IV PRN (08:32)
--- NOTE | 2021-06-12 11:12 | P.CRDCN ---
History of Present Illness History of present illness: Known coronary artery disease status post angioplasty of left main and LAD in May who was recently admitted to hospital with congestive heart failure was discharged home and comes back in complaining of shortness of breath. He states that he short of breath at rest. He thought that he should have been on home O2 and went home without any. In the emergency room his d-dimer is elevated at 1.66 and a VQ scan has been ordered. His troponins are mildly elevated which is where they were at last admission. BUN/creatinine are elevated at 49 and 1.7 the BNP appears chronically elevated. Patient does not have leg edema PND or orthopnea. He is not having any chest pain. Patient has history of COPD CAD and heart failure Patient had an echocardiogram at last admission that revealed an ejection fraction of 40-45% with evidence of prior inferolateral myocardial infarction Patient is not in overt heart failure at the moment. And does not have symptoms of angina. I will follow the VQ scan results and decide on further course of action Constitutional: Denies chills. Denies fever. Eyes: Denies blurred vision. Denies pain. Ears, nose, mouth and throat: Denies headache. Denies sore throat. Cardiovascular: Denies chest pain. Significant for shortness of breath Respiratory: Denies cough. Gastrointestinal: Denies abdominal pain. Denies diarrhea. Denies nausea. Denies vomiting. Musculoskeletal: Denies myalgias. Integumentary: Denies pruritus. Denies rash. Neurological: Denies numbness. Denies weakness. Psychiatric: Denies anxiety. Denies depression. Endocrine: Denies fatigue. Denies weight change. Genitourinary: Denies burning, hematuria, frequency of urination. Hematological: No anemia or excess bleeding. General: The patient is awake and alert, in no distress, and does not appear acutely ill. Skin: Skin is warm and dry and no rashes or lesions are noted. Eye: Pupils are equal, round and reactive to light, extra-ocular movements are intact; there is normal conjunctiva bilaterally. Ears, nose, mouth and throat: There are moist mucous membranes and no oral lesions. Neck: The neck is supple, there is no tenderness or JVD. Cardiovascular: There is a regular rate and rhythm. No murmur, rub or gallop is appreciated. Respiratory: Lungs are clear to auscultation, respirations are non-labored, breath sounds are equal. Gastrointestinal: Soft, non-distended, non-tender abdomen without masses or organomegaly noted. There is no rebound or guarding present. Bowel sounds are unremarkable. Back: There is no tenderness to palpation in the midline. There is no obvious deformity. Musculoskeletal: Normal ROM, no tenderness, There is no pedal edema. There is no calf tenderness or swelling. Extremities: No edema. Vascular: Femoral pulse is normal. Posterior tibial pulses are normal .Dorsalis pedis is palpable. Neurological: CN II-XII intact. There are no obvious motor or sensory deficits. Speech is normal. Psychiatric: Cooperative, appropriate mood & affect, normal judgment. EKG shows sinus rhythm with inferolateral ST-T wave changes Troponins are mildly elevated BUN/creatinine are elevated Hemoglobin is low Assessment and plan: Shortness of breath of unclear etiology Elevated d-dimer to rule out pulmonary embolism Known coronary artery disease status post angioplasty of left main and distal and LAD Other follow the VQ scan results continue current medications I will talk to Dr. Ramirez about him Past Medical History Past Medical History: COPD, Hyperlipidemia, Hypertension, Osteoarthritis (OA), Prostate Disorder, Renal Disease, Vascular Disorder Additional Past Medical History / Comment(s): PVC's, CKD stage III, chronic anemia, BPH, urinary retention, UTI, pancreatitis, gastric ulcer, arthritis in multiple joints/occasional low back pain History of Any Multi-Drug Resistant Organisms: None Reported Past Surgical History: Appendectomy, Cholecystectomy, Heart Catheterization With Stent, Tonsillectomy Additional Past Surgical History / Comment(s): R caratid endartectomy, arch study, colonoscopies/benign polypectomies, EGD, pilonidal cyst removed x 2, Past Anesthesia/Blood Transfusion Reactions: No Reported Reaction Date of Last Stent Placement:: 05/27/21 Past Psychological History: No Psychological Hx Reported Smoking Status: Former smoker Past Alcohol Use History: None Reported Past Drug Use History: None Reported - Past Family History Father Family Medical History: No Reported History Mother Family Medical History: Congestive Heart Failure (CHF) Medications and Allergies Home Medications Medication Instructions Recorded Confirmed Type Carvedilol [Coreg] 3.125 mg PO BID-W/MEALS 05/22/21 06/12/21 History Cholecalciferol (Vitamin D3) 125 mcg PO DAILY 05/22/21 06/12/21 History [Vitamin D3 (125 MCG = 5,000 IU)] Finasteride [Proscar] 5 mg PO DAILY 05/22/21 06/12/21 History Fluticasone/Umeclidin/Vilanter 1 puff INHALATION RT-DAILY 05/22/21 06/12/21 History [Trelegy Ellipta 100-62.5-25] HYDROcodone/APAP 10-325MG [[place] 1 tab PO Q6H PRN 05/22/21 06/12/21 History 10-325] Losartan Potassium 50 mg PO DAILY 05/22/21 06/12/21 History Sennosides [Senna] 8.6 mg PO BID PRN 05/22/21 06/12/21 History Tamsulosin HCl [Flomax] 0.4 mg PO DAILY 05/22/21 06/12/21 History Atorvastatin [Lipitor] 40 mg PO DAILY #90 tab 05/29/21 06/12/21 Rx Clopidogrel [Plavix] 75 mg PO DAILY #90 tab 05/29/21 06/12/21 Rx Ferrous Sulfate [Iron (65 MG 325 mg PO BID-W/MEALS #180 tab 05/29/21 06/12/21 Rx Elemental)] Albuterol Inhaler [Ventolin Hfa 2 puff INHALATION RT-QID PRN #1 inh 05/30/21 06/12/21 Rx Inhaler] Aspirin EC [Ecotrin Low Dose] 81 mg PO DAILY 30 Days #10 tab 05/30/21 06/12/21 Rx Furosemide [Lasix] 80 mg PO BID 06/08/21 06/12/21 History Nitroglycerin Sl Tabs [Nitrostat] 0.4 mg SL Q5M PRN 06/08/21 06/12/21 History Pantoprazole [Protonix] 40 mg PO BID 06/08/21 06/12/21 History metOLazone [Zaroxolyn] 2.5 mg PO SUWE 06/08/21 06/12/21 History Cyanocobalamin [Vitamin B-12] 500 mcg PO DAILY 30 Days #30 tab 06/11/21 06/12/21 Rx Folic Acid 1 mg PO DAILY #30 tab 06/11/21 06/12/21 Rx Melatonin 6 mg PO HS PRN 10 Days #20 tablet 06/11/21 06/12/21 Rx predniSONE 5 mg PO DAILY 30 Days #15 tab 06/11/21 06/12/21 Rx Allergies Allergy/AdvReac Type Severity Reaction Status Date / Time lisinopril Allergy Anaphylaxis, Verified 06/12/21 07:51 Tongue swelling Physical Exam Vitals: Vital Signs Temp Pulse Resp BP Pulse Ox 06/12/21 09:51 64 18 151/64 97 06/12/21 07:47 98.2 F 67 22 153/62 96 06/12/21 05:30 64 20 124/92 96 06/12/21 04:22 24 06/12/21 04:02 98.0 F 56 L 20 143/69 97 Intake and Output 06/11/21 06/12/21 06/12/21 22:59 06:59 14:59 Other: Weight 111.13 kg Results 06/12/21 04:24 06/12/21 04:24 Cardiac Enzymes 06/12/21 06/12/21 06/12/21 Range/Units 04:24 04:24 09:04 AST 34 (17-59) U/L Troponin I 0.115 H* 0.094 H* (0.000-0.034) ng/mL Coagulation 06/12/21 Range/Units 04:24 PT 11.1 (9.0-12.0) sec APTT 23.4 (22.0-30.0) sec CBC 06/12/21 Range/Units 04:24 WBC 8.0 (3.8-10.6) k/uL RBC 2.79 L (4.30-5.90) m/uL Hgb 8.8 L (13.0-17.5) gm/dL Hct 27.4 L (39.0-53.0) % Plt Count 270 (150-450) k/uL Comprehensive Metabolic Panel 06/12/21 Range/Units 04:24 Sodium 135 L (137-145) mmol/L Potassium 4.2 (3.5-5.1) mmol/L Chloride 98 (98-107) mmol/L Carbon Dioxide 27 (22-30) mmol/L BUN 49 H (9-20) mg/dL Creatinine 1.73 H (0.66-1.25) mg/dL Glucose 123 H (74-99) mg/dL Calcium 8.3 L (8.4-10.2) mg/dL AST 34 (17-59) U/L ALT 19 (4-49) U/L Alkaline Phosphatase 184 H (38-126) U/L Total Protein 6.1 L (6.3-8.2) g/dL Albumin 3.3 L (3.5-5.0) g/dL Current Medications Generic Name Dose Route Start Last Admin Trade Name Freq PRN Reason Stop Dose Admin Naloxone HCl 0.2 mg 06/12/21 08:32 Naloxone 0.4 Mg/Ml 1 Ml Vial IV Q2M PRN Opioid Reversal Intake and Output 06/11/21 06/12/21 06/12/21 22:59 06:59 14:59 Other: Weight 111.13 kg 06/12/21 04:24 06/12/21 04:24
--- NOTE | 2021-06-12 11:17 | NM ---
EXAMINATION TYPE: NM pul vent and perfuse DATE OF EXAM: 06/12/2021 COMPARISON: 06/12/2021 HISTORY: Shortness of breath TECHNIQUE: Utilizing inhalation of 69.7 mCi Tc 99m DTPA aerosol and intravenous injection of 5.3 mCi of Tc 99m MAA, ventilation and perfusion images are acquired post injection in multiple projections. FINDINGS: There is heterogeneous uptake on ventilation images. Exam is limited. There is a matched defects bila terally with triple match chest x-ray at the right lung base. IMPRESSION: Intermediate probability for pulmonary embolism.
--- NOTE | 2021-06-12 11:26 | P.CNPUL ---
History of Present Illness Consult date: 06/12/21 Requesting physician: Ahsan Carcamo Reason for consult: dyspnea, hypoxemia, abnormal CXR/CT Chief complaint: Shortness of breath History of present illness: Pulmonary consult dated 06/12/2021. 80-year-old male who was discharged from the hospital with an episode of CHF. The patient apparently was discharged yesterday. He was in the hospital from June 08 to June 11. We did not see him on his last visit. We did see him in May, at which time, he was discovered to have significant and symptomatic multi-vessel coronary disease. He does also have severe COPD, with an FEV1 percent of 44. He apparently was readmitted to the hospital this morning, because he developed shortness of breath last night at 4 to 5:00 in the morning. When he was discharged last, he was not discharged home on any oxygen therapy. Chest x-ray did not show any acute abnormalities. In addition, his N-terminal proBNP was elevated. The patient was sent for a perfusion lung scan. The patient is currently on 2 L. He denied any chest pain, chest discomfort, palpitations, fever, chills, cough, phlegm production, or any GI or complaints. I did explain to the patient's daughter, that the patient did not qualify for oxygen therapy on his last visit. His insurance may not pay for home oxygen therapy, and he may have to pay for it out of pocket. His medical problem list includes CHF, COPD, hyperlipidemia, hypertension, osteoarthritis, coronary disease, stage III chronic kidney disease, chronic anemia, BPH, urinary retention, pancreatitis, gastric ulcer, and arthritis. He has had heart cathete rization with stent placement. White count 8, hemoglobin 8.8, hematocrit 27.4, platelet count Erich 70,000. D-dimer is 1.66. Sodium 135, with a normal potassium, chloride, and CO2. Anion gap is 10. BUN 49, and creatinine is 1.7. Troponins were 0.115 and 0.094. N-terminal proBNP was 6090. Review of Systems REVIEW OF SYSTEMS: CONSTITUTIONAL: [Negative.] NEUROLOGIC: [ Negative.] HEENT: [ Negative.] CARDIAC: [Negative.] PULMONARY: Shortness of breath. GI: [Negative.] : [Negative.] RHEUMATOLOGIC: [ Negative.] IMMUNOLOGIC: [ Negative.] ENDOCRINE: [Negative. ] DERMATOLOGIC: [Negative.] Past Medical History Past Medical History: COPD, Hyperlipidemia, Hypertension, Osteoarthritis (OA), Prostate Disorder, Renal Disease, Vascular Disorder Additional Past Medical History / Comment(s): PVC's, CKD stage III, chronic anemia, BPH, urinary retention, UTI, pancreatitis, gastric ulcer, arthritis in multiple joints/occasional low back pain History of Any Multi-Drug Resistant Organisms: None Reported Past Surgical History: Appendectomy, Cholecystectomy, Heart Catheterization With Stent, Tonsillectomy Additional Past Surgical History / Comment(s): R caratid endartectomy, arch study, colonoscopies/benign polypectomies, EGD, pilonidal cyst removed x 2, Past Anesthesia/Blood Transfusion Reactions: No Reported Reaction Date of Last Stent Placement:: 05/27/21 Past Psychological History: No Psychological Hx Reported Smoking Status: Former smoker Past Alcohol Use History: None Reported Past Drug Use History: None Reported - Past Family History Father Family Medical History: No Reported History Mother Family Medical History: Congestive Heart Failure (CHF) Medications and Allergies Home Medications Medication Instructions Recorded Confirmed Type Carvedilol [Coreg] 3.125 mg PO BID-W/MEALS 05/22/21 06/12/21 History Cholecalciferol (Vitamin D3) 125 mcg PO DAILY 05/22/21 06/12/21 History [Vitamin D3 (125 MCG = 5,000 IU)] Finasteride [Proscar] 5 mg PO DAILY 05/22/21 06/12/21 History Fluticasone/Umeclidin/Vilanter 1 puff INHALATION RT-DAILY 05/22/21 06/12/21 History [Trelegy Ellipta 100-62.5-25] HYDROcodone/APAP 10-325MG [[place] 1 tab PO Q6H PRN 05/22/21 06/12/21 History 10-325] Losartan Potassium 50 mg PO DAILY 05/22/21 06/12/21 History Sennosides [Senna] 8.6 mg PO BID PRN 05/22/21 06/12/21 History Tamsulosin HCl [Flomax] 0.4 mg PO DAILY 05/22/21 06/12/21 History Atorvastatin [Lipitor] 40 mg PO DAILY #90 tab 05/29/21 06/12/21 Rx Clopidogrel [Plavix] 75 mg PO DAILY #90 tab 05/29/21 06/12/21 Rx Ferrous Sulfate [Iron (65 MG 325 mg PO BID-W/MEALS #180 tab 05/29/21 06/12/21 Rx Elemental)] Albuterol Inhaler [Ventolin Hfa 2 puff INHALATION RT-QID PRN #1 inh 05/30/21 06/12/21 Rx Inhaler] Aspirin EC [Ecotrin Low Dose] 81 mg PO DAILY 30 Days #10 tab 05/30/21 06/12/21 Rx Furosemide [Lasix] 80 mg PO BID 06/08/21 06/12/21 History Nitroglycerin Sl Tabs [Nitrostat] 0.4 mg SL Q5M PRN 06/08/21 06/12/21 History Pantoprazole [Protonix] 40 mg PO BID 06/08/21 06/12/21 History metOLazone [Zaroxolyn] 2.5 mg PO SUWE 06/08/21 06/12/21 History Cyanocobalamin [Vitamin B-12] 500 mcg PO DAILY 30 Days #30 tab 06/11/21 06/12/21 Rx Folic Acid 1 mg PO DAILY #30 tab 06/11/21 06/12/21 Rx Melatonin 6 mg PO HS PRN 10 Days #20 tablet 06/11/21 06/12/21 Rx predniSONE 5 mg PO DAILY 30 Days #15 tab 06/11/21 06/12/21 Rx Allergies Allergy/AdvReac Type Severity Reaction Status Date / Time lisinopril Allergy Anaphylaxis, Verified 06/12/21 07:51 Tongue swelling Physical Exam Osteopathic Statement: *. No significant issues noted on an osteopathic structural exam other than those noted in the History and Physical/Consult. Vitals: Vital Signs Temp Pulse Resp BP Pulse Ox 06/12/21 09:51 64 18 151/64 97 06/12/21 07:47 98.2 F 67 22 153/62 96 06/12/21 05:30 64 20 124/92 96 06/12/21 04:22 24 06/12/21 04:02 98.0 F 56 L 20 143/69 97 Intake and Output 06/11/21 06/12/21 06/12/21 22:59 06:59 14:59 Other: Weight 111.13 kg No acute distress, oriented 3. Currently on 2 L O2. Saturations are 97%. HEENT examination is grossly unremarkable. Neck supple. Full range of motion. No adenopathy thyromegaly or neck vein distention. Cardiovascular examination reveals regular rhythm rate. S1-S2 normal. No S3 or S4. No discernible murmur noted. Heart rate is 64 bpm. Lungs reveal mild scattered bibasilar crackles. Minimal rhonchi. No wheezes. Breath sounds equal bilaterally. Abdomen soft bowel sounds are heard. No masses or tenderness. Extremities are intact. No cyanosis clubbing or edema. Skin is without rash or lesion. Neurologic examination is brief but nonfocal. Results - Laboratory Findings CBC and BMP: 06/12/21 04:24 06/12/21 04:24 PT/INR, D-dimer PT 11.1 sec (9.0-12.0) 06/12/21 04:24 INR 1.0 (<1.2) 06/12/21 04:24 D-Dimer 1.66 mg/L FEU (<0.60) H 06/12/21 04:24 Abnormal lab findings: Abnormal Labs 06/12/21 06/12/21 06/12/21 04:24 04:24 04:24 RBC 2.79 L Hgb 8.8 L Hct 27.4 L RDW 16.0 H Lymphocytes # 0.7 L D-Dimer 1.66 H Sodium 135 L BUN 49 H Creatinine 1.73 H Glucose 123 H Calcium 8.3 L Alkaline Phosphatase 184 H Troponin I Total Protein 6.1 L Albumin 3.3 L 06/12/21 06/12/21 04:24 09:04 RBC Hgb Hct RDW Lymphocytes # D-Dimer Sodium BUN Creatinine Glucose Calcium Alkaline Phosphatase Troponin I 0.115 H* 0.094 H* Total Protein Albumin - Diagnostic Findings Chest x-ray: image reviewed Assessment and Plan Assessment: Acute shortness of breath, likely related to underlying CHF. History of COPD, severe, with an FEV1 that is 44% of predicted, currently inactive. Multivessel coronary artery disease, status post cardiac catheterization, atherectomy of the left main coronary artery and mid LAD, PTCA and stenting of the left main coronary artery, and mid LAD, with drug-eluting stents. Non-ST segment elevation myocardial infarction. History of chronic diastolic dysfunction. History of hypertension. Stage III chronic kidney disease. Previous history of tobacco use. Type 2 diabetes. Hyperlipidemia. Right carotid artery stenosis. History of E. coli urinary tract infection. Plan: Plan dated 06/12/2021. The patient was sent for a perfusion lung scan. It may be nondiagnostic. The patient appears to be relatively stable. The patient could be discharged from the emergency room. We'll leave that up to the primary. I did explain to the patient's daughter, that she could be prescribed, but he may have to pay for it out of pocket. I would recommend a concentrator, and for him to use 2 L, when necessary. The patient sees Dr. SHAYNA Gonzalez for his pulmonary care. Follow with that same doctor. No additional recommendations are made. Prognosis is guarded. Time with Patient: Greater than 30
[2021-06-12] MEDS ORDERED: MELATONIN 3 MG TABLET PO PRN (13:10)
[2021-06-12] MEDS ORDERED: ALBUTEROL NEBULIZED 2.5 MG/3 ML INHALATION PRN (13:10)
[2021-06-12] MEDS ORDERED: SENNOSIDES 8.6 MG TAB PO PRN (13:10)
[2021-06-12] MEDS: FLUTICASONE 50MCG/SPRAY NASAL 16GM EA NOSTRIL SCH (14:10)
[2021-06-12] MEDS: HYDROcodone/APAP 10-325MG 1 EACH TAB PO PRN ×2 (14:11→23:27)
[2021-06-12] MEDS: PANTOPRAZOLE 40 MG TABLET PO SCH (17:20)
[2021-06-12] MEDS: FERROUS SULFATE 325 MG TAB PO SCH (17:20)
[2021-06-12] MEDS: carvediloL 3.125 MG TAB PO SCH (17:20)
--- NOTE | 2021-06-12 18:01 | P.HPIM ---
History of Present Illness Hospital course: 80-year-old male with history of hypertension, hyperlipidemia, CAD, benign prostatic hypertrophy, anemia, COPD, elevated troponin secondary to CHF. He was recently discharged from hospital yesterday for CHF exacerbation. Presents because he thinks he needs oxygen he got short of breath without it's very easily also has been complaining of from dry nose. He denies chest pain or coughing. No vomiting or diarrhea. No urinary complaints. No headache or weakness or numbness. Hemodynamically stable. Once he is placed on oxygen 2 L via nasal cannula his symptoms improved also patient was given Flonase. D-dimer was slightly elevated 1.6 and VQ scan showed intermediate probability for PE however he has recent negative CAT A of the chest for PE potassium is pulmonary embolism is very low and I think anticoagulants with gravity dose will have more risks than benefits, however we consulted pulmonary service will have the same feeling the cleared the patient for discharge However cartilage team they wanted to keep the patient 1 more day Labs and vitals are reviewed as well as medication presenting to the emergency Department with dyspnea. Found to have an acute CHF exacerbation with echocardiogram showed ejection fraction 40-45%, he was evaluated by anatomy professor and treated with IV Lasix 40 mg every 8 hours and then Q 12 hours, patient hypovolemia improved and became euvolemic and Lasix dose sw itched to oral route. Patient continued on aspirin and Plavix Patient is back to baseline with no chest pain or dyspnea. No change in urine or bowel habits. No fever. Patient was cleared for discharge by anatomy professor Upon discharge patient confirmed to me he has oral Lasix and he did not want prescription for it. Problems and management plan were discussed with the patient and he verbalized understanding and acceptance Patient was found stable and can be discharged home in guarded prognosis however he needs follow-up as an outpatient. Patient was instructed to follow up with PCP within one week and patient agrees Patient was instructed to follow up with anatomy professor Dr. Ramirez in 1 week and he agrees. And to follow up with Dr. Gee on 06/17 and on 06/19 and he agrees with these appointment and recommendation stating he will follow-up Case discussed with housing manager and prescription for oxygen is provided as he qualify. Actually oxygen is delivered at bedside later on today Review of Systems CONSTITUTIONAL: No fever, no malaise, no fatigue. HEENT: No recent visual problems or hearing problems. Denied any sore throat. CARDIOVASCULAR: No orthopnea, PND, no palpitations, no syncope. PULMONARY: No shortness of breath, no cough, no hemoptysis. GASTROINTESTINAL: No diarrhea, no nausea, no vomiting, no abdominal pain. Normoactive bowel sounds. NEUROLOGICAL: No headaches, no weakness, no numbness. HEMATOLOGICAL: Denies any bleeding or petechiae. GENITOURINARY: Denies any burning micturition, frequency, or urgency. MUSCULOSKELETAL/RHEUMATOLOGICAL: Denies any joint pain, swelling, or any muscle pain. ENDOCRINE: Denies any polyuria or polydipsia. Past Medical History Past Medical History: COPD, Hyperlipidemia, Hypertension, Osteoarthritis (OA), Prostate Disorder, Renal Disease, Vascular Disorder Additional Past Medical History / Comment(s): PVC's, CKD stage III, chronic anemia, BPH, urinary retention, UTI, pancreatitis, gastric ulcer, arthritis in multiple joints/occasional low back pain History of Any Multi-Drug Resistant Organisms: None Reported Past Surgical History: Appendectomy, Cholecystectomy, Heart Catheterization With Stent, Tonsillectomy Additional Past Surgical History / Comment(s): R caratid endartectomy, arch study, colonoscopies/benign polypectomies, EGD, pilonidal cyst removed x 2, Past Anesthesia/Blood Transfusion Reactions: No Reported Reaction Date of Last Stent Placement:: 05/27/21 Past Psychological History: No Psychological Hx Reported Smoking Status: Former smoker Past Alcohol Use History: None Reported Past Drug Use History: None Reported - Past Family History Father Family Medical History: No Reported History Mother Family Medical History: Congestive Heart Failure (CHF) Medications and Allergies Home Medications Medication Instructions Recorded Confirmed Type Carvedilol [Coreg] 3.125 mg PO BID-W/MEALS 05/22/21 06/12/21 History Cholecalciferol (Vitamin D3) 125 mcg PO DAILY 05/22/21 06/12/21 History [Vitamin D3 (125 MCG = 5,000 IU)] Finasteride [Proscar] 5 mg PO DAILY 05/22/21 06/12/21 History Fluticasone/Umeclidin/Vilanter 1 puff INHALATION RT-DAILY 05/22/21 06/12/21 History [Trelegy Ellipta 100-62.5-25] HYDROcodone/APAP 10-325MG [[place] 1 tab PO Q6H PRN 05/22/21 06/12/21 History 10-325] Losartan Potassium 50 mg PO DAILY 05/22/21 06/12/21 History Sennosides [Senna] 8.6 mg PO BID PRN 05/22/21 06/12/21 History Tamsulosin HCl [Flomax] 0.4 mg PO DAILY 05/22/21 06/12/21 History Atorvastatin [Lipitor] 40 mg PO DAILY #90 tab 05/29/21 06/12/21 Rx Clopidogrel [Plavix] 75 mg PO DAILY #90 tab 05/29/21 06/12/21 Rx Ferrous Sulfate [Iron (65 MG 325 mg PO BID-W/MEALS #180 tab 05/29/21 06/12/21 Rx Elemental)] Albuterol Inhaler [Ventolin Hfa 2 puff INHALATION RT-QID PRN #1 inh 05/30/21 06/12/21 Rx Inhaler] Furosemide [Lasix] 80 mg PO BID 06/08/21 06/12/21 History Nitroglycerin Sl Tabs [Nitrostat] 0.4 mg SL Q5M PRN 06/08/21 06/12/21 History Pantoprazole [Protonix] 40 mg PO BID 06/08/21 06/12/21 History metOLazone [Zaroxolyn] 2.5 mg PO SUWE 06/08/21 06/12/21 History Cyanocobalamin [Vitamin B-12] 500 mcg PO DAILY 30 Days #30 tab 06/11/21 06/12/21 Rx Folic Acid 1 mg PO DAILY #30 tab 06/11/21 06/12/21 Rx Melatonin 6 mg PO HS PRN 10 Days #20 tablet 06/11/21 06/12/21 Rx predniSONE 5 mg PO DAILY 30 Days #15 tab 06/11/21 06/12/21 Rx Aspirin EC [Ecotrin Low Dose] 81 mg PO DAILY 30 Days #30 tab 06/12/21 Rx Allergies Allergy/AdvReac Type Severity Reaction Status Date / Time lisinopril Allergy Anaphylaxis, Verified 06/12/21 07:51 Tongue swelling Physical Exam Vitals: Vital Signs Temp Pulse Resp BP Pulse Ox 06/12/21 09:51 64 18 151/64 97 06/12/21 07:47 98.2 F 67 22 153/62 96 03/10/22 05:30 64 20 124/92 96 06/12/21 04:22 24 06/12/21 04:02 98.0 F 56 L 20 143/69 97 Intake and Output 06/11/21 06/12/21 06/12/21 22:59 06:59 14:59 Other: Weight 111.13 kg GENERAL: The patient is alert and oriented x3, not in any acute distress. Well developed, well nourished. HEENT: Pupils are round and equally reacting to light. EOMI. No scleral icterus. No conjunctival pallor. Normocephalic, atraumatic. No pharyngeal erythema. No thyromegaly. CARDIOVASCULAR: S1 and S2 present. No murmurs, rubs, or gallops. PULMONARY: Chest is clear to auscultation, no wheezing or crackles. ABDOMEN: Soft, nontender, nondistended, normoactive bowel sounds. No palpable organomegaly. MUSCULOSKELETAL: No joint swelling or deformity. EXTREMITIES: No cyanosis, clubbing, or pedal edema. NEUROLOGICAL: Gross neurological examination did not reveal any focal deficits. SKIN: No rashes. No petechiae Results CBC & Chem 7: 06/12/21 04:24 06/12/21 04:24 Labs: Abnormal Lab Results - Last 24 Hours (Table) 06/12/21 06/12/21 06/12/21 Range/Units 04:24 04:24 04:24 RBC 2.79 L (4.30-5.90) m/uL Hgb 8.8 L (13.0-17.5) gm/dL Hct 27.4 L (39.0-53.0) % RDW 16.0 H (11.5-15.5) % Lymphocytes # 0.7 L (1.0-4.8) k/uL D-Dimer 1.66 H (<0.60) mg/L FEU Sodium 135 L (137-145) mmol/L BUN 49 H (9-20) mg/dL Creatinine 1.73 H (0.66-1.25) mg/dL Glucose 123 H (74-99) mg/dL Calcium 8.3 L (8.4-10.2) mg/dL Alkaline Phosphatase 184 H (38-126) U/L Troponin I (0.000-0.034) ng/mL Total Protein 6.1 L (6.3-8.2) g/dL Albumin 3.3 L (3.5-5.0) g/dL 06/12/21 06/12/21 Range/Units 04:24 09:04 RBC (4.30-5.90) m/uL Hgb (13.0-17.5) gm/dL Hct (39.0-53.0) % RDW (11.5-15.5) % Lymphocytes # (1.0-4.8) k/uL D-Dimer (<0.60) mg/L FEU Sodium (137-145) mmol/L BUN (9-20) mg/dL Creatinine (0.66-1.25) mg/dL Glucose (74-99) mg/dL Calcium (8.4-10.2) mg/dL Alkaline Phosphatase (38-126) U/L Troponin I 0.115 H* 0.094 H* (0.000-0.034) ng/mL Total Protein (6.3-8.2) g/dL Albumin (3.5-5.0) g/dL Assessment and Plan Assessment: 1. Dyspnea related to hypoxia on room air given his history of heart failure, recently discharged from hospital. Oxygen delivered at bedside with the help of housing manager. He is saturating well on 2 L. Patient was cleared for discharge by pulmonary service 2. Recent currently asymptomatic however he has exacerbation CHF; Elevated troponin; likely related to CHF exacerbation with baseline chronic kidney disease. It looks his stable however anatomy professor recommended to monitor him for 24 hours 3. CKD; creatinine at baseline. Continue keep monitoring creatinine 4. Elevated d-dimer; no PE per CTA no DVT per Venous Doppler of both legs 5. Hypertension 6. Hyperlipidemia 7. COPD; not in exacerbation 8. BPH 9. Anemia, hemoglobin is significantly improved 7.1+ admission and to 8.5 during this admission. Patient will follow up with surgery as an outpatient for possible colonoscopy with 10. Low-grade fever on admission, completely resolved. Pro-calcitonin is very low 2 @ 0.18 and 0.16. No signs and symptoms of infection. No need for antibiotic Possible discharge in 24 hours once cleared by cardiology service
[2021-06-12] MEDS: FUROSEMIDE 80 MG TAB PO SCH (20:09)
[2021-06-12] MEDS: SYMBICORT 80-4.5 MCG INHALER INHALATION SCH (20:27)
[2021-06-12 23:57] VITALS: RESP 18
[2021-06-13] MEDS: PANTOPRAZOLE 40 MG TABLET PO SCH (06:33)
[2021-06-13] MEDS: FERROUS SULFATE 325 MG TAB PO SCH (06:33)
[2021-06-13] MEDS: carvediloL 3.125 MG TAB PO SCH (06:33)
[2021-06-13] MEDS: SYMBICORT 80-4.5 MCG INHALER INHALATION SCH (08:33)
[2021-06-13] MEDS: IPRATROPIUM 0.5 MG/2.5 ML NEBU INHALATION SCH ×2 (08:33→11:35)
[2021-06-13 08:46] VITALS: BP 91/48; TEMP 99.1
[2021-06-13] MEDS: FUROSEMIDE 80 MG TAB PO SCH (08:47)
[2021-06-13] MEDS: HYDROcodone/APAP 10-325MG 1 EACH TAB PO PRN (08:47)
[2021-06-13] MEDS: FLUTICASONE 50MCG/SPRAY NASAL 16GM EA NOSTRIL SCH (08:49)
[2021-06-13] MEDS ORDERED: CHOLECALCIFEROL 125 MCG (5000 IU) TABLET PO SCH (09:00)
[2021-06-13] MEDS ORDERED: LOSARTAN 50 MG TAB PO SCH (09:00)
[2021-06-13] MEDS ORDERED: FINASTERIDE 5 MG TAB PO SCH (09:00)
[2021-06-13] MEDS ORDERED: FOLIC ACID 1 MG TAB PO SCH (09:00)
[2021-06-13] MEDS ORDERED: CYANOCOBALAMIN 500 MCG TAB PO SCH (09:00)
[2021-06-13] MEDS ORDERED: ATORVASTATIN 40 MG TAB PO SCH (09:00)
[2021-06-13] MEDS ORDERED: CLOPIDOGREL 75 MG TAB PO SCH (09:00)
[2021-06-13] MEDS ORDERED: TAMSULOSIN 0.4 MG CAP.ER.24H PO SCH (09:00)
[2021-06-13] MEDS ORDERED: predniSONE 5 MG TAB PO SCH (09:00)
--- NOTE | 2021-06-13 11:09 | P.PN ---
Subjective Patient is feeling much better this morning. Shortness of breath has improved. They're prescribed him home O2. He does not have any chest pain or difficulty in breathing. Patient did not have a myocardial infarction on this admission. On exam today comfortable at rest O2 sat is 98% on room air heart rate is 66 bpm blood pressure is 9104. Respirators 18 chest exam reveals diminished air entry at the bases heart exam vessel second heart sounds and ejection systolic murmur in the aortic area abdomen is soft exam extremities did not reveal any edema per for pulses are felt Labs show a hemoglobin of 8.8 potassium is 4.2 creatinine is 1.7V and BU and is 4 9 Assessment and plan: Multivessel coronary artery disease Chronic systolic heart failure COPD Shortness of breath because patient did not have any home O2 Optimal medical therapy stable for discharge from cardiac standpoint follow-up with Dr. Ramirez in the office Objective - Vital Signs Vital signs: Vital Signs Temp 99.1 F 06/13/21 08:44 Pulse 76 06/13/21 08:48 Resp 18 06/13/21 08:44 BP 91/48 06/13/21 08:44 Pulse Ox 98 06/13/21 08:44 Intake & Output 06/12/21 06/13/21 06/13/21 18:59 06:59 18:59 Intake Total 378 240 480 Output Total 250 500 Balance 378 -10 -20 Weight 111.13 kg Intake: Oral 378 240 480 Output: Urine 250 500 Other: Voiding Method Urinal - Labs CBC & Chem 7: 06/12/21 04:24 06/12/21 04:24 Labs: Abnormal Lab Results - Last 24 Hours (Table) 06/12/21 Range/Units 11:58 Troponin I 0.089 H* (0.000-0.034) ng/mL
[2021-06-13 11:36] VITALS: PULSE 68
--- NOTE | 2021-06-13 12:04 | P.PN ---
Subjective Progress Note Date: 06/13/21 Principal diagnosis: Acute exacerbation of CHF with mild to moderate impairment of left ventricular systolic function 80-year-old male who was discharged from the hospital with an episode of CHF. The patient apparently was discharged yesterday. He was in the hospital from June 08 to June 11. We did not see him on his last visit. We did see him in May, at which time, he was discovered to have significant and symptomatic multi-vessel coronary disease. He does also have severe COPD, with an FEV1 percent of 44. He apparently was readmitted to the hospital this morning, because he developed shortness of breath last night at 4 to 5:00 in the morning. When he was discharged last, he was not discharged home on any oxygen therapy. Chest x-ray did not show any acute abnormalities. In addition, his N-terminal proBNP was elevated. The patient was sent for a perfusion lung scan. The patient is currently on 2 L. He denied any chest pain, chest discomfort, palpi tations, fever, chills, cough, phlegm production, or any GI or complaints. I did explain to the patient's daughter, that the patient did not qualify for oxygen therapy on his last visit. His insurance may not pay for home oxygen therapy, and he may have to pay for it out of pocket. His medical problem list includes CHF, COPD, hyperlipidemia, hypertension, osteoarthritis, coronary disease, stage III chronic kidney disease, chronic anemia, BPH, urinary retention, pancreatitis, gastric ulcer, and arthritis. He has had heart catheterization with stent placement. White count 8, hemoglobin 8.8, hematocrit 27.4, platelet count Erich 70,000. D-dimer is 1.66. Sodium 135, with a normal potassium, chloride, and CO2. Anion gap is 10. BUN 49, and creatinine is 1.7. Troponins were 0.115 and 0.094. N-terminal proBNP was 6090. On 06/13/2021 patient seen in follow-up. He is breathing comfortably, he is lying flat in bed, pulse ox is 98%, hemodynamically stable, no acute events overnight, no chest discomfort. Sounds reveal a few scattered rhonchi, no wheezing. Vital signs have been stable, patient continues on his home dose Lasix 80 mg twice daily, and Zaroxolyn he remains on Symbicort, Flonase, nebulized Atrovent. His COPD seems to be fairly stable. He had no acute events overnight. His shortness of breath has improved, he is feeling much better today, patient has been cleared for discharge by cardiology. He is also stable for discharge from pulmonary standpoint Objective - Vital Signs Vital signs: Vital Signs Temp 99.1 F 06/13/21 08:44 Pulse 68 06/13/21 11:45 Resp 18 06/13/21 08:44 BP 91/48 06/13/21 08:44 Pulse Ox 98 06/13/21 08:44 Intake & Output 06/12/21 06/13/21 06/13/21 18:59 06:59 18:59 Intake Total 378 240 480 Output Total 250 500 Balance Weight 111.13 kg Intake: Oral 378 240 480 Output: Urine 250 500 Other: Voiding Method Urinal - Exam GENERAL EXAM: Alert, very pleasant 80-year-old white male, on room air, resting on his side, flat in bed comfortable in no apparent distress. HEAD: Normocephalic/atraumatic. EYES: Normal reaction of pupils, equal size. Conjunctiva pink, sclera white. NOSE: Clear with pink turbinates. THROAT: No erythema or exudates. NECK: No masses, no JVD, no thyroid enlargement, no adenopathy. CHEST: No chest wall deformity. Symmetrical expansion. LUNGS: Equal air entry with a few scattered rhonchi CVS: Regular rate and rhythm, normal S1 and S2, no gallops, no murmurs, no rubs ABDOMEN: Soft, nontender. No hepatosplenomegaly, normal bowel sounds, no guarding or rigidity. EXTREMITIES: No clubbing, no edema, no cyanosis, 2+ pulses and upper and lower extremities. MUSCULOSKELETAL: Muscle strength and tone normal. SPINE: No scoliosis or deformity SKIN: No rashes CENTRAL NERVOUS SYSTEM: Alert and oriented -3. No focal deficits, tone is normal in all 4 extremities. PSYCHIATRIC: Alert and oriented -3. Appropriate affect. Intact judgment and insight. - Labs CBC & Chem 7: 06/12/21 04:24 06/12/21 04:24 Labs: Abnormal Lab Results - Last 24 Hours (Table) 06/12/21 Range/Units 11:58 Troponin I 0.089 H* (0.000-0.034) ng/mL Assessment and Plan Plan: Assessment: #1. Acute shortness of breath related to acute exacerbation of CHF with systolic dysfunction #2. History of COPD, severe with an FEV1 of 44% predicted, currently stable #3. Multivessel coronary artery disease, status post cardiac catheterization, atherectomy of the left main coronary artery and the mid LAD, PTCA and stenting of the left main coronary artery and mid LAD with drug-eluting stents #3. Non-ST segment elevated CO #5. History of chronic diastolic CHF #6. History of hypertension #7. Stage III chronic kidney disease #8. Previous history of tobacco use #9. Type 2 diabetes mellitus #10. Hyperlipidemia #11. Right carotid artery stenosis #12. History of E. coli urinary tract infection Plan: Patient is doing well, breathing much easier, Vital signs have been stable Acute events overnight Stable for discharge from pulmonary perspective He can resume his Trelegy, and he can finish his prednisone taper Diuretics per cardiology recommendations Outpatient follow-up with Dr. Gee in the office in one week I have personally seen and examined the patient, performed the documentation and the assessment and plan as written. Number of minutes spent on the visit: [10] Time with Patient: Less than 30
--- NOTE | 2021-06-13 23:10 | P.DS ---
Providers Date of admission: 06/12/21 08:33 Attending physician: Ahsan Carcamo MD Consults: 06/12/21 08:32 Consult Physician Routine Consulting Provider: Cullen Raymundo Consult Reason/Comments: Dyspnea, troponin elevation Do you want consulting provider notified?: Yes 06/12/21 11:02 Consult Physician Urgent Consulting Provider: Pola Gee Reason/Comments: dyspnea Do you want consulting provider notified?: Yes Primary care physician: Shannon Weaver Hospital Course: Diagnoses 1. Dyspnea related to hypoxia on room air given his history of heart failure, recently discharged from hospital. Oxygen delivered at bedside with the help of case resolution specialist. He is saturating well on 2 L. Patient was cleared for discharge by pulmonary service 2. Recent currently asymptomatic however he has exacerbation CHF; Elevated troponin; likely related to CHF exacerbation with baseline chronic kidney disease. It looks his stable however preparation operator recommended to monitor him for 24 hours 3. CKD; creatinine at baseline. Continue keep monitoring creatinine 4. Elevated d-dimer; no PE per CTA no DVT per Venous Doppler of both legs 5. Hypertension 6. Hyperlipidemia 7. COPD; not in exacerbation 8. BPH 9. Anemia, hemoglobin is significantly improved 7.1+ admission and to 8.5 during this admission. Hospital course: 80-year-old male with history of hypertension, hyperlipidemia, CAD, benign prostatic hypertrophy, anemia, COPD, elevated troponin secondary to CHF. He was recently discharged from hospital yesterday for CHF exacerbation. Presents because he thinks he needs oxygen he got short of breath without it's very easily also has been complaining of from dry nose. He denies chest pain or coughing. No vomiting or diarrhea. No urinary complaints. No headache or weakness or numbness. Hemodynamically stable. Once he is placed on oxygen 2 L via nasal cannula his symptoms improved also patient was given Flonase. Patient was found to qualify for home oxygen, case resolution specialist involved and oxygen delivered at his home with a portable tank is present at bedside. Patient feels very well and back to baseline. No dyspnea or chest pain. No change in urine or bowel habits. No fever. Patient was cleared for discharge by preparation operator and acid strength inspector Problems and management plan were discussed with the patient and he verbalized understanding and acceptance Patient was found stable and can be discharged home however he needs follow-up as an outpatient. Patient was instructed to follow up with PCP Dr. Reinoso within one week and patient agrees Patient was instructed to follow up with Dr. Gee for 06/[address] Ramirez his preparation operator in 1-2 weeks and he agrees Physical exam Gen: patient is a AAOx3, no distress CVS: S1-S2, RRR, no murmur Lungs: B/L CTA, no wheezing Abdomen: soft, no distention, no tenderness, positive bowel sounds Extremity: no leg edema or induration Time spent more than 35 minutes Patient Condition at Discharge: Stable Plan - Discharge Summary Discharge Rx Participant: No New Discharge Prescriptions: Continue Tamsulosin HCl [Flomax] 0.4 mg PO DAILY Sennosides [Senna] 8.6 mg PO BID PRN PRN Reason: Constipation HYDROcodone/APAP 10-325MG [[place] 10-325] 1 tab PO Q6H PRN PRN Reason: Pain Finasteride [Proscar] 5 mg PO DAILY Carvedilol [Coreg] 3.125 mg PO BID-W/MEALS Ferrous Sulfate [Iron (65 MG Elemental)] 325 mg PO BID-W/MEALS #180 tab Atorvastatin [Lipitor] 40 mg PO DAILY #90 tab Albuterol Inhaler [Ventolin Hfa Inhaler] 2 puff INHALATION RT-QID PRN #1 inh PRN Reason: Shortness Of Breath Furosemide [Lasix] 80 mg PO BID Melatonin 6 mg PO HS PRN 10 Days #20 tablet PRN Reason: Insomnia Cyanocobalamin [Vitamin B-12] 500 mcg PO DAILY 30 Days #30 tab predniSONE 5 mg PO DAILY 30 Days #15 tab Cholecalciferol (Vitamin D3) [Vitamin D3 (125 MCG = 5,000 IU)] 125 mcg PO DAILY Losartan Potassium 50 mg PO DAILY Fluticasone/Umeclidin/Vilanter [Trelegy Ellipta 100-62.5-25] 1 puff INHALATION RT-DAILY Clopidogrel [Plavix] 75 mg PO DAILY #90 tab Pantoprazole [Protonix] 40 mg PO BID Nitroglycerin Sl Tabs [Nitrostat] 0.4 mg SL Q5M PRN PRN Reason: Chest Pain metOLazone [Zaroxolyn] 2.5 mg PO SUWE Folic Acid 1 mg PO DAILY #30 tab Aspirin EC [Ecotrin Low Dose] 81 mg PO DAILY 30 Days #30 tab Discharge Medication List Carvedilol [Coreg] 3.125 mg PO BID-W/MEALS 05/22/21 [History] Cholecalciferol (Vitamin D3) [Vitamin D3 (125 MCG = 5,000 IU)] 125 mcg PO DAILY 05/22/21 [History] Finasteride [Proscar] 5 mg PO DAILY 05/22/21 [History] Fluticasone/Umeclidin/Vilanter [Trelegy Ellipta 100-62.5-25] 1 puff INHALATION RT-DAILY 05/22/21 [History] HYDROcodone/APAP 10-325MG [[place] 10-325] 1 tab PO Q6H PRN 05/22/21 [History] Losartan Potassium 50 mg PO DAILY 05/22/21 [History] Sennosides [Senna] 8.6 mg PO BID PRN 05/22/21 [History] Tamsulosin HCl [Flomax] 0.4 mg PO DAILY 05/22/21 [History] Atorvastatin [Lipitor] 40 mg PO DAILY #90 tab 05/29/21 [Rx] Clopidogrel [Plavix] 75 mg PO DAILY #90 tab 05/29/21 [Rx] Ferrous Sulfate [Iron (65 MG Elemental)] 325 mg PO BID-W/MEALS #180 tab 05/29/21 [Rx] Albuterol Inhaler [Ventolin Hfa Inhaler] 2 puff INHALATION RT-QID PRN #1 inh 05/30/21 [Rx] Furosemide [Lasix] 80 mg PO BID 06/08/21 [History] Nitroglycerin Sl Tabs [Nitrostat] 0.4 mg SL Q5M PRN 06/08/21 [History] Pantoprazole [Protonix] 40 mg PO BID 06/08/21 [History] metOLazone [Zaroxolyn] 2.5 mg PO SUWE 06/08/21 [History] Cyanocobalamin [Vitamin B-12] 500 mcg PO DAILY 30 Days #30 tab 06/11/21 [Rx] Folic Acid 1 mg PO DAILY #30 tab 06/11/21 [Rx] Melatonin 6 mg PO HS PRN 10 Days #20 tablet 06/11/21 [Rx] predniSONE 5 mg PO DAILY 30 Days #15 tab 06/11/21 [Rx] Aspirin EC [Ecotrin Low Dose] 81 mg PO DAILY 30 Days #30 tab 06/12/21 [Rx] Follow up Appointment(s)/Referral(s): Owen Ortega MD [Primary Care Provider] - 06/18/21 10:00 am Zev Ramirez DO [STAFF PHYSICIAN] - 06/26/21 10:00 am [facility] [NON-STAFF] - Pola Gee DO [Doctor of Osteopathic Medicine] - 06/17/21 9:30 am (Keep sche duled appoitment) Patient Instructions/Handouts: Heart Failure (IP) Activity/Diet/Wound Care/Special Instructions: Patient requires home oxygen at discharge to manage CHF Discharge Disposition: HOME SELF-CARE
[2021-06-15] MEDS ORDERED: metOLazone 2.5 MG TAB PO SCH (09:00)
== END 2021-06-13 12:34 | disposition home or self-care (01) ==
LOC: EC 04:01 → 3SCARD 08:33
PROVIDERS: ADMIT Internal Medicine; ATTEND Internal Medicine
DX: R09.02 Hypoxemia (principal); I13.0 Hypertensive heart and chronic kidney disease with heart failure and stage 1 through stage 4 chronic kidney disease, or unspecified chronic kidney disease; I50.43 Acute on chronic combined systolic (congestive) and diastolic (congestive) heart failure; N18.30 Chronic kidney disease, stage 3 unspecified; E11.22 Type 2 diabetes mellitus with diabetic chronic kidney disease; I65.21 Occlusion and stenosis of right carotid artery; D64.9 Anemia, unspecified; R50.9 Fever, unspecified; R79.89 Other specified abnormal findings of blood chemistry; E78.5 Hyperlipidemia, unspecified; E86.1 Hypovolemia; J44.9 Chronic obstructive pulmonary disease, unspecified; I25.10 Atherosclerotic heart disease of native coronary artery without angina pectoris; I25.2 Old myocardial infarction; M19.90 Unspecified osteoarthritis, unspecified site; N40.1 Benign prostatic hyperplasia with lower urinary tract symptoms; Z79.899 Other long term (current) drug therapy; Z79.82 Long term (current) use of aspirin; Z79.02 Long term (current) use of antithrombotics/antiplatelets; Z88.8 Allergy status to other drugs, medicaments and biological substances; Z87.11 Personal history of peptic ulcer disease; Z87.440 Personal history of urinary (tract) infections; Z87.891 Personal history of nicotine dependence; Z98.61 Coronary angioplasty status; Z90.49 Acquired absence of other specified parts of digestive tract; Z82.49 Family history of ischemic heart disease and other diseases of the circulatory system
CPT/HCPCS: 99285; 36415; 94640 ×3; 93005; 85379; 83880; 80053; 83605; 83735; 84484; 85025; 85610; 85730; 71045; 78582; G0378 ×2; A9540; A9567; S0138; J7512

== ENCOUNTER 2021-06-22 11:26 | Inpatient (IN) | payer MEDICARE ==
[2021-06-22] MEDS ORDERED: ALBUTEROL NEBULIZED 2.5 MG/3 ML INHALATION STA (11:42)
[2021-06-22] MEDS ORDERED: IPRATROPIUM 0.5 MG/2.5 ML NEBU INHALATION STA (11:42)
[2021-06-22] MEDS ORDERED: methylPREDNISolone SOD SUCCI 125 MG/2 ML VIAL IV STA (11:42)
--- NOTE | 2021-06-22 11:55 | ED ---
General Adult HPI - General Chief complaint: Shortness of Breath Stated complaint: KAILYN Time Seen by Provider: 06/22/21 11:35 Source: patient, RN notes reviewed, old records reviewed Mode of arrival: wheelchair Limitations: no limitations - History of Present Illness Initial comments: 80-year-old male presenting for evaluation of having increased dyspnea. Patient has history of CAD, CHF, COPD. He does report cough which is productive of brown sputum. He's had no fever. No central chest pain. No lower extremity pain or swelling. No vomiting. No abdominal pain. He does wear oxygen at home. - Related Data Home Medications Medication Instructions Recorded Confirmed Carvedilol [Coreg] 3.125 mg PO BID-W/MEALS 05/22/21 06/12/21 Cholecalciferol (Vitamin D3) 125 mcg PO DAILY 05/22/21 06/12/21 [Vitamin D3 (125 MCG = 5,000 IU)] Finasteride [Proscar] 5 mg PO DAILY 05/22/21 06/12/21 Fluticasone/Umeclidin/Vilanter 1 puff INHALATION RT-DAILY 05/22/21 06/12/21 [Trelegy Ellipta 100-62.5-25] HYDROcodone/APAP 10-325MG [[place] 1 tab PO Q6H PRN 05/22/21 06/12/21 10-325] Losartan Potassium 50 mg PO DAILY 05/22/21 06/12/21 Sennosides [Senna] 8.6 mg PO BID PRN 05/22/21 06/12/21 Tamsulosin HCl [Flomax] 0.4 mg PO DAILY 05/22/21 06/12/21 Furosemide [Lasix] 80 mg PO BID 06/08/21 06/12/21 Nitroglycerin Sl Tabs [Nitrostat] 0.4 mg SL Q5M PRN 06/08/21 06/12/21 Pantoprazole [Protonix] 40 mg PO BID 06/08/21 06/12/21 metOLazone [Zaroxolyn] 2.5 mg PO SUWE 06/08/21 06/12/21 Previous Rx's Medication Instructions Recorded Atorvastatin [Lipitor] 40 mg PO DAILY #90 tab 05/29/21 Clopidogrel [Plavix] 75 mg PO DAILY #90 tab 05/29/21 Ferrous Sulfate [Iron (65 MG 325 mg PO BID-W/MEALS #180 tab 05/29/21 Elemental)] Albuterol Inhaler [Ventolin Hfa 2 puff INHALATION RT-QID PRN #1 inh 05/30/21 Inhaler] Cyanocobalamin [Vitamin B-12] 500 mcg PO DAILY 30 Days #30 tab 06/11/21 Folic Acid 1 mg PO DAILY #30 tab 06/11/21 Melatonin 6 mg PO HS PRN 10 Days #20 tablet 06/11/21 predniSONE 5 mg PO DAILY 30 Days #15 tab 06/11/21 Aspirin EC [Ecotrin Low Dose] 81 mg PO DAILY 30 Days #30 tab 06/12/21 Allergies Allergy/AdvReac Type Severity Reaction Status Date / Time lisinopril Allergy Anaphylaxis, Verified 06/22/21 13:12 Tongue swelling Review of Systems ROS Statement: Those systems with pertinent positive or pertinent negative responses have been documented in the HPI. ROS Other: All systems not noted in ROS Statement are negative. Past Medical History Past Medical History: COPD, Hyperlipidemia, Hypertension, Osteoarthritis (OA), Prostate Disorder, Renal Disease, Vascular Disorder Additional Past Medical History / Comment(s): PVC's, CKD stage III, chronic anemia, BPH, urinary retention, UTI, pancreatitis, gastric ulcer, arthritis in multiple joints/occasional low back pain History of Any Multi-Drug Resistant Organisms: None Reported Past Surgical History: Appendectomy, Cholecystectomy, Heart Catheterization, Heart Catheterization With Stent, Tonsillectomy Additional Past Surgical History / Comment(s): R caratid endartectomy, arch study, colonoscopies/benign polypectomies, EGD, pilonidal cyst removed x 2, heart cath with stent placement Past Anesthesia/Blood Transfusion Reactions: No Reported Reaction Date of Last Stent Placement:: 05/27/21 Past Psychological History: No Psychological Hx Reported Smoking Status: Former smoker Past Alcohol Use History: None Reported Past Drug Use History: None Reported - Past Family History Father Family Medical History: No Reported History Mother Family Medical History: Congestive Heart Failure (CHF) General Exam Limitations: no limitations General appearance: alert, in no apparent distress Head exam: Present: atraumatic, normocephalic Eye exam: Present: normal appearance, PERRL ENT exam: Present: normal exam Neck exam: Present: normal inspection. Absent: tenderness Respiratory exam: Present: respiratory distress, wheezes, decreased breath sounds Cardiovascular Exam: Present: regular rate, normal rhythm GI/Abdominal exam: Present: soft. Absent: distended, tenderness, guarding Extremities exam: Present: normal inspection, normal capillary refill. Absent: pedal edema Neurological exam: Present: alert, oriented X3, CN II-XII intact. Absent: motor sensory deficit Psychiatric exam: Present: normal affect, normal mood Skin exam: Present: warm, dry, intact. Absent: cyanosis, diaphoretic Course Vital Signs 06/22/21 06/22/21 06/22/21 11:27 12:11 12:30 Temperature 98.2 F Pulse Rate 75 66 70 Respiratory 22 Rate Blood Pressure 100/49 O2 Sat by Pulse 93 L Oximetry EKG Findings - EKG Comments: EKG Findings:: EKG: Sinus rhythm with left bundle branch block, rate of 69, WI interval 166, QRS duration 134, QTC 434, no ST segment elevation, no significant change compared to prior EKG. Medical Decision Making - Medical Decision Making 80-year-old male with increased cough and dyspnea. Patient has bilateral wheezing. He does not appear to be fluid overloaded. There is no peripheral edema. No rales on auscultation. He's in sinus rhythm with left bundle branch block which is stable from prior. Chest x-ray shows bilateral atelectasis, no l arge focal pneumonia, no significant pulmonary edema. He has a normal white blood cell count, stable hemoglobin. He has a lactic acid of 3.5 by suspect this is from at least partially hypoxia. He has an elevated creatinine at 2.2 mildly above baseline. He does have a troponin elevation at 0.148. He has no active chest pain. His BNP is elevated at 3100. I suspect the majority of his increased dyspnea is from COPD. He feels much better with albuterol and Atrovent. He started on IV steroids. He will be admitted with both cardiology and pulmonology on consult. Case discussed with Dr. Rodriguez who will admit. - Lab Data Result diagrams: 06/22/21 11:53 06/22/21 11:53 Lab Results 06/22/21 06/22/21 06/22/21 Range/Units 11:53 11:53 11:53 WBC 11.6 H (3.8-10.6) k/uL RBC 3.18 L (4.30-5.90) m/uL Hgb 9.8 L (13.0-17.5) gm/dL Hct 30.5 L (39.0-53.0) % MCV 96.1 (80.0-100.0) fL MCH 30.7 (25.0-35.0) pg MCHC 31.9 (31.0-37.0) g/dL RDW 15.3 (11.5-15.5) % Plt Count 388 (150-450) k/uL MPV 8.3 Neutrophils % 84 % Lymphocytes % 9 % Monocytes % 4 % Eosinophils % 1 % Basophils % 0 % Neutrophils # 9.8 H (1.3-7.7) k/uL Lymphocytes # 1.1 (1.0-4.8) k/uL Monocytes # 0.4 (0-1.0) k/uL Eosinophils # 0.1 (0-0.7) k/uL Basophils # 0.0 (0-0.2) k/uL Hypochromasia Slight PT 11.5 (9.0-12.0) sec INR 1.1 (<1.2) APTT 26.4 (22.0-30.0) sec Sodium 136 L (137-145) mmol/L Potassium 4.5 (3.5-5.1) mmol/L Chloride 98 (98-107) mmol/L Carbon Dioxide 26 (22-30) mmol/L Anion Gap 12 mmol/L BUN 81 H (9-20) mg/dL Creatinine 2.22 H (0.66-1.25) mg/dL Est GFR (CKD-EPI)AfAm 31 (>60 ml/min/1.73 sqM) Est GFR (CKD-EPI)NonAf 27 (>60 ml/min/1.73 sqM) Glucose 177 H (74-99) mg/dL Plasma Lactic Acid Tima (0.7-2.0) mmol/L Calcium 8.3 L (8.4-10.2) mg/dL Magnesium 1.7 (1.6-2.3) mg/dL Total Bilirubin 0.9 (0.2-1.3) mg/dL AST 33 (17-59) U/L ALT 21 (4-49) U/L Alkaline Phosphatase 259 H (38-126) U/L Troponin I (0.000-0.034) ng/mL NT-Pro-B Natriuret Pep pg/mL Total Protein 6.4 (6.3-8.2) g/dL Albumin 3.2 L (3.5-5.0) g/dL 06/22/21 06/22/21 06/22/21 Range/Units 11:53 11:53 11:53 WBC (3.8-10.6) k/uL RBC (4.30-5.90) m/uL Hgb (13.0-17.5) gm/dL Hct (39.0-53.0) % MCV (80.0-100.0) fL MCH (25.0-35.0) pg MCHC (31.0-37.0) g/dL RDW (11.5-15.5) % Plt Count (150-450) k/uL MPV Neutrophils % % Lymphocytes % % Monocytes % % Eosinophils % % Basophils % % Neutrophils # (1.3-7.7) k/uL Lymphocytes # (1.0-4.8) k/uL Monocytes # (0-1.0) k/uL Eosinophils # (0-0.7) k/uL Basophils # (0-0.2) k/uL Hypochromasia PT (9.0-12.0) sec INR (<1.2) APTT (22.0-30.0) sec Sodium (137-145) mmol/L Potassium (3.5-5.1) mmol/L Chloride (98-107) mmol/L Carbon Dioxide (22-30) mmol/L Anion Gap mmol/L BUN (9-20) mg/dL Creatinine (0.66-1.25) mg/dL Est GFR (CKD-EPI)AfAm (>60 ml/min/1.73 sqM) Est GFR (CKD-EPI)NonAf (>60 ml/min/1.73 sqM) Glucose (74-99) mg/dL Plasma Lactic Acid Tima 3.5 H* (0.7-2.0) mmol/L Calcium (8.4-10.2) mg/dL Magnesium (1.6-2.3) mg/dL Total Bilirubin (0.2-1.3) mg/dL AST (17-59) U/L ALT (4-49) U/L Alkaline Phosphatase (38-126) U/L Troponin I 0.148 H* (0.000-0.034) ng/mL NT-Pro-B Natriuret Pep 3170 pg/mL Total Protein (6.3-8.2) g/dL Albumin (3.5-5.0) g/dL Disposition Clinical Impression: Congestive heart failure, Acute exacerbation of chronic obstructive pulmonary disease, Troponin level elevated Disposition: ADMITTED IP TO THIS [facility] Condition: Stable Is patient prescribed a controlled substance at d/c from ED?: No Referrals: Owen Ortega MD [Primary Care Provider] - 1-2 days Decision to Admit Reason: Admit from EC Decision Date: 06/22/21 Decision Time: 13:20
[2021-06-22 12:00] LABS: Basophils % (A) 0 %; Eosinophils # (A) 0.1 k/uL (0-0.7); Eosinophils % (A) 1 %; HCT 30.5 % (39.0-53.0); HGB 9.8 gm/dL (13.0-17.5); Hypochromasia Slight; Lymphocytes # (A) 1.1 k/uL (1.0-4.8); Lymphocytes % (A) 9 %; MCH 30.7 pg (25.0-35.0); MCHC 31.9 g/dL (31.0-37.0); MCV 96.1 fL (80.0-100.0); Mean Platelet Volume 8.3; Monocytes # (A) 0.4 k/uL (0-1.0); Monocytes % (A) 4 %; Neutrophils # (A) 9.8 k/uL (1.3-7.7); Neutrophils % (A) 84 %; Platelet Count 388 k/uL (150-450); RBC 3.18 m/uL (4.30-5.90); RDW 15.3 % (11.5-15.5); WBC 11.6 k/uL (3.8-10.6)
[2021-06-22 12:17] LABS: INR 1.1 (<1.2); Partial Thromboplastin Time 26.4 sec (22.0-30.0); Prothrombin Time 11.5 sec (9.0-12.0)
[2021-06-22 12:18] LABS: Albumin 3.2 g/dL (3.5-5.0); Calcium 8.3 mg/dL (8.4-10.2); Magnesium 1.7 mg/dL (1.6-2.3); Potassium 4.5 mmol/L (3.5-5.1); Total Bilirubin 0.9 mg/dL (0.2-1.3); Total Protein 6.4 g/dL (6.3-8.2)
--- NOTE | 2021-06-22 12:51 | XR ---
EXAMINATION TYPE: XR chest 2V DATE OF EXAM: 06/22/2021 COMPARISON: Chest x-ray 10 days ago. CTA chest 14 days ago. HISTORY: Difficulty in breathing. TECHNIQUE: Frontal and lateral views of the chest are obtained. FINDINGS: There is background chronic emphysematous change redemonstrated with persistent small righ t pleural effusion. Left lung remains predominantly clear. The cardiac silhouette size is stable and upper limits of normal. Degenerative change in the right shoulder is present. IMPRESSION: Chronic emphysematous change with small right pleural effusion and [id number] biba silar scarring and/or atelectasis. No new focal infiltrate.
[2021-06-22] MEDS ORDERED: SODIUM CHLORIDE 0.9% 1,000 ML IV SCH ×2 (13:15→23:45)
[2021-06-22] MEDS ORDERED: IPRATROPIUM-ALBUTEROL 3 ML NEB INHALATION PRN (13:31)
[2021-06-22 13:44] LABS: VBG PH 7.36 (7.31-7.41)
[2021-06-22] MEDS ORDERED: SENNOSIDES 8.6 MG TAB PO PRN (14:17)
[2021-06-22] MEDS ORDERED: metOLazone 2.5 MG TAB PO ONE (14:30)
[2021-06-22] MEDS: IPRATROPIUM-ALBUTEROL 3 ML NEB INHALATION SCH ×2 (16:31→20:01)
[2021-06-22] MEDS: FUROSEMIDE 80 MG TAB PO SCH (18:11)
[2021-06-22] MEDS: carvediloL 3.125 MG TAB PO SCH (18:11)
[2021-06-22] MEDS: ASPIRIN 81 MG PO SCH (18:11)
[2021-06-22] MEDS: methylPREDNISolone SOD SUCCI 125 MG/2 ML VIAL IV SCH ×2 (18:12→23:26)
--- NOTE | 2021-06-22 18:20 | P.CNPUL ---
History of Present Illness Consult date: 06/22/21 Reason for consult: dyspnea History of present illness: 80-year-old male patient known history of advanced COPD with an FEV1 of 44% of predicted and the patient has also history of symptomatic multivessel coronary artery disease. The patient has had several catheterization with a past few months for COPD exacerbation. Last hospitalization was on 06/12/2021. At that time, the patient was seen by our services for shortness of breath and at that time he shortness of breath was more so attributed to be related to accommodation COPD and CHF. The patient is known to have multivessel coronary artery disease and he has undergone previous cardiac catheterization, atherectomy of the left main and mid LAD along with PCTA and stenting of the l eft main artery and mid LAD, he has diastolic heart failure, chronic stage III kidney disease, hypertension, diabetes mellitus type 2, hyperlipidemia and right carotid artery stenosis. The patient the patient was discharged home on Trelegy Ellipta one inhalation a day, albuterol nebulized treatments around the clock on an as-needed basis and a course of the prednisone burst taper. This is along with his long-term medication which include Lasix 80 mg twice a day and Zaroxolyn 2.5 mg 2 days a week. The patient came in to the [facility] department with increased shortness of breath. Denied having any fever. No reported chest pain. No lower extremity swelling. No altered mentation. He was covered on some brownish sputum. No nausea vomiting or abdominal pain. In the ED, the patient was evaluated. He was afebrile. Initial white cell count was 11.6 with a hemoglobin of 9.8, BUN was 81 with a creatinine of 2.2 and his sodium level of 177. The rest of the electrolytes and LFTs were all within normal limits. The troponin was 0.148, proBNP level was 3170. And it showed chronic emphysematous changes with small right-sided pleural effusion and mild to moderate bibasilar scarring/atelectasis. At this point, the patient is admitted to the hospital. The patient is being given a combination of diabetes, steroids, and the patient is also on a combination of Lasix 80 mg and this is being given twice a day and Zaroxolyn. He is currently on 2 L of oxygen by nasal cannula. Review of Systems All systems: negative Constitutional: Denies chills, Denies fever Eyes: denies blurred vision, denies pain Ears, nose, mouth and throat: Denies headache, Denies sore throat Cardiovascular: Reports dyspnea on exertion, Denies chest pain, has increased shortness of breath and cough and congestion Respiratory: Reports dyspnea, there is increased cough and congestion and wheeze Gastrointestinal: Denies abdominal pain, Denies diarrhea, Denies nausea, Denies vomiting Musculoskeletal: Denies myalgias Integumentary: Denies pruritus, Denies rash Neurological: Denies numbness, Denies weakness Psychiatric: Denies anxiety, Denies depression Endocrine: Denies fatigue, Denies weight change Past Medical History Past Medical History: COPD, Hyperlipidemia, Hypertension, Osteoarthritis (OA), Prostate Disorder, Renal Disease, Vascular Disorder Additional Past Medical History / Comment(s): PVC's, CKD stage III, chronic anemia, BPH, urinary retention, UTI, pancreatitis, gastric ulcer, arthritis in multiple joints/occasional low back pain History of Any Multi-Drug Resistant Organisms: None Reported Past Surgical History: Appendectomy, Cholecystectomy, Heart Catheterization, Heart Catheterization With Stent, Tonsillectomy Additional Past Surgical History / Comment(s): R caratid endartectomy, arch study, colonoscopies/benign polypectomies, EGD, pilonidal cyst removed x 2, heart cath with stent placement Past Anesthesia/Blood Transfusion Reactions: No Reported Reaction Date of Last Stent Placement:: 05/27/21 Past Psychological History: No Psychological Hx Reported Smoking Status: Former smoker Past Alcohol Use History: None Reported Past Drug Use History: None Reported - Past Family History Father Family Medical History: No Reported History Mother Family Medical History: Congestive Heart Failure (CHF) Medications and Allergies Home Medications Medication Instructions Recorded Confirmed Type Carvedilol [Coreg] 3.125 mg PO BID-W/MEALS 05/22/21 06/22/21 History Cholecalciferol (Vitamin D3) 125 mcg PO DAILY 05/22/21 06/22/21 History [Vitamin D3 (125 MCG = 5,000 IU)] Finasteride [Proscar] 5 mg PO DAILY 05/22/21 06/22/21 History Fluticasone/Umeclidin/Vilanter 1 puff INHALATION RT-DAILY 05/22/21 06/22/21 History [Trelegy Ellipta 100-62.5-25] HYDROcodone/APAP 10-325MG [[place] 1 tab PO Q6H PRN 05/22/21 06/22/21 History 10-325] Losartan Potassium 50 mg PO DAILY 05/22/21 06/22/21 History Sennosides [Senna] 8.6 mg PO BID PRN 05/22/21 06/22/21 History Tamsulosin HCl [Flomax] 0.4 mg PO DAILY 05/22/21 06/22/21 History Atorvastatin [Lipitor] 40 mg PO DAILY #90 tab 05/29/21 06/22/21 Rx Clopidogrel [Plavix] 75 mg PO DAILY #90 tab 05/29/21 06/22/21 Rx Ferrous Sulfate [Iron (65 MG 325 mg PO BID-W/MEALS #180 tab 05/29/21 06/22/21 Rx Elemental)] Albuterol Inhaler [Ventolin Hfa 2 puff INHALATION RT-QID PRN #1 inh 05/30/21 06/22/21 Rx Inhaler] Furosemide [Lasix] 80 mg PO BID 06/08/21 06/22/21 History Nitroglycerin Sl Tabs [Nitrostat] 0.4 mg SL Q5M PRN 06/08/21 06/22/21 History Pantoprazole [Protonix] 40 mg PO BID 06/08/21 06/22/21 History metOLazone [Zaroxolyn] 2.5 mg PO SUWE 06/08/21 06/22/21 History Cyanocobalamin [Vitamin B-12] 500 mcg PO DAILY 30 Days #30 tab 06/11/21 06/22/21 Rx Folic Acid 1 mg PO DAILY #30 tab 06/11/21 06/22/21 Rx Melatonin 6 mg PO HS PRN 10 Days #20 tablet 06/11/21 06/22/21 Rx predniSONE 5 mg PO DAILY 30 Days #15 tab 06/11/21 06/22/21 Rx Aspirin EC [Ecotrin Low Dose] 81 mg PO DAILY 30 Days #30 tab 06/12/21 06/22/21 Rx Allergies Allergy/AdvReac Type Severity Reaction Status Date / Time lisinopril Allergy Anaphylaxis, Verified 06/22/21 13:12 Tongue swelling Physical Exam Vitals: Vital Signs Temp Pulse Resp BP Pulse Ox 06/22/21 17:59 97.4 F L 62 18 136/56 98 06/22/21 16:34 58 L 06/22/21 13:32 67 18 134/42 98 06/22/21 12:30 70 06/22/21 12:11 66 06/22/21 11:27 98.2 F 75 22 100/49 93 L Intake and Output 06/22/21 06/22/21 06/22/21 06:59 14:59 22:59 Other: Weight 111.13 kg GENERAL EXAM: Alert, very pleasant, 80-year-old white male, resting comfortably in bed, on 2 L O2 with pulse ox of 96% comfortable in no apparent distress. HEAD: Normocephalic/atraumatic. EYES: Normal reaction of pupils, equal size. Conjunctiva pink, sclera white. NOSE: Clear with pink turbinates. THROAT: No erythema or exudates. NECK: No masses, no JVD, no thyroid enlargement, no adenopathy. CHEST: No chest wall deformity. Symmetrical expansion. LUNGS: Equal air entry with no crackles, wheeze, rhonchi or dullness. CVS: Regular rate and rhythm, normal S1 and S2, no gallops, no murmurs, no rubs ABDOMEN: Soft, nontender. No hepatosplenomegaly, normal bowel sounds, no guarding or rigidity. EXTREMITIES: No clubbing, no edema, no cyanosis, 2+ pulses and upper and lower extremities. MUSCULOSKELETAL: Muscle strength and tone normal. SPINE: No scoliosis or deformity SKIN: No rashes CENTRAL NERVOUS SYSTEM: Alert and oriented -3. No focal deficits, tone is normal in all 4 extremities. PSYCHIATRIC: Alert and oriented -3. Appropriate affect. Intact judgment and insight. Results - Laboratory Findings CBC and BMP: 06/22/21 11:53 06/22/21 11:53 ABG WBC 11.6 k/uL (3.8-10.6) H 06/22/21 11:53 RBC 3.18 m/uL (4.30-5.90) L 06/22/21 11:53 Hgb 9.8 gm/dL (13.0-17.5) L 06/22/21 11:53 Hct 30.5 % (39.0-53.0) L 06/22/21 11:53 MCV 96.1 fL (80.0-100.0) 06/22/21 11:53 MCH 30.7 pg (25.0-35.0) 06/22/21 11:53 MCHC 31.9 g/dL (31.0-37.0) 06/22/21 11:53 RDW 15.3 % (11.5-15.5) 06/22/21 11:53 Plt Count 388 k/uL (150-450) 06/22/21 11:53 MPV 8.3 06/22/21 11:53 Neutrophils % 84 % 06/22/21 11:53 Lymphocytes % 9 % 06/22/21 11:53 Monocytes % 4 % 06/22/21 11:53 Eosinophils % 1 % 06/22/21 11:53 Basophils % 0 % 06/22/21 11:53 Neutrophils # 9.8 k/uL (1.3-7.7) H 06/22/21 11:53 Lymphocytes # 1.1 k/uL (1.0-4.8) 06/22/21 11:53 Monocytes # 0.4 k/uL (0-1.0) 06/22/21 11:53 Eosinophils # 0.1 k/uL (0-0.7) 06/22/21 11:53 Basophils # 0.0 k/uL (0-0.2) 06/22/21 11:53 Hypochromasia Slight 06/22/21 11:53 PT 11.5 sec (9.0-12.0) 06/22/21 11:53 INR 1.1 (<1.2) 06/22/21 11:53 APTT 26.4 sec (22.0-30.0) 06/22/21 11:53 VBG pH 7.36 (7.31-7.41) 06/22/21 13:35 VBG pCO2 50 mmHg (37-51) 06/22/21 13:35 VBG HCO3 27 mmol/L (24-28) 06/22/21 13:35 Sodium 136 mmol/L (137-145) L 06/22/21 11:53 Potassium 4.5 mmol/L (3.5-5.1) 06/22/21 11:53 Chloride 98 mmol/L (98-107) 06/22/21 11:53 Carbon Dioxide 26 mmol/L (22-30) 06/22/21 11:53 Anion Gap 12 mmol/L 06/22/21 11:53 BUN 81 mg/dL (9-20) H 06/22/21 11:53 Creatinine 2.22 mg/dL (0.66-1.25) H 06/22/21 11:53 Est GFR (CKD-EPI)AfAm 31 (>60 ml/min/1.73 sqM) 06/22/21 11:53 Est GFR (CKD-EPI)NonAf 27 (>60 ml/min/1.73 sqM) 06/22/21 11:53 Glucose 177 mg/dL (74-99) H 06/22/21 11:53 Lactic Ac Sepsis Rflx Y 06/22/21 12:12 Plasma Lactic Acid Tima 2.5 mmol/L (0.7-2.0) H* 06/22/21 15:46 Calcium 8.3 mg/dL (8.4-10.2) L 06/22/21 11:53 Magnesium 1.7 mg/dL (1.6-2.3) 06/22/21 11:53 Total Bilirubin 0.9 mg/dL (0.2-1.3) 06/22/21 11:53 AST 33 U/L (17-59) 06/22/21 11:53 ALT 21 U/L (4-49) 06/22/21 11:53 Alkaline Phosphatase 259 U/L (38-126) H 06/22/21 11:53 Troponin I 0.148 ng/mL (0.000-0.034) H* 06/22/21 11:53 NT-Pro-B Natriuret Pep 3170 pg/mL 06/22/21 11:53 Total Protein 6.4 g/dL (6.3-8.2) 06/22/21 11:53 Albumin 3.2 g/dL (3.5-5.0) L 06/22/21 11:53 PT/INR, D-dimer PT 11.5 sec (9.0-12.0) 06/22/21 11:53 INR 1.1 (<1.2) 06/22/21 11:53 Abnormal lab findings: Abnormal Labs 06/22/21 06/22/21 06/22/21 11:53 11:53 11:53 WBC 11.6 H RBC 3.18 L Hgb 9.8 L Hct 30.5 L Neutrophils # 9.8 H Sodium 136 L BUN 81 H Creatinine 2.22 H Glucose 177 H Plasma Lactic Acid Tima 3.5 H* Calcium 8.3 L Alkaline Phosphatase 259 H Troponin I Albumin 3.2 L 06/22/21 06/22/21 11:53 15:46 WBC RBC Hgb Hct Neutrophils # Sodium BUN Creatinine Glucose Plasma Lactic Acid Tima 2.5 H* Calcium Alkaline Phosphatase Troponin I 0.148 H* Albumin - Diagnostic Findings Chest x-ray: image reviewed Assessment and Plan Plan: #1. Acute exacerbation of COPD with secondary shortness of breath. At the same time, the patient is minimal troponin leak with known history of multivessel coronary artery disease with recent coronary intervention and stenting. Chest x-ray failed any acute pulmonary infiltrates. Findings and essentially chronic. #2 Symptomatic multivessel coronary artery disease with 95% left main stenosis, 90% stenosis of the LAD, and 100% stenosis of the left circumflex, awaiting eval uation for possibility of surgical intervention. The patient is status post Acute non-ST elevated myocardial infarction, and the patient is status post atherectomy of the left main coronary artery and mid LAD, PTCA and stenting of the left main coronary artery, and mid LAD, with drug-eluting stents. The patient is also known to have a chronic left bundle branch block pattern on his EKG. No other acute abnormalities noted on today's EKG. #3 history of chronic CHF with diastolic dysfunction #4. Hypertensive #5 chronic stage III kidney disease #6. History of stage III chronic kidney disease #7 COPD with a known FEV1 of 44% of predicted and the patient has chronic hypoxic respiratory failure maintained on O2 #8. History of smoking, in remission for last 6 months, carries [id number] smoking history #9. Type 2 diabetes mellitus #10. Dyslipidemia #11. History of venous insufficiency #12. History of right carotid artery stenosis status post carotid endarterectomy Plan Continue bronchodilators. continued IV Solu-Medrol continue oral diuretics as there is no clear indication for any significant volume overload. And switched IV fluids to KVO. resume home medications Monitor troponins Continue Trelegy Ellipta along with albuterol nebulized treatments [id number] on outpatient basis regarding his COPD which is severe and oxygen dependent this point in time. Ask cardiology to evaluate the patient.
[2021-06-22 20:48] LABS: Glucose,Whole Blood 352 mg/dL (75-99)
[2021-06-22] MEDS ORDERED: NITROGLYCERIN SL TABS 0.4 MG TAB SUBLINGUAL PRN (20:51)
[2021-06-22] MEDS ORDERED: ALBUTEROL NEBULIZED 2.5 MG/3 ML INHALATION PRN (20:51)
[2021-06-22] MEDS: HYDROcodone/APAP 10-325MG 1 EACH TAB PO PRN (21:17)
[2021-06-22] MEDS: PANTOPRAZOLE 40 MG TABLET PO SCH (21:17)
[2021-06-22] MEDS: MELATONIN 3 MG TABLET PO PRN (21:17)
[2021-06-22] MEDS: INSULIN ASPART (NovoLOG) 100 UNIT/ML VIAL SQ SCH (21:49)
--- NOTE | 2021-06-22 21:58 | P.HPIM ---
History of Present Illness H&P Date: 06/22/21 Chief Complaint: Shortness of breath Patient is a 80-year-old male with a known history of COPD on home oxygen, chronic CHF ejection fraction 45%, recent history of cardiac catheterization on 05/27/2021 with stent placement to mid LAD and left main artery, multivessel coronary artery disease, hypertension, hyperlipidemia, CKD stage III, BPH and history of gastric ulcer and previous history of smoking presents to ER with worsening shortness of breath since this morning. Patient does have cough with some brownish sputum production.. No complaints of fever or chills. No chest pain. No leg swelling. No nausea vomiting abdominal pain or diarrhea. Patient was recently admitted to hospital and was discharged home on 06/13/2021 with worsening shortness of breath due to acute on chronic CHF with systolic and diastolic dysfunction. Chest x-ray showed chronic emphysematous change with small right pleural effusion and mild to moderate bibasilar scarring/atelectasis. No new focal infiltrate. EKG showed sinus rhythm with left bundle branch block. Laboratory data showed WBC 11.6 hemoglobin 9.8 and platelets 388 Sodium 136 potassium 4.5 chloride 98 bicarb is 26 BUN 81 and creatinine 2.22 and lactic acid 3.5 Alk phos 239 troponin 0 0.148 and proBNP is 3170 and albumin 3.2 Review of Systems Constitutional: Patient denies any fever or chills . No generalized weakness or weight loss. Abdomen: Patient denied nausea vomiting and diarrhea and abdominal pain. Cardiovascular: Patient denies any chest pain. Positive short of breath no palp itations. Respiratory: Patient does have cough with brown sputum production. Shortness of breath. Neurologic: Patient denied any numbness or tingling headache. Musculoskeletal: Patient denies any complaints of joint swelling or deformity. Skin: Negative Psychiatric: Negative Endocrine: No heat or cold intolerance. No recent weight gain. Genitourinary: No dysuria or hematuria. All other 14 point ROS negative except the above ROS unobtainable: due to endotracheal tube Past Medical History Past Medical History: COPD, Hyperlipidemia, Hypertension, Osteoarthritis (OA), Prostate Disorder, Renal Disease, Vascular Disorder Additional Past Medical History / Comment(s): PVC's, CKD stage III, chronic anemia, BPH, urinary retention, UTI, pancreatitis, gastric ulcer, arthritis in multiple joints/occasional low back pain History of Any Multi-Drug Resistant Organisms: None Reported Past Surgical History: Appendectomy, Cholecystectomy, Heart Catheterization, Heart Catheterization With Stent, Tonsillectomy Additional Past Surgical History / Comment(s): R caratid endartectomy, arch study, colonoscopies/benign polypectomies, EGD, pilonidal cyst removed x 2, heart cath with stent placement Past Anesthesia/Blood Transfusion Reactions: No Reported Reaction Date of Last Stent Placement:: 05/27/21 Past Psychological History: No Psychological Hx Reported Smoking Status: Former smoker Past Alcohol Use History: None Reported Past Drug Use History: None Reported - Past Family History Father Family Medical History: No Reported History Mother Family Medical History: Congestive Heart Failure (CHF) Medications and Allergies Home Medications Medication Instructions Recorded Confirmed Type Carvedilol [Coreg] 3.125 mg PO BID-W/MEALS 05/22/21 06/22/21 History Cholecalciferol (Vitamin D3) 125 mcg PO DAILY 05/22/21 06/22/21 History [Vitamin D3 (125 MCG = 5,000 IU)] Finasteride [Proscar] 5 mg PO DAILY 05/22/21 06/22/21 History Fluticasone/Umeclidin/Vilanter 1 puff INHALATION RT-DAILY 05/22/21 06/22/21 History [Trelegy Ellipta 100-62.5-25] HYDROcodone/APAP 10-325MG [[place] 1 tab PO Q6H PRN 05/22/21 06/22/21 History 10-325] Losartan Potassium 50 mg PO DAILY 05/22/21 06/22/21 History Sennosides [Senna] 8.6 mg PO BID PRN 05/22/21 06/22/21 History Tamsulosin HCl [Flomax] 0.4 mg PO DAILY 05/22/21 06/22/21 History Atorvastatin [Lipitor] 40 mg PO DAILY #90 tab 05/29/21 06/22/21 Rx Clopidogrel [Plavix] 75 mg PO DAILY #90 tab 05/29/21 06/22/21 Rx Ferrous Sulfate [Iron (65 MG 325 mg PO BID-W/MEALS #180 tab 05/29/21 06/22/21 Rx Elemental)] Albuterol Inhaler [Ventolin Hfa 2 puff INHALATION RT-QID PRN #1 inh 05/30/21 06/22/21 Rx Inhaler] Furosemide [Lasix] 80 mg PO BID 06/08/21 06/22/21 History Nitroglycerin Sl Tabs [Nitrostat] 0.4 mg SL Q5M PRN 06/08/21 06/22/21 History Pantoprazole [Protonix] 40 mg PO BID 06/08/21 06/22/21 History metOLazone [Zaroxolyn] 2.5 mg PO SUWE 06/08/21 06/22/21 History Cyanocobalamin [Vitamin B-12] 500 mcg PO DAILY 30 Days #30 tab 06/11/21 06/22/21 Rx Folic Acid 1 mg PO DAILY #30 tab 06/11/21 06/22/21 Rx Melatonin 6 mg PO HS PRN 10 Days #20 tablet 06/11/21 06/22/21 Rx predniSONE 5 mg PO DAILY 30 Days #15 tab 06/11/21 06/22/21 Rx Aspirin EC [Ecotrin Low Dose] 81 mg PO DAILY 30 Days #30 tab 06/12/21 06/22/21 Rx Allergies Allergy/AdvReac Type Severity Reaction Status Date / Time lisinopril Allergy Anaphylaxis, Verified 06/22/21 13:12 Tongue swelling Physical Exam Vitals: Vital Signs Temp Pulse Resp BP Pulse Ox 06/22/21 17:59 97.4 F L 62 18 136/56 98 06/22/21 16:34 58 L 06/22/21 13:32 67 18 134/42 98 06/22/21 12:30 70 06/22/21 12:11 66 06/22/21 11:27 98.2 F 75 22 100/49 93 L Intake and Output 06/22/21 06/22/21 06/22/21 06:59 14:59 22:59 Other: Weight 111.13 kg PHYSICAL EXAMINATION: Patient is lying in the bed comfortably, no acute distress, awake alert and oriented.. HEENT: Normocephalic. Neck is supple. Pupils reactive. Nostrils clear. Oral ca vity is moist. Neck reveals no JVD, carotid bruits, or thyromegaly. CHEST EXAMINATION: Trachea is central. Symmetrical expansion. Bilateral expiratory wheezing and scattered rhonchi. Bibasilar diminished sounds. CARDIAC: Normal S1, S2 with no gallops. No murmurs ABDOMEN: Soft. Bowel sounds normal. No organomegaly. No abdominal bruits. Extremities: reveal no edema. No clubbing or cyanosis Neurologically awake, alert, oriented x3 with well-coordinated movements. No focal deficits noted Skin: No rash or skin lesions. Psychiatric: Cooperative. Nonsuicidal Musculoskeletal: No joint swelling or deformity. Normal range of motion. Results CBC & Chem 7: 06/22/21 11:53 06/22/21 11:53 Labs: Abnormal Lab Results - Last 24 Hours (Table) 06/22/21 06/22/21 06/22/21 Range/Units 11:53 11:53 11:53 WBC 11.6 H (3.8-10.6) k/uL RBC 3.18 L (4.30-5.90) m/uL Hgb 9.8 L (13.0-17.5) gm/dL Hct 30.5 L (39.0-53.0) % Neutrophils # 9.8 H (1.3-7.7) k/uL Sodium 136 L (137-145) mmol/L BUN 81 H (9-20) mg/dL Creatinine 2.22 H (0.66-1.25) mg/dL Glucose 177 H (74-99) mg/dL Plasma Lactic Acid Tima 3.5 H* (0.7-2.0) mmol/L Calcium 8.3 L (8.4-10.2) mg/dL Alkaline Phosphatase 259 H (38-126) U/L Troponin I (0.000-0.034) ng/mL Albumin 3.2 L (3.5-5.0) g/dL 06/22/21 06/22/21 Range/Units 11:53 15:46 WBC (3.8-10.6) k/uL RBC (4.30-5.90) m/uL Hgb (13.0-17.5) gm/dL Hct (39.0-53.0) % Neutrophils # (1.3-7.7) k/uL Sodium (137-145) mmol/L BUN (9-20) mg/dL Creatinine (0.66-1.25) mg/dL Glucose (74-99) mg/dL Plasma Lactic Acid Tima 2.5 H* (0.7-2.0) mmol/L Calcium (8.4-10.2) mg/dL Alkaline Phosphatase (38-126) U/L Troponin I 0.148 H* (0.000-0.034) ng/mL Albumin (3.5-5.0) g/dL Thrombosis Risk Factor Assmnt - DVT/VTE Prophylaxis DVT/VTE Prophylaxis: Pharmacologic Prophylaxis ordered Assessment and Plan Assessment: Shortness of breath secondary to acute COPD exacerbation due to acute tracheobronchitis. Chest x-ray showed no new acute infiltrates. Chronic CHF with diastolic dysfunction and mildly reduced systolic function ejection fraction 40 to 45% as per recent echocardiogram. BNP is 3170 which is lower than previous admission and lower leg swelling. Multivessel coronary artery disease with recent stent placement to LAD and left main on 05/27/2021 Recent non-ST elevated HI status post Impella supported PCI on the left main and LAD with 2 stents placed on 05/27/2021 Acute on chronic kidney disease stage III. Creatinine 2.22 baseline around 1.6 Hypertension Hyperlipidemia Behavioral History of gastric ulcer Previous history of smoking Osteoarthritis DVT prophylaxis with heparin subcu Plan: Patient will be continued on IV Solu-Medrol and oxygen supplementation and duo nebs. Monitor respiratory status closely. Patient will be continued on this. Continue with diuretics and aspirin statin and. Continue with home medications and insulin sliding scale for better blood sugar control. Central. Continue to follow closely. Prognosis is guarded with conditions. Time with Patient: Greater than 30
[2021-06-22] MEDS: HEPARIN SODIUM,PORCINE/PF 5,000 UNIT/0.5 ML SYRINGE SQ SCH (23:26)
[2021-06-22 23:55] LABS: Glucose,Whole Blood 213 mg/dL (75-99)
[2021-06-23] MEDS ORDERED: AZITHROMYCIN 500 MG in SODIUM CHLORIDE 0.9% 250 ML IVPB ONE (01:00)
[2021-06-23 03:48] LABS: Basophils % (A) 0 %; Eosinophils % (A) 0 %; HCT 31.3 % (39.0-53.0); HGB 9.9 gm/dL (13.0-17.5); Hypochromasia Moderate; Lymphocytes # (A) 0.5 k/uL (1.0-4.8); Lymphocytes % (A) 6 %; MCH 30.7 pg (25.0-35.0); MCHC 31.6 g/dL (31.0-37.0); MCV 97.2 fL (80.0-100.0); Mean Platelet Volume 7.5; Monocytes # (A) 0.1 k/uL (0-1.0); Monocytes % (A) 1 %; Neutrophils # (A) 7.5 k/uL (1.3-7.7); Neutrophils % (A) 92 %; Platelet Count 407 k/uL (150-450); RBC 3.22 m/uL (4.30-5.90); RDW 15.1 % (11.5-15.5); WBC 8.1 k/uL (3.8-10.6)
[2021-06-23 04:06] LABS: Calcium 8.9 mg/dL (8.4-10.2); Potassium 4.6 mmol/L (3.5-5.1)
[2021-06-23] MEDS: methylPREDNISolone SOD SUCCI 125 MG/2 ML VIAL IV SCH ×2 (06:13→15:31)
[2021-06-23] MEDS: carvediloL 3.125 MG TAB PO SCH ×2 (06:13→17:48)
[2021-06-23] MEDS: INSULIN ASPART (NovoLOG) 100 UNIT/ML VIAL SQ SCH ×4 (06:13→20:57)
[2021-06-23 06:15] LABS: Glucose,Whole Blood 178 mg/dL (75-99)
[2021-06-23] MEDS ORDERED: SYMBICORT 80-4.5 MCG INHALER INHALATION SCH (08:00)
[2021-06-23] MEDS ORDERED: IPRATROPIUM 0.5 MG/2.5 ML NEBU INHALATION SCH (08:00)
[2021-06-23] MEDS: IPRATROPIUM-ALBUTEROL 3 ML NEB INHALATION SCH ×4 (08:05→21:19)
[2021-06-23] MEDS ORDERED: LEVOFLOXACIN 500 MG TAB PO SCH (09:00)
--- NOTE | 2021-06-23 09:06 | P.CRDCN ---
History of Present Illness Consult date: 06/23/21 History of present illness: History of Present Illness: The patient is an 80-year-old male, with a known history of CAD, post stenting of the left knee by Dr. Ramirez and angioplasty of the left circumflex. Who presents to the hospital with symptoms of progressive dyspnea and cough. He denies any anginal pain, he has no PND or orthopnea. He denies any dizziness or palpitations. He has no PND or orthopnea. He has a known history of severe COPD on home O2. He has a known history of chronic kidney disease, diastolic heart failure in the past as well as hyperlipidemia hypertension and diabetes. He has a history of carotid disease. He has productive cough with brownish sputum but no fever. He is feeling better at this morning. He denies any palpitations. His medication at home include Flomax, Lasix 80 mg twice a day, aspirin once a day, Lipitor 40 mg daily, Coreg 3.125 mg twice a day, losartan 50 mg daily, Zaroxolyn 3 times a week. He had peripheral edema following his intervention at that time he was off his diuretics. On the monitor he is in s inus mechanism without malignant arrhythmia. Review of Systems: Respiratory: He has a known history of chronic obstructive lung disease on home oxygen GI: She had nausea and vomiting today. No history of peptic ulcer disease. No recent GI bleed. : No hematuria or dysuria. Nervous System: No stroke or seizure. Physical Examination: 150-170 systolic with a heart rate in the 60s Head: Normocephalic. Eyes: Sclerae nonicteric. Neck: Good carotid upstroke, no bruit, no jugular venous distention. Lungs: Scattered rhonchi with no wheezes Heart: Regular rate and rhythm, S1-S2, no S3, no rub. Systolic ejection murmur at the base. Abdomen: Soft nontender, positive bowel sounds no organomegaly. Extremities: No edema, intact distal pulses. Labs: EKG sinus mechanism with left bundle branch block and left axis deviation, hemoglobin 9.9, BUN 84, creatinine 2.19, troponin 0.148, 0.108 and 0.11 NT proBNP 3170 Impression: 1. Progressive dyspnea on exertion with a combination of exacerbation of COPD and CHF with preserved systolic function 2. History of high risk stenting recently with no evidence to suggest recurrent ischemia 3. Mild troponin elevation could be related to the exacerbation of COPD and chronic kidney disease, no evidence to suggest acute coronary syndrome 4. Chronic kidney disease 5. Hypertension 6. Diabetes mellitus 7. Anemia Plan: 1. Treatment of COPD per pulmonary service 2. Continued dual antiplatelet treatment 3. Obtain an echocardiogram with Doppler 4. Hold Zaroxolyn 5. Add hydralazine for blood pressure control 6. Follow renal functions and depending on his progress further recommendations will be made. Thank you for this consult we will follow with you. Past Medical History Past Medical History: COPD, Hyperlipidemia, Hypertension, Osteoarthritis (OA), Prostate Disorder, Renal Disease, Vascular Disorder Additional Past Medical History / Comment(s): PVC's, CKD stage III, chronic anemia, BPH, urinary retention, UTI, pancreatitis, gastric ulcer, arthritis in multiple joints/occasional low back pain History of Any Multi-Drug Resistant Organisms: None Reported Past Surgical History: Appendectomy, Cholecystectomy, Heart Catheterization, Heart Catheterization With Stent, Tonsillectomy Additional Past Surgical History / Comment(s): R caratid endartectomy, arch study, colonoscopies/benign polypectomies, EGD, pilonidal cyst removed x 2, heart cath with stent placement Past Anesthesia/Blood Transfusion Reactions: No Reported Reaction Date of Last Stent Placement:: 05/27/21 Past Psychological History: No Psychological Hx Reported Smoking Status: Former smoker Past Alcohol Use History: None Reported Past Drug Use History: None Reported - Past Family History Father Family Medical History: No Reported History Mother Family Medical History: Congestive Heart Failure (CHF) Medications and Allergies Home Medications Medication Instructions Recorded Confirmed Type Carvedilol [Coreg] 3.125 mg PO BID-W/MEALS 05/22/21 06/22/21 History Cholecalciferol (Vitamin D3) 125 mcg PO DAILY 05/22/21 06/22/21 History [Vitamin D3 (125 MCG = 5,000 IU)] Finasteride [Proscar] 5 mg PO DAILY 05/22/21 06/22/21 History Fluticasone/Umeclidin/Vilanter 1 puff INHALATION RT-DAILY 05/22/21 06/22/21 History [Trelegy Ellipta 100-62.5-25] HYDROcodone/APAP 10-325MG [[place] 1 tab PO Q6H PRN 05/22/21 06/22/21 History 10-325] Losartan Potassium 50 mg PO DAILY 05/22/21 06/22/21 History Sennosides [Senna] 8.6 mg PO BID PRN 05/22/21 06/22/21 History Tamsulosin HCl [Flomax] 0.4 mg PO DAILY 05/22/21 06/22/21 History Atorvastatin [Lipitor] 40 mg PO DAILY #90 tab 05/29/21 06/22/21 Rx Clopidogrel [Plavix] 75 mg PO DAILY #90 tab 05/29/21 06/22/21 Rx Ferrous Sulfate [Iron (65 MG 325 mg PO BID-W/MEALS #180 tab 05/29/21 06/22/21 Rx Elemental)] Albuterol Inhaler [Ventolin Hfa 2 puff INHALATION RT-QID PRN #1 inh 05/30/21 06/22/21 Rx Inhaler] Furosemide [Lasix] 80 mg PO BID 06/08/21 06/22/21 History Nitroglycerin Sl Tabs [Nitrostat] 0.4 mg SL Q5M PRN 06/08/21 06/22/21 History Pantoprazole [Protonix] 40 mg PO BID 06/08/21 06/22/21 History metOLazone [Zaroxolyn] 2.5 mg PO SUWE 06/08/21 06/22/21 History Cyanocobalamin [Vitamin B-12] 500 mcg PO DAILY 30 Days #30 tab 06/11/21 06/22/21 Rx Folic Acid 1 mg PO DAILY #30 tab 06/11/21 06/22/21 Rx Melatonin 6 mg PO HS PRN 10 Days #20 tablet 06/11/21 06/22/21 Rx predniSONE 5 mg PO DAILY 30 Days #15 tab 06/11/21 06/22/21 Rx Aspirin EC [Ecotrin Low Dose] 81 mg PO DAILY 30 Days #30 tab 06/12/21 06/22/21 Rx Allergies Allergy/AdvReac Type Severity Reaction Status Date / Time lisinopril Allergy Anaphylaxis, Verified 06/22/21 13:12 Tongue swelling Physical Exam Vitals: Vital Signs Temp Pulse Pulse Resp BP BP Pulse Ox 06/23/21 08:19 64 06/23/21 08:07 68 99 06/23/21 03:48 97.1 F L 77 17 170/74 97 06/23/21 02:00 18 06/22/21 23:15 97.6 F 65 18 159/77 98 06/22/21 20:30 98.4 F 76 18 152/57 97 06/22/21 20:13 56 L 06/22/21 20:01 70 06/22/21 17:59 97.4 F L 62 18 136/56 98 06/22/21 16:34 58 L 06/22/21 13:32 67 18 134/42 98 06/22/21 12:30 70 06/22/21 12:11 66 06/22/21 11:27 98.2 F 75 22 100/49 93 L Intake and Output 06/22/21 06/23/21 06/23/21 22:59 06:59 14:59 Output Total 500 500 Balance -500 -500 Output: Urine 500 400 Post Void Residual 100 Other: # Voids 1 Weight 111.13 kg Results 06/23/21 03:19 06/23/21 03:19 Cardiac Enzymes 06/22/21 06/22/21 06/22/21 Range/Units 11:53 11:53 19:20 AST 33 (17-59) U/L Troponin I 0.148 H* 0.108 H* (0.000-0.034) ng/mL 06/22/21 Range/Units 22:34 AST (17-59) U/L Troponin I 0.110 H* (0.000-0.034) ng/mL Coagulation 06/22/21 Range/Units 11:53 PT 11.5 (9.0-12.0) sec APTT 26.4 (22.0-30.0) sec CBC 06/22/21 06/23/21 Range/Units 11:53 03:19 WBC 11.6 H 8.1 (3.8-10.6) k/uL RBC 3.18 L 3.22 L (4.30-5.90) m/uL Hgb 9.8 L 9.9 L (13.0-17.5) gm/dL Hct 30.5 L 31.3 L (39.0-53.0) % Plt Count 388 407 (150-450) k/uL Comprehensive Metabolic Panel 06/22/21 06/23/21 Range/Units 11:53 03:19 Sodium 136 L 138 (137-145) mmol/L Potassium 4.5 4.6 (3.5-5.1) mmol/L Chloride 98 99 (98-107) mmol/L Carbon Dioxide 26 28 (22-30) mmol/L BUN 81 H 84 H (9-20) mg/dL Creatinine 2.22 H 2.19 H (0.66-1.25) mg/dL Glucose 177 H 161 H (74-99) mg/dL Calcium 8.3 L 8.9 (8.4-10.2) mg/dL AST 33 (17-59) U/L ALT 21 (4-49) U/L Alkaline Phosphatase 259 H (38-126) U/L Total Protein 6.4 (6.3-8.2) g/dL Albumin 3.2 L (3.5-5.0) g/dL Current Medications Generic Name Dose Route Start Last Admin Trade Name Freq PRN Reason Stop Dose Admin Hydrocodone Bitart/Acetaminophen 1 each 06/22/21 20:51 06/22/21 21:17 Hydrocodone/Apap 10-325mg 1 Each Tab PO 1 each Q6H PRN Administration Pain Albuterol Sulfate 2.5 mg 06/22/21 20:51 Albuterol Nebulized 2.5 Mg/3 Ml INHALATION RT-QID PRN Shortness Of Breath Albuterol/Ipratropium 3 ml 06/22/21 13:31 Ipratropium-Albuterol 3 Ml Neb INHALATION RT-Q4H PRN Shortness Of Breath Or Wheezing Albuterol/Ipratropium 3 ml 06/22/21 16:00 06/23/21 08:05 Ipratropium-Albuterol 3 Ml Neb INHALATION 3 ml RT-QID ARTEMIO Administration Aspirin 81 mg 06/22/21 14:30 06/22/21 18:11 Aspirin 81 Mg PO 81 mg DAILY ARTEMIO Administration Atorvastatin Calcium 40 mg 06/23/21 09:00 Atorvastatin 40 Mg Tab PO DAILY [facility] Budesonide/Formoterol Fumarate 2 puff 06/23/21 08:00 06/23/21 08:05 Symbicort 80-4.5 Mcg Inhaler INHALATION 2 puff RT-QID ARTEMIO Administration Carvedilol 3.125 mg 06/22/21 17:30 06/23/21 06:13 Carvedilol 3.125 Mg Tab PO 3.125 mg BID-W/MEALS ARTEMIO Administration Cholecalciferol 125 mcg 06/23/21 09:00 Cholecalciferol 125 Mcg (5000 Iu) Tablet PO DAILY [facility] Clopidogrel Bisulfate 75 mg 06/23/21 09:00 Clopidogrel 75 Mg Tab PO DAILY [facility] Cyanocobalamin 500 mcg 06/23/21 09:00 Cyanocobalamin 500 Mcg Tab PO DAILY [facility] Finasteride 5 mg 06/23/21 09:00 Finasteride 5 Mg Tab PO DAILY [facility] Folic Acid 1 mg 06/23/21 09:00 Folic Acid 1 Mg Tab PO DAILY [facility] Furosemide 80 mg 06/22/21 16:00 06/22/21 18:11 Furosemide 80 Mg Tab PO 80 mg BID@0900,1600 ARTEMIO Administration Heparin Sodium (Porcine) 5,000 unit 06/23/21 00:00 06/22/21 23:26 Heparin Sodium,Porcine/Pf 5,000 Unit/0.5 Ml Syringe SQ 5,000 unit Q8HR ARTEMIO Administration Sodium Chloride 1,000 mls @ 75 mls/hr 06/22/21 23:45 06/23/21 00:38 Saline 0.9% IV 75 mls/hr .[id number] ARTEMIO Administration Ceftriaxone Sodium 2 gm/ 50 mls @ 100 mls/hr 06/23/21 22:00 Sodium Chloride IVPB Q24H ARTEMIO Azithromycin 500 mg/ Sodium 250 mls @ 250 mls/hr 06/23/21 21:00 Chloride IVPB 06/25/21 21:59 Q24H [facility] Insulin Aspart 0 unit 06/22/21 21:41 06/23/21 06:13 Insulin Aspart (Novolog) 100 Unit/Ml Vial SQ 2 unit ACHS ARTEMIO Administration Protocol Ipratropium [place] 0.5 mg 06/23/21 08:00 Ipratropium 0.5 Mg/2.5 Ml Nebu INHALATION RT-BID [facility] Levofloxacin 500 mg 06/23/21 09:00 Levofloxacin 500 Mg Tab PO 06/23/21 09:01 DAILY [facility] Levofloxacin 250 mg 06/24/21 09:00 Levofloxacin 250 Mg Tab PO DAILY [facility] Melatonin 6 mg 06/22/21 20:51 06/22/21 21:17 Melatonin 3 Mg Tablet PO 6 mg HS PRN Administration Insomnia Methylprednisolone Sodium Succinate 60 mg 06/22/21 18:00 06/23/21 06:13 Methylprednisolone Sod Succi 125 Mg/2 Ml Vial IV 60 mg Q6HR ARTEMIO Administration Metolazone 2.5 mg 06/25/21 09:00 Metolazone 2.5 Mg Tab PO SUWE [facility] Nitroglycerin 0.4 mg 06/22/21 20:51 Nitroglycerin Sl Tabs 0.4 Mg Tab SUBLINGUAL Q5M PRN Chest Pain Pantoprazole Sodium 40 mg 06/22/21 21:00 06/22/21 21:17 Pantoprazole 40 Mg Tablet PO 40 mg BID ARTEMIO Administration Senna 8.6 mg 06/22/21 14:17 Sennosides 8.6 Mg Tab PO BID PRN Constipation Tamsulosin HCl 0.4 mg 06/23/21 09:00 Tamsulosin 0.4 Mg Cap.Er.24h PO DAILY ARTEMIO Intake and Output 06/22/21 06/23/21 06/23/21 22:59 06:59 14:59 Output Total 500 500 Balance -500 -500 Output: Urine 500 400 Post Void Residual 100 Other: # Voids 1 Weight 111.13 kg 06/23/21 03:19 06/23/21 03:19
[2021-06-23] MEDS: HYDROcodone/APAP 10-325MG 1 EACH TAB PO PRN ×2 (09:53→17:51)
[2021-06-23] MEDS: FOLIC ACID 1 MG TAB PO SCH (09:54)
[2021-06-23] MEDS: ATORVASTATIN 40 MG TAB PO SCH (09:54)
[2021-06-23] MEDS: PANTOPRAZOLE 40 MG TABLET PO SCH ×2 (09:54→20:57)
[2021-06-23] MEDS: TAMSULOSIN 0.4 MG CAP.ER.24H PO SCH (09:54)
[2021-06-23] MEDS: CYANOCOBALAMIN 500 MCG TAB PO SCH (09:54)
[2021-06-23] MEDS: CHOLECALCIFEROL 125 MCG (5000 IU) TABLET PO SCH (09:54)
[2021-06-23] MEDS: FUROSEMIDE 80 MG TAB PO SCH (09:54)
[2021-06-23] MEDS: CLOPIDOGREL 75 MG TAB PO SCH (09:54)
[2021-06-23] MEDS: FINASTERIDE 5 MG TAB PO SCH (09:54)
[2021-06-23] MEDS: ASPIRIN 81 MG PO SCH (09:55)
[2021-06-23] MEDS: HEPARIN SODIUM,PORCINE/PF 5,000 UNIT/0.5 ML SYRINGE SQ SCH ×2 (09:55→17:48)
[2021-06-23] MEDS: hydrALAZINE HCL 25 MG TAB PO SCH (09:56)
--- NOTE | 2021-06-23 11:06 | P.NPCON ---
History of Present Illness - Reason for Consult acute renal failure - History of Present Illness Patient is a 80-year-old male with history of COPD, CHF with ejection fraction of 45% and coronary artery disease. Patient has a history of recent cardiac catheterization with stent placement to LAD on 05/27/2021. Patient has history of underlying C daily stage III with previous creatinine around 1.3-1.2 mg/dL lowest at 1.0 on 05/28/2021. Patient was admitted to the hospital with complaints of shortness of breath. He denied any increased swelling in his legs. No urinary symptoms No fever or chills. Patient has had cough. No abdominal pain nausea vomiting or diarrhea Serum creatinine was 2.2 on admission and to date is 2.19. Currently patient is maintained on IV antibiotics. He is taking by mouth Lasix. He is also on IV fluids at 75 mL an hour. Patient reports good urine output. He is voiding in the urinal Blood pressure has not been low, in fact slightly on the higher side. Review of Systems As per HPI, other systems negative Past Medical History Past Medical History: COPD, Hyperlipidemia, Hypertension, Osteoarthritis (OA), Prostate Disorder, Renal Disease, Vascular Disorder Additional Past Medical History / Comment(s): PVC's, CKD stage III, chronic anemia, BPH, urinary retention, UTI, pancreatitis, gastric ulcer, arthritis in multiple joints/occasional low back pain History of Any Multi-Drug Resistant Organisms: None Reported Past Surgical History: Appendectomy, Cholecystectomy, Heart Catheterization, Heart Catheterization With Stent, Tonsillectomy Additional Past Surgical History / Comment(s): R caratid endartectomy, arch study, colonoscopies/benign polypectomies, EGD, pilonidal cyst removed x 2, heart cath with stent placement Past Anesthesia/Blood Transfusion Reactions: No Reported Reaction Date of Last Stent Placement:: 05/27/21 Past Psychological History: No Psychological Hx Reported Smoking Status: Former smoker Past Alcohol Use History: None Reported Past Drug Use History: None Reported - Past Family History Father Family Medical History: No Reported History Mother Family Medical History: Congestive Heart Failure (CHF) Medications and Allergies Home Medications Medication Instructions Recorded Confirmed Type Carvedilol [Coreg] 3.125 mg PO BID-W/MEALS 05/22/21 06/22/21 History Cholecalciferol (Vitamin D3) 125 mcg PO DAILY 05/22/21 06/22/21 History [Vitamin D3 (125 MCG = 5,000 IU)] Finasteride [Proscar] 5 mg PO DAILY 05/22/21 06/22/21 History Fluticasone/Umeclidin/Vilanter 1 puff INHALATION RT-DAILY 05/22/21 06/22/21 History [Trelegy Ellipta 100-62.5-25] HYDROcodone/APAP 10-325MG [[place] 1 tab PO Q6H PRN 05/22/21 06/22/21 History 10-325] Losartan Potassium 50 mg PO DAILY 05/22/21 06/22/21 History Sennosides [Senna] 8.6 mg PO BID PRN 05/22/21 06/22/21 History Tamsulosin HCl [Flomax] 0.4 mg PO DAILY 05/22/21 06/22/21 History Atorvastatin [Lipitor] 40 mg PO DAILY #90 tab 05/29/21 06/22/21 Rx Clopidogrel [Plavix] 75 mg PO DAILY #90 tab 05/29/21 06/22/21 Rx Ferrous Sulfate [Iron (65 MG 325 mg PO BID-W/MEALS #180 tab 05/29/21 06/22/21 Rx Elemental)] Albuterol Inhaler [Ventolin Hfa 2 puff INHALATION RT-QID PRN #1 inh 05/30/21 06/22/21 Rx Inhaler] Furosemide [Lasix] 80 mg PO BID 06/08/21 06/22/21 History Nitroglycerin Sl Tabs [Nitrostat] 0.4 mg SL Q5M PRN 06/08/21 06/22/21 History Pantoprazole [Protonix] 40 mg PO BID 06/08/21 06/22/21 History metOLazone [Zaroxolyn] 2.5 mg PO SUWE 06/08/21 06/22/21 History Cyanocobalamin [Vitamin B-12] 500 mcg PO DAILY 30 Days #30 tab 06/11/21 06/22/21 Rx Folic Acid 1 mg PO DAILY #30 tab 06/11/21 06/22/21 Rx Melatonin 6 mg PO HS PRN 10 Days #20 tablet 06/11/21 06/22/21 Rx predniSONE 5 mg PO DAILY 30 Days #15 tab 06/11/21 06/22/21 Rx Aspirin EC [Ecotrin Low Dose] 81 mg PO DAILY 30 Days #30 tab 06/12/21 06/22/21 Rx Allergies Allergy/AdvReac Type Severity Reaction Status Date / Time lisinopril Allergy Anaphylaxis, Verified 06/22/21 13:12 Tongue swelling Physical Exam Vitals: Vital Signs Temp Pulse Pulse Resp BP BP Pulse Ox 06/23/21 08:19 64 06/23/21 08:07 68 99 06/23/21 08:00 97.8 F 91 133/66 95 06/23/21 03:48 97.1 F L 77 17 170/74 97 06/23/21 02:00 18 06/22/21 23:15 97.6 F 65 18 159/77 98 06/22/21 20:30 98.4 F 76 18 152/57 97 06/22/21 20:13 56 L 06/22/21 20:01 70 06/22/21 17:59 97.4 F L 62 18 136/56 98 06/22/21 16:34 58 L 06/22/21 13:32 67 18 134/42 98 06/22/21 12:30 70 06/22/21 12:11 66 06/22/21 11:27 98.2 F 75 22 100/49 93 L Intake and Output 06/22/21 06/23/21 06/23/21 22:59 06:59 14:59 Intake Total 118 Output Total 500 500 Balance -500 -500 118 Intake: Oral 118 Output: Urine 500 400 Post Void Residual 100 Other: # Voids 1 Weight 111.13 kg Patient is awake, comfortable, not in any acute distress Examination of the heart S1 and S2 Examination lungs bilateral breath sounds are heard Abdomen is soft nontender Examination lower extremities shows no significant edema SCALE CLERK exam grossly intact Results - Lab Results Most recent lab results Calcium 8.9 mg/dL (8.4-10.2) 06/23/21 03:19 Magnesium 1.7 mg/dL (1.6-2.3) 06/22/21 11:53 06/23/21 03:19 06/23/21 03:19 Assessment and Plan Assessment: 1. Acute kidney injury associated with underlying infection, possibly prerenal. No evidence of decompensated CHF at this time. Patient's serum creatinine has been rising about 2 weeks after the cardiac catheterization which can coincide with cholesterol emboli as an etiology for the acute kidney injury. 2. Chronic kidney disease NKF stage IIIA with previous creatinine as low as 1.0 in May 2021 etiology is nephrosclerosis. Previous UA on 06/08/2021 was completely benign 3. History of recent cardiac catheterization and coronary stent placement to LAD in May 2021 4. Coronary artery disease status post recent [place] and cardiac catheterization 5. Cardiomyopathy with ejection fraction 45% Plan: I will hold off on the Lasix. Decrease IV fluids to 50 mL an hour Repeat chest x-ray in a.m. Continue with antibiotics Repeat labs in a.m. Avoid nephrotoxic agents Check post void residual residual to rule out urine retention and check ultrasound of the kidneys Check urine analysis
[2021-06-23 11:49] LABS: Glucose,Whole Blood 255 mg/dL (75-99)
--- NOTE | 2021-06-23 12:12 | P.PN ---
Subjective Patient came in with shortness of breath does have history of COPD as well as diastolic heart failure and patient was believed to have heart failure exacerbation was given Lasix but patient is actually volume depleted at this time because of which patient is receiving gentle hydration and patient is off diuretics at this time. Patient has lactic acidosis secondary to intravascular volume depletion is no evidence of pneumonia patient is on antibiotic for pneumonia which will risk and urine patient will continue on azithromycin and patient wheezing is better today patient probably has COPD exacerbation on admission. Patient is in acute renal failure. Constitutional: Denied any fatigue denied any fever. Cardio vascular: denied any chest pain, palpitations Gastrointestinal denied any nausea vomiting Pulmonary: Denied any shortness of breath cough Neurologic denied any new focal deficits All inpatient medications were reviewed and appropriate changes in these medications as dictated in the interval history and assessment and plan. PHYSICAL EXAMINATION: GENERAL: The patient is alert and oriented x3, not in any acute distress. Well developed, well nourished. HEENT: Pupils are round and equally reacting to light. EOMI. No scleral icterus. No conjunctival pallor. Normocephalic, atraumatic. No pharyngeal erythema. No thyromegaly. CARDIOVASCULAR: S1 and S2 present. No murmurs, rubs, or gallops. PULMONARY: Mild expiratory wheezing on exam ABDOMEN: Soft, nontender, nondistended, normoactive bowel sounds. No palpable organomegaly. MUSCULOSKELETAL: No joint swelling or deformity. EXTREMITIES: No cyanosis, clubbing, or pedal edema. NEUROLOGICAL: Gross neurological examination did not reveal any focal deficits. SKIN: No rashes. Assessment and plan -COPD with acute exacerbation patient has a chronic hypercapnic respiratory failure secondary to COPD patient is presently intubated exacerbation can use systemic steroids and treatments for his evidence of pneumonia antibodies this can you -congestive heart failure chronic diastolic dysfunction without any acute exacerbation. Patient patient is actually volume depleted, diuretics is are being held patient is on gentle hydration -coronary artery disease with stent placement LAD -Chronic kidney disease stage III baseline creatinine around 1.6 -Hypertension next and-hyperlipidemia -Peptic ulcer disease history -Osteoarthritis DVT prophylaxis:sub cut heparin Objective - Vital Signs Vital signs: Vital Signs Temp 97.8 F 06/23/21 08:00 Pulse 62 06/23/21 11:46 Resp 18 06/23/21 08:00 BP 133/66 06/23/21 08:00 Pulse Ox 99 06/23/21 08:07 Intake & Output 06/22/21 06/23/21 06/23/21 18:59 06:59 18:59 Intake Total 118 Output Total 200 800 Balance -200 -800 118 Weight 111.13 kg 111.13 kg Intake: Oral 118 Output: Urine 200 700 Post Void Residual 100 Other: # Voids 1 - Labs CBC & Chem 7: 06/23/21 03:19 06/23/21 03:19 Labs: Abnormal Lab Results - Last 24 Hours (Table) 06/22/21 06/22/21 06/22/21 Range/Units 11:53 11:53 11:53 RBC (4.30-5.90) m/uL Hgb (13.0-17.5) gm/dL Hct (39.0-53.0) % Lymphocytes # (1.0-4.8) k/uL Sodium 136 L (137-145) mmol/L BUN 81 H (9-20) mg/dL Creatinine 2.22 H (0.66-1.25) mg/dL Glucose 177 H (74-99) mg/dL POC Glucose (mg/dL) (75-99) mg/dL Plasma Lactic Acid Tima 3.5 H* (0.7-2.0) mmol/L Calcium 8.3 L (8.4-10.2) mg/dL Alkaline Phosphatase 259 H (38-126) U/L Troponin I 0.148 H* (0.000-0.034) ng/mL Albumin 3.2 L (3.5-5.0) g/dL 06/22/21 06/22/21 06/22/21 Range/Units 15:46 19:20 19:20 RBC (4.30-5.90) m/uL Hgb (13.0-17.5) gm/dL Hct (39.0-53.0) % Lymphocytes # (1.0-4.8) k/uL Sodium (137-145) mmol/L BUN (9-20) mg/dL Creatinine (0.66-1.25) mg/dL Glucose (74-99) mg/dL POC Glucose (mg/dL) (75-99) mg/dL Plasma Lactic Acid Tima 2.5 H* 3.8 H* (0.7-2.0) mmol/L Calcium (8.4-10.2) mg/dL Alkaline Phosphatase (38-126) U/L Troponin I 0.108 H* (0.000-0.034) ng/mL Albumin (3.5-5.0) g/dL 06/22/21 06/22/21 06/22/21 Range/Units 20:45 22:34 22:34 RBC (4.30-5.90) m/uL Hgb (13.0-17.5) gm/dL Hct (39.0-53.0) % Lymphocytes # (1.0-4.8) k/uL Sodium (137-145) mmol/L BUN (9-20) mg/dL Creatinine (0.66-1.25) mg/dL Glucose (74-99) mg/dL POC Glucose (mg/dL) 352 H (75-99) mg/dL Plasma Lactic Acid Tima 3.7 H* (0.7-2.0) mmol/L Calcium (8.4-10.2) mg/dL Alkaline Phosphatase (38-126) U/L Troponin I 0.110 H* (0.000-0.034) ng/mL Albumin (3.5-5.0) g/dL 06/22/21 06/23/21 06/23/21 Range/Units 23:44 03:19 03:19 RBC 3.22 L (4.30-5.90) m/uL Hgb 9.9 L (13.0-17.5) gm/dL Hct 31.3 L (39.0-53.0) % Lymphocytes # 0.5 L (1.0-4.8) k/uL Sodium (137-145) mmol/L BUN 84 H (9-20) mg/dL Creatinine 2.19 H (0.66-1.25) mg/dL Glucose 161 H (74-99) mg/dL POC Glucose (mg/dL) 213 H (75-99) mg/dL Plasma Lactic Acid Tima (0.7-2.0) mmol/L Calcium (8.4-10.2) mg/dL Alkaline Phosphatase (38-126) U/L Troponin I (0.000-0.034) ng/mL Albumin (3.5-5.0) g/dL 06/23/21 06/23/21 06/23/21 Range/Units 03:19 06:13 11:48 RBC (4.30-5.90) m/uL Hgb (13.0-17.5) gm/dL Hct (39.0-53.0) % Lymphocytes # (1.0-4.8) k/uL Sodium (137-145) mmol/L BUN (9-20) mg/dL Creatinine (0.66-1.25) mg/dL Glucose (74-99) mg/dL POC Glucose (mg/dL) 178 H 255 H (75-99) mg/dL Plasma Lactic Acid Tima 2.5 H* (0.7-2.0) mmol/L Calcium (8.4-10.2) mg/dL Alkaline Phosphatase (38-126) U/L Troponin I (0.000-0.034) ng/mL Albumin (3.5-5.0) g/dL
[2021-06-23] MEDS: SODIUM CHLORIDE 0.9% 1,000 ML IV SCH (12:50)
--- NOTE | 2021-06-23 13:12 | US ---
EXAMINATION TYPE: US kidneys/renal and bladder DATE OF EXAM: 06/23/2021 COMPARISON: NONE CLINICAL HISTORY: rosalina. EXAM MEASUREMENTS: Right Kidney: 9.8 x 6.2 x 6.0 cm Left Kidney: 12.0 x 5.2 x 6.3 cm Post Void Residual Volume: not assessed on inpatient US is technically limited by scanning patient in bedside recliner. Right Kidney: No hydronephrosis or masses seen Left Kidney: No hydronephrosis or masses seen Bladder: well distended Bilateral Jets seen: not seen after 3 minute observation IMPRESSION: Technically difficult and limited ultrasound. No sizable renal mass or definite hydronephrosis. No gr oss urinary bladder abnormality. Ureteric jets are not seen.
[2021-06-23 15:32] LABS: Appearance,Urine Clear (Clear); Bilirubin,Urine Negative (Negative); Blood,Urine Negative (Negative); Color,Urine Yellow; Glucose,Urine (UA) Negative (Negative); Ketones,Urine Negative (Negative); Leukocyte Esterase,Urine Negative (Negative); Nitrite,Urine Negative (Negative); Protein,Urine Negative (Negative); Specific Gravity,Urine 1.013 (1.001-1.035); Urobilinogen,Urine <2.0 mg/dL (<2.0)
[2021-06-23 16:21] LABS: Glucose,Whole Blood 179 mg/dL (75-99)
--- NOTE | 2021-06-23 16:40 | P.PN ---
Subjective Progress Note Date: 06/23/21 Principal diagnosis: Acute on chronic hypoxic respiratory failure secondary to acute exacerbation of COPD 80-year-old male patient known history of advanced COPD with an FEV1 of 44% of predicted and the patient has also history of symptomatic multivessel coronary artery disease. The patient has had several catheterization with a past few months for COPD exacerbation. Last hospitalization was on 06/12/2021. At that time, the patient was seen by our services for shortness of breath and at that time he shortness of breath was more so attributed to be related to accommodatio n COPD and CHF. The patient is known to have multivessel coronary artery disease and he has undergone previous cardiac catheterization, atherectomy of the left main and mid LAD along with PCTA and stenting of the left main artery and mid LAD, he has diastolic heart failure, chronic stage III kidney disease, hypertension, diabetes mellitus type 2, hyperlipidemia and right carotid artery stenosis. The patient the patient was discharged home on Trelegy Ellipta one inhalation a day, albuterol nebulized treatments around the clock on an as- needed basis and a course of the prednisone burst taper. This is along with his long-term medication which include Lasix 80 mg twice a day and Zaroxolyn 2.5 mg 2 days a week. [facility] increased shortness of breath. Denied having any fever. No reported chest pain. No lower extremity swelling. No altered mentation. He was covered on some brownish sputum. No nausea vomiting or abdominal pain. In the ED, the patient was evaluated. He was afebrile. Initial white cell count was 11.6 with a hemoglobin of 9.8, BUN was 81 with a creatinine of 2.2 and his sodium level of 177. The rest of the electrolytes and LFTs were all within normal limits. The troponin was 0.148, proBNP level was 3170. And it showed chronic emphysematous changes with small right-sided pleural effusion and mild to moderate bibasilar scarring/atelectasis. At this point, the patient is admitted to the hospital. The patient is being given a combination of diabetes, steroids, and the patient is also on a combination of Lasix 80 mg and this is being given twice a day and Zaroxolyn. He is currently on 2 L of oxygen by nasal cannula. Reevaluated today on 06/23/21, patient remains on 2 L nasal cannula, O2 sats is 97%. Patient is being treated for congestive heart failure/diastolic in nature and COPD exacerbation. Presently his diuretics are on hold. He remains on bronchodilators, and overall seems to be improving. Patient normally has an FEV1 of 44%, he had a recent cardiac catheterization, and he was found to have this multivessel coronary artery disease. Underwent atherectomy and PTCA/stenting of the left main artery and mid LAD. Patient is also known to have history of chronic kidney disease stage III hypertension diabetes dyslipidemia. Today the patient is feeling a bit better, breathing a lot easier. Objective - Vital Signs Vital signs: Vital Signs Temp 97.8 F 06/23/21 08:00 Pulse 87 06/23/21 14:00 Resp 18 06/23/21 14:00 BP 123/70 06/23/21 12:00 Pulse Ox 97 06/23/21 12:00 Intake & Output 06/22/21 06/23/21 06/23/21 18:59 06:59 18:59 Intake Total 236 Output Total 200 800 300 Balance -200 -800 -64 Weight 111.13 kg 111.13 kg Intake: Oral 236 Output: Urine 200 700 300 Post Void Residual 100 Other: # Voids 1 - Exam Physical Exam: Revealed 80-year-old white male in no distress. Head: Atraumatic, normocephalic. HEENT:[Neck is supple.] [No neck masses.] [No thyromegaly.] [No JVD.] Chest: [Diminished breath sounds at the bases no crackles or rhonchi] Cardiac Exam: [Normal S1 and S2, no S3 gallop, no murmur.] Abdomen: [Soft, nontender, no megaly, no rebound, no guarding, normal bowel sounds.] Extremities: [No clubbing, no edema, no cyanosis.] Neurological Exam: [No focal neurologic deficit.] Psychiatric: Normal mood affect and normal mental status examination. HEENT: No rashes Musculoskeletal: No deformities and no limitation in range of motion - Labs CBC & Chem 7: 06/23/21 03:19 06/23/21 03:19 Labs: Abnormal Lab Results - Last 24 Hours (Table) 06/22/21 06/22/21 06/22/21 Range/Units 19:20 19:20 20:45 RBC (4.30-5.90) m/uL Hgb (13.0-17.5) gm/dL Hct (39.0-53.0) % Lymphocytes # (1.0-4.8) k/uL BUN (9-20) mg/dL Creatinine (0.66-1.25) mg/dL Glucose (74-99) mg/dL POC Glucose (mg/dL) 352 H (75-99) mg/dL Plasma Lactic Acid Tima 3.8 H* (0.7-2.0) mmol/L Troponin I 0.108 H* (0.000-0.034) ng/mL 06/22/21 06/22/21 06/22/21 Range/Units 22:34 22:34 23:44 RBC (4.30-5.90) m/uL Hgb (13.0-17.5) gm/dL Hct (39.0-53.0) % Lymphocytes # (1.0-4.8) k/uL BUN (9-20) mg/dL Creatinine (0.66-1.25) mg/dL Glucose (74-99) mg/dL POC Glucose (mg/dL) 213 H (75-99) mg/dL Plasma Lactic Acid Tima 3.7 H* (0.7-2.0) mmol/L Troponin I 0.110 H* (0.000-0.034) ng/mL 06/23/21 06/23/21 06/23/21 Range/Units 03:19 03:19 03:19 RBC 3.22 L (4.30-5.90) m/uL Hgb 9.9 L (13.0-17.5) gm/dL Hct 31.3 L (39.0-53.0) % Lymphocytes # 0.5 L (1.0-4.8) k/uL BUN 84 H (9-20) mg/dL Creatinine 2.19 H (0.66-1.25) mg/dL Glucose 161 H (74-99) mg/dL POC Glucose (mg/dL) (75-99) mg/dL Plasma Lactic Acid Tima 2.5 H* (0.7-2.0) mmol/L Troponin I (0.000-0.034) ng/mL 06/23/21 06/23/21 06/23/21 Range/Units 06:13 11:48 16:18 RBC (4.30-5.90) m/uL Hgb (13.0-17.5) gm/dL Hct (39.0-53.0) % Lymphocytes # (1.0-4.8) k/uL BUN (9-20) mg/dL Creatinine (0.66-1.25) mg/dL Glucose (74-99) mg/dL POC Glucose (mg/dL) 178 H 255 H 179 H (75-99) mg/dL Plasma Lactic Acid Tima (0.7-2.0) mmol/L Troponin I (0.000-0.034) ng/mL Assessment and Plan Assessment: Impression: Acute exacerbation of COPD and no evidence of infiltrates. Symptomatic multivessel coronary artery disease status post stenting Chronic diastolic congestive heart failure Benign essential hypertension Chronic kidney disease stage III Severe COPD, FEV1 of 44% x smoker Type 2 diabetes Dyslipidemia Recommendation: Continue bronchodilators Continue steroids Continue diuretics Resume home medications Patient to go back on [facility] post discharge. We will clear the patient for possible discharge planning in the next 24 hours. Follow-up with Dr. Malave of Dr. Dr. Gee on outpatient basis Time with Patient: Less than 30
--- NOTE | 2021-06-23 16:47 | XR ---
EXAMINATION TYPE: XR chest 2V DATE OF EXAM: 06/23/2021 3:24 PM COMPARISON:Chest radiographs from 06/22/2021 TECHNIQUE: XR chest 2V Frontal and lateral views of the chest. CLINICAL INDICATION:Male, 80 years old with history of COPD/CHF; FINDINGS: Lungs/Pleura: There is flattening of the diaphragm with increased lucency of the lungs. No evidence o f pneumothorax, pleural effusion or focal consolidation. Pulmonary vascularity: Unremarkable. Heart/mediastinum: Cardiomediastinal silhouette is unremarkable. Musculoskeletal: No acute osseous pathology. IMPRESSION: 1. Chronic interstitial changes not significantly changed without acute cardiopulmonary disease proce ss. 2. COPD changes.
[2021-06-23] MEDS: MELATONIN 3 MG TABLET PO PRN (17:51)
[2021-06-23 20:06] LABS: Glucose,Whole Blood 186 mg/dL (75-99)
[2021-06-23] MEDS ORDERED: AZITHROMYCIN 500 MG in SODIUM CHLORIDE 0.9% 250 ML IVPB SCH (21:00)
[2021-06-23] MEDS ORDERED: INSULIN ASPART (NovoLOG) 100 UNIT/ML VIAL SQ SCH (21:12)
[2021-06-23] MEDS: SYMBICORT 80-4.5 MCG INHALER INHALATION SCH (21:21)
--- NOTE | 2021-06-23 23:51 | P.CONS ---
History of Present Illness - Reason for Consult Consult date: 06/23/21 Possible pneumonia Requesting physician: Jayla Azar - Chief Complaint Shortness of breath x one day - History of Present Illness Patient is a 80-year-old male with a past medical history of coronary disease COPD congestive heart failure presenting to the ER yesterday morning for evaluation of increasing shortness of breath, patient mention breathing was getting worse for a day before he presented to the hospital patient denies having any chest pain he did have a cough productive of some brown sputum but no yulia hemoptysis denies having any fever or any chills no nausea no vomiting no abdominal pain or any diarrhea patient on presentation to the hospital was afebrile and no fever had recorded subsequently mild hypoxemia with O2 sats of 93% on room air is currently 98% on 2 L nasal cannula patient did have white count of 11.6 with a left shift did have elevated lactic acid creatinine was normal troponin was elevated patient did have a chest x-ray chronic emphysematous changes with small right effusion and mild to moderate bibasilar scarring, patient was started on Rocephin and Zithromax Rocephin have been subsequent discontinued infectious disease was consulted concern for possible pneumonia Review of Systems Positive point has been mentioned in the HPI rest of the systems are negative Past Medical History Past Medical History: COPD, Hyperlipidemia, Hypertension, Osteoarthritis (OA), Prostate Disorder, Renal Disease, Vascular Disorder Additional Past Medical History / Comment(s): PVC's, CKD stage III, chronic anemia, BPH, urinary retention, UTI, pancreatitis, gastric ulcer, arthritis in multiple joints/occasional low back pain History of Any Multi-Drug Resistant Organisms: None Reported Past Surgical History: Appendectomy, Cholecystectomy, Heart Catheterization, Heart Catheterization With Stent, Tonsillectomy Additional Past Surgical History / Comment(s): R caratid endartectomy, arch study, colonoscopies/benign polypectomies, EGD, pilonidal cyst removed x 2, heart cath with stent placement Past Anesthesia/Blood Transfusion Reactions: No Reported Reaction Date of Last Stent Placement:: 05/27/21 Past Psychological History: No Psychological Hx Reported Smoking Status: Former smoker Past Alcohol Use History: None Reported Past Drug Use History: None Reported - Past Family History Father Family Medical History: No Reported History Mother Family Medical History: Congestive Heart Failure (CHF) Medications and Allergies Home Medications Medication Instructions Recorded Confirmed Type Carvedilol [Coreg] 3.125 mg PO BID-W/MEALS 05/22/21 06/22/21 History Cholecalciferol (Vitamin D3) 125 mcg PO DAILY 05/22/21 06/22/21 History [Vitamin D3 (125 MCG = 5,000 IU)] Finasteride [Proscar] 5 mg PO DAILY 05/22/21 06/22/21 History Fluticasone/Umeclidin/Vilanter 1 puff INHALATION RT-DAILY 05/22/21 06/22/21 History [Trelegy Ellipta 100-62.5-25] HYDROcodone/APAP 10-325MG [[place] 1 tab PO Q6H PRN 05/22/21 06/22/21 History 10-325] Losartan Potassium 50 mg PO DAILY 05/22/21 06/22/21 History Sennosides [Senna] 8.6 mg PO BID PRN 05/22/21 06/22/21 History Tamsulosin HCl [Flomax] 0.4 mg PO DAILY 05/22/21 06/22/21 History Atorvastatin [Lipitor] 40 mg PO DAILY #90 tab 05/29/21 06/22/21 Rx Clopidogrel [Plavix] 75 mg PO DAILY #90 tab 05/29/21 06/22/21 Rx Ferrous Sulfate [Iron (65 MG 325 mg PO BID-W/MEALS #180 tab 05/29/21 06/22/21 Rx Elemental)] Albuterol Inhaler [Ventolin Hfa 2 puff INHALATION RT-QID PRN #1 inh 05/30/21 06/22/21 Rx Inhaler] Furosemide [Lasix] 80 mg PO BID 06/08/21 06/22/21 History Nitroglycerin Sl Tabs [Nitrostat] 0.4 mg SL Q5M PRN 06/08/21 06/22/21 History Pantoprazole [Protonix] 40 mg PO BID 06/08/21 06/22/21 History metOLazone [Zaroxolyn] 2.5 mg PO SUWE 06/08/21 06/22/21 History Cyanocobalamin [Vitamin B-12] 500 mcg PO DAILY 30 Days #30 tab 06/11/21 06/22/21 Rx Folic Acid 1 mg PO DAILY #30 tab 06/11/21 06/22/21 Rx Melatonin 6 mg PO HS PRN 10 Days #20 tablet 06/11/21 06/22/21 Rx predniSONE 5 mg PO DAILY 30 Days #15 tab 06/11/21 06/22/21 Rx Aspirin EC [Ecotrin Low Dose] 81 mg PO DAILY 30 Days #30 tab 06/12/21 06/22/21 Rx Allergies Allergy/AdvReac Type Severity Reaction Status Date / Time lisinopril Allergy Anaphylaxis, Verified 06/22/21 13:12 Tongue swelling Physical Exam Vitals: Vital Signs Temp Pulse Pulse Resp BP BP Pulse Ox 06/23/21 11:46 62 06/23/21 11:34 66 06/23/21 08:19 64 06/23/21 08:07 68 99 06/23/21 08:00 97.8 F 91 18 133/66 95 06/23/21 03:48 97.1 F L 77 17 170/74 97 06/23/21 02:00 18 06/22/21 23:15 97.6 F 65 18 159/77 98 06/22/21 20:30 98.4 F 76 18 152/57 97 06/22/21 20:13 56 L 06/22/21 20:01 70 06/22/21 17:59 97.4 F L 62 18 136/56 98 06/22/21 16:34 58 L Intake and Output 06/22/21 06/23/21 06/23/21 22:59 06:59 14:59 Intake Total 118 Output Total 500 500 Balance -500 -500 118 Intake: Oral 118 Output: Urine 500 400 Post Void Residual 100 Other: # Voids 1 Weight 111.13 kg GENERAL DESCRIPTION: An elderly male lying in bed, no distress. No tachypnea or accessory muscle of respiration use. HEENT: Shows Pallor , no scleral icterus. Oral mucous membrane is dry. No pharyngeal erythema or thrush NECK: Trachea central, no thyromegaly. LUNGS: Unlabored breathing. Decreased breath sounds At the Base. No wheeze or crackle. HEART: S1, S2, regular rate and rhythm. No loud murmur ABDOMEN: Soft, no tenderness , guarding or rigidity, no organomegaly EXTREMITIES: No edema of feet. SKIN: No rash, no masses palpable. NEUROLOGICAL: The patient is awake, alert, oriented x3, mood and affect normal. Results CBC & Chem 7: 06/23/21 03:19 06/23/21 03:19 Labs: Abnormal Lab Results - Last 24 Hours (Table) 06/22/21 06/22/21 06/22/21 Range/Units 15:46 19:20 19:20 RBC (4.30-5.90) m/uL Hgb (13.0-17.5) gm/dL Hct (39.0-53.0) % Lymphocytes # (1.0-4.8) k/uL BUN (9-20) mg/dL Creatinine (0.66-1.25) mg/dL Glucose (74-99) mg/dL POC Glucose (mg/dL) (75-99) mg/dL Plasma Lactic Acid Tima 2.5 H* 3.8 H* (0.7-2.0) mmol/L Troponin I 0.108 H* (0.000-0.034) ng/mL 06/22/21 06/22/21 06/22/21 Range/Units 20:45 22:34 22:34 RBC (4.30-5.90) m/uL Hgb (13.0-17.5) gm/dL Hct (39.0-53.0) % Lymphocytes # (1.0-4.8) k/uL BUN (9-20) mg/dL Creatinine (0.66-1.25) mg/dL Glucose (74-99) mg/dL POC Glucose (mg/dL) 352 H (75-99) mg/dL Plasma Lactic Acid Tima 3.7 H* (0.7-2.0) mmol/L Troponin I 0.110 H* (0.000-0.034) ng/mL 06/22/21 06/23/21 06/23/21 Range/Units 23:44 03:19 03:19 RBC 3.22 L (4.30-5.90) m/uL Hgb 9.9 L (13.0-17.5) gm/dL Hct 31.3 L (39.0-53.0) % Lymphocytes # 0.5 L (1.0-4.8) k/uL BUN 84 H (9-20) mg/dL Creatinine 2.19 H (0.66-1.25) mg/dL Glucose 161 H (74-99) mg/dL POC Glucose (mg/dL) 213 H (75-99) mg/dL Plasma Lactic Acid Tima (0.7-2.0) mmol/L Troponin I (0.000-0.034) ng/mL 06/23/21 06/23/21 06/23/21 Range/Units 03:19 06:13 11:48 RBC (4.30-5.90) m/uL Hgb (13.0-17.5) gm/dL Hct (39.0-53.0) % Lymphocytes # (1.0-4.8) k/uL BUN (9-20) mg/dL Creatinine (0.66-1.25) mg/dL Glucose (74-99) mg/dL POC Glucose (mg/dL) 178 H 255 H (75-99) mg/dL Plasma Lactic Acid Tima 2.5 H* (0.7-2.0) mmol/L Troponin I (0.000-0.034) ng/mL Assessment and Plan (1) Acute exacerbation of chronic obstructive pulmonary disease Current Visit: Yes Status: Acute Code(s): J44.1 - CHRONIC OBSTRUCTIVE PULMONARY DISEASE W (ACUTE) EXACERBATION SNOMED Code(s): 308397272 Plan: 1patient presented to hospital with increasing shortness of breath more likely related to underlying CHF plus minus COPD exacerbation clinically not behaving as a pneumonia in this patient with no fever, did have mild elevated white count could be reactive 2-we will obtain CRP and a procalcitonin level 3-if elevated will request sputum for Gram stain and culture and order appropriate antibiotics We will follow on clinical condition and cultures to further adjust medication if needed Thank you for this consultation we will follow the patient along with you Time with Patient: Greater than 30
[2021-06-24] MEDS: hydrALAZINE HCL 25 MG TAB PO SCH ×2 (00:15→08:37)
[2021-06-24] MEDS ORDERED: CALCIUM CARBONATE 500 MG CHEWABLE PO PRN (00:32)
[2021-06-24] MEDS: HEPARIN SODIUM,PORCINE/PF 5,000 UNIT/0.5 ML SYRINGE SQ SCH ×3 (00:37→16:59)
[2021-06-24 06:03] LABS: Glucose,Whole Blood 201 mg/dL (75-99)
[2021-06-24] MEDS: carvediloL 3.125 MG TAB PO SCH ×2 (06:32→17:03)
[2021-06-24] MEDS: SODIUM CHLORIDE 0.9% 1,000 ML IV SCH (06:32)
[2021-06-24] MEDS: INSULIN ASPART (NovoLOG) 100 UNIT/ML VIAL SQ SCH ×3 (06:33→17:03)
[2021-06-24] MEDS: HYDROcodone/APAP 10-325MG 1 EACH TAB PO PRN ×2 (06:35→17:03)
[2021-06-24 07:59] LABS: Basophils % (A) 0 %; Eosinophils % (A) 0 %; HCT 28.5 % (39.0-53.0); HGB 9.2 gm/dL (13.0-17.5); Hypochromasia Slight; Lymphocytes # (A) 0.7 k/uL (1.0-4.8); Lymphocytes % (A) 4 %; MCH 31.3 pg (25.0-35.0); MCHC 32.2 g/dL (31.0-37.0); Mean Platelet Volume 7.3; Monocytes # (A) 0.3 k/uL (0-1.0); Monocytes % (A) 2 %; Neutrophils # (A) 15.1 k/uL (1.3-7.7); Neutrophils % (A) 93 %; Platelet Count 447 k/uL (150-450); RBC 2.94 m/uL (4.30-5.90); RDW 14.9 % (11.5-15.5); WBC 16.2 k/uL (3.8-10.6)
[2021-06-24 08:15] LABS: C Reactive Protein 5.9 mg/dL (<1.0); Calcium 8.4 mg/dL (8.4-10.2); Potassium 4.5 mmol/L (3.5-5.1)
[2021-06-24] MEDS: IPRATROPIUM-ALBUTEROL 3 ML NEB INHALATION SCH ×3 (08:57→17:27)
[2021-06-24] MEDS: SYMBICORT 80-4.5 MCG INHALER INHALATION SCH (08:57)
[2021-06-24] MEDS ORDERED: predniSONE 20 MG TAB PO SCH (09:00)
[2021-06-24] MEDS ORDERED: LEVOFLOXACIN 250 MG TAB PO SCH (09:00)
[2021-06-24 09:45] VITALS: RESP 20
[2021-06-24] MEDS: ASPIRIN 81 MG PO SCH (10:06)
[2021-06-24] MEDS: PANTOPRAZOLE 40 MG TABLET PO SCH (10:06)
[2021-06-24] MEDS: CLOPIDOGREL 75 MG TAB PO SCH (10:06)
[2021-06-24] MEDS: CHOLECALCIFEROL 125 MCG (5000 IU) TABLET PO SCH (10:06)
[2021-06-24] MEDS: FINASTERIDE 5 MG TAB PO SCH (10:06)
[2021-06-24] MEDS: CYANOCOBALAMIN 500 MCG TAB PO SCH (10:06)
[2021-06-24] MEDS: ATORVASTATIN 40 MG TAB PO SCH (10:06)
[2021-06-24] MEDS: FOLIC ACID 1 MG TAB PO SCH (10:07)
[2021-06-24] MEDS: TAMSULOSIN 0.4 MG CAP.ER.24H PO SCH (10:07)
[2021-06-24] MEDS ORDERED: FLUTICASONE 50MCG/SPRAY NASAL 16GM EA NOSTRIL SCH (10:45)
--- NOTE | 2021-06-24 10:58 | P.PN ---
Subjective Patient is seen for follow-up for acute kidney injury. He has a history of COPD, CHF with ejection fraction 45% and significant coronary artery disease. Status post cardiac catheterization with coronary stent placement to LAD on 05/27/2021. Underlying history of CK D stage III with previous creatinine 1.3-1.2 with lowest reading at 1.0 on 05/28/2021 Admitted to the hospital with shortness of breath and increased swelling in the lower extremities. Patient is being treated for pneumonia. He was maintained on diuretics and IV fluids. The diuretics are currently on hold and IV fluids decreased to 50 mL/h yesterday. Patient states he is been voiding well. He denies any significant complaints today. Serum creatinine 1.9 today from 2.19 yesterday Objective - Vital Signs Vital signs: Vital Signs Temp 98.4 F 06/24/21 08:00 Pulse 64 06/24/21 09:08 Resp 20 06/24/21 08:00 BP 109/50 06/24/21 08:00 Pulse Ox 99 06/24/21 08:59 Intake & Output 06/23/21 06/24/21 06/24/21 18:59 06:59 18:59 Intake Total 236 Output Total 300 1250 Balance -64 -1250 Weight 101.5 kg Intake: Oral 236 Output: Urine 300 1250 Other: # Voids 2 - Exam Patient is awake comfortable. Not in any acute distress. Examination of the heart S1 and S2 Examination lungs bilateral breath sounds are heard Abdomen is soft nontender Examination lower extremities shows no significant edema PSYCHIATRIC AIDE exam grossly intact - Labs CBC & Chem 7: 06/24/21 06:29 06/24/21 06:29 Labs: Abnormal Lab Results - Last 24 Hours (Table) 06/23/21 06/23/21 06/23/21 Range/Units 11:48 16:18 20:04 WBC (3.8-10.6) k/uL RBC (4.30-5.90) m/uL Hgb (13.0-17.5) gm/dL Hct (39.0-53.0) % Neutrophils # (1.3-7.7) k/uL Lymphocytes # (1.0-4.8) k/uL BUN (9-20) mg/dL Creatinine (0.66-1.25) mg/dL Glucose (74-99) mg/dL POC Glucose (mg/dL) 255 H 179 H 186 H (75-99) mg/dL C-Reactive Protein (<1.0) mg/dL Procalcitonin (0.02-0.09) ng/mL 06/24/21 06/24/21 06/24/21 Range/Units 06:02 06:29 06:29 WBC (3.8-10.6) k/uL RBC (4.30-5.90) m/uL Hgb (13.0-17.5) gm/dL Hct (39.0-53.0) % Neutrophils # (1.3-7.7) k/uL Lymphocytes # (1.0-4.8) k/uL BUN 88 H (9-20) mg/dL Creatinine 1.90 H (0.66-1.25) mg/dL Glucose 171 H (74-99) mg/dL POC Glucose (mg/dL) 201 H (75-99) mg/dL C-Reactive Protein 5.9 H (<1.0) mg/dL Procalcitonin 0.24 H (0.02-0.09) ng/mL 06/24/21 Range/Units 06:29 WBC 16.2 H (3.8-10.6) k/uL RBC 2.94 L (4.30-5.90) m/uL Hgb 9.2 L (13.0-17.5) gm/dL Hct 28.5 L (39.0-53.0) % Neutrophils # 15.1 H (1.3-7.7) k/uL Lymphocytes # 0.7 L (1.0-4.8) k/uL BUN (9-20) mg/dL Creatinine (0.66-1.25) mg/dL Glucose (74-99) mg/dL POC Glucose (mg/dL) (75-99) mg/dL C-Reactive Protein (<1.0) mg/dL Procalcitonin (0.02-0.09) ng/mL Microbiology - Last 24 Hours (Table) 06/23/21 04:14 Blood Culture - Preliminary Blood No Growth after 24 hours 06/23/21 03:19 Blood Culture - Preliminary Blood No Growth after 24 hours Assessment and Plan Assessment: 1. Acute kidney injury associated with underlying infection, possibly prerenal. No evidence of decompensated CHF at this time. Patient's serum creatinine has been rising about 2 weeks after the cardiac catheterization which can coincide with cholesterol emboli as an etiology for the acute kidney injury. Currently maintained on gentle IV hydration at 50 mL an hour. Creatinine slightly improved 2. Chronic kidney disease NKF stage IIIA with previous creatinine as low as 1.0 in May 2021 etiology is nephrosclerosis. Previous UA on 06/08/2021 was completely benign 3. History of recent cardiac catheterization and coronary stent placement to LAD in May 2021 4. Coronary artery disease status post recent HI and cardiac catheterization 5. Cardiomyopathy with ejection fraction 45% Plan: Continue to hold off on the Lasix. Continue IV fluids 50 mL an hour Continue with antibiotics Repeat labs in a.m. Avoid nephrotoxic agents
--- NOTE | 2021-06-24 11:26 | P.PN ---
Subjective Progress Note Date: 06/24/21 HISTORY OF PRESENT ILLNESS: The patient is an 80-year-old male, with a known history of CAD, post stenting of the left knee by Dr. Ramirez and angioplasty of the left circumflex. Who presents to the hospital with symptoms of progressive dyspnea and cough. He denies any anginal pain, he has no PND or orthopnea. He denies any dizziness or palpitations. He has no PND or orthopnea. He has a known history of severe COPD on home O2. He has a known history of chronic kidney disease, diastolic heart failure in the past as well as hyperlipidemia hypertension and diabetes. He has a history of carotid disease. He has productive cough with brownish sputum but no fever. He is feeling better at this morning. He denies any palpitations. His medication at home include Flomax, Lasix 80 mg twice a day, aspirin once a day, Lipitor 40 mg daily, Coreg 3.125 mg twice a day, losartan 50 mg daily, Zaroxolyn 3 times a week. He had peripheral edema following his intervention at that time he was off his diuretics. On the monitor he is in sinus mechanism without malignant arrhythmia. 06/24/2021 Patient examined this morning at the bedside. Patient denies chest pain or pressure. He denies shortness of breath. Blood pressure has improved with addition of hydralazine. Blood pressure 109/50 this morning. Creatinine 1.90. Echocardiogram completed revealing ejection fraction 50-55%, basal inferior LV wall hypokinesis, basal inferior septal LV wall hypokinesis, mild mitral regurgitation PHYSICAL EXAM: VITAL SIGNS: Reviewed. GENERAL: Well-developed in no acute distress. NECK: Supple. No JVD or thyromegaly LUNGS: Respirations even and unlabored. Lungs diminished to auscultation bilaterally. HEART: Regular rate and rhythm. S1 and S2 heard. EXTREMITIES: Normal range of motion. No clubbing or cyanosis. Peripheral pulses intact. No lower extremity edema ASSESSMENT: 1. Progressive dyspnea on exertion with a combination of exacerbation of COPD and CHF with preserved systolic function 2. History of high risk stenting recently with no evidence to suggest recurrent ischemia 3. Mild troponin elevation could be related to the exacerbation of COPD and chronic kidney disease, no evidence to suggest acute coronary syndrome 4. Chronic kidney disease 5. Hypertension 6. Diabetes mellitus 7. Anemia PLAN: Continue current cardiac medications Patient is stable from a cardiac standpoint Patient to follow up outpatient with Dr. Ramirez We will see the patient on an as-needed basis. Please call with questions or concerns. Nurse practitioner note has been reviewed by physician. Signing provider agrees with the documented findings, assessment, and plan of care. Objective - Vital Signs Vital signs: Vital Signs Temp 98.4 F 06/24/21 08:00 Pulse 64 06/24/21 09:08 Resp 20 06/24/21 08:00 BP 109/50 06/24/21 08:00 Pulse Ox 99 06/24/21 08:59 Intake & Output 06/23/21 06/24/21 06/24/21 18:59 06:59 18:59 Intake Total 236 Output Total 300 1250 Balance -64 -1250 Weight 101.5 kg Intake: Oral 236 Output: Urine 300 1250 Other: # Voids 2 - Labs CBC & Chem 7: 06/24/21 06:29 06/24/21 06:29 Labs: Abnormal Lab Results - Last 24 Hours (Table) 06/23/21 06/23/21 06/23/21 Range/Units 11:48 16:18 20:04 WBC (3.8-10.6) k/uL RBC (4.30-5.90) m/uL Hgb (13.0-17.5) gm/dL Hct (39.0-53.0) % Neutrophils # (1.3-7.7) k/uL Lymphocytes # (1.0-4.8) k/uL BUN (9-20) mg/dL Creatinine (0.66-1.25) mg/dL Glucose (74-99) mg/dL POC Glucose (mg/dL) 255 H 179 H 186 H (75-99) mg/dL C-Reactive Protein (<1.0) mg/dL Procalcitonin (0.02-0.09) ng/mL 06/24/21 06/24/21 06/24/21 Range/Units 06:02 06:29 06:29 WBC (3.8-10.6) k/uL RBC (4.30-5.90) m/uL Hgb (13.0-17.5) gm/dL Hct (39.0-53.0) % Neutrophils # (1.3-7.7) k/uL Lymphocytes # (1.0-4.8) k/uL BUN 88 H (9-20) mg/dL Creatinine 1.90 H (0.66-1.25) mg/dL Glucose 171 H (74-99) mg/dL POC Glucose (mg/dL) 201 H (75-99) mg/dL C-Reactive Protein 5.9 H (<1.0) mg/dL Procalcitonin 0.24 H (0.02-0.09) ng/mL 06/24/21 Range/Units 06:29 WBC 16.2 H (3.8-10.6) k/uL RBC 2.94 L (4.30-5.90) m/uL Hgb 9.2 L (13.0-17.5) gm/dL Hct 28.5 L (39.0-53.0) % Neutrophils # 15.1 H (1.3-7.7) k/uL Lymphocytes # 0.7 L (1.0-4.8) k/uL BUN (9-20) mg/dL Creatinine (0.66-1.25) mg/dL Glucose (74-99) mg/dL POC Glucose (mg/dL) (75-99) mg/dL C-Reactive Protein (<1.0) mg/dL Procalcitonin (0.02-0.09) ng/mL Microbiology - Last 24 Hours (Table) 06/23/21 04:14 Blood Culture - Preliminary Blood No Growth after 24 hours 06/23/21 03:19 Blood Culture - Preliminary Blood No Growth after 24 hours
[2021-06-24 11:38] LABS: Glucose,Whole Blood 156 mg/dL (75-99)
--- NOTE | 2021-06-24 11:50 | P.PN ---
Subjective Progress Note Date: 06/24/21 Principal diagnosis: Acute on chronic hypoxic respiratory failure secondary to acute exacerbation of COPD 80-year-old male patient known history of advanced COPD with an FEV1 of 44% of predicted and the patient has also history of symptomatic multivessel coronary artery disease. The patient has had several catheterization with a past few months for COPD exacerbation. Last hospitalization was on 06/12/2021. At that time, the patient was seen by our services for shortness of breath and at that time he shortness of breath was more so attributed to be related to accommodatio n COPD and CHF. The patient is known to have multivessel coronary artery disease and he has undergone previous cardiac catheterization, atherectomy of the left main and mid LAD along with PCTA and stenting of the left main artery and mid LAD, he has diastolic heart failure, chronic stage III kidney disease, hypertension, diabetes mellitus type 2, hyperlipidemia and right carotid artery stenosis. The patient the patient was discharged home on Trelegy Ellipta one inhalation a day, albuterol nebulized treatments around the clock on an as- needed basis and a course of the prednisone burst taper. This is along with his long-term medication which include Lasix 80 mg twice a day and Zaroxolyn 2.5 mg 2 days a week. [facility] with increased shortness of breath. Denied having any fever. No reported chest pain. No lower extremity swelling. No altered mentation. He was covered on some brownish sputum. No nausea vomiting or abdominal pain. In the ED, the patient was evaluated. He was afebrile. Initial white cell count was 11.6 with a hemoglobin of 9.8, BUN was 81 with a creatinine of 2.2 and his sodium level of 177. The rest of the electrolytes and LFTs were all within normal limits. The troponin was 0.148, proBNP level was 3170. And it showed chronic emphysematous changes with small right-sided pleural effusion and mild to moderate bibasilar scarring/atelectasis. At this point, the patient is admitted to the hospital. The patient is being given a combination of diabetes, steroids, and the patient is also on a combination of Lasix 80 mg and this is being given twice a day and Zaroxolyn. He is currently on 2 L of oxygen by nasal cannula. Reevaluated today on 06/23/21, patient remains on 2 L nasal cannula, O2 sats is 97%. Patient is being treated for congestive heart failure/diastolic in nature and COPD exacerbation. Presently his diuretics are on hold. He remains on bronchodilators, and overall seems to be improving. Patient normally has an FEV1 of 44%, he had a recent cardiac catheterization, and he was found to have this multivessel coronary artery disease. Underwent atherectomy and PTCA/stenting of the left main artery and mid LAD. Patient is also known to have history of chronic kidney disease stage III hypertension diabetes dyslipidemia. Today the patient is feeling a bit better, breathing a lot easier. Reevaluated today on 06/24/21, patient seems to be doing well today, relatively asymptomatic, minimal shortness of breath, no cough no wheezing no fever no chills no hemoptysis. Chest x-ray from yesterday showed chronic interstitial changes, no acute process is noted. CBC today showed leukocytosis with WBC of 16.2 hemoglobin 9.2. First are normal BUN is 88 creatinine 1.90. Objective - Vital Signs Vital signs: Vital Signs Temp 98.4 F 06/24/21 08:00 Pulse 64 06/24/21 09:08 Resp 20 06/24/21 08:00 BP 109/50 06/24/21 08:00 Pulse Ox 99 06/24/21 08:59 Intake & Output 06/23/21 06/24/21 06/24/21 18:59 06:59 18:59 Intake Total 236 Output Total 300 1250 Balance -64 -1250 Weight 101.5 kg Intake: Oral 236 Output: Urine 300 1250 Other: # Voids 2 - Exam Physical Exam: Revealed 80-year-old white male in no distress. Head: Atraumatic, normocephalic. HEENT:[Neck is supple.] [No neck masses.] [No thyromegaly.] [No JVD.] Chest: [Diminished breath sounds at the bases no crackles or rhonchi] Cardiac Exam: [Normal S1 and S2, no S3 gallop, no murmur.] Abdomen: [Soft, nontender, no megaly, no rebound, no guarding, normal bowel sounds.] Extremities: [No clubbing, no edema, no cyanosis.] Neurological Exam: [No focal neurologic deficit.] Psychiatric: Normal mood affect and normal mental status examination. HEENT: No rashes Musculoskeletal: No deformities and no limitation in range of motion - Labs CBC & Chem 7: 06/24/21 06:29 06/24/21 06:29 Labs: Abnormal Lab Results - Last 24 Hours (Table) 06/23/21 06/23/21 06/23/21 Range/Units 11:48 16:18 20:04 WBC (3.8-10.6) k/uL RBC (4.30-5.90) m/uL Hgb (13.0-17.5) gm/dL Hct (39.0-53.0) % Neutrophils # (1.3-7.7) k/uL Lymphocytes # (1.0-4.8) k/uL BUN (9-20) mg/dL Creatinine (0.66-1.25) mg/dL Glucose (74-99) mg/dL POC Glucose (mg/dL) 255 H 179 H 186 H (75-99) mg/dL C-Reactive Protein (<1.0) mg/dL Procalcitonin (0.02-0.09) ng/mL 06/24/21 06/24/21 06/24/21 Range/Units 06:02 06:29 06:29 WBC (3.8-10.6) k/uL RBC (4.30-5.90) m/uL Hgb (13.0-17.5) gm/dL Hct (39.0-53.0) % Neutrophils # (1.3-7.7) k/uL Lymphocytes # (1.0-4.8) k/uL BUN 88 H (9-20) mg/dL Creatinine 1.90 H (0.66-1.25) mg/dL Glucose 171 H (74-99) mg/dL POC Glucose (mg/dL) 201 H (75-99) mg/dL C-Reactive Protein 5.9 H (<1.0) mg/dL Procalcitonin 0.24 H (0.02-0.09) ng/mL 06/24/21 06/24/21 Range/Units 06:29 11:36 WBC 16.2 H (3.8-10.6) k/uL RBC 2.94 L (4.30-5.90) m/uL Hgb 9.2 L (13.0-17.5) gm/dL Hct 28.5 L (39.0-53.0) % Neutrophils # 15.1 H (1.3-7.7) k/uL Lymphocytes # 0.7 L (1.0-4.8) k/uL BUN (9-20) mg/dL Creatinine (0.66-1.25) mg/dL Glucose (74-99) mg/dL POC Glucose (mg/dL) 156 H (75-99) mg/dL C-Reactive Protein (<1.0) mg/dL Procalcitonin (0.02-0.09) ng/mL Microbiology - Last 24 Hours (Table) 06/23/21 04:14 Blood Culture - Preliminary Blood No Growth after 24 hours 06/23/21 03:19 Blood Culture - Preliminary Blood No Growth after 24 hours Assessment and Plan Assessment: Impression: Acute exacerbation of COPD and no evidence of infiltrates. Pro-calcitonin is only 0.24, Symptomatic multivessel coronary artery disease status post stenting Chronic diastolic congestive heart failure Benign essential hypertension Chronic kidney disease stage III Severe COPD, FEV1 of 44% x smoker Type 2 diabetes Dyslipidemia Recommendation: Continue bronchodilators Continue steroids Continue diuretics Consider discharge planning, which clear from the pulmonary perspective if cleared by other consultants. Patient to go back on [facility] post discharge. Follow-up with Dr. Malave of Dr. Dr. Gee on outpatient basis Time with Patient: Less than 30
--- NOTE | 2021-06-24 13:00 | ECHOF ---
Referral Reason:cad MEASUREMENTS -------- HEIGHT: 182.9 cm WEIGHT: 111.1 kg BP: 133/66 RVIDd: 3.1 cm (< 3.3) IVSd: 1.5 cm (0.6 - 1.1) LVIDd: 5.4 cm (3.9 - 5.3) LVPWd: 1.5 cm (0.6 - 1.1) IVSs: 2.0 cm LVIDs: 4.3 cm LVPWs: 1.8 cm Ao Diam: 3.7 cm (2.0 - 3.7) MV EXCURSION: 14.259 mm (> 18.000) MV EF SLOPE: 88 mm/s (70 - 150) EPSS: 0.9 cm FINDINGS -------- Sinus rhythm. This was a technically adequate study. Limited Study The left ventricular size is normal. There is moderate concentric left ventricular hypertrophy. O verall left ventricular systolic function is low-normal with, an EF between 50 - 55 %. Basal inferi or LV wall motion is hypokinetic. Basal inferoseptal LV wall motion is hypokinetic. The right ventricle is normal in size. Interatrial and interventricular septum intact. The aortic valve is trileaflet, and appears structurally normal. No aortic stenosis or regurgitation. Mild mitral annular calcification present. Mild mitral regurgitation is present. The tricuspid valve appears structurally normal. Unable to estimate RVSP due to inadequate TR jet s pectral doppler profile. The aortic root size is normal. There is no pericardial effusion. CONCLUSIONS -------- 1. The left ventricular size is normal. 2. There is moderate concentric left ventricular hypertrophy. 3. Overall left ventricular systolic function is low-normal with, an EF between 50 - 55 %. 4. ? Basal inferior LV wall motion is hypokinetic. 5. ? Basal inferoseptal LV wall motion is hypokinetic. 6. Mild mitral annular calcification present. 7. Mild mitral regurgitation is present. 8. There is no pericardial effusion. [employer] MANAGER: Starr Perry [facility]
--- NOTE | 2021-06-24 13:12 | P.DS ---
Providers Date of admission: 06/22/21 13:31 Attending physician: Brandi Rodriguez Consults: 06/22/21 13:31 Consult Physician Routine Consulting Provider: Pola Gee Consult Reason/Comments: COPD Do you want consulting provider notified?: Yes 06/22/21 20:47 Consult Physician Urgent Consulting Provider: Zev Ramirez Consult Reason/Comments: elevated trop Do you want consulting provider notified?: Yes Consult Physician Urgent Consulting Provider: Liliane Hunter Consult Reason/Comments: elevated renal labs Do you want consulting provider notified?: Yes 06/22/21 23:53 Consult Physician Routine Consulting Provider: Val Ha Consult Reason/Comments: possible PNA Do you want consulting provider notified?: Yes, Notify in am Primary care physician: Shannon Fuentes [facility] Course: Patient came in with shortness of breath does have history of COPD as well as diastolic heart failure and patient was believed to have heart failure exacerbation was given Lasix but patient is actually volume depleted at this time because of which patient is receiving gentle hydration and patient is off diuretics at this time. Patient has lactic acidosis secondary to intravascular volume depletion is no evidence of pneumonia patient is on antibiotic for pneumonia which will risk and urine patient will continue on azithromycin and patient wheezing is better today patient probably has COPD exacerbation on admission. Patient is in acute renal failure. 06/24/2021 Patient's creatinine severe failure improved at this time. Patient creatinine is around 1.9 which is close to his baseline of around 1.5-1.9. Patient's diuretics were held aspiration because of her intravascular 100 patient. Patient so home diuretic dose will be decreased and patient will be discharged today patient is not in COPD exacerbation at this time patient discharged on 3 more days of levofloxacin. PHYSICAL EXAMINATION: GENERAL: The patient is alert and oriented x3, not in any acute distress. Well developed, well nourished. HEENT: Pupils are round and equally reacting to light. EOMI. No scleral icterus. No conjunctival pallor. Normocephalic, atraumatic. No pharyngeal erythema. No thyromegaly. CARDIOVASCULAR: S1 and S2 present. No murmurs, rubs, or gallops. PULMONARY: Mild expiratory wheezing on exam ABDOMEN: Soft, nontender, nondistended, normoactive bowel sounds. No palpable organomegaly. MUSCULOSKELETAL: No joint swelling or deformity. EXTREMITIES: No cyanosis, clubbing, or pedal edema. NEUROLOGICAL: Gross neurological examination did not reveal any focal deficits. SKIN: No rashes. Assessment and plan -COPD with acute exacerbation patient has a chronic hypercapnic respiratory failure secondary to COPD exacerbation can use systemic steroids and treatments for his evidence of pneumonia . -congestive heart failure chronic diastolic dysfunction without any acute exacerbation. Patient patient is actually volume depleted, diuretics is are being held patient is on gentle hydration -coronary artery disease with stent placement LAD -Chronic kidney disease stage III baseline creatinine around 1.6 -Hypertension next and-hyperlipidemia -Peptic ulcer disease history -Osteoarthritis Patient Condition at Discharge: Stable Plan - Discharge Summary Discharge Rx Participant: No New Discharge Prescriptions: New Levofloxacin [Levaquin] 250 mg PO DAILY #3 tab predniSONE 10 mg PO DAILY #30 tab hydrALAZINE HCL [Apresoline] 25 mg PO BID #60 tab Furosemide [Lasix] 60 mg PO BID #60 tab Continue Tamsulosin HCl [Flomax] 0.4 mg PO DAILY Sennosides [Senna] 8.6 mg PO BID PRN PRN Reason: Constipation HYDROcodone/APAP 10-325MG [Sharon 10-325] 1 tab PO Q6H PRN PRN Reason: Pain Finasteride [Proscar] 5 mg PO DAILY Carvedilol [Coreg] 3.125 mg PO BID-W/MEALS Ferrous Sulfate [Iron (65 MG Elemental)] 325 mg PO BID-W/MEALS #180 tab Atorvastatin [Lipitor] 40 mg PO DAILY #90 tab Albuterol Inhaler [Ventolin Hfa Inhaler] 2 puff INHALATION RT-QID PRN #1 inh PRN Reason: Shortness Of Breath Melatonin 6 mg PO HS PRN 10 Days #20 tablet PRN Reason: Insomnia Cyanocobalamin [Vitamin B-12] 500 mcg PO DAILY 30 Days #30 tab Cholecalciferol (Vitamin D3) [Vitamin D3 (125 MCG = 5,000 IU)] 125 mcg PO DAILY Fluticasone/Umeclidin/Vilanter [Trelegy Ellipta 100-62.5-25] 1 puff INHALATION RT-DAILY Clopidogrel [Plavix] 75 mg PO DAILY #90 tab Pantoprazole [Protonix] 40 mg PO BID Nitroglycerin Sl Tabs [Nitrostat] 0.4 mg SL Q5M PRN PRN Reason: Chest Pain metOLazone [Zaroxolyn] 2.5 mg PO SUWE Folic Acid 1 mg PO DAILY #30 tab Aspirin EC [Ecotrin Low Dose] 81 mg PO DAILY 30 Days #30 tab Discontinued Furosemide [Lasix] 80 mg PO BID predniSONE 5 mg PO DAILY 30 Days #15 tab Losartan Potassium 50 mg PO DAILY Discharge Medication List Carvedilol [Coreg] 3.125 mg PO BID-W/MEALS 05/22/21 [History] Cholecalciferol (Vitamin D3) [Vitamin D3 (125 MCG = 5,000 IU)] 125 mcg PO DAILY 05/22/21 [History] Finasteride [Proscar] 5 mg PO DAILY 05/22/21 [History] Fluticasone/Umeclidin/Vilanter [Trelegy Ellipta 100-62.5-25] 1 puff INHALATION RT-DAILY 05/22/21 [History] HYDROcodone/APAP 10-325MG [Sharon 10-325] 1 tab PO Q6H PRN 05/22/21 [History] Sennosides [Senna] 8.6 mg PO BID PRN 05/22/21 [History] Tamsulosin HCl [Flomax] 0.4 mg PO DAILY 05/22/21 [History] Atorvastatin [Lipitor] 40 mg PO DAILY #90 tab 05/29/21 [Rx] Clopidogrel [Plavix] 75 mg PO DAILY #90 tab 05/29/21 [Rx] Ferrous Sulfate [Iron (65 MG Elemental)] 325 mg PO BID-W/MEALS #180 tab 05/29/21 [Rx] Albuterol Inhaler [Ventolin Hfa Inhaler] 2 puff INHALATION RT-QID PRN #1 inh 05/30/21 [Rx] Nitroglycerin Sl Tabs [Nitrostat] 0.4 mg SL Q5M PRN 06/08/21 [History] Pantoprazole [Protonix] 40 mg PO BID 06/08/21 [History] metOLazone [Zaroxolyn] 2.5 mg PO SUWE 06/08/21 [History] Cyanocobalamin [Vitamin B-12] 500 mcg PO DAILY 30 Days #30 tab 06/11/21 [Rx] Folic Acid 1 mg PO DAILY #30 tab 06/11/21 [Rx] Melatonin 6 mg PO HS PRN 10 Days #20 tablet 06/11/21 [Rx] Aspirin EC [Ecotrin Low Dose] 81 mg PO DAILY 30 Days #30 tab 06/12/21 [Rx] Furosemide [Lasix] 60 mg PO BID #60 tab 06/24/21 [Rx] Levofloxacin [Levaquin] 250 mg PO DAILY #3 tab 06/24/21 [Rx] hydrALAZINE HCL [Apresoline] 25 mg PO BID #60 tab 06/24/21 [Rx] predniSONE 10 mg PO DAILY #30 tab 06/24/21 [Rx] Follow up Appointment(s)/Referral(s): [facility], [NON-STAFF] - Owen Ortega MD [Primary Care Provider] - 3 Days Discharge Disposition: HOME WITH HOME HEALTH SERVICES
[2021-06-24 16:17] VITALS: BP 136/56; TEMP 98.3
[2021-06-24 16:24] LABS: Glucose,Whole Blood 288 mg/dL (75-99)
[2021-06-24 17:39] VITALS: PULSE 64
[2021-06-24] MEDS ORDERED: AZITHROMYCIN 500 MG TAB PO SCH (21:00)
[2021-06-25] MEDS ORDERED: metOLazone 2.5 MG TAB PO SCH (09:00)
== END 2021-06-24 19:35 | disposition home health service (06) | DRG 190 ==
LOC: EC 11:26 → 3SCARD 13:31
PROVIDERS: ADMIT Internal Medicine; ATTEND Internal Medicine
DX: J44.1 Chronic obstructive pulmonary disease with (acute) exacerbation (principal); J96.21 Acute and chronic respiratory failure with hypoxia; J96.22 Acute and chronic respiratory failure with hypercapnia; J18.9 Pneumonia, unspecified organism; I21.4 Non-ST elevation (NSTEMI) myocardial infarction; J98.11 Atelectasis; E87.2 Acidosis; I13.0 Hypertensive heart and chronic kidney disease with heart failure and stage 1 through stage 4 chronic kidney disease, or unspecified chronic kidney disease; I42.9 Cardiomyopathy, unspecified; I50.32 Chronic diastolic (congestive) heart failure; N17.9 Acute kidney failure, unspecified; J44.0 Chronic obstructive pulmonary disease with (acute) lower respiratory infection; J20.9 Acute bronchitis, unspecified; E11.22 Type 2 diabetes mellitus with diabetic chronic kidney disease; N18.31 Chronic kidney disease, stage 3a; D63.1 Anemia in chronic kidney disease; E78.5 Hyperlipidemia, unspecified; E86.9 Volume depletion, unspecified; I25.10 Atherosclerotic heart disease of native coronary artery without angina pectoris; I25.2 Old myocardial infarction; I44.7 Left bundle-branch block, unspecified; Z87.11 Personal history of peptic ulcer disease; Z99.81 Dependence on supplemental oxygen; N40.1 Benign prostatic hyperplasia with lower urinary tract symptoms; R33.8 Other retention of urine; I49.3 Ventricular premature depolarization; M15.9 Polyosteoarthritis, unspecified; Z79.82 Long term (current) use of aspirin; Z79.899 Other long term (current) drug therapy; Z82.49 Family history of ischemic heart disease and other diseases of the circulatory system; Z87.891 Personal history of nicotine dependence; Z95.5 Presence of coronary angioplasty implant and graft; Z90.89 Acquired absence of other organs; Z90.49 Acquired absence of other specified parts of digestive tract; Z86.010 Personal history of colon polyps; Z98.890 Other specified postprocedural states; Z79.02 Long term (current) use of antithrombotics/antiplatelets
CPT/HCPCS: 36415; 71046; 76770; 80048; 80053; 81003; 82803; 83605; 83735; 83880; 84145; 84484; 85025; 85610; 85730; 86140; 87040; 93005; 93306; 94640; 94760; 96374; 99285

== ENCOUNTER 2022-01-26 03:05 | Inpatient (IN) | payer MEDICARE ==
--- NOTE | 2022-01-26 03:12 | ED ---
SOB HPI - General Stated Complaint: Difficulty Breathing, CHF Time Seen by Provider: 01/26/22 03:11 Source: RN notes reviewed, old records reviewed Mode of arrival: EMS Limitations: language barrier - History of Present Illness Initial Comments: This is an 81-year-old male DF for severe shortness of breath increased work of breathing on BiPAP per EMS. Patient presents today for evaluation of shortness of breath unable to provide history but denying chest pain. Patient was having significant shortness of breath with low oxygen at home per EMS MD Complaint: shortness of breath, cough, chest pain, anxiety -: hour(s) Radiation: back Severity: moderate, severe Severity scale (1-10): 7 Quality: aching Consistency: constant Improves With: oxygen, upright position Worsens With: lying flat, exertion, movement Known History Of: COPD, asthma, congestive heart failure Context: anxiety Associated Symptoms: cough, sputum production Treatments Prior to Arrival: oxygen, bronchodilator, NIPPV - Related Data Home Medications Medication Instructions Recorded Confirmed Finasteride [Proscar] 5 mg PO DAILY 05/22/21 08/07/21 HYDROcodone/APAP 10-325MG [[place] 1 tab PO Q4H PRN 05/22/21 08/07/21 10-325] Sennosides [Senna] 8.6 mg PO BID PRN 05/22/21 08/07/21 Tamsulosin HCl [Flomax] 0.4 mg PO DAILY 05/22/21 08/07/21 carvediloL [Coreg] 6.25 mg PO BID-W/MEALS 05/22/21 08/07/21 Nitroglycerin Sl Tabs [Nitrostat] 0.4 mg SL Q5M PRN 06/08/21 08/07/21 Pantoprazole [Protonix] 40 mg PO BID 06/08/21 08/07/21 Albuterol Sulfate [Proair Hfa] 2 puff INHALATION RT-Q4H PRN 08/07/21 08/07/21 Ipratropium-Albuterol Nebulize 3 ml INHALATION RT-Q4H PRN 08/07/21 08/07/21 [Duoneb 0.5 mg-3 mg/3 ml Soln] Melatonin 5 mg PO HS 08/07/21 08/07/21 Potassium Chloride [Klor-Con M10] 10 meq PO DAILY 08/07/21 08/07/21 Previous Rx's Medication Instructions Recorded Atorvastatin [Lipitor] 40 mg PO DAILY #90 tab 05/29/21 Clopidogrel [Plavix] 75 mg PO DAILY #90 tab 05/29/21 Ferrous Sulfate [Iron (65 MG 325 mg PO BID-W/MEALS #180 tab 05/29/21 Elemental)] Cyanocobalamin [Vitamin B-12] 500 mcg PO DAILY 30 Days #30 tab 06/11/21 Folic Acid 1 mg PO DAILY #30 tab 06/11/21 Aspirin EC [Ecotrin Low Dose] 81 mg PO DAILY 30 Days #30 tab 06/12/21 Budesonide-Formot 160-4.5 Mcg 2 puff INHALATION RT-BID gm 08/12/21 [Symbicort 160-4.5 Mcg Inhaler] Furosemide [Lasix] 40 mg PO BID@0900,1600 30 Days #60 08/12/21 tab Ipratropium-Albuterol Nebulize 3 ml INHALATION RT-QID ml 08/12/21 [Duoneb 0.5 mg-3 mg/3 ml Soln] hydrALAZINE HCL [Apresoline] 50 mg PO BID 30 Days #60 tab 08/12/21 predniSONE 10 mg PO DIRECTED #30 tab 08/12/21 Allergies Allergy/AdvReac Type Severity Reaction Status Date / Time lisinopril Allergy Anaphylaxis, Verified 08/07/21 17:58 Tongue swelling Review of Systems ROS Statement: Those systems with pertinent positive or pertinent negative responses have been documented in the HPI. ROS Other: All systems not noted in ROS Statement are negative. Past Medical History Past Medical History: COPD, Hyperlipidemia, Hypertension, Osteoarthritis (OA), Prostate Disorder, Renal Disease, Vascular Disorder Additional Past Medical History / Comment(s): PVC's, CKD stage III, chronic anemia, BPH, urinary retention, UTI, pancreatitis, gastric ulcer, arthritis in multiple joints/occasional low back pain History of Any Multi-Drug Resistant Organisms: None Reported Past Surgical History: Appendectomy, Cholecystectomy, Heart Catheterization, Heart Catheterization With Stent, Tonsillectomy Additional Past Surgical History / Comment(s): R caratid endartectomy, arch study, colonoscopies/benign polypectomies, EGD, pilonidal cyst removed x 2, heart cath with stent placement Past Anesthesia/Blood Transfusion Reactions: No Reported Reaction Date of Last Stent Placement:: 2/22/22 Past Psychological History: No Psychological Hx Reported Smoking Status: Former smoker Past Alcohol Use History: None Reported Past Drug Use History: None Reported - Past Family History Father Family Medical History: No Reported History Mother Family Medical History: Congestive Heart Failure (CHF) General Exam General appearance: alert, anxious, in distress Head exam: Present: atraumatic, normocephalic, normal inspection Eye exam: Present: normal appearance, PERRL, EOMI. Absent: scleral icterus, conjunctival injection, periorbital swelling ENT exam: Present: normal exam, mucous membranes moist Neck exam: Present: normal inspection. Absent: tenderness, meningismus, lymphadenopathy Respiratory exam: Present: respiratory distress, wheezes, accessory muscle use, decreased breath sounds, prolonged expiratory. Absent: rales, rhonchi, stridor Cardiovascular Exam: Present: normal rhythm, tachycardia, normal heart sounds. Absent: systolic murmur, diastolic murmur, rubs, gallop, clicks GI/Abdominal exam: Present: soft, normal bowel sounds. Absent: distended, tenderness, guarding, rebound, rigid Extremities exam: Present: normal inspection, full ROM, normal capillary refill. Absent: tenderness, pedal edema, joint swelling, calf tenderness Back exam: Present: normal inspection Neurological exam: Present: alert, oriented X3, CN II-XII intact Psychiatric exam: Present: normal affect, normal mood Skin exam: Present: warm, dry, intact, normal color. Absent: rash Course Vital Signs 01/26/22 01/26/22 01/26/22 03:12 03:13 03:17 Temperature 98.2 F 98.2 F Pulse Rate 107 H 105 H Respiratory 25 H 20 Rate Blood Pressure 168/96 168/96 O2 Sat by Pulse 100 100 Oximetry Fraction of 35 35 Inspired Oxygen (FIO2) 01/26/22 01/26/22 01/26/22 03:22 03:26 03:31 Temperature Pulse Rate 99 101 H Respiratory 24 Rate Blood Pressure 168/86 O2 Sat by Pulse Oximetry Fraction of Inspired Oxygen (FIO2) - Reevaluation(s) Reevaluation #1: 01/26/22 04:05 Medical record is reviewed Reevaluation #2: 01/26/22 04:05 Patient placed on BiPAP upon arrival in the ER Reevaluation #3: 01/26/22 04:05 Patient is currently able to get some rest on BiPAP - Consultations Consultation #1: Spoke with who agrees to admit this patient Medical Decision Making - Medical Decision Making 81 male with acute respiratory failure secondary to history of COPD and CHF. Patient is given blood pressure control here in the ER and placed on BiPAP. Given breathing treatments as well - Lab Data Result diagrams: 01/26/22 03:33 01/26/22 03:33 Lab Results 01/26/22 01/26/22 Range/Units 03:33 03:33 WBC 14.8 H (3.8-10.6) k/uL RBC 3.13 L (4.30-5.90) m/uL Hgb 10.0 L (13.0-17.5) gm/dL Hct 30.6 L (39.0-53.0) % MCV 97.8 (80.0-100.0) fL MCH 32.1 (25.0-35.0) pg MCHC 32.8 (31.0-37.0) g/dL RDW 14.1 (11.5-15.5) % Plt Count 167 (150-450) k/uL MPV 8.0 Neutrophils % 91 % Lymphocytes % 4 % Monocytes % 4 % Eosinophils % 0 % Basophils % 0 % Neutrophils # 13.4 H (1.3-7.7) k/uL Lymphocytes # 0.6 L (1.0-4.8) k/uL Monocytes # 0.6 (0-1.0) k/uL Eosinophils # 0.0 (0-0.7) k/uL Basophils # 0.0 (0-0.2) k/uL Sodium 137 (137-145) mmol/L Potassium 4.3 (3.5-5.1) mmol/L Chloride 106 (98-107) mmol/L Carbon Dioxide 23 (22-30) mmol/L Anion Gap 8 mmol/L BUN 42 H (9-20) mg/dL Creatinine 1.35 H (0.66-1.25) mg/dL Est GFR (CKD-EPI)AfAm 57 (>60 ml/min/1.73 sqM) Est GFR (CKD-EPI)NonAf 49 (>60 ml/min/1.73 sqM) Glucose 171 H (74-99) mg/dL Calcium 7.7 L (8.4-10.2) mg/dL Total Bilirubin 0.7 (0.2-1.3) mg/dL AST 59 (17-59) U/L ALT 33 (4-49) U/L Alkaline Phosphatase 250 H (38-126) U/L Total Protein 5.2 L (6.3-8.2) g/dL Albumin 3.1 L (3.5-5.0) g/dL - EKG Data -: EKG Interpreted by Me (EKG sinus tachycardia 108 MI 162 QRS 122 QTC 414) - Radiology Data Radiology results: report reviewed (Chest x-rays positive for CHF), image reviewed Critical Care Time Critical Care Time: Yes Critical Care Time: 31 Disposition Clinical Impression: Systolic congestive heart failure, Acute exacerbation of chronic obstructive pulmonary disease, Dyspnea, Acute pulmonary edema, Congestive heart failure, Acute respiratory failure Disposition: ADMITTED IP TO THIS [facility] Condition: Serious Is patient prescribed a controlled substance at d/c from ED?: No Referrals: None,Stated [Primary Care Provider] - 1-2 days Time of Disposition: 04:10
[2022-01-26] MEDS ORDERED: IPRATROPIUM-ALBUTEROL 3 ML NEB INHALATION STA (03:23)
[2022-01-26 03:42] LABS: Basophils % (A) 0 %; Eosinophils % (A) 0 %; HCT 30.6 % (39.0-53.0); Lymphocytes # (A) 0.6 k/uL (1.0-4.8); Lymphocytes % (A) 4 %; MCH 32.1 pg (25.0-35.0); MCHC 32.8 g/dL (31.0-37.0); MCV 97.8 fL (80.0-100.0); Monocytes # (A) 0.6 k/uL (0-1.0); Monocytes % (A) 4 %; Neutrophils # (A) 13.4 k/uL (1.3-7.7); Neutrophils % (A) 91 %; Platelet Count 167 k/uL (150-450); RBC 3.13 m/uL (4.30-5.90); RDW 14.1 % (11.5-15.5); WBC 14.8 k/uL (3.8-10.6)
[2022-01-26 03:57] LABS: Albumin 3.1 g/dL (3.5-5.0); Calcium 7.7 mg/dL (8.4-10.2); Potassium 4.3 mmol/L (3.5-5.1); Total Bilirubin 0.7 mg/dL (0.2-1.3); Total Protein 5.2 g/dL (6.3-8.2)
[2022-01-26 04:01] LABS: INR 1.1 (<1.2); Prothrombin Time 11.5 sec (9.0-12.0)
[2022-01-26] MEDS ORDERED: NALOXONE 0.4 MG/ML 1 ML VIAL IV PRN (04:07)
[2022-01-26] MEDS ORDERED: ONDANSETRON 4 MG/2 ML VIAL IVP PRN (04:07)
--- NOTE | 2022-01-26 04:26 | XR ---
EXAMINATION TYPE: XR chest 1V portable DATE OF EXAM: 01/26/2022 COMPARISON: 08/07/2021 HISTORY: Short of breath TECHNIQUE: Single view FINDINGS: Heart is enlarged. There is coarse interstitial infiltrate in the lung [place] bilaterally. There is some blunting of the right costophrenic angle. Interstitial infiltrate much more on the right side. IMPRESSION: Bilateral predominantly interstitial pneumonia and much worse on the right side. This rosalind ears significantly increased compared to last exam. Congestive heart failure not excluded.
[2022-01-26 04:36] LABS: Partial Thromboplastin Time 19.4 sec (22.0-30.0)
[2022-01-26] MEDS ORDERED: AZITHROMYCIN 500 MG in SODIUM CHLORIDE 0.9% 250 ML IVPB STA (05:49)
[2022-01-26] MEDS: FUROSEMIDE 10 MG/ML 10 ML VIAL IV SCH ×3 (06:12→23:14)
[2022-01-26] MEDS: IPRATROPIUM-ALBUTEROL 3 ML NEB INHALATION PRN ×2 (07:58→11:17)
[2022-01-26] MEDS ORDERED: FUROSEMIDE 10 MG/ML 10 ML VIAL IV SCH (08:00)
[2022-01-26] MEDS ORDERED: hydrALAZINE HCL 50 MG TAB PO SCH (09:00)
--- NOTE | 2022-01-26 09:59 | P.CRDCN ---
History of Present Illness History of present illness: This is a pleasant 80-year-old male past medical history significant for hypertension, chronic heart failure with preserved ejection fraction, BPH, PVCs, prior nicotine dependence, prior diabetes, coronary artery stenosis status post right carotid endarterectomy, venous insufficiency, chronic kidney disease, recent NSTEMI, coronary artery disease status post impella supported PCI to the left main and mid LAD in 05/2021. He follows in the office with Dr. Ramirez. We have been asked to see in consultation for congestive heart failure. Patient presents to the emergency department with worsening shortness of breath. He has been noticing worsening shortness of breath over the past few days. He also has been having increased weight gain and symptoms of orthopnea, PND, and worsening LE edema. Present to the emergency department for further evaluation. He denies any chest pain, palpitations, lightheadedness or dizziness. He states he is compliant with his medication. He does not watch/monitor his diet or salt intake. He was started on IV Lasix in the ER he states his breathing has improved. DIAGNOSTICS -EKG reveals sinus tachycardia, heart rate 108, incomplete right bundle branch block, ST depression noted in lead II, V4 through V6. Prior EKGs patient with similar findings. -Telemetry tracings indicate sinus rhythm, heart rate has improved 80s/90s -Chest xray heart is enlarged, bilateral interstitial edema noted. Pneumonia cannot be excluded. -Most recent Echo , limited 08/08/2021 revealed an EF of 4045 percent, inferior wall akinesis. -Laboratory reviewed, WBC 14.8, hemoglobin 10, platelets 167, sodium 137, potassium 4.3, BUN 42, serum, 0.35, troponin 0.10, 0.27, proBNP 10,900 -Current home medications include hydralazine 25 mg twice a day, when necessary nitro, Lasix 80 mg daily, Plavix 75 mg daily, aspirin 81 mg daily, Coreg 6.25 mg twice a day, atorvastatin 40 mg daily REVIEW OF SYSTEMS At the time of my exam: CONSTITUTIONAL: Denies fever or chills. CARDIOVASCULAR: Denies chest pain, +shortness of breath, +LE edema +orthopnea, +PND Denies palpitations. RESPIRATORY: Denies cough. GASTROINTESTINAL: Denies abdominal pain, diarrhea, constipation, nausea or vomiting. MUSCULOSKELETAL: Denies myalgias. NEUROLOGIC: Denies numbness, tingling, headache or weakness. ENDOCRINE: Denies fatigue, +weight change, Denies polydipsia or polyurina. GENITOURINARY: Denies burning, hematuria or urgency with micturation. HEMATOLOGIC: Denies history of anemia or bleeding. PHYSICAL EXAMINATION Blood pressure 179/84, heart 96, afebrile, saturation 99% on BiPAP CONSTITUTIONAL: No apparent distress. HEENT: Head is normocephalic. Pupils are equal, round. Sclerae anicteric. Mucous membranes of the mouth are moist. + JVD. CHEST EXAMINATION: Lungs crackles in the bases to auscultation. No chest wall tenderness is noted on palpation or with deep breathing. HEART EXAMINATION: Regular rate and rhythm. S1, S2 heard. Systolic ejection murmur at apex ABDOMEN: Soft, nontender. Positive bowel sounds. EXTREMITIES: 2+ peripheral pulses, 4+ bilateral lower extremity edema no calf tenderness. NEUROLOGIC EXAMINATION: Patient is awake, alert and oriented x3. ASSESSMENT Acute on chronic heart failure with mildly reduced ejection fraction, borderline EF 40-45% Acute hypoxic respiratory failure Prior Non-STEMI 05/27/2021, status post Impella supported PCI of the left main and LAD Elevated troponin, likely due to heart failure Coronary artery disease s/p high risk impella supported PCI left main and LAD 05/2021 Chronic kidney disease Anemia Hypertension Hyperlipidemia Type 2 Diabetes COPD PLAN IV Lasix 60mg Q8hr Continue to monitor renal function and electrolytes, monitor I's and O's and daily weights Continue dual antiplatelet therapy with aspirin and Plavix Continue statin, carvedilol, hydralazine Further recommendations based on clinical course Nurse practitioner note has been reviewed by physician. Signing provider agrees with the documented findings, assessment, and plan of care. Past Medical History Past Medical History: COPD, Hyperlipidemia, Hypertension, Osteoarthritis (OA), Prostate Disorder, Renal Disease, Vascular Disorder Additional Past Medical History / Comment(s): PVC's, CKD stage III, chronic anemia, BPH, urinary retention, UTI, pancreatitis, gastric ulcer, arthritis in multiple joints/occasional low back pain History of Any Multi-Drug Resistant Organisms: None Reported Past Surgical History: Appendectomy, Cholecystectomy, Heart Catheterization, Heart Catheterization With Stent, Tonsillectomy Additional Past Surgical History / Comment(s): R caratid endartectomy, arch study, colonoscopies/benign polypectomies, EGD, pilonidal cyst removed x 2, heart cath with stent placement Past Anesthesia/Blood Transfusion Reactions: No Reported Reaction Date of Last Stent Placement:: 05/27/21 Past Psychological History: No Psychological Hx Reported Smoking Status: Former smoker Past Alcohol Use History: None Reported Past Drug Use History: None Reported - Past Family History Father Family Medical History: No Reported History Mother Family Medical History: Congestive Heart Failure (CHF) Medications and Allergies Home Medications Medication Instructions Recorded Confirmed Type Finasteride [Proscar] 5 mg PO DAILY 05/22/21 01/26/22 History HYDROcodone/APAP 10-325MG [[place] 1 tab PO Q4H PRN 05/22/21 01/26/22 History 10-325] Sennosides [Senna] 8.6 mg PO BID PRN 05/22/21 01/26/22 History Tamsulosin HCl [Flomax] 0.4 mg PO DAILY 05/22/21 01/26/22 History carvediloL [Coreg] 6.25 mg PO BID-W/MEALS 05/22/21 01/26/22 History Atorvastatin [Lipitor] 40 mg PO DAILY #90 tab 05/29/21 01/26/22 Rx Clopidogrel [Plavix] 75 mg PO DAILY #90 tab 05/29/21 01/26/22 Rx Ferrous Sulfate [Iron (65 MG 325 mg PO BID-W/MEALS #180 tab 05/29/21 01/26/22 Rx Elemental)] Nitroglycerin Sl Tabs [Nitrostat] 0.4 mg SL Q5M PRN 06/08/21 01/26/22 History Pantoprazole [Protonix] 40 mg PO BID 06/08/21 01/26/22 History Cyanocobalamin [Vitamin B-12] 500 mcg PO DAILY 30 Days #30 tab 06/11/21 01/26/22 Rx Folic Acid 1 mg PO DAILY #30 tab 06/11/21 01/26/22 Rx Aspirin EC [Ecotrin Low Dose] 81 mg PO DAILY 30 Days #30 tab 06/12/21 01/26/22 Rx Albuterol Sulfate [Proair Hfa] 2 puff INHALATION RT-Q4H PRN 08/07/21 01/26/22 History Melatonin 5 mg PO HS 08/07/21 01/26/22 History Potassium Chloride [Klor-Con M10] 10 meq PO DAILY 08/07/21 01/26/22 History Budesonide-Formot 160-4.5 Mcg 2 puff INHALATION RT-BID gm 08/12/21 01/26/22 Rx [Symbicort 160-4.5 Mcg Inhaler] Ipratropium-Albuterol Nebulize 3 ml INHALATION RT-QID ml 08/12/21 01/26/22 Rx [Duoneb 0.5 mg-3 mg/3 ml Soln] Furosemide [Lasix] 80 mg PO DAILY 01/26/22 01/26/22 History Vitamin D Complete W/ Iron 1 tab PO DAILY 01/26/22 01/26/22 History hydrALAZINE HCL [Apresoline] 25 mg PO BID 01/26/22 01/26/22 History predniSONE 10 mg PO DAILY 01/26/22 01/26/22 History Allergies Allergy/AdvReac Type Severity Reaction Status Date / Time lisinopril Allergy Anaphylaxis, Verified 01/26/22 08:52 Tongue swelling Physical Exam Vitals: Vital Signs Temp Pulse Resp BP Pulse Ox FiO2 01/26/22 06:23 96 15 179/84 99 01/26/22 05:05 92 16 178/89 100 01/26/22 04:29 90 24 172/141 99 01/26/22 03:40 96 01/26/22 03:31 101 H 168/86 01/26/22 03:26 99 01/26/22 03:22 24 01/26/22 03:17 98.2 F 105 H 20 168/96 100 01/26/22 03:13 98.2 F 107 H 25 H 168/96 100 35 01/26/22 03:12 35 Intake and Output 01/25/22 01/26/22 01/26/22 22:59 06:59 14:59 Other: Weight 127.006 kg Results 01/26/22 03:33 01/26/22 03:33 Cardiac Enzymes 01/26/22 01/26/22 Range/Units 03:33 03:33 AST 59 (17-59) U/L Troponin I 0.109 H* (0.000-0.034) ng/mL Coagulation 01/26/22 Range/Units 03:33 PT 11.5 (9.0-12.0) sec APTT 19.4 L (22.0-30.0) sec CBC 01/26/22 Range/Units 03:33 WBC 14.8 H (3.8-10.6) k/uL RBC 3.13 L (4.30-5.90) m/uL Hgb 10.0 L (13.0-17.5) gm/dL Hct 30.6 L (39.0-53.0) % Plt Count 167 (150-450) k/uL Comprehensive Metabolic Panel 01/26/22 Range/Units 03:33 Sodium 137 (137-145) mmol/L Potassium 4.3 (3.5-5.1) mmol/L Chloride 106 (98-107) mmol/L Carbon Dioxide 23 (22-30) mmol/L BUN 42 H (9-20) mg/dL Creatinine 1.35 H (0.66-1.25) mg/dL Glucose 171 H (74-99) mg/dL Calcium 7.7 L (8.4-10.2) mg/dL AST 59 (17-59) U/L ALT 33 (4-49) U/L Alkaline Phosphatase 250 H (38-126) U/L Total Protein 5.2 L (6.3-8.2) g/dL Albumin 3.1 L (3.5-5.0) g/dL Current Medications Generic Name Dose Route Start Last Admin Trade Name Freq PRN Reason Stop Dose Admin Albuterol/Ipratropium 3 ml 01/26/22 04:09 Ipratropium-Albuterol 3 Ml Neb INHALATION RT-QID PRN Shortness Of Breath Or Wheezing Furosemide 60 mg 01/26/22 05:00 01/26/22 06:12 Furosemide 10 Mg/Ml 10 Ml Vial IV 60 mg Q8H ARTEMIO Administration Ceftriaxone Sodium 1 gm/ 50 mls @ 100 mls/hr 01/26/22 09:00 Sodium Chloride IVPB Q12HR ARTEMIO Protocol Azithromycin 500 mg/ Sodium 250 mls @ 250 mls/hr 01/26/22 09:00 Chloride IVPB 01/28/22 09:59 DAILY ARTEMIO Protocol Morphine Sulfate 4 mg 01/26/22 04:07 Morphine Sulfate 4 Mg/Ml Syringe IV Q4HR PRN Severe Pain (Scale 7 to 10) Naloxone HCl 0.2 mg 01/26/22 04:07 Naloxone 0.4 Mg/Ml 1 Ml Vial IV Q2M PRN Opioid Reversal Ondansetron HCl 4 mg 01/26/22 04:07 Ondansetron 4 Mg/2 Ml Vial IVP Q8HR PRN Nausea And Vomiting Intake and Output 01/25/22 01/26/22 01/26/22 22:59 06:59 14:59 Other: Weight 127.006 kg 01/26/22 03:33 01/26/22 03:33
[2022-01-26] MEDS ORDERED: HEPARIN SODIUM 1,000 UN/ML (10ML VL) IV ONE (10:51)
[2022-01-26] MEDS ORDERED: HEPARIN SODIUM 1,000 UN/ML (10ML VL) IV PRN (10:51)
[2022-01-26] MEDS ORDERED: HEPARIN SOD,PORK IN 0.45% NACL 25,000 UNIT in 0.45% NACL 1 250ML.BAG IV SCH (11:00)
[2022-01-26] MEDS: ASPIRIN 81 MG PO SCH (12:10)
[2022-01-26] MEDS: carvediloL 6.25 MG TAB PO SCH ×2 (12:10→16:40)
[2022-01-26] MEDS: ATORVASTATIN 40 MG TAB PO SCH (12:10)
[2022-01-26] MEDS: CLOPIDOGREL 75 MG TAB PO SCH (12:10)
[2022-01-26] MEDS: hydrALAZINE HCL 25 MG TAB PO SCH ×2 (12:10→23:08)
[2022-01-26] MEDS: MORPHINE SULFATE 4 MG/ML SYRINGE IV PRN (12:11)
[2022-01-26] MEDS ORDERED: ALBUTEROL HFA INHALER INHALATION PRN (12:21)
--- NOTE | 2022-01-26 12:36 | P.CNPUL ---
History of Present Illness Consult date: 01/26/22 Requesting physician: Bhavesh Fontanez Reason for consult: dyspnea, COPD, hypoxemia, pleural effusion, abnormal CXR/CT Chief complaint: Shortness of breath. History of present illness: Pulmonary/critical care consult dated 01/26/2022. 81-year-old male, seen in the emergency department, room 21. The patient apparently presented to the emergency room on January 26, at 3:00 in the morning, complaining of severe shortness of breath. The patient was brought in by EMS. He was apparently placed on BiPAP for his breathing. She still is on BiPAP, with settings of 14/6, and 35%. He complained of shortness of breath, and had lower extremity edema. He is not very good historian. He apparently has a history of COPD, former tobacco use, hyperlipidemia, hypertension, osteoarthritis, BPH, stage III chronic kidney disease, chronic anemia, urinary tract infection, pancreatitis, and chronic low back pain. He's also had heart catheterization with stent placement. White count 14.8, hemoglobin 10, hematocrit 30.6, with a normal platelet count. Sodium, potassium, chloride, and CO2 are all normal. BUN 42, with a creatinine of 1.35. Troponins were 0.109, 0.277, and 0.672. N-terminal proBNP was 10,900. Chest x-ray was consistent with congestive heart failure. Review of Systems REVIEW OF SYSTEMS: CONSTITUTIONAL: [Negative.] NEUROLOGIC: [ Negative.] HEENT: [ Negative.] CARDIAC: [Negative.] PULMONARY: Shortness of breath. GI: [Negative.] : [Negative.] RHEUMATOLOGIC: [ Negative.] IMMUNOLOGIC: [ Negative.] ENDOCRINE: [Negative. ] DERMATOLOGIC: [Negative.] Past Medical History Past Medical History: COPD, Hyperlipidemia, Hypertension, Osteoarthritis (OA), Prostate Disorder, Renal Disease, Vascular Disorder Additional Past Medical History / Comment(s): PVC's, CKD stage III, chronic anemia, BPH, urinary retention, UTI, pancreatitis, gastric ulcer, arthritis in multiple joints/occasional low back pain History of Any Multi-Drug Resistant Organisms: None Reported Past Surgical History: Appendectomy, Cholecystectomy, Heart Catheterization, Heart Catheterization With Stent, Tonsillectomy Additional Past Surgical History / Comment(s): R caratid endartectomy, arch study, colonoscopies/benign polypectomies, EGD, pilonidal cyst removed x 2, heart cath with stent placement Past Anesthesia/Blood Transfusion Reactions: No Reported Reaction Date of Last Stent Placement:: 05/27/21 Past Psychological History: No Psychological Hx Reported Smoking Status: Former smoker Past Alcohol Use History: None Reported Past Drug Use History: None Reported - Past Family History Father Family Medical History: No Reported History Mother Family Medical History: Congestive Heart Failure (CHF) Medications and Allergies Home Medications Medication Instructions Recorded Confirmed Type Finasteride [Proscar] 5 mg PO DAILY 05/22/21 01/26/22 History HYDROcodone/APAP 10-325MG [[place] 1 tab PO Q4H PRN 05/22/21 01/26/22 History 10-325] Sennosides [Senna] 8.6 mg PO BID PRN 05/22/21 01/26/22 History Tamsulosin HCl [Flomax] 0.4 mg PO DAILY 05/22/21 01/26/22 History carvediloL [Coreg] 6.25 mg PO BID-W/MEALS 05/22/21 01/26/22 History Atorvastatin [Lipitor] 40 mg PO DAILY #90 tab 05/29/21 01/26/22 Rx Clopidogrel [Plavix] 75 mg PO DAILY #90 tab 05/29/21 01/26/22 Rx Ferrous Sulfate [Iron (65 MG 325 mg PO BID-W/MEALS #180 tab 05/29/21 01/26/22 Rx Elemental)] Nitroglycerin Sl Tabs [Nitrostat] 0.4 mg SL Q5M PRN 06/08/21 01/26/22 History Pantoprazole [Protonix] 40 mg PO BID 06/08/21 01/26/22 History Cyanocobalamin [Vitamin B-12] 500 mcg PO DAILY 30 Days #30 tab 06/11/21 01/26/22 Rx Folic Acid 1 mg PO DAILY #30 tab 06/11/21 01/26/22 Rx Aspirin EC [Ecotrin Low Dose] 81 mg PO DAILY 30 Days #30 tab 06/12/21 01/26/22 Rx Albuterol Sulfate [Proair Hfa] 2 puff INHALATION RT-Q4H PRN 08/07/21 01/26/22 History Melatonin 5 mg PO HS 08/07/21 01/26/22 History Potassium Chloride [Klor-Con M10] 10 meq PO DAILY 08/07/21 01/26/22 History Budesonide-Formot 160-4.5 Mcg 2 puff INHALATION RT-BID gm 08/12/21 01/26/22 Rx [Symbicort 160-4.5 Mcg Inhaler] Ipratropium-Albuterol Nebulize 3 ml INHALATION RT-QID ml 08/12/21 01/26/22 Rx [Duoneb 0.5 mg-3 mg/3 ml Soln] Furosemide [Lasix] 80 mg PO DAILY 01/26/22 01/26/22 History Vitamin D Complete W/ Iron 1 tab PO DAILY 01/26/22 01/26/22 History hydrALAZINE HCL [Apresoline] 25 mg PO BID 01/26/22 01/26/22 History predniSONE 10 mg PO DAILY 01/26/22 01/26/22 History Allergies Allergy/AdvReac Type Severity Reaction Status Date / Time lisinopril Allergy Anaphylaxis, Verified 01/26/22 08:52 Tongue swelling Physical Exam Osteopathic Statement: *. No significant issues noted on an osteopathic structural exam other than those noted in the History and Physical/Consult. Vitals: Vital Signs Temp Pulse Pulse Resp BP BP Pulse Ox 01/26/22 11:30 84 01/26/22 11:17 92 01/26/22 08:14 84 01/26/22 08:00 85 16 152/77 100 01/26/22 07:58 96 01/26/22 06:23 96 15 179/84 99 01/26/22 05:05 92 16 178/89 100 01/26/22 04:29 90 24 172/141 99 01/26/22 03:40 96 01/26/22 03:31 101 H 168/86 01/26/22 03:26 99 01/26/22 03:22 24 01/26/22 03:17 98.2 F 105 H 20 168/96 100 01/26/22 03:13 98.2 F 107 H 25 H 168/96 100 01/26/22 03:12 FiO2 01/26/22 11:30 01/26/22 11:17 35 01/26/22 08:14 01/26/22 08:00 35 01/26/22 07:58 35 01/26/22 06:23 01/26/22 05:05 01/26/22 04:29 01/26/22 03:40 01/26/22 03:31 01/26/22 03:26 01/26/22 03:22 01/26/22 03:17 01/26/22 03:13 35 01/26/22 03:12 35 Intake and Output 01/25/22 01/26/22 01/26/22 22:59 06:59 14:59 Output Total 300 Balance -300 Output: Urine 300 Other: Weight 127.006 kg Oriented 3, poor historian, with mild respiratory distress. The patient is currently on BiPAP. HEENT examination is grossly unremarkable. BiPAP mask in place. Neck supple. Full range of motion. No adenopathy thyromegaly or neck vein distention. Cardiovascular examination reveals regular rhythm rate. S1-S2 normal. No S3 or S4. No discernible murmur noted. Heart rate 84 bpm. Heart sounds are distant. Lungs reveal bibasilar crackles. Breath sounds equal bilaterally. No wheezes. Saturations are 98% on BiPAP. Abdomen obese, soft, without bowel sounds. Extremities are intact. No cyanosis or clubbing. 1+ pitting edema is noted. Skin is without rash or lesion. Neurologic examination is brief but nonfocal. Results - Laboratory Findings CBC and BMP: 01/26/22 03:33 01/26/22 03:33 PT/INR, D-dimer PT 11.5 sec (9.0-12.0) 01/26/22 03:33 INR 1.1 (<1.2) 01/26/22 03:33 Abnormal lab findings: Abnormal Labs 01/26/22 01/26/22 01/26/22 03:33 03:33 03:33 WBC 14.8 H RBC 3.13 L Hgb 10.0 L Hct 30.6 L Neutrophils # 13.4 H Lymphocytes # 0.6 L APTT 19.4 L BUN 42 H Creatinine 1.35 H Glucose 171 H Calcium 7.7 L Alkaline Phosphatase 250 H Troponin I Total Protein 5.2 L Albumin 3.1 L 01/26/22 01/26/22 01/26/22 03:33 06:36 09:37 WBC RBC Hgb Hct Neutrophils # Lymphocytes # APTT BUN Creatinine Glucose Calcium Alkaline Phosphatase Troponin I 0.109 H* 0.277 H* 0.672 H* Total Protein Albumin - Diagnostic Findings Chest x-ray: image reviewed Assessment and Plan Assessment: Acute hypoxemic respiratory failure, secondary to congestive heart failure, with a borderline reduced ejection fraction of 40-45%. Prior non-ST segment elevation myocardial infarction, May 2021, status post Impella-supported PCI of the left main and LAD coronary arteries. History of chronic kidney disease, stage III. History of chronic anemia. History of hypertension. History of hyperlipidemia. Type 2 diabetes mellitus. History of COPD from prior tobacco use. History of BPH. History of urinary retention with urinary tract infection. Multiple other medical problems and comorbidities. Plan: Plan dated 01/26/2022. The patient is seen in the emergency department, room 21. He currently remains on BiPAP, with settings of 14/6 and 35%. He appears relatively comfortable, but is not a particularly good historian. Labs, x-rays, and medications are reviewed. He has been seen by cardiology already. We will continue to follow make recommendations along the way. The patient is currently on Symbicort, Rocephin, azithromycin, and updrafts, with albuterol sulfate, and ipratropium bromide. The patient was also placed on Solu-Medrol by his primary doctor. A pro-calcitonin level will be ordered. I doubt significant pneumonia in this patient. Time with Patient: Greater than 30
--- NOTE | 2022-01-26 14:31 | CT ---
EXAMINATION TYPE: CT chest wo con DATE OF EXAM: 01/26/2022 COMPARISON: 06/08/2021 HISTORY: CAP, COPD, CHF and Respiratory Failure CT DLP: 943.[address] of the chest was performed with lung and mediastinal window settings submitted. The la ck of contrast limits evaluation of the vascular, mediastinal and parenchymal structures including th e upper abdomen. LUNGS: There is an enlarging right-sided pleural effusion with maximal dimension 4.7 cm versus 2.7 cm previously. Increasing right basilar wedge-shaped density may reflect infiltrate or atelectasis. No evidence for left-sided pleural effusion, infiltrate or atelectasis. No evidence for overt congestive failure at this time. MEDIASTINUM/NIKOLAY: Thoracic aorta is of normal caliber with limited evaluation given lack of contrast . The heart is mildly enlarged. Urinary artery calcifications noted. No evidence for mediastinal mas s. No lymph nodes greater than 1cm. UPPER ABDOMEN: No significant abnormality is seen. OTHER: No significant other abnormality. IMPRESSION: 1. Enlarging right-sided pleural effusion. 2. New wedge-shaped density right lower lobe may reflect atelectasis and/or developing infiltrate. Co rrelate clinically.
[2022-01-26] MEDS: methylPREDNISolone SOD SUCCI 40 MG/ML 1 ML VIAL IV SCH ×2 (16:40→23:13)
[2022-01-26] MEDS: FERROUS SULFATE 325 MG TAB PO SCH (16:40)
[2022-01-26] MEDS: SYMBICORT 160-4.5 MCG INHALER INHALATION SCH (20:04)
[2022-01-26] MEDS ORDERED: hydrALAZINE HCL 25 MG TAB PO SCH (21:00)
[2022-01-26] MEDS: HYDROcodone/APAP 10-325MG 1 EACH TAB PO PRN (23:14)
[2022-01-27] MEDS: MORPHINE SULFATE 4 MG/ML SYRINGE IV PRN (02:30)
--- NOTE | 2022-01-27 05:54 | HP ---
HISTORY AND PHYSICAL HISTORY OF PRESENT ILLNESS: An 81-year-old white male, severe shortness of breath, increasing shortness of breath on BiPAP, significant shortness of breath, low oxygen at home, was found to have [id number] nature of shortness of breath. He has a history of COPD, asthma, CHF. MEDICATIONS: Include, 1. Proscar 5 mg daily. 2. Flomax 0.4 daily. 3. p.r.n. 4. Protonix 40 b.i.d. 5. DuoNeb q.i.d. 6. . PAST MEDICAL HISTORY: COPD, dyslipidemia, hypertension, osteoarthritis, prostate disorder, renal disease, vascular disorder, chronic kidney disease stage III, chronic anemia, BPH. PAST SURGICAL HISTORY: Appendectomy, cholecystectomy, heart catheterization with stent. PHYSICAL EXAMINATION: VITAL SIGNS: Temp 98.2, pulse is 105 to 107, blood pressure 160s over 90s, O2 of 100%. CARDIOVASCULAR: S1, S2. LUNGS: Show rales and rhonchi. HEMATOLOGY: Negative Homans. PSYCH: Fair mood and affect. NEUROLOGIC: Alert and oriented x3. ASSESSMENT: He is an 81-year-old white male with respiratory failure, history of chronic obstructive pulmonary disease, congestive heart failure, BiPAP, rule out pneumonia. CT of the chest is ordered. White count is elevated with left shift, probable bacterial pneumonia, prerenal azotemia with BUN 42, creatinine 1.35. CT scan of the chest pleural effusion 4.7 cm versus 2.7 on the increasing with increased wedge infiltrate on the right lower quadrant, probably has pneumonia down there with some congestive heart failure with procalcitonin. We will treat for pneumonia. Prognosis guarded. Cardiology and Pulmonary consult. MMODL / IJN: [id number] /
[2022-01-27] MEDS: FUROSEMIDE 10 MG/ML 10 ML VIAL IV SCH ×3 (06:09→21:09)
[2022-01-27] MEDS: FERROUS SULFATE 325 MG TAB PO SCH ×2 (06:10→17:40)
[2022-01-27] MEDS: carvediloL 6.25 MG TAB PO SCH ×2 (06:10→17:40)
[2022-01-27] MEDS: HYDROcodone/APAP 10-325MG 1 EACH TAB PO PRN ×4 (06:11→23:02)
[2022-01-27 06:57] LABS: Basophils % (A) 0 %; Eosinophils % (A) 0 %; HCT 30.1 % (39.0-53.0); HGB 9.9 gm/dL (13.0-17.5); Hypochromasia Slight; Lymphocytes # (A) 0.3 k/uL (1.0-4.8); Lymphocytes % (A) 3 %; MCH 32.5 pg (25.0-35.0); MCHC 32.7 g/dL (31.0-37.0); MCV 99.2 fL (80.0-100.0); Monocytes # (A) 0.1 k/uL (0-1.0); Monocytes % (A) 1 %; Neutrophils # (A) 9.4 k/uL (1.3-7.7); Neutrophils % (A) 96 %; Platelet Count 160 k/uL (150-450); RBC 3.04 m/uL (4.30-5.90); RDW 13.9 % (11.5-15.5); WBC 9.8 k/uL (3.8-10.6)
[2022-01-27 07:04] LABS: INR 1.1 (<1.2); Partial Thromboplastin Time 60.5 sec (22.0-30.0); Prothrombin Time 11.3 sec (9.0-12.0)
[2022-01-27] MEDS: SYMBICORT 160-4.5 MCG INHALER INHALATION SCH ×2 (07:10→20:32)
[2022-01-27] MEDS: IPRATROPIUM-ALBUTEROL 3 ML NEB INHALATION PRN ×4 (07:20→20:32)
[2022-01-27 07:33] LABS: Calcium 8.1 mg/dL (8.4-10.2); Potassium 4.5 mmol/L (3.5-5.1); Total Bilirubin 0.7 mg/dL (0.2-1.3); Total Protein 5.2 g/dL (6.3-8.2)
[2022-01-27] MEDS: FINASTERIDE 5 MG TAB PO SCH (09:16)
[2022-01-27] MEDS: ASPIRIN 81 MG PO SCH (09:16)
[2022-01-27] MEDS: hydrALAZINE HCL 25 MG TAB PO SCH ×2 (09:16→21:08)
[2022-01-27] MEDS: AZITHROMYCIN 500 MG in SODIUM CHLORIDE 0.9% 250 ML IVPB SCH (09:16)
[2022-01-27] MEDS: ATORVASTATIN 40 MG TAB PO SCH (09:16)
[2022-01-27] MEDS: methylPREDNISolone SOD SUCCI 40 MG/ML 1 ML VIAL IV SCH ×3 (09:17→23:02)
[2022-01-27] MEDS: CLOPIDOGREL 75 MG TAB PO SCH (09:19)
--- NOTE | 2022-01-27 10:53 | P.PN ---
Subjective This is a pleasant 80-year-old male past medical history significant for hypertension, chronic heart failure with preserved ejection fraction, BPH, PVCs, prior nicotine dependence, prior diabetes, coronary artery stenosis status post right carotid endarterectomy, venous insufficiency, chronic kidney disease, recent NSTEMI, coronary artery disease status post impella supported PCI to the left main and mid LAD in 05/2021. He follows in the office with Dr. Ramirez. We have been asked to see in consultation for congestive heart failure. Patient p resents to the emergency department with worsening shortness of breath. He has been noticing worsening shortness of breath over the past few days. He also has been having increased weight gain and symptoms of orthopnea, PND, and worsening LE edema. Present to the emergency department for further evaluation. He denies any chest pain, palpitations, lightheadedness or dizziness. He states he is compliant with his medication. He does not watch/monitor his diet or salt intake. He was started on IV Lasix in the ER he states his breathing has improved. DIAGNOSTICS -Most recent Echo , limited 08/08/2021 revealed an EF of 4045 percent, inferior wall akinesis. 01/27/2022 Patient seen and examined at bedside, continues to have wheezing. He states his shortness of breath has not improved from yesterday. He is on IV Lasix 60 mg Q8hr. He has had 1.2L urine output documented. Decrease weight noted. Patient possible not emptying his bladder. Sodium 139, potassium 4.5, BUN 48, serum creatinine 1.4, troponin 0.44 PHYSICAL EXAMINATION Vitals reviewed CONSTITUTIONAL: No apparent distress. HEENT: Head is normocephalic. + JVD. CHEST EXAMINATION: Lungs crackles in the bases with wheezing to auscultation. No chest wall tenderness is noted on palpation or with deep breathing. HEART EXAMINATION: Regular rate and rhythm. S1, S2 heard. Systolic ejection murmur at apex ABDOMEN: Soft, nontender. Positive bowel sounds. EXTREMITIES: 2+ peripheral pulses, 4+ bilateral lower extremity edema no calf tenderness. NEUROLOGIC EXAMINATION: Patient is awake, alert and oriented x3. ASSESSMENT Acute on chronic heart failure with mildly reduced ejection fraction, borderline EF 40-45% Acute hypoxic respiratory failure Urinary retention Prior Non-STEMI 05/27/2021, status post Impella supported PCI of the left main and LAD Elevated troponin, likely due to heart failure, recommend medical treatment Coronary artery disease s/p high risk impella supported PCI left main and LAD 05/2021 Chronic kidney disease Anemia Hypertension Hyperlipidemia Type 2 Diabetes COPD PLAN Recommend post void residuals, if elevated recommend straight cath/barnett catheter placement Continue IV Lasix 60mg Q8hr Continue to monitor renal function and electrolytes, monitor I's and O's and daily weights Continue dual antiplatelet therapy with aspirin and Plavix Continue statin, carvedilol, hydralazine Further recommendations based on clinical course Nurse practitioner note has been reviewed by physician. Signing provider agrees with the documented findings, assessment, and plan of care. Objective - Vital Signs Vital signs: Vital Signs Temp 98.0 F 01/27/22 09:02 Pulse 101 H 01/27/22 09:02 Resp 22 01/27/22 09:02 BP 157/76 01/27/22 09:02 Pulse Ox 95 01/27/22 09:02 FiO2 35 01/26/22 11:17 Intake & Output 01/26/22 01/27/22 01/27/22 18:59 06:59 18:59 Intake Total 50 240 480 Output Total 1250 850 Balance -1200 240 -370 Weight 115 kg Intake: Intake, IV Titration 50 Amount cefTRIAXone 2 gm In 50 Sodium Chloride 0.9% 50 ml @ 100 mls/hr IVPB ONCE STA Rx#:[id number] Oral 240 480 Output: Urine 1250 850 Straight 850 Other: Voiding Method External Catheter - Labs CBC & Chem 7: 01/27/22 06:22 01/27/22 06:22 Labs: Abnormal Lab Results - Last 24 Hours (Table) 01/26/22 01/26/22 01/27/22 Range/Units 03:33 19:31 00:25 RBC (4.30-5.90) m/uL Hgb (13.0-17.5) gm/dL Hct (39.0-53.0) % Neutrophils # (1.3-7.7) k/uL Lymphocytes # (1.0-4.8) k/uL APTT 36.9 H 51.5 H (22.0-30.0) sec BUN (9-20) mg/dL Creatinine (0.66-1.25) mg/dL Glucose (74-99) mg/dL Calcium (8.4-10.2) mg/dL Alkaline Phosphatase (38-126) U/L Troponin I (0.000-0.034) ng/mL Total Protein (6.3-8.2) g/dL Albumin (3.5-5.0) g/dL Procalcitonin 0.20 H (0.02-0.09) ng/mL 01/27/22 01/27/22 01/27/22 Range/Units 06:22 06:22 06:22 RBC 3.04 L (4.30-5.90) m/uL Hgb 9.9 L (13.0-17.5) gm/dL Hct 30.1 L (39.0-53.0) % Neutrophils # 9.4 H (1.3-7.7) k/uL Lymphocytes # 0.3 L (1.0-4.8) k/uL APTT 60.5 H (22.0-30.0) sec BUN 48 H (9-20) mg/dL Creatinine 1.45 H (0.66-1.25) mg/dL Glucose 160 H (74-99) mg/dL Calcium 8.1 L (8.4-10.2) mg/dL Alkaline Phosphatase 207 H (38-126) U/L Troponin I (0.000-0.034) ng/mL Total Protein 5.2 L (6.3-8.2) g/dL Albumin 3.0 L (3.5-5.0) g/dL Procalcitonin (0.02-0.09) ng/mL 01/27/22 Range/Units 06:22 RBC (4.30-5.90) m/uL Hgb (13.0-17.5) gm/dL Hct (39.0-53.0) % Neutrophils # (1.3-7.7) k/uL Lymphocytes # (1.0-4.8) k/uL APTT (22.0-30.0) sec BUN (9-20) mg/dL Creatinine (0.66-1.25) mg/dL Glucose (74-99) mg/dL Calcium (8.4-10.2) mg/dL Alkaline Phosphatase (38-126) U/L Troponin I 0.449 H* (0.000-0.034) ng/mL Total Protein (6.3-8.2) g/dL Albumin (3.5-5.0) g/dL Procalcitonin (0.02-0.09) ng/mL Microbiology - Last 24 Hours (Table) 01/26/22 06:00 Blood Culture - Preliminary Blood No Growth after 24 hours
--- NOTE | 2022-01-27 12:19 | P.PN ---
Subjective Progress Note Date: 01/27/22 Principal diagnosis: Shortness of breath. Pulmonary/critical care consult dated 01/26/2022. 81-year-old male, seen in the emergency department, room 21. The patient apparently presented to the emergency room on January 26, at 3:00 in the morning, complaining of severe shortness of breath. The patient was brought in by EMS. He was apparently placed on BiPAP for his breathing. She still is on BiPAP, with settings of 14/6, and 35%. He complained of shortness of breath, an d had lower extremity edema. He is not very good historian. He apparently has a history of COPD, former tobacco use, hyperlipidemia, hypertension, osteoarthritis, BPH, stage III chronic kidney disease, chronic anemia, urinary tract infection, pancreatitis, and chronic low back pain. He's also had heart catheterization with stent placement. White count 14.8, hemoglobin 10, hematocrit 30.6, with a normal platelet count. Sodium, potassium, chloride, and CO2 are all normal. BUN 42, with a creatinine of 1.35. Troponins were 0.109, 0.277, and 0.672. N-terminal proBNP was 10,900. Chest x-ray was consistent with congestive heart failure. Progress note dated 01/27/2022. 81-year-old male seen in the emergency room yesterday. The patient initially presented to the emergency department on January 26, complaining of shortness of breath. He was brought in by EMS. He was placed on BiPAP. His settings were 14/6, and 35%. The patient is being treated for CHF/pulmonary edema. Today he is seen in room 352. He's currently on 2 L of oxygen. He is not receiving any IV fluids. He is on IV heparin. He is feeling much better today. White count 9.8, hemoglobin 9.9, hematocrit 30.1, with a normal platelet count. PTT is 60.5. Sodium 139, potassium 4.5, chlorides 106, CO2 27, BUN 48, and creatinine 1.45. The most recent troponin is 0.449. Computed tomography scan was ordered by the primary service, and showed a right-sided pleural effusion, and some wedge-shaped density in the right lower lobe, which may reflect either atelectasis, fluid, or developing infiltrate. Objective - Vital Signs Vital signs: Vital Signs Temp 98.0 F 01/27/22 09:02 Pulse 101 H 01/27/22 09:02 Resp 22 01/27/22 09:02 BP 157/76 01/27/22 09:02 Pulse Ox 95 01/27/22 09:02 FiO2 35 01/26/22 11:17 Intake & Output 01/26/22 01/27/22 01/27/22 18:59 06:59 18:59 Intake Total 50 240 480 Output Total 1250 850 Balance -1200 240 -370 Weight 115 kg Intake: Intake, IV Titration 50 Amount cefTRIAXone 2 gm In 50 Sodium Chloride 0.9% 50 ml @ 100 mls/hr IVPB ONCE STA Rx#:[id number] Oral 240 480 Output: Urine 1250 850 Straight 850 Other: Voiding Method External Catheter External Catheter - Exam Oriented 3, poor historian, with mild respiratory distress. The patient is currently on 2 L of oxygen. HEENT examination is grossly unremarkable. Neck supple. Full range of motion. No adenopathy thyromegaly or neck vein distention. Cardiovascular examination reveals regular rhythm rate. S1-S2 normal. No S3 or S4. No discernible murmur noted. Heart rate 101 bpm. Heart sounds are distant. Lungs reveal bibasilar crackles. Breath sounds equal bilaterally. No wheezes. Saturations are 95% on 2 L. Abdomen obese, soft, without bowel sounds. Extremities are intact. No cyanosis or clubbing. 1+ pitting edema is noted. Skin is without rash or lesion. Neurologic examination is brief but nonfocal. - Labs CBC & Chem 7: 01/27/22 06:22 01/27/22 06:22 Labs: Abnormal Lab Results - Last 24 Hours (Table) 01/26/22 01/26/22 01/27/22 Range/Units 03:33 19:31 00:25 RBC (4.30-5.90) m/uL Hgb (13.0-17.5) gm/dL Hct (39.0-53.0) % Neutrophils # (1.3-7.7) k/uL Lymphocytes # (1.0-4.8) k/uL APTT 36.9 H 51.5 H (22.0-30.0) sec BUN (9-20) mg/dL Creatinine (0.66-1.25) mg/dL Glucose (74-99) mg/dL Calcium (8.4-10.2) mg/dL Alkaline Phosphatase (38-126) U/L Troponin I (0.000-0.034) ng/mL Total Protein (6.3-8.2) g/dL Albumin (3.5-5.0) g/dL Procalcitonin 0.20 H (0.02-0.09) ng/mL 01/27/22 01/27/22 01/27/22 Range/Units 06:22 06:22 06:22 RBC 3.04 L (4.30-5.90) m/uL Hgb 9.9 L (13.0-17.5) gm/dL Hct 30.1 L (39.0-53.0) % Neutrophils # 9.4 H (1.3-7.7) k/uL Lymphocytes # 0.3 L (1.0-4.8) k/uL APTT 60.5 H (22.0-30.0) sec BUN 48 H (9-20) mg/dL Creatinine 1.45 H (0.66-1.25) mg/dL Glucose 160 H (74-99) mg/dL Calcium 8.1 L (8.4-10.2) mg/dL Alkaline Phosphatase 207 H (38-126) U/L Troponin I (0.000-0.034) ng/mL Total Protein 5.2 L (6.3-8.2) g/dL Albumin 3.0 L (3.5-5.0) g/dL Procalcitonin (0.02-0.09) ng/mL 01/27/22 Range/Units 06:22 RBC (4.30-5.90) m/uL Hgb (13.0-17.5) gm/dL Hct (39.0-53.0) % Neutrophils # (1.3-7.7) k/uL Lymphocytes # (1.0-4.8) k/uL APTT (22.0-30.0) sec BUN (9-20) mg/dL Creatinine (0.66-1.25) mg/dL Glucose (74-99) mg/dL Calcium (8.4-10.2) mg/dL Alkaline Phosphatase (38-126) U/L Troponin I 0.449 H* (0.000-0.034) ng/mL Total Protein (6.3-8.2) g/dL Albumin (3.5-5.0) g/dL Procalcitonin (0.02-0.09) ng/mL Microbiology - Last 24 Hours (Table) 01/26/22 06:00 Blood Culture - Preliminary Blood No Growth after 24 hours Assessment and Plan Assessment: Acute hypoxemic respiratory failure, secondary to congestive heart failure, with a borderline reduced ejection fraction of 40-45%. Prior non-ST segment elevation myocardial infarction, May 2021, status post Impella-supported PCI of the left main and LAD coronary arteries. History of chronic kidney disease, stage III. History of chronic anemia. History of hypertension. History of hyperlipidemia. Type 2 diabetes mellitus. History of COPD from prior tobacco use. History of BPH. History of urinary retention with urinary tract infection. Multiple other medical problems and comorbidities. Plan: Plan dated 01/26/2022. The patient is seen in the emergency department, room 21. He currently remains on BiPAP, with settings of 14/6 and 35%. He appears relatively comfortable, but is not a particularly good historian. Labs, x-rays, and medications are reviewed. He has been seen by cardiology already. We will continue to follow make recommendations along the way. The patient is currently on Symbicort, Rocephin, azithromycin, and updrafts, with albuterol sulfate, and ipratropium bromide. The patient was also placed on Solu-Medrol by his primary doctor. A pro-calcitonin level will be ordered. I doubt significant pneumonia in this patient. Plan dated 01/27/2022. The patient is seen today in room. He appears much more comfortable. Is currently on 2 L. Yesterday, in the emergency department, he was on BiPAP therapy. The patient is not receiving any IV fluids. He is on IV heparin. Additional recommendations and suggestions are forthcoming. Pro-calcitonin level is a bit elevated at 0.2. N-terminal proBNP yesterday was 10,900. Troponins remain mildly elevated. Additional recommendations and suggestions are forthcoming. Time with Patient: Less than 30
[2022-01-27 13:58] VITALS: BMI 31.6
--- NOTE | 2022-01-27 15:31 | CDI ---
Documentation Clarification Form Date: 01/27/2022 03:03:04 PM From: Tory Ziegler RN CCDS Admit Date: 01/26/2022 04:07:00 AM Patient Name: Alan Parra Visit Number: [id number] Discharge Date: ATTENTION: The Clinical Documentation Specialists (CDI) and [facility] Coding Staff appreciate your assistance in clarifying documentation. Please respond to the clarification below the line at the bottom and electronically sign. The CDI & [facility] Coding staff will review the response and follow-up if needed. Please note: Queries are made part of the Legal Health Record. If you have any questions, please contact the author of this message via ITS. Dr. Bhavesh Fontanez Sepsis is documented ED Note, 01/26, but is not noted in subsequent documentation. Clarification is requested. History/Risk Factors: 80-year-old male presents to the ED with worsening shortness of breath and weight gain. Medical History: CHF, COPD, former tobacco use, HTN, Stage 3 CKD. 01/26, Pulmonary consult. Clinical Indicators: Admitting diagnoses: Bacterial pneumonia and congestive heart failure. VSS: B/P 168/96; HR 107; Temp 98.2 F Oral; RR 25; SpO2 100% BiPAP LABS: 01/26 Wbc 14.8; Neutrophils 13.4; Procalcitonin 0.20. CT Chest: 01/26 Enlarging right sided pleural effusion. New wedge-shaped density right lower lobe may reflect atelectasis and or developing infiltrate. Treatment: 01/26 Azithromycin IVPB x 1; 01/26 Ceftriaxone IVPB x 1; 01/26 Ceftriaxone IVPB Q12H; 01/27 Azithromycin IVPB Daily x 3 bags. Please clarify if the Sepsis is: [ ] Sepsis ruled out [ ] Sepsis confirmed, remains under treatment [ ] Other condition, please specify [ ] Unable to determine (Template Last Revised: June 2020) MTDD
--- NOTE | 2022-01-27 15:52 | CA ---
Transthoracic Echo Report Name: Alan Parra Age: 81 Gender: M : 1940 Exam Date: 01/27/2022 07:58 Exam Location: [place] [facility] Ht (in): 75 Wt (lb): 253 Ordering Physician: Bhavesh Fontanez MD Attending/Referring Phys: [employer] Helper Starr Perry RDCS Procedure CPT: Indications: chf Cardiac Hx: Technical Quality: Fair Contrast 1: Total Dose (mL): Contrast 2: Total Dose (mL): MEASUREMENTS (Male / Female) Normal Values 2D ECHO LV Diastolic Diameter PLAX 6.6 cm 4.2 - 5.9 / 3.9 - 5.3 cm LV Systolic Diameter PLAX 5.1 cm IVS Diastolic Thickness 1.5 cm 0.6 - 1.0 / 0.6 - 0.9 cm LVPW Diastolic Thickness 1.7 cm 0.6 - 1.0 / 0.6 - 0.9 cm LV Relative Wall Thickness 0.5 RV Internal Dim ED PLAX 3.6 cm LA Systolic Diameter LX 4.3 cm 3.0 - 4.0 / 2.7 - 3.8 cm LV Diastolic Volume MOD BP 214.2 cm??? 67 - 155 / 56 - 104 cm??? LV Systolic Volume MOD BP 141.3 cm??? 22 - 58 / 19 - 49 cm??? LV Ejection Fraction MOD BP 34.0 % >= 55 % LV Diastolic Volume MOD 4C 264.0 cm??? LV Systolic Volume MOD 4C 180.4 cm??? LV Ejection Fraction MOD 4C 31.7 % LV Diastolic Length 4C 9.3 cm LV Systolic Length 4C 7.9 cm LV Diastolic Volume MOD 2C 136.5 cm??? LV Systolic Volume MOD 2C 109.8 cm??? LV Ejection Fraction MOD 2C 19.6 % LV Diastolic Length 2C 7.2 cm LV Systolic Length 2C 7.7 cm LA Volume 67.2 cm??? 18 - 58 / 22 - 52 cm??? M-MODE Aortic Root Diameter MM 3.7 cm MV E Point Septal Separation 1.3 cm DOPPLER AV Peak Velocity 119.4 cm/s AV Peak Gradient 5.7 mmHg MV Area PHT 9.6 cm??? Mitral E Point Velocity 114.8 cm/s Mitral A Point Velocity 28.3 cm/s Mitral E to A Ratio 4.1 MV Deceleration Time 79.0 ms MV E' Velocity 5.8 cm/s Mitral E to MV E' Ratio 19.8 TR Peak Velocity 352.9 cm/s TR Peak Gradient 49.8 mmHg Right Ventricular Systolic Press 53.8 mmHg FINDINGS Left Ventricle Left ventricular ejection fraction is estimated at 35-40 %. Moderately increased septal wall thickness. Moderately increased left ventricular diastolic diameter. Severely increased left ventricular diastolic volume. Severely increased left ventricular systolic volume. Moderately decreased left ventricular ejection fraction. Right Ventricle Normal right ventricular size and function. Moderate pulmonary hypertension. Right Atrium Normal right atrial size. Left Atrium Mildly increased left atrial diameter. Mildly increased left atrial volume. Mildly increased left atrial area. No evidence for an atrial septal defect. Mitral Valve Mitral valve thickened. Mitral annular calcification. Mild mitral regurgitation. Aortic Valve Trileaflet aortic valve. No aortic valve stenosis or regurgitation. Tricuspid Valve Mild tricuspid regurgitation. Pulmonic Valve Pulmonic valve not well visualized. Pericardium Normal pericardium. No pericardial effusion. Aorta Normal size aortic root and proximal ascending aorta. CONCLUSIONS Reduced LV systolic function Left ventricular ejection fraction 35% Left atrial enlargement Previewed by: Dr. Ricardo Gavin MD (Electronically Signed) Final Date: 27 January 2022 15:51
[2022-01-27] MEDS: ZOLPIDEM 5 MG TAB PO PRN (21:08)
[2022-01-28] MEDS: HYDROcodone/APAP 10-325MG 1 EACH TAB PO PRN ×2 (04:45→17:47)
[2022-01-28] MEDS: FUROSEMIDE 10 MG/ML 10 ML VIAL IV SCH ×2 (04:45→20:22)
[2022-01-28] MEDS: PANTOPRAZOLE 40 MG TABLET PO SCH (06:41)
[2022-01-28] MEDS: carvediloL 6.25 MG TAB PO SCH ×2 (06:42→17:41)
[2022-01-28] MEDS: FERROUS SULFATE 325 MG TAB PO SCH ×2 (06:42→17:41)
[2022-01-28 08:01] LABS: Calcium 8.3 mg/dL (8.4-10.2); Potassium 4.6 mmol/L (3.5-5.1)
[2022-01-28] MEDS: SYMBICORT 160-4.5 MCG INHALER INHALATION SCH ×2 (08:16→20:38)
[2022-01-28] MEDS: IPRATROPIUM-ALBUTEROL 3 ML NEB INHALATION PRN ×2 (08:16→17:58)
--- NOTE | 2022-01-28 09:14 | P.PN ---
Subjective This is a pleasant 80-year-old male past medical history significant for hypertension, chronic heart failure with preserved ejection fraction, BPH, PVCs, prior nicotine dependence, prior diabetes, coronary artery stenosis status post right carotid endarterectomy, venous insufficiency, chronic kidney disease, recent NSTEMI, coronary artery disease status post impella supported PCI to the left main and mid LAD in 05/2021. He follows in the office with Dr. Ramirez. We have been asked to see in consultation for congestive heart failure. Patient p resents to the emergency department with worsening shortness of breath. He has been noticing worsening shortness of breath over the past few days. He also has been having increased weight gain and symptoms of orthopnea, PND, and worsening LE edema. Present to the emergency department for further evaluation. He denies any chest pain, palpitations, lightheadedness or dizziness. He states he is compliant with his medication. He does not watch/monitor his diet or salt intake. He was started on IV Lasix in the ER he states his breathing has improved. DIAGNOSTICS -Most recent Echo , limited 08/08/2021 revealed an EF of 4045 percent, inferior wall akinesis. 01/28/2022 Patient seen and examined at bedside, no acute distress. Up in the bedside chair. Symptoms have significantly improved. LE edema has improved Patient was found to have PVR 1,000, barnett catheter placed with improvement in urinary output. He is on IV Lasix 60 mg Q8hr. He has had 2.7L urine output documented. Decrease weight noted from admission. Sodium 139, potassium 4.6, BUN 62, serum creatinine 1.53 PHYSICAL EXAMINATION Vitals reviewed CONSTITUTIONAL: No apparent distress. HEENT: Head is normocephalic. No JVD CHEST EXAMINATION: Lungs mild crackles in the bases to auscultation. No chest wall tenderness is noted on palpation or with deep breathing. HEART EXAMINATION: Regular rate and rhythm. S1, S2 heard. Systolic ejection murmur at apex ABDOMEN: Soft, nontender. Positive bowel sounds. EXTREMITIES: 2+ peripheral pulses, 2+ bilateral lower extremity edema no calf tenderness. NEUROLOGIC EXAMINATION: Patient is awake, alert and oriented x3. ASSESSMENT Acute on chronic heart failure with mildly reduced ejection fraction, borderline EF 40-45% Acute hypoxic respiratory failure Urinary retention Prior Non-STEMI 05/27/2021, status post Impella supported PCI of the left main and LAD Elevated troponin, likely due to heart failure, recommend medical treatment Coronary artery disease s/p high risk impella supported PCI left main and LAD 05/2021 Chronic kidney disease Anemia Hypertension Hyperlipidemia Type 2 Diabetes COPD PLAN IV Lasix 60mg BID for additional 24 hours, likely transition to PO tomorrow Continue to monitor renal function and electrolytes, monitor I's and O's and daily weights Continue dual antiplatelet therapy with aspirin and Plavix Continue statin, carvedilol, hydralazine Hopefully discharge in next 24-48 hours Further recommendations based on clinical course Nurse practitioner note has been reviewed by physician. Signing provider agrees with the documented findings, assessment, and plan of care. Objective - Vital Signs Vital signs: Vital Signs Temp 98.4 F 01/28/22 03:54 Pulse 97 01/28/22 08:32 Resp 16 01/28/22 03:54 BP 157/70 01/28/22 03:54 Pulse Ox 99 01/28/22 08:20 FiO2 35 01/26/22 11:17 Intake & Output 01/27/22 01/28/22 01/28/22 18:59 06:59 18:59 Intake Total 1256 358 Output Total 1300 1400 Balance -44 -1400 358 Weight 115 kg Intake: Oral 1256 358 Output: Urine 1300 1400 Straight 850 1400 Other: Voiding Method External Catheter # Bowel Movements 1 - Labs CBC & Chem 7: 01/27/22 06:22 01/28/22 07:18 Labs: Abnormal Lab Results - Last 24 Hours (Table) 01/27/22 01/28/22 01/28/22 Range/Units 06:22 07:18 07:18 APTT 21.7 L (22.0-30.0) sec BUN 62 H (9-20) mg/dL Creatinine 1.53 H (0.66-1.25) mg/dL Glucose 176 H (74-99) mg/dL Calcium 8.3 L (8.4-10.2) mg/dL Troponin I 0.449 H* (0.000-0.034) ng/mL Microbiology - Last 24 Hours (Table) 01/26/22 06:00 Blood Culture - Preliminary Blood No Growth after 48 hours 01/26/22 06:15 Blood Culture - Preliminary Blood No Growth after 24 hours
[2022-01-28] MEDS: ATORVASTATIN 40 MG TAB PO SCH (09:18)
[2022-01-28] MEDS: AZITHROMYCIN 500 MG in SODIUM CHLORIDE 0.9% 250 ML IVPB SCH (09:18)
[2022-01-28] MEDS: DAPAGLIFLOZIN PROPANEDIOL 5 MG TABLET PO SCH (09:18)
[2022-01-28] MEDS: FINASTERIDE 5 MG TAB PO SCH (09:19)
[2022-01-28] MEDS: methylPREDNISolone SOD SUCCI 40 MG/ML 1 ML VIAL IV SCH ×2 (09:19→17:41)
[2022-01-28] MEDS: ASPIRIN 81 MG PO SCH (09:19)
[2022-01-28] MEDS: CLOPIDOGREL 75 MG TAB PO SCH (09:19)
[2022-01-28] MEDS: hydrALAZINE HCL 25 MG TAB PO SCH ×2 (09:19→20:22)
--- NOTE | 2022-01-28 13:45 | P.PN ---
Subjective Progress Note Date: 01/28/22 Principal diagnosis: Shortness of breath. Pulmonary/critical care consult dated 01/26/2022. 81-year-old male, seen in the emergency department, room 21. The patient apparently presented to the emergency room on January 26, at 3:00 in the morning, complaining of severe shortness of breath. The patient was brought in by EMS. He was apparently placed on BiPAP for his breathing. She still is on BiPAP, with settings of 14/6, and 35%. He complained of shortness of breath, an d had lower extremity edema. He is not very good historian. He apparently has a history of COPD, former tobacco use, hyperlipidemia, hypertension, osteoarthritis, BPH, stage III chronic kidney disease, chronic anemia, urinary tract infection, pancreatitis, and chronic low back pain. He's also had heart catheterization with stent placement. White count 14.8, hemoglobin 10, hematocrit 30.6, with a normal platelet count. Sodium, potassium, chloride, and CO2 are all normal. BUN 42, with a creatinine of 1.35. Troponins were 0.109, 0.277, and 0.672. N-terminal proBNP was 10,900. Chest x-ray was consistent with congestive heart failure. Progress note dated 01/27/2022. 81-year-old male seen in the emergency room yesterday. The patient initially presented to the emergency department on January 26, complaining of shortness of breath. He was brought in by EMS. He was placed on BiPAP. His settings were 14/6, and 35%. The patient is being treated for CHF/pulmonary edema. Today he is seen in room 352. He's currently on 2 L of oxygen. He is not receiving any IV fluids. He is on IV heparin. He is feeling much better today. White count 9.8, hemoglobin 9.9, hematocrit 30.1, with a normal platelet count. PTT is 60.5. Sodium 139, potassium 4.5, chlorides 106, CO2 27, BUN 48, and creatinine 1.45. The most recent troponin is 0.449. Computed tomography scan was ordered by the primary service, and showed a right-sided pleural effusion, and some wedge-shaped density in the right lower lobe, which may reflect either atelectasis, fluid, or developing infiltrate. Progress note dated 01/28/2022. 81-year-old male who is seen today in room 352. He is currently on 2 L of oxy gen. He is getting saline at 20 mL an hour. He's feeling much better. His breathing is much improved. Sodium 139, potassium 4.6, chlorides 105, CO2 23, BUN 62, and creatinine 1.53. Computed tomography scan was reviewed. It was ordered by the primary service. Objective - Vital Signs Vital signs: Vital Signs Temp 98.2 F 01/28/22 11:40 Pulse 100 01/28/22 11:40 Resp 18 01/28/22 11:40 BP 153/86 01/28/22 11:40 Pulse Ox 96 01/28/22 11:40 FiO2 35 01/26/22 11:17 Intake & Output 01/27/22 01/28/22 01/28/22 18:59 06:59 18:59 Intake Total 1256 598 Output Total 1300 1400 600 Balance -44 -1400 -2 Weight 115 kg 113.2 kg Intake: Oral 1256 598 Output: Urine 1300 1400 600 Straight 850 1400 600 Other: Voiding Method External Catheter Indwelling Catheter # Bowel Movements 1 - Exam Oriented 3, poor historian, with mild respiratory distress. The patient is currently on 2 L of oxygen. HEENT examination is grossly unremarkable. Neck supple. Full range of motion. No adenopathy thyromegaly or neck vein distention. Cardiovascular examination reveals regular rhythm rate. S1-S2 normal. No S3 or S4. No discernible murmur noted. Heart rate 93 bpm. Heart sounds are distant. Lungs reveal bibasilar crackles. Breath sounds equal bilaterally. No wheezes. Saturations are 96 % on 2 L. Abdomen obese, soft, without bowel sounds. Extremities are intact. No cyanosis or clubbing. 1+ pitting edema is noted. Skin is without rash or lesion. Neurologic examination is brief but nonfocal. - Labs CBC & Chem 7: 01/27/22 06:22 01/28/22 07:18 Labs: Abnormal Lab Results - Last 24 Hours (Table) 01/28/22 01/28/22 Range/Units 07:18 07:18 APTT 21.7 L (22.0-30.0) sec BUN 62 H (9-20) mg/dL Creatinine 1.53 H (0.66-1.25) mg/dL Glucose 176 H (74-99) mg/dL Calcium 8.3 L (8.4-10.2) mg/dL Microbiology - Last 24 Hours (Table) 01/26/22 06:00 Blood Culture - Preliminary Blood No Growth after 48 hours 01/26/22 06:15 Blood Culture - Preliminary Blood No Growth after 24 hours Assessment and Plan Assessment: Acute hypoxemic respiratory failure, secondary to congestive heart failure, with a borderline reduced ejection fraction of 40-45%. Prior non-ST segment elevation myocardial infarction, May 2021, status post Impella-supported PCI of the left main and LAD coronary arteries. History of chronic kidney disease, stage III. History of chronic anemia. History of hypertension. History of hyperlipidemia. Type 2 diabetes mellitus. History of COPD from prior tobacco use. History of BPH. History of urinary retention with urinary tract infection. Multiple other medical problems and comorbidities. Plan: Plan dated 01/26/2022. The patient is seen in the emergency department, room 21. He currently remains on BiPAP, with settings of 14/6 and 35%. He appears relatively comfortable, but is not a particularly good historian. Labs, x-rays, and medications are reviewed. He has been seen by cardiology already. We will continue to follow make recommendations along the way. The patient is currently on Symbicort, Rocephin, azithromycin, and updrafts, with albuterol sulfate, and ipratropium bromide. The patient was also placed on Solu-Medrol by his primary doctor. A pro-calcitonin level will be ordered. I doubt significant pneumonia in this patient. Plan dated 01/27/2022. The patient is seen today in room. He appears much more comfortable. Is currently on 2 L. Yesterday, in the emergency department, he was on BiPAP therapy. The patient is not receiving any IV fluids. He is on IV heparin. Additional recommendations and suggestions are forthcoming. Pro-calcitonin level is a bit elevated at 0.2. N-terminal proBNP yesterday was 10,900. Troponins remain mildly elevated. Additional recommendations and suggestions are forthcoming. Plan dated 01/28/2022. The patient is seen today in room 352. He is much less short of breath. He's on 2 L of oxygen. Saturations are excellent. He is getting saline at KVO. Labs, x-rays, and medications are reviewed. Troponins were a bit elevated. The patient has been seen by cardiology. N-terminal proBNP was elevated. The patient is on albuterol sulfate and ipratropium bromide, Solu-Medrol, Symbicort, and Rocephin and Zithromax. Again as mentioned earlier, I doubt significant pneumonia in this patient. Pro-calcitonin level was only 0.20. Time with Patient: Less than 30
[2022-01-29] MEDS: methylPREDNISolone SOD SUCCI 40 MG/ML 1 ML VIAL IV SCH ×2 (00:09→09:22)
[2022-01-29] MEDS: ZOLPIDEM 5 MG TAB PO PRN ×2 (00:20→20:04)
--- NOTE | 2022-01-29 00:59 | PN ---
PROGRESS NOTE SUBJECTIVE: He has positive procalcitonin, right lower lobe atelectasis, pleural effusion, possible right lower lobe pneumonia. Remains on broad-spectrum antibiotics, Solu-Medrol. He has pulmonary hypertension. He has ejection fraction of 35% to 40% for systolic heart failure, elevated BNP. He is on broad-spectrum antibiotics. Diuresis with IV Lasix, hydralazine, and Protonix for GERD. Antibiotics, Rocephin, azithromycin, Symbicort inhaler, Plavix, Proscar. The patient is slowly improving. Seen by Cardiology and Pulmonology. O2 98% on 2 L. PHYSICAL EXAMINATION: VITAL SIGNS: Blood pressure 137/61, pulse 97, respiratory rate 16 to 18. CARDIOVASCULAR: S1, S2. LUNGS: Rales at the bases. PSYCH: Fair mood and affect. GENERAL: He is sitting up in bed with 2 L on. HEMATOLOGIC: 2 to 3+ edema in lower extremities. ASSESSMENT: Systolic congestive heart failure, right pleural effusion, possible right lower lobe pneumonia, pulmonary hypertension. Prognosis guarded. Continue current treatment. Possibly add Farxiga for CHF prevention and continue with antibiotics, diuresis. Prognosis guarded. MMODL / IJN: [id number] /
[2022-01-29] MEDS: HYDROcodone/APAP 10-325MG 1 EACH TAB PO PRN ×2 (02:56→20:04)
[2022-01-29] MEDS: IPRATROPIUM-ALBUTEROL 3 ML NEB INHALATION PRN ×5 (03:39→20:03)
[2022-01-29] MEDS: carvediloL 6.25 MG TAB PO SCH ×2 (06:11→17:09)
[2022-01-29] MEDS: PANTOPRAZOLE 40 MG TABLET PO SCH (06:12)
[2022-01-29] MEDS: FERROUS SULFATE 325 MG TAB PO SCH ×2 (06:12→17:09)
[2022-01-29 08:04] LABS: Potassium 4.6 mmol/L (3.5-5.1)
[2022-01-29] MEDS: SYMBICORT 160-4.5 MCG INHALER INHALATION SCH ×2 (08:09→20:03)
[2022-01-29] MEDS: DAPAGLIFLOZIN PROPANEDIOL 5 MG TABLET PO SCH (09:21)
[2022-01-29] MEDS: CLOPIDOGREL 75 MG TAB PO SCH (09:21)
[2022-01-29] MEDS: ATORVASTATIN 40 MG TAB PO SCH (09:21)
[2022-01-29] MEDS: ASPIRIN 81 MG PO SCH (09:21)
[2022-01-29] MEDS: FINASTERIDE 5 MG TAB PO SCH (09:21)
[2022-01-29] MEDS: hydrALAZINE HCL 25 MG TAB PO SCH ×2 (09:22→20:04)
[2022-01-29] MEDS: FUROSEMIDE 10 MG/ML 10 ML VIAL IV SCH (09:22)
--- NOTE | 2022-01-29 10:14 | P.PN ---
Subjective This is a pleasant 80-year-old male past medical history significant for hypertension, chronic heart failure with preserved ejection fraction, BPH, PVCs, prior nicotine dependence, prior diabetes, coronary artery stenosis status post right carotid endarterectomy, venous insufficiency, chronic kidney disease, recent NSTEMI, coronary artery disease status post impella supported PCI to the left main and mid LAD in 05/2021. He follows in the office with Dr. Ramirez. We have been asked to see in consultation for congestive heart failure. Patient p resents to the emergency department with worsening shortness of breath. He has been noticing worsening shortness of breath over the past few days. He also has been having increased weight gain and symptoms of orthopnea, PND, and worsening LE edema. Present to the emergency department for further evaluation. He denies any chest pain, palpitations, lightheadedness or dizziness. He states he is compliant with his medication. He does not watch/monitor his diet or salt intake. He was started on IV Lasix in the ER he states his breathing has improved. DIAGNOSTICS -Most recent Echo , limited 08/08/2021 revealed an EF of 4045 percent, inferior wall akinesis. 01/28/2022 Patient seen and examined at bedside, no acute distress. Up in the bedside chair. Symptoms have significantly improved. LE edema has improved patient with 1.9. Urine output over the past 24 hours. Decrease weight noted. He is on IV Lasix 60 mg BID. Patient usually be discharged today. Sodium 137, potassium 4.6, BUN 64, serum creatinine 1.4 PHYSICAL EXAMINATION Vitals reviewed CONSTITUTIONAL: No apparent distress. HEENT: Head is normocephalic. No JVD CHEST EXAMINATION: Lungs mild crackles in the bases to auscultation. No chest wall tenderness is noted on palpation or with deep breathing. HEART EXAMINATION: Regular rate and rhythm. S1, S2 heard. Systolic ejection murmur at apex ABDOMEN: Soft, nontender. Positive bowel sounds. EXTREMITIES: 2+ peripheral pulses, 2+ bilateral lower extremity edema no calf tenderness. NEUROLOGIC EXAMINATION: Patient is awake, alert and oriented x3. ASSESSMENT Acute on chronic heart failure with mildly reduced ejection fraction, borderline EF 40-45% Acute hypoxic respiratory failure Urinary retention Prior Non-STEMI 05/27/2021, status post Impella supported PCI of the left main and LAD Elevated troponin, likely due to heart failure, recommend medical treatment Coronary artery disease s/p high risk impella supported PCI left main and LAD 05/2021 Chronic kidney disease Anemia Hypertension Hyperlipidemia Type 2 Diabetes COPD PLAN Transition to PO Lasix 80mg BID Continue dual antiplatelet therapy with aspirin and Plavix Continue statin, carvedilol, hydralazine From a cardiology perspective, okay for patient to be discharged today and follow-up closely with Dr. Ramirez outpatient Nurse practitioner note has been reviewed by physician. Signing provider agrees with the documented findings, assessment, and plan of care. Objective - Vital Signs Vital signs: Vital Signs Temp 98.2 F 01/29/22 00:07 Pulse 90 01/29/22 03:56 Resp 20 01/29/22 03:25 BP 150/70 01/29/22 03:25 Pulse Ox 96 01/29/22 03:39 FiO2 35 01/26/22 11:17 Intake & Output 01/28/22 01/29/22 01/29/22 18:59 06:59 18:59 Intake Total 716 118 Output Total 1100 800 Balance -384 -800 118 Weight 113.2 kg 113.6 kg Intake: Oral 716 118 Output: Urine 1100 800 Straight 600 800 Other: Voiding Method Indwelling Catheter Indwelling Catheter - Labs CBC & Chem 7: 01/27/22 06:22 01/29/22 07:09 Labs: Abnormal Lab Results - Last 24 Hours (Table) 01/28/22 01/28/22 Range/Units 07:18 07:18 APTT 21.7 L (22.0-30.0) sec BUN 62 H (9-20) mg/dL Creatinine 1.53 H (0.66-1.25) mg/dL Glucose 176 H (74-99) mg/dL Calcium 8.3 L (8.4-10.2) mg/dL Microbiology - Last 24 Hours (Table) 01/26/22 06:15 Blood Culture - Preliminary Blood No Growth after 48 hours 01/26/22 06:00 Blood Culture - Preliminary Blood No Growth after 48 hours
--- NOTE | 2022-01-29 12:51 | P.PN ---
Subjective Progress Note Date: 01/29/22 Principal diagnosis: Shortness of breath. Pulmonary/critical care consult dated 01/26/2022. 81-year-old male, seen in the emergency department, room 21. The patient apparently presented to the emergency room on January 26, at 3:00 in the morning, complaining of severe shortness of breath. The patient was brought in by EMS. He was apparently placed on BiPAP for his breathing. She still is on BiPAP, with settings of 14/6, and 35%. He complained of shortness of breath, an d had lower extremity edema. He is not very good historian. He apparently has a history of COPD, former tobacco use, hyperlipidemia, hypertension, osteoarthritis, BPH, stage III chronic kidney disease, chronic anemia, urinary tract infection, pancreatitis, and chronic low back pain. He's also had heart catheterization with stent placement. White count 14.8, hemoglobin 10, hematocrit 30.6, with a normal platelet count. Sodium, potassium, chloride, and CO2 are all normal. BUN 42, with a creatinine of 1.35. Troponins were 0.109, 0.277, and 0.672. N-terminal proBNP was 10,900. Chest x-ray was consistent with congestive heart failure. Progress note dated 01/27/2022. 81-year-old male seen in the emergency room yesterday. The patient initially presented to the emergency department on January 26, complaining of shortness of breath. He was brought in by EMS. He was placed on BiPAP. His settings were 14/6, and 35%. The patient is being treated for CHF/pulmonary edema. Today he is seen in room 352. He's currently on 2 L of oxygen. He is not receiving any IV fluids. He is on IV heparin. He is feeling much better today. White count 9.8, hemoglobin 9.9, hematocrit 30.1, with a normal platelet count. PTT is 60.5. Sodium 139, potassium 4.5, chlorides 106, CO2 27, BUN 48, and creatinine 1.45. The most recent troponin is 0.449. Computed tomography scan was ordered by the primary service, and showed a right-sided pleural effusion, and some wedge-shaped density in the right lower lobe, which may reflect either atelectasis, fluid, or developing infiltrate. Progress note dated 01/28/2022. 81-year-old male who is seen today in room 352. He is currently on 2 L of oxy gen. He is getting saline at 20 mL an hour. He's feeling much better. His breathing is much improved. Sodium 139, potassium 4.6, chlorides 105, CO2 23, BUN 62, and creatinine 1.53. Computed tomography scan was reviewed. It was ordered by the primary service. Progress note dated 01/29/2022. 81-year-old male seen in room 352. He's currently on 2 L. He is getting saline at 20 mL an hour. He sitting up in a chair next to his bed, talking to a friend. Clinically, he looks very stable and states that he wants to be discharged. I told him it was up to his primary hospital doctor. Laboratory data includes a sodium 137, potassium 4.6, chlorides 15, CO2 23, anion gap 9, BUN 64, creatinine 1.42. No new chest x-rays to report. Objective - Vital Signs Vital signs: Vital Signs Temp 98.6 F 01/29/22 12:44 Pulse 102 H 01/29/22 12:44 Resp 18 01/29/22 12:44 BP 138/66 01/29/22 12:44 Pulse Ox 97 01/29/22 12:44 FiO2 35 01/26/22 11:17 Intake & Output 01/28/22 01/29/22 01/29/22 18:59 06:59 18:59 Intake Total 716 118 Output Total 1100 800 Balance -384 -800 118 Weight 113.2 kg 113.6 kg Intake: Oral 716 118 Output: Urine 1100 800 Straight 600 800 Other: Voiding Method Indwelling Catheter Indwelling Catheter Indwelling Catheter - Exam Oriented 3, poor historian, with no overt respiratory distress. The patient is currently on 2 L of oxygen. HEENT examination is grossly unremarkable. Neck supple. Full range of motion. No adenopathy thyromegaly or neck vein distention. Cardiovascular examination reveals regular rhythm rate. S1-S2 normal. No S3 or S4. No discernible murmur noted. Heart rate 93 bpm. Heart sounds are distant. Lungs reveal bibasilar crackles. Breath sounds equal bilaterally. No wheezes. Saturations are 97 % on 2 L. Abdomen obese, soft, without bowel sounds. Extremities are intact. No cyanosis or clubbing. 1+ pitting edema is noted. Skin is without rash or lesion. Neurologic examination is brief but nonfocal. - Labs CBC & Chem 7: 01/27/22 06:22 01/29/22 07:09 Labs: Abnormal Lab Results - Last 24 Hours (Table) 01/29/22 Range/Units 07:09 BUN 64 H (9-20) mg/dL Creatinine 1.42 H (0.66-1.25) mg/dL Glucose 216 H (74-99) mg/dL Calcium 8.0 L (8.4-10.2) mg/dL Microbiology - Last 24 Hours (Table) 01/26/22 06:00 Blood Culture - Preliminary Blood No Growth after 72 hours 01/26/22 06:15 Blood Culture - Preliminary Blood No Growth after 48 hours Assessment and Plan Assessment: Acute hypoxemic respiratory failure, secondary to congestive heart failure, with a borderline reduced ejection fraction of 40-45%. Prior non-ST segment elevation myocardial infarction, May 2021, status post Impella-supported PCI of the left main and LAD coronary arteries. History of chronic kidney disease, stage III. History of chronic anemia. History of hypertension. History of hyperlipidemia. Type 2 diabetes mellitus. History of COPD from prior tobacco use. History of BPH. History of urinary retention with urinary tract infection. Multiple other medical problems and comorbidities. Plan: Plan dated 01/26/2022. The patient is seen in the emergency department, room 21. He currently remains on BiPAP, with settings of 14/6 and 35%. He appears relatively comfortable, but is not a particularly good historian. Labs, x-rays, and medications are reviewed. He has been seen by cardiology already. We will continue to follow make recommendations along the way. The patient is currently on Symbicort, Rocephin, azithromycin, and updrafts, with albuterol sulfate, and ipratropium bromide. The patient was also placed on Solu-Medrol by his primary doctor. A pro-calcitonin level will be ordered. I doubt significant pneumonia in this patient. Plan dated 01/27/2022. The patient is seen today in room. He appears much more comfortable. Is currently on 2 L. Yesterday, in the emergency department, he was on BiPAP th erapy. The patient is not receiving any IV fluids. He is on IV heparin. Additional recommendations and suggestions are forthcoming. Pro-calcitonin level is a bit elevated at 0.2. N-terminal proBNP yesterday was 10,900. Troponins remain mildly elevated. Additional recommendations and suggestions are forthcoming. Plan dated 01/28/2022. The patient is seen today in room 352. He is much less short of breath. He's on 2 L of oxygen. Saturations are excellent. He is getting saline at KVO. Labs, x-rays, and medications are reviewed. Troponins were a bit elevated. The patient has been seen by cardiology. N-terminal proBNP was elevated. The patient is on albuterol sulfate and ipratropium bromide, Solu-Medrol, Symbicort, and Rocephin and Zithromax. Again as mentioned earlier, I doubt significant pneumonia in this patient. Pro-calcitonin level was only 0.20. Plan dated 01/29/2022. The patient's doing much better. From my perspective, the patient is stable from the respiratory status. He could be considered for possible discharge, although, that decision will be made by cardiology, and the hospital team. Labs, x-rays, and medications are reviewed. Solu-Medrol was changed to prednisone 20 mg a day. Antibiotics are discontinued. Prognosis is guarded. We will continue to follow make recommendations along the way. Time with Patient: Less than 30
[2022-01-29] MEDS: FUROSEMIDE 80 MG TAB PO SCH (20:04)
[2022-01-29] MEDS ORDERED: IPRATROPIUM-ALBUTEROL 3 ML NEB INHALATION STA (21:03)
[2022-01-29] MEDS ORDERED: FUROSEMIDE 10 MG/ML 4 ML VIAL IV STA (21:04)
--- NOTE | 2022-01-29 21:21 | PN ---
PROGRESS NOTE SUBJECTIVE: An 81-year-old white male, came in with systolic CHF, pneumonia, elevated procalcitonin, severely elevated BNPs, on IV Lasix and IV antibiotics. Started him on Farxiga 5 mg a day for CHF admission prevention. Currently on 2 L oxygen. He is continued on 20 mL an hour. Feeling much better, breathing is improved. Sodium is 139, potassium 4.5, BUN is 62, creatinine 1.53. CT was reviewed. OBJECTIVE: CARDIOVASCULAR: S1 and S2. LUNGS: Scattered rhonchi and wheeze. HEMATOLOGY: Negative Homans. PSYCHIATRIC: Fair mood and affect. LABORATORY DATA: Hemoglobin was 9.9, white count was 9.8. ASSESSMENT AND PLAN: 1. Acute hypoxemic respiratory failure secondary to systolic congestive heart failure with reduced ejection fraction, now is 30% to 35%. 2. Chronic kidney disease, stage 3. 3. Right pleural effusion. 4. Right lower lobe infiltrate. 5. Type 2 diabetes mellitus. 6. Benign prostatic hypertrophy. 7. He has pulmonary hypertension. 8. Urinary tract infection. He is improving. Continue current treatments. Possibly, treat for pulmonary hypertension, but he is doing much better. Continue with IV diuresis. Pulmonary and Cardiology recommendations appreciated. MMODL / IJN: [id number] /
[2022-01-30] MEDS: PANTOPRAZOLE 40 MG TABLET PO SCH (06:36)
[2022-01-30] MEDS: FERROUS SULFATE 325 MG TAB PO SCH (06:36)
[2022-01-30] MEDS: carvediloL 6.25 MG TAB PO SCH (06:36)
[2022-01-30] MEDS: HYDROcodone/APAP 10-325MG 1 EACH TAB PO PRN (06:38)
[2022-01-30 08:47] VITALS: BP 158/71; RESP 26; TEMP 98
[2022-01-30] MEDS: ATORVASTATIN 40 MG TAB PO SCH (08:49)
[2022-01-30] MEDS: CLOPIDOGREL 75 MG TAB PO SCH (08:49)
[2022-01-30] MEDS: DAPAGLIFLOZIN PROPANEDIOL 5 MG TABLET PO SCH (08:49)
[2022-01-30] MEDS: hydrALAZINE HCL 25 MG TAB PO SCH (08:49)
[2022-01-30] MEDS: ASPIRIN 81 MG PO SCH (08:49)
[2022-01-30] MEDS: FINASTERIDE 5 MG TAB PO SCH (08:49)
[2022-01-30] MEDS: FUROSEMIDE 80 MG TAB PO SCH (08:49)
[2022-01-30] MEDS: IPRATROPIUM-ALBUTEROL 3 ML NEB INHALATION PRN ×2 (08:52→12:19)
[2022-01-30] MEDS: SYMBICORT 160-4.5 MCG INHALER INHALATION SCH (08:52)
[2022-01-30] MEDS ORDERED: predniSONE 20 MG TAB PO SCH (09:00)
[2022-01-30 12:29] VITALS: PULSE 90
--- NOTE | 2022-01-30 14:27 | DS ---
DISCHARGE SUMMARY DISCHARGE DIAGNOSES: 1. Acute exacerbation of systolic CHF with ejection fraction of 35, with reduced ejection fraction of congestive heart failure. 2. Acute pulmonary edema. 3. Acute respiratory failure, possible aspiration pneumonia. Continue with IV antibiotics, IV steroids. He was also treated with IV Lasix for 2-3 days Farxiga 10 mg a day for CHF prevention. The patient improved with IV Lasix, IV antibiotics and steroids to the point, he normally wears 2 L oxygen at home, he is stable on 2 L oxygen, wants to go home. He is stabilized from medical standpoint. were reviewed. Cleared by Cardiology, Pulmonology. He will follow up as outpatient. DIET: As tolerated. ACTIVITY: Ambulate as tolerated. Continue current treatments. Medically stable on discharge, requesting to go home. MMALLISONL / RICAN: [id number] /
--- NOTE | 2022-01-30 15:06 | CDI ---
Documentation Clarification Form Date: 01/27/2022 03:03:00 PM From: Tory Ziegler RN CCDS Admit Date: 01/26/2022 04:07:00 AM Patient Name: Alan Parra Visit Number: [id number] Discharge Date: 01/30/2022 12:53:00 PM ATTENTION: The Clinical Documentation Specialists (CDI) and [facility] Coding Staff appreciate your assistance in clarifying documentation. Please respond to the clarification below the line at the bottom and electronically sign. The CDI & [facility] Coding staff will review the response and follow-up if needed. Please note: Queries are made part of the Legal Health Record. If you have any questions, please contact the author of this message via ITS. Dr. Bhavesh Fontanez Sepsis is documented ED Note, 01/26, but is not noted in subsequent documentation. Clarification is requested. History/Risk Factors: 80-year-old male presents to the ED with worsening shortness of breath and weight gain. Medical History: CHF, COPD, former tobacco use, HTN, Stage 3 CKD. 01/26, Pulmonary consult. Clinical Indicators: Admitting diagnoses: Bacterial pneumonia and congestive heart failure. VSS: B/P 168/96; HR 107; Temp 98.2 F Oral; RR 25; SpO2 100% BiPAP LABS: 01/26 Wbc 14.8; Neutrophils 13.4; Procalcitonin 0.20. CT Chest: 01/26 Enlarging right sided pleural effusion. New wedge-shaped density right lower lobe may reflect atelectasis and or developing infiltrate. Treatment: 01/26 Azithromycin IVPB x 1; 01/26 Ceftriaxone IVPB x 1; 01/26 Ceftriaxone IVPB Q12H; 01/27 Azithromycin IVPB Daily x 3 bags. Please clarify if the Sepsis is: [ ] Sepsis ruled out [ ] Sepsis confirmed, remains under treatment [ ] Other condition, please specify [ ] Unable to determine (Template Last Revised: June 2020) (Template Last Revised: June 2020) MTDD
--- NOTE | 2022-01-31 00:13 | PN ---
PROGRESS NOTE DATE OF SERVICE: 01/30/2022 This is a Pulmonary/Critical Care Progress Note. SUBJECTIVE: This is an 81-year-old gentleman who has been seen now for a couple of days here in the hospital. He is seen in room 352. He is resting comfortably. He is sitting in a chair. He is on 2 L of oxygen. He is not receiving any IV fluids. He mentions to me today, that he could be potentially discharged. PHYSICAL EXAMINATION: VITAL SIGNS: Current vital signs are reviewed. His temperature is 98 degrees, his heart rate is 90, his respiratory rate is 22, his blood pressure is 158/71 and has 2 L saturations 99%. He appears in no acute distress. HEENT: Grossly unremarkable. NECK: Supple. Full range of motion. No adenopathy. Neck veins are flat. CARDIOVASCULAR: Reveals regular rhythm and rate. S1, S2 normal. No S3, S4, or murmur. LUNGS: Revealed minimal bibasilar crackles. Breath sounds equal bilaterally. No wheezes. Saturations are excellent. ABDOMEN: Obese. Bowel sounds are heard. EXTREMITIES: Intact. No cyanosis or clubbing. Trace edema noted. SKIN: Without rash. NEUROLOGIC: Brief, but nonfocal. LABS: Reviewed. Nothing new from today. ASSESSMENT: 1. Acute hypoxemic respiratory failure secondary to CHF, with a borderline reduced ejection fraction of 40% to 45%. 2. Prior non ST-segment elevation myocardial infarction, May 2021, status post Impella supported PCI of the left main and left anterior descending coronary arteries. 3. History of chronic kidney disease, stage III. 4. History of chronic anemia. 5. History of hypertension. 6. History of hyperlipidemia. 7. Type 2 diabetes mellitus. 8. Prior history of tobacco use with chronic obstructive pulmonary disease. 9. Benign prostatic hypertrophy. 10.History of urinary retention with urinary tract infection. 11.Multiple other medical problems and comorbidities. PLAN: The patient is doing well. The patient will likely be discharged even today or tomorrow. The patient is currently on 2 L. Labs, x-rays, and medications are reviewed. No additional recommendations are made. The patient will follow up with Dr. Askew, his primary care physician. MMODL / IJN: [id number] /
--- NOTE | 2022-01-31 14:29 | PN ---
PROGRESS NOTE Sepsis ruled in with bacterial pneumonia. MMODL / IJN: [id number] /
== END 2022-01-30 12:53 | disposition home health service (06) | DRG 871 ==
LOC: EC 03:05 → 3SCARD 04:07
PROVIDERS: ADMIT Family Medicine; ATTEND Family Medicine
PROC: 5A09357 Assistance with Respiratory Ventilation, Less than 24 Consecutive Hours, Continuous Positive Airway Pressure (ICD-10-PCS; principal; 2022-01-26)
DX: A41.9 Sepsis, unspecified organism (principal); I50.23 Acute on chronic systolic (congestive) heart failure; J96.01 Acute respiratory failure with hypoxia; J15.9 Unspecified bacterial pneumonia; I13.0 Hypertensive heart and chronic kidney disease with heart failure and stage 1 through stage 4 chronic kidney disease, or unspecified chronic kidney disease; I50.22 Chronic systolic (congestive) heart failure; J44.1 Chronic obstructive pulmonary disease with (acute) exacerbation; J44.0 Chronic obstructive pulmonary disease with (acute) lower respiratory infection; N18.30 Chronic kidney disease, stage 3 unspecified; E78.5 Hyperlipidemia, unspecified; D64.9 Anemia, unspecified; E11.22 Type 2 diabetes mellitus with diabetic chronic kidney disease; N40.1 Benign prostatic hyperplasia with lower urinary tract symptoms; R33.8 Other retention of urine; I49.3 Ventricular premature depolarization; K21.9 Gastro-esophageal reflux disease without esophagitis; I27.20 Pulmonary hypertension, unspecified; I25.10 Atherosclerotic heart disease of native coronary artery without angina pectoris; F41.9 Anxiety disorder, unspecified; I45.10 Unspecified right bundle-branch block; M54.50 Low back pain, unspecified; I87.2 Venous insufficiency (chronic) (peripheral); R77.8 Other specified abnormalities of plasma proteins; G89.29 Other chronic pain; Z87.891 Personal history of nicotine dependence; Z87.440 Personal history of urinary (tract) infections; Z87.11 Personal history of peptic ulcer disease; Z79.899 Other long term (current) drug therapy; Z79.82 Long term (current) use of aspirin; Z79.51 Long term (current) use of inhaled steroids; Z79.02 Long term (current) use of antithrombotics/antiplatelets; I25.2 Old myocardial infarction; Z95.5 Presence of coronary angioplasty implant and graft; Z88.8 Allergy status to other drugs, medicaments and biological substances; Z71.3 Dietary counseling and surveillance
CPT/HCPCS: 36415; 71045; 71250; 80048; 80053; 83605; 83880; 84145; 84484; 85025; 85610; 85730; 87040; 93005; 93306; 94640; 94660; 94760; 96365; 96366; 96367; 96375; 96376; 99291

== ENCOUNTER → 2022-03-03 | Outpatient (CLI) | payer MEDICARE ==
[2022-03-03 18:35] LABS: HCT 25.6 % (39.6-50.0); HGB 7.6 g/dL (13.0-17.0); MCH 31.5 pg (27.0-32.0); MCHC 29.7 g/dL (32.0-37.0); MCV 106.2 fL (80.0-97.0); Mean Platelet Volume 9.6 fL (9.5-12.2); NRBC Per 100 WBC 0 /100 WBCS (0.0-0.0); Platelet Count 375 X 10*3/uL (140-440); RBC 2.41 X 10*6/uL (4.40-5.60); RDW 15.3 % (11.5-14.5); WBC 14.45 X 10*3/uL (4.50-10.00)
[2022-03-03 20:01] LABS: Albumin 3.1 g/dL (3.8-4.9); Anion Gap 15.2 mmol/L (10.00-18.00); BUN/Creat Ratio 27.72 Ratio (12.00-20.00); Blood Urea Nitrogen 49.9 mg/dL (9.0-27.0); Calcium 8.6 mg/dL (8.7-10.3); Carbon Dioxide 23.8 mmol/L (20.0-27.5); Non-African American GFR(CKD) 34.5 (60.0-200.0); Phosphorus 4.5 mg/dL (2.4-5.1); Potassium 3.9 mmol/L (3.5-5.5)
== END | disposition home or self-care (01) ==
LOC: LABWHC1 12:45
PROVIDERS: ATTEND Internal Medicine
DX: I50.20 Unspecified systolic (congestive) heart failure (principal); D64.9 Anemia, unspecified
CPT/HCPCS: 36415; 80069; 85027

== ENCOUNTER 2022-08-17 09:05 | Inpatient (IN) | payer MEDICARE ==
[2022-08-17] MEDS ORDERED: ONDANSETRON 4 MG/2 ML VIAL IVP STA (09:50)
[2022-08-17] MEDS ORDERED: SODIUM CHLORIDE 0.9% 500 ML 500 ML IV STA (09:50)
[2022-08-17] MEDS ORDERED: FAMOTIDINE 20 MG/2 ML VIAL IV STA (09:50)
--- NOTE | 2022-08-17 10:03 | ED ---
Nausea/Vomiting/Diarrhea HPI - General Chief complaint: Nausea/Vomiting/Diarrhea Stated complaint: vomiting Time Seen by Provider: 08/17/22 09:35 Source: patient, RN notes reviewed Mode of arrival: wheelchair Limitations: no limitations - History of Present Illness Initial comments: 81-year-old male presents emergency Department with chief complaint of nausea vomiting abdominal discomfort. Patient states been having vomiting since last Wednesday. States he didn't feel well last Wednesday after his wound care appointment. He was reportedly started on Bactrim for some dysuria but had no urinalysis. Patient is unsure of these taken Bactrim in the past. Patient complains of mild right-sided abdominal pains had a prior appendectomy and cholecystectomy. Patient denies any symptoms and diarrhea patient have bowel movement 3 days ago. Patient states he feels weak, run down. - Related Data Home Medications Medication Instructions Recorded Confirmed HYDROcodone/APAP 10-325MG [[place] 1 tab PO Q6H PRN 05/22/21 05/01/22 10-325] Sennosides [Senna] 8.6 mg PO BID PRN 05/22/21 05/01/22 Tamsulosin HCl [Flomax] 0.4 mg PO DAILY 05/22/21 05/01/22 Nitroglycerin Sl Tabs [Nitrostat] 0.4 mg SL Q5M PRN 06/08/21 05/01/22 Pantoprazole [Protonix] 40 mg PO BID 06/08/21 05/01/22 Albuterol Sulfate [Proair Hfa] 2 puff INHALATION RT-QID PRN 08/07/21 05/01/22 Melatonin 5 mg PO HS 08/07/21 05/01/22 predniSONE 10 mg PO DAILY 01/26/22 05/01/22 Bumetanide [BUMEX] 2 mg PO BID 05/01/22 05/01/22 Dapagliflozin Propanediol [Farxiga] 5 mg PO BID 05/01/22 05/01/22 Ferrous Sulfate [Iron (65 MG 325 mg PO DAILY 05/01/22 05/01/22 Elemental)] Previous Rx's Medication Instructions Recorded Atorvastatin [Lipitor] 40 mg PO DAILY #90 tab 05/29/21 Clopidogrel [Plavix] 75 mg PO DAILY #90 tab 05/29/21 Folic Acid 1 mg PO DAILY #30 tab 06/11/21 Budesonide-Formot 160-4.5 Mcg 2 puff INHALATION RT-BID gm 08/12/21 [Symbicort 160-4.5 Mcg Inhaler] Ipratropium-Albuterol Nebulize 3 ml INHALATION RT-QID ml 08/12/21 [Duoneb 0.5 mg-3 mg/3 ml Soln] Allergies Allergy/AdvReac Type Severity Reaction Status Date / Time lisinopril Allergy Anaphylaxis, Verified 08/17/22 09:13 Tongue swelling Review of Systems ROS Statement: Those systems with pertinent positive or pertinent negative responses have been documented in the HPI. ROS Other: All systems not noted in ROS Statement are negative. Past Medical History Past Medical History: COPD, Hyperlipidemia, Hypertension, Osteoarthritis (OA), Prostate Disorder, Renal Disease, Vascular Disorder Additional Past Medical History / Comment(s): PVC's, CKD stage III, chronic anemia, BPH, urinary retention, UTI, pancreatitis, gastric ulcer, arthritis in multiple joints/occasional low back pain History of Any Multi-Drug Resistant Organisms: None Reported Past Surgical History: Appendectomy, Cholecystectomy, Heart Catheterization, Heart Catheterization With Stent, Tonsillectomy Additional Past Surgical History / Comment(s): R caratid endartectomy, arch study, colonoscopies/benign polypectomies, EGD, pilonidal cyst removed x 2, heart cath with stent placement Past Anesthesia/Blood Transfusion Reactions: No Reported Reaction Date of Last Stent Placement:: 05/27/21 Past Psychological History: No Psychological Hx Reported Smoking Status: Former smoker Past Alcohol Use History: None Reported Past Drug Use History: None Reported - Past Family History Father Family Medical History: No Reported History Mother Family Medical History: Congestive Heart Failure (CHF) General Exam Limitations: no limitations General appearance: alert, in no apparent distress Head exam: Present: atraumatic, normocephalic, normal inspection Eye exam: Present: normal appearance, PERRL, EOMI. Absent: scleral icterus, conjunctival injection, periorbital swelling Neck exam: Present: normal inspection. Absent: tenderness, meningismus, lymphadenopathy Respiratory exam: Present: normal lung sounds bilaterally. Absent: respiratory distress, wheezes, rales, rhonchi, stridor Cardiovascular Exam: Present: regular rate, normal rhythm, normal heart sounds. Absent: systolic murmur, diastolic murmur, rubs, gallop, clicks GI/Abdominal exam: Present: soft, tenderness (Right-sided), normal bowel sounds. Absent: distended, guarding, rebound, rigid Back exam: Absent: CVA tenderness (R), CVA tenderness (L) Neurological exam: Present: alert Course Vital Signs 08/17/22 08/17/22 09:09 11:49 Temperature 97.6 F Pulse Rate 60 89 Respiratory 24 18 Rate Blood Pressure 110/62 121/58 O2 Sat by Pulse 98 98 Oximetry Medical Decision Making - Medical Decision Making Was pt. sent in by a medical professional or institution (, PA, SELF SEALING FUEL TANK REPAIRER, urgent care, hospital, or care home...) When possible be specific @ -No Did you speak to anyone other than the patient for history (EMS, parent, family, police, friend...)? What history was obtained from this source @ -Granddaughter in the room provided primary recent past medical history Did you review nursing and triage notes (agree or disagree)? Why? @ -I reviewed and agree with nursing and triage notes Were old charts reviewed (outside hosp., previous admission, EMS record, old EKG, old radiological studies, urgent care reports/EKG's, care home records)? Report findings @ -No old charts were reviewed Differential Diagnosis (chest pain, altered mental status, abdominal pain women, abdominal pain men, vaginal bleeding, weakness, fever, dyspnea, syncope, heada oswaldo, dizziness, GI bleed, back pain, seizure, CVA, palpatations, mental health, musculoskeletal)? @ -ADifferential Abdominal Pain Men: Appendicitis, cholecystitis, diverticulosis, ischemic bowel, pancreatitis, hepatitis, UTI, gastroenteritis, AAA, incarcerated hernia, bowel obstruction, constipation, inflammatory bowel, hepatitis, peptic ulcer disease, splenic infarction, perforated viscus, testicular torsion, this is not meant to be an all-inclusive listn EKG interpreted by me (3pts min.). @ -None X-rays interpreted by me (1pt min.). @ -None done CT interpreted by me (1pt min.). @ -CT abdomen and pelvis shows no acute injury abdominal processes no evidence obstruction no evidence of diverticulitis or other acute process U/S interpreted by me (1pt. min.). @ -None done What testing was considered but not performed or refused? (CT, X-rays, U/S, labs)? Why? @ -None What meds were considered but not given or refused? Why? @ -None Did you discuss the management of the patient with other professionals (professionals i.e. , PA, SELF SEALING FUEL TANK REPAIRER, lab, RT, psych nurse, social worker school, gynaecological oncologist, teacher, classification officer, outsole caser)? Give summary @ -Dr. Eckert for admission secondary to the renal failure, acute kidney injury dehydration. Was smoking cessation discussed for >3mins.? @ -No Was critical care preformed (if so, how long)? @ -No Were there social determinants of health that impacted care today? How? (Homele ssness, low income, unemployed, alcoholism, drug addiction, transportation, low edu. Level, literacy, decrease access to med. care, penitentiary, rehab)? @ -No Was there de-escalation of care discussed even if they declined (Discuss DNR or withdrawal of care, Hospice)? DNR status @ -No What co-morbidities impacted this encounter? (DM, HTN, Smoking, COPD, CAD, Cancer, CVA, ARF, Chemo, Hep., AIDS, mental health diagnosis, sleep apnea, morbid obesity)? @ -Diabetes, CHF, hypertension Was patient admitted / discharged? Hospital course, mention meds given and route, prescriptions, significant lab abnormalities, going to OR and other pertinent info. @ -Admitted patient's found to have acute renal failure, acute dehydration patient was started on maintenance fluids after small bolus patient has EF of 40% on last echocardiogram. Patient is admitted to medicine for further evaluation. Undiagnosed new problem with uncertain prognosis? @ -No Drug Therapy requiring intensive monitoring for toxicity (Heparin, Nitro, Insulin, Cardizem)? @ -No Were any procedures done? @ -No Diagnosis/symptom? @ -Acute kidney injury, dehydration, nausea vomiting Acute, or Chronic, or Acute on Chronic? @ -Acute Uncomplicated (without systemic symptoms) or Complicated (systemic symptoms)? @ -complicated Side effects of treatment? @ -No Exacerbation, Progression, or Severe Exacerbation? @ -No Poses a threat to life or bodily function? How? (Chest pain, [place], [place], pneumonia, PE, COPD, DKA, ARF, appy, cholecystitis, CVA, Diverticulitis, Homicidal, Suicidal, threat to staff... and all critical care pts) @ -No - Lab Data Result diagrams: 08/17/22 10:00 08/17/22 10:00 Lab Results 08/17/22 08/17/22 08/17/22 Range/Units 10:00 10:00 10:00 WBC 14.1 H (3.8-10.6) k/uL RBC 3.81 L (4.30-5.90) m/uL Hgb 11.3 L (13.0-17.5) gm/dL Hct 35.4 L (39.0-53.0) % MCV 92.8 (80.0-100.0) fL MCH 29.7 (25.0-35.0) pg MCHC 32.0 (31.0-37.0) g/dL RDW 14.2 (11.5-15.5) % Plt Count 213 (150-450) k/uL MPV 7.6 Neutrophils % 87 % Lymphocytes % 7 % Monocytes % 4 % Eosinophils % 1 % Basophils % 0 % Neutrophils # 12.2 H (1.3-7.7) k/uL Lymphocytes # 1.0 (1.0-4.8) k/uL Monocytes # 0.6 (0-1.0) k/uL Eosinophils # 0.1 (0-0.7) k/uL Basophils # 0.0 (0-0.2) k/uL Sodium 130 L (137-145) mmol/L Potassium 3.6 (3.5-5.1) mmol/L Chloride 91 L (98-107) mmol/L Carbon Dioxide 27 (22-30) mmol/L Anion Gap 12 mmol/L BUN 114 H* (9-20) mg/dL Creatinine 3.53 H (0.66-1.25) mg/dL Est GFR (CKD-EPI)AfAm 18 (>60 ml/min/1.73 sqM) Est GFR (CKD-EPI)NonAf 15 (>60 ml/min/1.73 sqM) Glucose 134 H (74-99) mg/dL Plasma Lactic Acid Tima 1.9 (0.7-2.0) mmol/L Calcium 8.6 (8.4-10.2) mg/dL Total Bilirubin 0.5 (0.2-1.3) mg/dL AST 29 (17-59) U/L ALT 16 (4-49) U/L Alkaline Phosphatase 189 H (38-126) U/L Total Protein 5.6 L (6.3-8.2) g/dL Albumin 3.1 L (3.5-5.0) g/dL Amylase 37 (30-110) U/L Lipase 92 (23-300) U/L Disposition Clinical Impression: Acute kidney injury, Dehydration, Nausea & vomiting Disposition: ADMITTED IP TO THIS HOSP Condition: Fair Referrals: Owen Ortega MD [Primary Care Provider] - 1-2 days Time of Disposition: 11:31
[2022-08-17 10:29] LABS: Basophils % (A) 0 %; Eosinophils # (A) 0.1 k/uL (0-0.7); Eosinophils % (A) 1 %; HCT 35.4 % (39.0-53.0); HGB 11.3 gm/dL (13.0-17.5); Lymphocytes % (A) 7 %; MCH 29.7 pg (25.0-35.0); MCV 92.8 fL (80.0-100.0); Mean Platelet Volume 7.6; Monocytes # (A) 0.6 k/uL (0-1.0); Monocytes % (A) 4 %; Neutrophils # (A) 12.2 k/uL (1.3-7.7); Neutrophils % (A) 87 %; Platelet Count 213 k/uL (150-450); RBC 3.81 m/uL (4.30-5.90); RDW 14.2 % (11.5-15.5); WBC 14.1 k/uL (3.8-10.6)
[2022-08-17 10:38] LABS: Albumin 3.1 g/dL (3.5-5.0); Calcium 8.6 mg/dL (8.4-10.2); Potassium 3.6 mmol/L (3.5-5.1); Total Bilirubin 0.5 mg/dL (0.2-1.3); Total Protein 5.6 g/dL (6.3-8.2)
--- NOTE | 2022-08-17 11:00 | CT ---
EXAMINATION TYPE: CT abdomen pelvis wo con DATE OF EXAM: 08/17/2022 COMPARISON: 05/01/2022 HISTORY: Abodminal pain, vomiting CT DLP: 1032.4 mGycm Automated exposure control for dose reduction was used. TECHNIQUE: Helical acquisition of images was performed from the lung bases through the pelvis. FINDINGS: Stable chronic infiltrates in the lung bases without dense airspace consolidation or pleural effusion .. There are surgical absence of gallbladder. The liver contour is somewhat lobulated consistent with cirrhosis. The pancreas is markedly atrophic. There is no splenomegaly or adrenal mass. Kidneys are mildly atrophic and there are multiple renal arterial calcifications but there is no hydr onephrosis. The common aorta is heavily calcified as are the mesenteric vessels. There is a 3.4 cm infrarenal abd ominal aortic aneurysm. The bowel loops are normal in caliber and there is no dilatation or obstruction. No inflammatory yoon ges are identified in the bowel wall or mesentery and there is no free intraperitoneal air or fluid. There is no pelvic mass or adenopathy The prostate gland is mildly prominent. The osseous structures are intact. IMPRESSION: 1. No acute changes within the abdomen. 2. Liver contour suggestive of cirrhosis. 3. Markedly atrophic pancreas. 4. Mildly atrophic kidneys. 5. Stable infrarenal abdominal aortic aneurysm measuring 3.4 cm heavily calcified mesenteric vessels with probable stenoses of the origins of the celiac and superior mesenteric arteries. 6. No free intraperitoneal air or fluid or inflammatory change.
[2022-08-17] MEDS ORDERED: ONDANSETRON 4 MG/2 ML VIAL IVP PRN (11:36)
[2022-08-17] MEDS ORDERED: NALOXONE 0.4 MG/ML 1 ML VIAL IV PRN (11:36)
[2022-08-17] MEDS: SODIUM CHLORIDE 0.9% 1,000 ML IV SCH (11:48)
--- NOTE | 2022-08-17 11:54 | P.HPIM ---
History of Present Illness Patient is a pleasant 81-year-old male came in with complaints of nausea vomiting abdominal discomfort has been going on for last 2 days and found to be in acute renal failure with creatinine of 3.53 recent creatinine of around 1.5. Patient was started on Bactrim for dysuria. No urine analysis is available from that time. Patient is also complaining of right lower quadrant abdominal pain CT of the abdomen did not show any significant acute abnormality did show some 3.5 cm infrarenal stable abdominal light aneurysm and fatty liver. Patient does have history of congestive heart failure EF of around 35-40% in the does use B umex at home. Patient is also hyponatremic with highly elevated BUN of 114 and hypochloremic. Patient is presently not in CHF clinically. She will also complaining of for mild nonspecific right lower quadrant REVIEW OF SYSTEMS: CONSTITUTIONAL: No fever, no malaise, no fatigue. HEENT: No recent visual problems or hearing problems. Denied any sore throat. CARDIOVASCULAR: No chest pain, orthopnea, PND, no palpitations, no syncope. PULMONARY: No shortness of breath, no cough, no hemoptysis. GASTROINTESTINAL: As mentioned in HPI NEUROLOGICAL: No headaches, no weakness, no numbness. HEMATOLOGICAL: Denies any bleeding or petechiae. GENITOURINARY: Denies any burning micturition, frequency, or urgency. MUSCULOSKELETAL/RHEUMATOLOGICAL: Denies any joint pain, swelling, or any muscle pain. ENDOCRINE: Denies any polyuria or polydipsia. The rest of the 14-point review of systems is negative. PHYSICAL EXAMINATION: GENERAL: The patient is alert and oriented x3, not in any acute distress. Well developed, well nourished. HEENT: Pupils are round and equally reacting to light. EOMI. No scleral icterus. No conjunctival pallor. Normocephalic, atraumatic. No pharyngeal erythema. No thyromegaly. CARDIOVASCULAR: S1 and S2 present. No murmurs, rubs, or gallops. PULMONARY: Chest is clear to auscultation, no wheezing or crackles. ABDOMEN: Soft, nontender, nondistended, normoactive bowel sounds. No palpable organomegaly. MUSCULOSKELETAL: No joint swelling or deformity. EXTREMITIES: No cyanosis, clubbing, or pedal edema. NEUROLOGICAL: Gross neurological examination did not reveal any focal deficits. SKIN: No rashes. Assessment and plan -Acute renal failure secondary to nausea vomiting, Bumex and Bactrim, he makes and Bactrim will be held patient will be started on IV fluids repeat electrolytes tomorrow. He'll evidence of UTI -Congestive heart failure chronic systolic dysfunction without any acute exacerbation patient is actually hypovolemic will be started on IV fluids -COPD without any good exacerbation at line-hyperlipidemia -Hypertension -Benign prostatic hypertrophy -Peripheral vascular disease -COPD without any acute exacerbation, chronic respiratory failure does use 2 L of oxygen at home presently not a smoker. -Obesity DVT prophylaxis: Subcutaneous heparin Past Medical History Past Medical History: COPD, Hyperlipidemia, Hypertension, Osteoarthritis (OA), Prostate Disorder, Renal Disease, Vascular Disorder Additional Past Medical History / Comment(s): PVC's, CKD stage III, chronic anemia, BPH, urinary retention, UTI, pancreatitis, gastric ulcer, arthritis in multiple joints/occasional low back pain History of Any Multi-Drug Resistant Organisms: None Reported Past Surgical History: Appendectomy, Cholecystectomy, Heart Catheterization, Heart Catheterization With Stent, Tonsillectomy Additional Past Surgical History / Comment(s): R caratid endartectomy, arch study, colonoscopies/benign polypectomies, EGD, pilonidal cyst removed x 2, heart cath with stent placement Past Anesthesia/Blood Transfusion Reactions: No Reported Reaction Date of Last Stent Placement:: 05/27/21 Past Psychological History: No Psychological Hx Reported Smoking Status: Former smoker Past Alcohol Use History: None Reported Past Drug Use History: None Reported - Past Family History Father Family Medical History: No Reported History Mother Family Medical History: Congestive Heart Failure (CHF) Medications and Allergies Home Medications Medication Instructions Recorded Confirmed Type HYDROcodone/APAP 10-325MG [[place] 1 tab PO Q6H PRN 05/22/21 05/01/22 History 10-325] Sennosides [Senna] 8.6 mg PO BID PRN 05/22/21 05/01/22 History Tamsulosin HCl [Flomax] 0.4 mg PO DAILY 05/22/21 05/01/22 History Atorvastatin [Lipitor] 40 mg PO DAILY #90 tab 05/29/21 05/01/22 Rx Clopidogrel [Plavix] 75 mg PO DAILY #90 tab 05/29/21 05/01/22 Rx Nitroglycerin Sl Tabs [Nitrostat] 0.4 mg SL Q5M PRN 06/08/21 05/01/22 History Pantoprazole [Protonix] 40 mg PO BID 06/08/21 05/01/22 History Folic Acid 1 mg PO DAILY #30 tab 06/11/21 05/01/22 Rx Albuterol Sulfate [Proair Hfa] 2 puff INHALATION RT-QID PRN 08/07/21 05/01/22 History Melatonin 5 mg PO HS 08/07/21 05/01/22 History Budesonide-Formot 160-4.5 Mcg 2 puff INHALATION RT-BID gm 08/12/21 05/01/22 Rx [Symbicort 160-4.5 Mcg Inhaler] Ipratropium-Albuterol Nebulize 3 ml INHALATION RT-QID ml 08/12/21 05/01/22 Rx [Duoneb 0.5 mg-3 mg/3 ml Soln] predniSONE 10 mg PO DAILY 01/26/22 05/01/22 History Bumetanide [BUMEX] 2 mg PO BID 05/01/22 05/01/22 History Dapagliflozin Propanediol [Farxiga] 5 mg PO BID 05/01/22 05/01/22 History Ferrous Sulfate [Iron (65 MG 325 mg PO DAILY 05/01/22 05/01/22 History Elemental)] Allergies Allergy/AdvReac Type Severity Reaction Status Date / Time lisinopril Allergy Anaphylaxis, Verified 08/17/22 09:13 Tongue swelling Physical Exam Vitals: Vital Signs Temp Pulse Resp BP Pulse Ox 08/17/22 11:49 89 18 121/58 98 08/17/22 09:09 97.6 F 60 24 110/62 98 Intake and Output 08/16/22 08/17/22 08/17/22 22:59 06:59 14:59 Other: Weight 97.976 kg Results CBC & Chem 7: 08/17/22 10:00 08/17/22 10:00 Labs: Abnormal Lab Results - Last 24 Hours (Table) 08/17/22 08/17/22 Range/Units 10:00 10:00 WBC 14.1 H (3.8-10.6) k/uL RBC 3.81 L (4.30-5.90) m/uL Hgb 11.3 L (13.0-17.5) gm/dL Hct 35.4 L (39.0-53.0) % Neutrophils # 12.2 H (1.3-7.7) k/uL Sodium 130 L (137-145) mmol/L Chloride 91 L (98-107) mmol/L BUN 114 H* (9-20) mg/dL Creatinine 3.53 H (0.66-1.25) mg/dL Glucose 134 H (74-99) mg/dL Alkaline Phosphatase 189 H (38-126) U/L Total Protein 5.6 L (6.3-8.2) g/dL Albumin 3.1 L (3.5-5.0) g/dL
[2022-08-17] MEDS: PANTOPRAZOLE 40 MG/10 ML VIAL IVP SCH ×2 (12:31→21:08)
--- NOTE | 2022-08-17 13:12 | US ---
EXAMINATION TYPE: US kidneys/renal and bladder DATE OF EXAM: 08/17/2022 COMPARISON: Correlation CT 08/17/2022 CLINICAL INDICATION: Male, 81 years old with history of PETER; Abnormal labs. EXAM MEASUREMENTS: Right Kidney: 10.8 x 5.3 x 3.1 cm Left Kidney: 11.2 x 5.3 x 6.1 cm Flat Knitter Helper notes:Suboptimal due to patient body habitus and position Right Kidney: No obvious hydronephrosis or masses seen Left Kidney: No obvious hydronephrosis or masses seen Bladder: Distended, anechoic Bilateral Jets seen IMPRESSION: Limited ultrasound exam due to large patient body habitus. No obvious hydronephrosis on either side. No gross abnormality of the bladder.
[2022-08-17 14:08] LABS: Appearance,Urine Cloudy (Clear); Bacteria,Urine Rare /hpf; Bilirubin,Urine Negative (Negative); Blood,Urine Small (Negative); Color,Urine Light Yellow; Glucose,Urine (UA) Negative (Negative); Ketones,Urine Negative (Negative); Leukocyte Esterase,Urine Large (Negative); Mucus,Urine Rare /hpf; Nitrite,Urine Negative (Negative); Protein,Urine Trace (Negative); RBC,Urine 106 /hpf (0-5); Specific Gravity,Urine 1.011 (1.001-1.035); Urobilinogen,Urine <2.0 mg/dL (<2.0); WBC,Urine >182 /hpf (0-5)
[2022-08-17] MEDS ORDERED: hydrALAZINE HCL 25 MG TAB PO PRN (14:12)
[2022-08-17] MEDS ORDERED: NITROGLYCERIN SL TABS 0.4 MG TAB SUBLINGUAL PRN (14:12)
[2022-08-17] MEDS: HEPARIN SODIUM,PORCINE/PF 5,000 UNIT/0.5 ML SYRINGE SQ SCH (15:02)
[2022-08-17] MEDS: ALBUTEROL NEBULIZED 2.5 MG/3 ML INHALATION PRN (18:24)
[2022-08-17] MEDS: carvediloL 6.25 MG TAB PO SCH (18:33)
[2022-08-17] MEDS ORDERED: PANTOPRAZOLE 40 MG TABLET PO SCH (21:00)
[2022-08-17] MEDS: SENNOSIDES 8.6 MG TAB PO SCH (21:08)
[2022-08-18] MEDS: HEPARIN SODIUM,PORCINE/PF 5,000 UNIT/0.5 ML SYRINGE SQ SCH ×3 (00:02→16:21)
[2022-08-18] MEDS: ACETAMINOPHEN TAB 325 MG TAB PO PRN ×3 (00:02→16:21)
[2022-08-18] MEDS: SODIUM CHLORIDE 0.9% 1,000 ML IV SCH ×3 (00:03→21:11)
[2022-08-18] MEDS: ALBUTEROL NEBULIZED 2.5 MG/3 ML INHALATION PRN ×2 (07:20→20:26)
[2022-08-18] MEDS ORDERED: DAPAGLIFLOZIN PROPANEDIOL 5 MG TABLET PO SCH (09:00)
[2022-08-18] MEDS: PANTOPRAZOLE 40 MG/10 ML VIAL IVP SCH ×2 (09:35→21:10)
[2022-08-18] MEDS: ATORVASTATIN 40 MG TAB PO SCH (09:36)
[2022-08-18] MEDS: carvediloL 6.25 MG TAB PO SCH (09:36)
[2022-08-18] MEDS: SENNOSIDES 8.6 MG TAB PO SCH ×2 (09:36→21:11)
[2022-08-18] MEDS: CLOPIDOGREL 75 MG TAB PO SCH (09:36)
[2022-08-18] MEDS: TAMSULOSIN 0.4 MG CAP.ER.24H PO SCH (09:36)
[2022-08-18] MEDS: FINASTERIDE 5 MG TAB PO SCH (09:36)
[2022-08-18] MEDS: CYANOCOBALAMIN 500 MCG TAB PO SCH (09:36)
[2022-08-18] MEDS: ASPIRIN 81 MG PO SCH (09:36)
[2022-08-18] MEDS: FOLIC ACID 1 MG TAB PO SCH (09:37)
--- NOTE | 2022-08-18 12:09 | P.CONS ---
History of Present Illness - Reason for Consult Consult date: 08/18/22 wound care - History of Present Illness This is an 81-year-old patient known to the wound care center with a nonhealing ulceration to the sacrum. Original cause of wound was Pressure Injury. The date acquired was: 04/14/2022. The wound is currently classified as a Category/Stage III wound with etiology of Pressure Ulcer and is located on the Midline Coccyx. The wound measures 1.1cm length x 0.4cm width x 0.7cm depth; 0.346cm^2 area and 0.242cm^3 volume. There is Fat Layer (Subcutaneous Tissue) exposed. There is no tunneling or undermining noted. There is a medium amount of serosanguineous drainage noted. The wound margin is distinct with the outline attached to the wound base. There is small (1-33%) red, pink granulation within the wound bed. There is a large (67-100%) amount of necrotic tissue within the wound bed including Adherent Slough. The periwound skin appearance did not exhibit: Callus, Crepitus, Excoriation, Induration, Rash, Scarring, Dry/Scaly, Maceration, Atrophie Kassandra, Cyanosis, Hemosiderin Staining, Mottled, Pallor, Rubor, Erythema. Periwound temperature was noted as No Abnormality. The pe riwound has tenderness on palpation. Patient has been utilizing honey gel to the ulceration and Triad to the periwound. Review Of Systems: Constitutional: No fever, no chills, no night sweats. No weight change. No weakness, fatigue or lethargy. No daytime sleepiness. Integumentary:reports wounds, no lesions. No rash or pruritus. No unusual bruising. No change in hair or nails. Physical exam: General Appearance: Alert, cooperative, no distress, appears stated age. Skin: See HPI all other Skin color, texture, tugor normal, no rashes or lesions. Neurologic: Alert oriented x3 Assessment: 1. Stage III pressure ulcer sacrum 2. Pilonidal sinus without abscess Plan: 1. Apply triad to the periwound, apply honey gel and border gauze to the ulceration. Change Wednesday. Patient returned to the wound care center on August 25 at 9:15. Thank you for the consultation any questions please contact the wound care center DNP note has been reviewed and discussed with Dr. Martinez and the impression and plan of care has been directed as dictated. Past Medical History Past Medical History: Heart Failure, COPD, Hyperlipidemia, Hypertension, Osteoarthritis (OA), Prostate Disorder, Renal Disease, Vascular Disorder Additional Past Medical History / Comment(s): PVC's, CKD stage III, chronic anemia, BPH, urinary retention, UTI, pancreatitis, gastric ulcer, arthritis in multiple joints/occasional low back pain History of Any Multi-Drug Resistant Organisms: None Reported Past Surgical History: Appendectomy, Cholecystectomy, Heart Catheterization, Heart Catheterization With Stent, Tonsillectomy Additional Past Surgical History / Comment(s): R caratid endartectomy, arch study, colonoscopies/benign polypectomies, EGD, pilonidal cyst removed x 2, heart cath with stent placement Past Anesthesia/Blood Transfusion Reactions: No Reported Reaction Date of Last Stent Placement:: 05/27/21 Past Psychological History: No Psychological Hx Reported Additional Psychological History / Comment(s): Pt has his adult son living with him. He uses a cane to ambulate. He drives and is independent. He wants home oxygen Smoking Status: Former smoker Past Alcohol Use History: None Reported Additional Past Alcohol Use History / Comment(s): Pt started smoking in 1954 and quit 11/07/20. He has not drank any alcohol in 11 years Past Drug Use History: None Reported - Past Family History Father Family Medical History: No Reported History Mother Family Medical History: Congestive Heart Failure (CHF) Medications and Allergies Home Medications Medication Instructions Recorded Confirmed Type HYDROcodone/APAP 10-325MG [[place] 1 tab PO QID 05/22/21 08/17/22 History 10-325] Sennosides [Senna] 8.6 mg PO BID 05/22/21 08/17/22 History Tamsulosin HCl [Flomax] 0.4 mg PO DAILY 05/22/21 08/17/22 History Atorvastatin [Lipitor] 40 mg PO DAILY #90 tab 05/29/21 08/17/22 Rx Clopidogrel [Plavix] 75 mg PO DAILY #90 tab 05/29/21 08/17/22 Rx Nitroglycerin Sl Tabs [Nitrostat] 0.4 mg SL Q5M PRN 06/08/21 08/17/22 History Pantoprazole [Protonix] 40 mg PO BID 06/08/21 08/17/22 History Folic Acid 1 mg PO DAILY #30 tab 06/11/21 08/17/22 Rx Albuterol Sulfate [Proair Hfa] 2 puff INHALATION RT-Q4H PRN 08/07/21 08/17/22 History Bumetanide [BUMEX] 2 mg PO BID 05/01/22 08/17/22 History Dapagliflozin Propanediol [Farxiga] 5 mg PO DAILY 05/01/22 08/17/22 History Ferrous Sulfate [Iron (65 MG 325 mg PO DAILY 05/01/22 08/17/22 History Elemental)] Aspirin EC [Ecotrin Low Dose] 81 mg PO DAILY 08/17/22 08/17/22 History Cyanocobalamin [Vitamin B-12] 500 mcg PO DAILY 08/17/22 08/17/22 History Finasteride [Proscar] 5 mg PO DAILY 08/17/22 08/17/22 History carvediloL [Coreg] 6.25 mg PO BID 08/17/22 08/17/22 History hydrALAZINE HCL [Apresoline] 25 mg PO DAILY PRN 08/17/22 08/17/22 History metOLazone [Zaroxolyn] 10 mg PO DAILY 08/17/22 08/17/22 History Allergies Allergy/AdvReac Type Severity Reaction Status Date / Time lisinopril Allergy Anaphylaxis, Verified 08/17/22 13:08 Tongue swelling Physical Exam Vitals: Vital Signs Temp Pulse Pulse Resp BP BP Pulse Ox 08/18/22 07:33 100 08/18/22 07:20 104 H 99 08/18/22 07:10 98.2 F 91 18 103/64 100 08/18/22 01:51 98 F 90 16 92/50 99 08/17/22 19:07 98.1 F 89 16 93/57 98 08/17/22 18:35 100 08/17/22 18:24 96 08/17/22 17:10 103 H 18 117/62 99 08/17/22 17:00 97.9 F 103 H 18 77/31 99 08/17/22 15:04 99 18 105/65 99 08/17/22 14:20 96 18 116/65 96 08/17/22 13:26 113 H 18 135/97 97 08/17/22 12:30 97 18 126/71 99 Intake and Output 08/17/22 08/18/22 08/18/22 22:59 06:59 14:59 Intake Total 900 Output Total 200 200 Balance -200 700 Intake: Intake, IV Titration 900 Amount Sodium Chloride 0.9% 1, 900 000 ml @ 75 mls/hr IV . [id number] [facility] Rx#:[id number] Output: Urine 200 200 Other: Voiding Method Urinal # Voids 1 # Bowel Movements 1 Weight 97.976 kg 81.5 kg 81.5 kg Results CBC & Chem 7: 08/17/22 10:00 08/17/22 10:00 Labs: Abnormal Lab Results - Last 24 Hours (Table) 08/17/22 Range/Units 10:00 Urine Protein Trace H (Negative) Urine Blood Small H (Negative) Ur Leukocyte Esterase Large H (Negative) Urine RBC 106 H (0-5) /hpf Urine WBC >182 H (0-5) /hpf Urine Bacteria Rare H (None) /hpf Urine Mucus Rare H (None) /hpf Assessment and Plan (1) Pressure ulcer of sacral region, stage 3 Current Visit: Yes Status: Acute Code(s): L89.153 - PRESSURE ULCER OF SACRAL REGION, STAGE 3 SNOMED Code(s): 87683726014612 (2) Pilonidal sinus without abscess Current Visit: Yes Status: Acute Code(s): L05.92 - PILONIDAL SINUS WITHOUT ABSCESS SNOMED Code(s): 004036538
[2022-08-18] MEDS: HYDROPHILIC CREAM 180 GM TUBE TOPICAL SCH (13:14)
[2022-08-18 14:17] LABS: HGB 9.5 g/dL (13.0-17.0); MCH 30.4 pg (27.0-32.0); MCHC 31.7 g/dL (32.0-37.0); MCV 96.2 fL (80.0-97.0); NRBC Per 100 WBC 0 /100 WBCS (0.0-0.0); Platelet Count 192 X 10*3/uL (140-440); RBC 3.12 X 10*6/uL (4.40-5.60); WBC 11.84 X 10*3/uL (4.50-10.00)
[2022-08-18 14:42] LABS: African American GFR (CKD) 19.2 (60.0-200.0); Anion Gap 16.4 mmol/L (10.00-18.00); BUN/Creat Ratio 29.24 Ratio (12.00-20.00); Blood Urea Nitrogen 96.5 mg/dL (9.0-27.0); Calcium 8.5 mg/dL (8.7-10.3); Carbon Dioxide 22.6 mmol/L (20.0-27.5); Non-African American GFR(CKD) 16.6 (60.0-200.0); Potassium 3.4 mmol/L (3.5-5.5)
--- NOTE | 2022-08-18 16:11 | P.PN ---
Subjective Progress Note Date: 08/18/22 Patient is a pleasant 81-year-old male came in with complaints of nausea vomiting abdominal discomfort has been going on for last 2 days and found to be in acute renal failure with creatinine of 3.53 recent creatinine of around 1.5. Patient was started on Bactrim for dysuria. No urine analysis is available from that time. Patient is also complaining of right lower quadrant abdominal pain CT of the abdomen did not show any significant acute abnormality did show some 3.5 cm infrarenal stable abdominal light aneurysm and fatty liver. Patient does have history of congestive heart failure EF of around 35-40% in the does use Bumex at home. Patient is also hyponatremic with highly elevated BUN of 114 and hypochloremic. Patient is presently not in CHF clinically. She will also complaining of for mild nonspecific right lower quadrant 08/18/2022 Patient is evaluated sitting up in chair today. Patient reports improved nausea and no further episodes of vomiting has been able to tolerate diet now. He does report he had an appt with Dr. Lee at the wound center this AM for wound care to the coccyx and pt reports it needs to be repacked. Wound care has been consulted for evaluation. Patient was unable to tolerate standing with a 2 person assist safely and feet were slipping out from under him and was difficult for patient to bear weight with walker. Physical therapy will be consulted for e valuation patient may require rehab on discharge. Abdomen and bladder ultrasound done showing no obvious hydronephrosis on either side and no gross abnormality of bladder. Patient had urinated about 200 mls with a post void residual of 79. Review of Systems Constitutional: Denied any fatigue denied any fever. Cardio vascular: denied any chest pain, palpitations Gastrointestinal: denied any nausea, vomiting, diarrhea Pulmonary: Denied any shortness of breath cough Neurologic denied any new focal deficits All inpatient medications were reviewed and appropriate changes in these medications as dictated in the interval history and assessment and plan. PHYSICAL EXAMINATION: GENERAL: The patient is alert and oriented x3, not in any acute distress. Well developed, well nourished. HEENT: Pupils are round and equally reacting to light. EOMI. No scleral icterus. No conjunctival pallor. Normocephalic, atraumatic. No pharyngeal erythema. No thyromegaly. CARDIOVASCULAR: S1 and S2 present. No murmurs, rubs, or gallops. PULMONARY: Chest is clear to auscultation, no wheezing or crackles. ABDOMEN: Soft, nontender, nondistended, normoactive bowel sounds. No palpable organomegaly. MUSCULOSKELETAL: No joint swelling or deformity. EXTREMITIES: No cyanosis, clubbing, or pedal edema. NEUROLOGICAL: Gross neurological examination did not reveal any focal deficits. SKIN: No rashes. Assessment and plan -Abdominal pain with Nausea and Vomiting -Acute renal failure secondary to nausea vomiting, Bumex and Bactrim which are currently being held and patient is being hydrated. -Abnormal urinalysis was being treated with bactrim outpatient for dysuria presently has no symptoms. -Leukocytosis improving -Congestive heart failure chronic systolic dysfunction without any acute exacerbation -COPD without acute exacerbation -hyperlipidemia -Hypertension -Benign prostatic hypertrophy -Peripheral vascular disease -Chronic respiratory failure does use 2 L of oxygen at home presently not a smoker. -Obesity -Generalized weakness patient will likely require subacute rehab on discharge -Stage 3 sacral decubitus ulcer follows with wound care -Chronic kidney disease stage 3 -History of coronary artery disease with prior cardiac stenting -Infrarenal abdominal aortic aneurysm 3.4 cm -Formor smoker/alcohol use GI prophylaxis: DVT prophylaxis: Subcutaneous heparin Full Code Plan Continue IV fluids and repeat labs in the AM Monitor intake and output and recommend post void residuals rule out urinary retention Continue holding bumex Nephrology has been consulted Patient follows with [facility] wound care which are placed on consultation for the stage 3 decubitus ulcer PT/OT consultation and continue supportive care. The impression and plan of care has been dictated by Nela Moreno, Nurse Practitioner as directed. Dr. Babar MD I have performed a history and physical examination and medical decision making of this patient, discussed the same with the dictator, and agree with the dictators assessment and plan as written, documented as a scribe. Based on total visit time, I have performed more than 50% of this visit. Objective - Vital Signs Vital signs: Vital Signs Temp 98.2 F 08/18/22 07:10 Pulse 100 08/18/22 07:33 Resp 18 08/18/22 07:10 BP 103/64 08/18/22 07:10 Pulse Ox 99 08/18/22 07:20 FiO2 Intake & Output 08/17/22 08/18/22 08/18/22 18:59 06:59 18:59 Intake Total 900 Output Total 400 Balance 500 Weight 97.976 kg 81.5 kg Intake: Intake, IV Titration 900 Amount Sodium Chloride 0.9% 1, 900 000 ml @ 75 mls/hr IV . [id number] [facility] Rx#:[id number] Output: Urine 400 Other: Voiding Method Urinal # Voids 1 # Bowel Movements 1 - Labs CBC & Chem 7: 08/18/22 06:02 08/18/22 06:02 Labs: Abnormal Lab Results - Last 24 Hours (Table) 08/17/22 Range/Units 10:00 Urine Protein Trace H (Negative) Urine Blood Small H (Negative) Ur Leukocyte Esterase Large H (Negative) Urine RBC 106 H (0-5) /hpf Urine WBC >182 H (0-5) /hpf Urine Bacteria Rare H (None) /hpf Urine Mucus Rare H (None) /hpf Assessment and Plan Time with Patient: Less than 30
[2022-08-18] MEDS: HYDROcodone/APAP 10-325MG 1 EACH TAB PO SCH (17:53)
[2022-08-18] MEDS ORDERED: POTASSIUM CHLORIDE ER 20 MEQ TAB.ER PO STA (18:30)
[2022-08-18] MEDS: MELATONIN 3 MG TABLET PO SCH (21:11)
[2022-08-18] MEDS: METOPROLOL TARTRATE 25 MG TAB PO SCH (21:11)
[2022-08-19] MEDS: HEPARIN SODIUM,PORCINE/PF 5,000 UNIT/0.5 ML SYRINGE SQ SCH ×4 (01:44→22:30)
[2022-08-19] MEDS: HYDROcodone/APAP 10-325MG 1 EACH TAB PO SCH ×5 (01:45→22:29)
[2022-08-19] MEDS: SODIUM CHLORIDE 0.9% 1,000 ML IV SCH ×2 (05:36→17:31)
[2022-08-19 08:09] VITALS: RESP 18
[2022-08-19] MEDS: ATORVASTATIN 40 MG TAB PO SCH (08:38)
[2022-08-19] MEDS: FINASTERIDE 5 MG TAB PO SCH (08:38)
[2022-08-19] MEDS: CYANOCOBALAMIN 500 MCG TAB PO SCH (08:38)
[2022-08-19] MEDS: FOLIC ACID 1 MG TAB PO SCH (08:38)
[2022-08-19] MEDS: HYDROPHILIC CREAM 180 GM TUBE TOPICAL SCH (08:39)
[2022-08-19] MEDS: FERROUS SULFATE 325 MG TAB PO SCH (08:39)
[2022-08-19] MEDS: TAMSULOSIN 0.4 MG CAP.ER.24H PO SCH (08:39)
[2022-08-19] MEDS: CLOPIDOGREL 75 MG TAB PO SCH (08:39)
[2022-08-19] MEDS: SENNOSIDES 8.6 MG TAB PO SCH ×2 (08:39→22:30)
[2022-08-19] MEDS: ASPIRIN 81 MG PO SCH (08:39)
[2022-08-19] MEDS: METOPROLOL TARTRATE 25 MG TAB PO SCH ×2 (08:39→22:30)
[2022-08-19] MEDS: PANTOPRAZOLE 40 MG/10 ML VIAL IVP SCH ×2 (08:40→22:29)
[2022-08-19 10:58] LABS: Basophils # (A) 0.06 X 10*3/uL (0.00-0.10); Basophils % (A) 0.5 %; Eosinophils # (A) 0.09 X 10*3/uL (0.04-0.35); Eosinophils % (A) 0.8 %; HCT 30.5 % (39.6-50.0); HGB 9.2 g/dL (13.0-17.0); Lymphocytes # (A) 1.08 X 10*3/uL (0.90-5.00); Lymphocytes % (A) 9.5 %; MCH 29.4 pg (27.0-32.0); MCHC 30.2 g/dL (32.0-37.0); MCV 97.4 fL (80.0-97.0); Mean Platelet Volume 10.1 fL (9.5-12.2); Monocytes # (A) 0.64 X 10*3/uL (0.20-1.00); Monocytes % (A) 5.7 %; NRBC Per 100 WBC 0 /100 WBCS (0.0-0.0); Neutrophils # (A) 9.34 X 10*3/uL (1.80-7.70); Neutrophils % (A) 82.5 %; Platelet Count 180 X 10*3/uL (140-440); RBC 3.13 X 10*6/uL (4.40-5.60); RDW 14.1 % (11.5-14.5); WBC 11.32 X 10*3/uL (4.50-10.00)
[2022-08-19 11:29] LABS: African American GFR (CKD) 24.6 (60.0-200.0); Anion Gap 11.7 mmol/L (10.00-18.00); BUN/Creat Ratio 30.89 Ratio (12.00-20.00); Blood Urea Nitrogen 83.1 mg/dL (9.0-27.0); Calcium 8.3 mg/dL (8.7-10.3); Carbon Dioxide 23.4 mmol/L (20.0-27.5); Magnesium 1.9 mg/dL (1.5-2.4); Non-African American GFR(CKD) 21.2 (60.0-200.0)
--- NOTE | 2022-08-19 11:35 | P.NPCON ---
History of Present Illness - Reason for Consult acute renal failure, chronic renal failure - History of Present Illness Reason for consultation: Acute kidney injury on chronic kidney disease History of present illness: Patient is a 81-year-old male seen in renal consultation for acute kidney injury on chronic kidney disease. Patient has chronic kidney disease stage IIIB with baseline creatinine near 1.5 secondary to nephrosclerosis. Patient presented to the hospital with nausea vomiting and abdominal pain. Patient's his abdominal pain is not resolved and he is tolerating oral intake. He is currently receiving normal saline at 75 mL an hour. He denies history of diabetes. No edema. Does have coronary artery disease with 3 cardiac stents. No chest pain or shortness of breath. He was on diuretics at home which are currently held. He was also taking Bactrim prior to admission which is currently held. Renal ultrasound showed no evidence of hydronephrosis. No acute changes in the abdom en noted on CAT scan. Blood pressure stable. He was also on Farxiga which was stopped yesterday. Patient does have history of congestive heart failure. Ejection fraction of 35-40%. Vital signs are stable. General: No acute distress. HEENT: Head exam is unremarkable. LUNGS: No audible rhonchi or wheezes. HEART: Rate and Rhythm are regular. ABDOMEN: Nontender. EXTREMITITES: No edema. Past Medical History Past Medical History: Heart Failure, COPD, Hyperlipidemia, Hypertension, Osteoarthritis (OA), Prostate Disorder, Renal Disease, Vascular Disorder Additional Past Medical History / Comment(s): PVC's, CKD stage III, chronic anemia, BPH, urinary retention, UTI, pancreatitis, gastric ulcer, arthritis in multiple joints/occasional low back pain History of Any Multi-Drug Resistant Organisms: None Reported Past Surgical History: Appendectomy, Cholecystectomy, Heart Catheterization, Heart Catheterization With Stent, Tonsillectomy Additional Past Surgical History / Comment(s): R caratid endartectomy, arch study, colonoscopies/benign polypectomies, EGD, pilonidal cyst removed x 2, heart cath with stent placement Past Anesthesia/Blood Transfusion Reactions: No Reported Reaction Date of Last Stent Placement:: 05/27/21 Past Psychological History: No Psychological Hx Reported Additional Psychological History / Comment(s): Pt has his adult son living with him. He uses a cane to ambulate. He drives and is independent. He wants home oxygen Smoking Status: Former smoker Past Alcohol Use History: None Reported Additional Past Alcohol Use History / Comment(s): Pt started smoking in 1954 and quit 11/07/20. He has not drank any alcohol in 11 years Past Drug Use History: None Reported - Past Family History Father Family Medical History: No Reported History Mother Family Medical History: Congestive Heart Failure (CHF) Medications and Allergies Home Medications Medication Instructions Recorded Confirmed Type HYDROcodone/APAP 10-325MG [[place] 1 tab PO QID 05/22/21 08/17/22 History 10-325] Sennosides [Senna] 8.6 mg PO BID 05/22/21 08/17/22 History Tamsulosin HCl [Flomax] 0.4 mg PO DAILY 05/22/21 08/17/22 History Atorvastatin [Lipitor] 40 mg PO DAILY #90 tab 05/29/21 08/17/22 Rx Clopidogrel [Plavix] 75 mg PO DAILY #90 tab 05/29/21 08/17/22 Rx Nitroglycerin Sl Tabs [Nitrostat] 0.4 mg SL Q5M PRN 06/08/21 08/17/22 History Pantoprazole [Protonix] 40 mg PO BID 06/08/21 08/17/22 History Folic Acid 1 mg PO DAILY #30 tab 06/11/21 08/17/22 Rx Albuterol Sulfate [Proair Hfa] 2 puff INHALATION RT-Q4H PRN 08/07/21 08/17/22 History Bumetanide [BUMEX] 2 mg PO BID 05/01/22 08/17/22 History Dapagliflozin Propanediol [Farxiga] 5 mg PO DAILY 05/01/22 08/17/22 History Ferrous Sulfate [Iron (65 MG 325 mg PO DAILY 05/01/22 08/17/22 History Elemental)] Aspirin EC [Ecotrin Low Dose] 81 mg PO DAILY 08/17/22 08/17/22 History Cyanocobalamin [Vitamin B-12] 500 mcg PO DAILY 08/17/22 08/17/22 History Finasteride [Proscar] 5 mg PO DAILY 08/17/22 08/17/22 History carvediloL [Coreg] 6.25 mg PO BID 08/17/22 08/17/22 History hydrALAZINE HCL [Apresoline] 25 mg PO DAILY PRN 08/17/22 08/17/22 History metOLazone [Zaroxolyn] 10 mg PO DAILY 08/17/22 08/17/22 History Allergies Allergy/AdvReac Type Severity Reaction Status Date / Time lisinopril Allergy Anaphylaxis, Verified 08/17/22 13:08 Tongue swelling Physical Exam Vitals: Vital Signs Temp Pulse Pulse Resp BP Pulse Ox 08/19/22 08:07 100 08/19/22 07:20 98.1 F 79 18 105/63 100 08/19/22 02:00 97.9 F 73 16 106/59 99 08/18/22 20:39 98 08/18/22 20:27 96 08/18/22 20:00 98.1 F 105 H 16 79/47 100 08/18/22 17:50 114/49 08/18/22 12:55 98.1 F 104 H 19 115/52 98 Intake and Output 08/18/22 08/19/22 08/19/22 22:59 06:59 14:59 Intake Total 590 Output Total 175 Balance 590 -175 Intake: Oral 590 Output: Urine 175 Other: Voiding Method Urinal Bedside Commode Urinal # Voids 1 300 1 # Bowel Movements 1 Weight 81.6 kg Results - Lab Results Most recent lab results Calcium 8.5 mg/dL (8.7-10.3) L 08/18/22 06:02 08/19/22 06:26 08/18/22 06:02 Assessment and Plan Plan: Assessment: 1. Acute kidney injury secondary to ATN secondary to hypovolemia from vomiting and diuretics and further worsened with the use of Bactrim. Creatinine was 3.53 on admission and is 2.7 today. No hydronephrosis noted on kidney ultrasound. 2. Chronic kidney disease stage IIIB with baseline creatinine near 1.5 secondary to nephrosclerosis. 3. Coronary disease status post cardiac stenting. 4. Hypovolemic hyponatremia improved with IV hydration. 5. Hypokalemia from poor intake and diuretics. Replace. Improved. 6. Anemia of chronic kidney disease. Rule out iron deficiency. 7. Chronic systolic CHF with ejection fraction of 35-40%. Plan: Maintain IV fluids. Continue to hold diuretics/[id number]. Check iron studies. Avoid nephrotoxins. Continue to monitor renal function and urine output. Thank you for the consultation. I will continue to follow the patient with you during his hospital stay.
--- NOTE | 2022-08-19 15:00 | P.PN ---
Subjective Progress Note Date: 08/19/22 Patient is a pleasant 81-year-old male came in with complaints of nausea vomiting abdominal discomfort has been going on for last 2 days and found to be in acute renal failure with creatinine of 3.53 recent creatinine of around 1.5. Patient was started on Bactrim for dysuria. No urine analysis is available from that time. Patient is also complaining of right lower quadrant abdominal pain CT of the abdomen did not show any significant acute abnormality did show some 3.5 cm infrarenal stable abdominal light aneurysm and fatty liver. Patient does have history of congestive heart failure EF of around 35-40% in the does use Bumex at home. Patient is also hyponatremic with highly elevated BUN of 114 and hypochloremic. Patient is presently not in CHF clinically. She will also complaining of for mild nonspecific right lower quadrant 08/18/2022 Patient is evaluated sitting up in chair today. Patient reports improved nausea and no further episodes of vomiting has been able to tolerate diet now. He does report he had an appt with Dr. Lee at the wound center this AM for wound care to the coccyx and pt reports it needs to be repacked. Wound care has been consulted for evaluation. Patient was unable to tolerate standing with a 2 person assist safely and feet were slipping out from under him and was difficult for patient to bear weight with walker. Physical therapy will be consulted for e valuation patient may require rehab on discharge. Abdomen and bladder ultrasound done showing no obvious hydronephrosis on either side and no gross abnormality of bladder. Patient had urinated about 200 mls with a post void residual of 79. 08/19/2022 Patient is evaluated sitting up in chair. Has report a burning sensation with urination overnight and into today. he is started on IV ceftriaxone and will monitor for improvement in urinary symptoms. Patient was evaluated by wound care and had routine wound care done to the stage 3 decubitus ulcer. Creatinine is down to 2.7 today. Patient has been urinating, using the urinal. Procalcitonin level is 0.22. Nephrology has evaluated the patient. Patient is receiving normal saline at 75. PT recommending subacute rehab on discharge, patient does not want to go states he has a caregiver at home that assists him and he is only able to walk small distances with the walker at baseline. Review of Systems Constitutional: Denied any fatigue denied any fever. Cardio vascular: denied any chest pain, palpitations Gastrointestinal: denied any nausea, vomiting, diarrhea Pulmonary: Denied any shortness of breath cough Neurologic denied any new focal deficits All inpatient medications were reviewed and appropriate changes in these medications as dictated in the interval history and assessment and plan. PHYSICAL EXAMINATION: GENERAL: The patient is alert and oriented x3, not in any acute distress. Well developed, well nourished. HEENT: Pupils are round and equally reacting to light. EOMI. No scleral icterus. No conjunctival pallor. Normocephalic, atraumatic. No pharyngeal erythema. No thyromegaly. CARDIOVASCULAR: S1 and S2 present. No murmurs, rubs, or gallops. PULMONARY: Chest is clear to auscultation, no wheezing or crackles. ABDOMEN: Soft, nontender, nondistended, normoactive bowel sounds. No palpable organomegaly. Reports dysuria and burning with urination. MUSCULOSKELETAL: No joint swelling or deformity. EXTREMITIES: No cyanosis, clubbing, or pedal edema. NEUROLOGICAL: Gross neurological examination did not reveal any focal deficits. SKIN: No rashes. Assessment and plan -Abdominal pain with Nausea and Vomiting improved and likely due to the acute kidney injury. -Acute renal failure secondary to nausea vomiting and medications patient was on bumex and bactrim at home. Improving creatinine is 2.7 today. -Abnormal urinalysis patient was treated for bactrim outpatient for dysuria patient is now complaining of burning with urination. -Leukocytosis improving -Congestive heart failure chronic systolic dysfunction without any acute exacerbation -COPD without acute exacerbation -hyperlipidemia -Hypertension -Benign prostatic hypertrophy -Peripheral vascular disease -Chronic respiratory failure does use 2 L of oxygen at home presently not a smoker. -Obesity -Generalized weakness patient will likely require subacute rehab on discharge -Stage 3 sacral decubitus ulcer follows with wound care -Chronic kidney disease stage 3b -History of coronary artery disease with prior cardiac stenting -Infrarenal abdominal aortic aneurysm 3.4 cm -Formor smoker/alcohol use GI prophylaxis: DVT prophylaxis: Subcutaneous heparin Full Code Plan Continue IV fluids and repeat labs in the AM Monitor intake and output and recommend post void residuals rule out urinary retention Nephrology consultation Local wound care to the stage 3 ulcer. PT/OT recommending subacute rehab on discharge which patient is refusing at this time. The impression and plan of care has been dictated by Nela Moreno Nurse Practitioner as directed. Dr. Babar MD I have performed a history and physical examination and medical decision making of this patient, discussed the same with the dictator, and agree with the dictators assessment and plan as written, documented as a scribe. Based on total visit time, I have performed more than 50% of this visit. Objective - Vital Signs Vital signs: Vital Signs Temp 98.6 F 08/19/22 12:35 Pulse 103 H 08/19/22 12:35 Resp 18 08/19/22 12:35 BP 100/59 08/19/22 12:35 Pulse Ox 100 08/19/22 08:07 FiO2 Intake & Output 08/18/22 08/19/22 08/19/22 18:59 06:59 18:59 Intake Total 590 Output Total 175 Balance 590 -175 Weight 81.5 kg 81.6 kg Intake: Oral 590 Output: Urine 175 Other: Voiding Method Urinal Bedside Commode Urinal # Voids 1 300 1 # Bowel Movements 1 - Labs CBC & Chem 7: 08/19/22 06:26 08/19/22 06:26 Labs: Abnormal Lab Results - Last 24 Hours (Table) 08/18/22 08/18/22 08/19/22 Range/Units 06:02 06:02 06:26 WBC 11.32 H (4.50-10.00) X 10*3/uL RBC 3.13 L (4.40-5.60) X 10*6/uL Hgb 9.2 L (13.0-17.0) g/dL Hct 30.5 L (39.6-50.0) % MCV 97.4 H (80.0-97.0) fL MCHC 30.2 L (32.0-37.0) g/dL Immature Gran # 0.11 H (0.00-0.04) X 10*3/uL Neutrophils # 9.34 H (1.80-7.70) X 10*3/uL BUN (9.0-27.0) mg/dL Creatinine (0.6-1.5) mg/dL Est GFR (CKD-EPI)AfAm (60.0-200.0) Est GFR (CKD-EPI)NonAf (60.0-200.0) BUN/Creatinine Ratio (12.00-20.00) Ratio Calcium (8.7-10.3) mg/dL C-Reactive Protein 1.10 H (0.00-0.80) mg/dL Procalcitonin 0.22 H (0.02-0.09) ng/mL 08/19/22 Range/Units 06:26 WBC (4.50-10.00) X 10*3/uL RBC (4.40-5.60) X 10*6/uL Hgb (13.0-17.0) g/dL Hct (39.6-50.0) % MCV (80.0-97.0) fL MCHC (32.0-37.0) g/dL Immature Gran # (0.00-0.04) X 10*3/uL Neutrophils # (1.80-7.70) X 10*3/uL BUN 83.1 H (9.0-27.0) mg/dL Creatinine 2.7 H (0.6-1.5) mg/dL Est GFR (CKD-EPI)AfAm 24.6 L (60.0-200.0) Est GFR (CKD-EPI)NonAf 21.2 L (60.0-200.0) BUN/Creatinine Ratio 30.89 H (12.00-20.00) Ratio Calcium 8.3 L (8.7-10.3) mg/dL C-Reactive Protein (0.00-0.80) mg/dL Procalcitonin (0.02-0.09) ng/mL Assessment and Plan Time with Patient: Less than 30
[2022-08-19 21:07] LABS: % Iron Saturation 36.5 (15.00-50.00)
[2022-08-19] MEDS: MELATONIN 3 MG TABLET PO SCH (22:30)
[2022-08-20 06:45] LABS: African American GFR (CKD) 35 (>60 ml/min/1.73 sqM); Anion Gap 4 mmol/L; Blood Urea Nitrogen 71 mg/dL (9-20); Calcium 8.1 mg/dL (8.4-10.2); Carbon Dioxide 26 mmol/L (22-30); Chloride 106 mmol/L (98-107); Glucose 109 mg/dL (74-99); Magnesium 1.9 mg/dL (1.6-2.3); Non-African American GFR(CKD) 31 (>60 ml/min/1.73 sqM); Potassium 4.2 mmol/L (3.5-5.1); Sodium 136 mmol/L (137-145)
[2022-08-20] MEDS: ALBUTEROL NEBULIZED 2.5 MG/3 ML INHALATION PRN (08:25)
[2022-08-20] MEDS: METOPROLOL TARTRATE 25 MG TAB PO SCH (08:31)
[2022-08-20] MEDS: FOLIC ACID 1 MG TAB PO SCH (08:31)
[2022-08-20] MEDS: CYANOCOBALAMIN 500 MCG TAB PO SCH (08:31)
[2022-08-20] MEDS: TAMSULOSIN 0.4 MG CAP.ER.24H PO SCH (08:31)
[2022-08-20] MEDS: CLOPIDOGREL 75 MG TAB PO SCH (08:31)
[2022-08-20] MEDS: ATORVASTATIN 40 MG TAB PO SCH (08:31)
[2022-08-20] MEDS: FINASTERIDE 5 MG TAB PO SCH (08:31)
[2022-08-20] MEDS: ASPIRIN 81 MG PO SCH (08:31)
[2022-08-20] MEDS: HYDROcodone/APAP 10-325MG 1 EACH TAB PO SCH ×2 (08:32→12:47)
[2022-08-20] MEDS: HEPARIN SODIUM,PORCINE/PF 5,000 UNIT/0.5 ML SYRINGE SQ SCH (08:32)
[2022-08-20] MEDS: PANTOPRAZOLE 40 MG/10 ML VIAL IVP SCH (08:32)
[2022-08-20] MEDS: FERROUS SULFATE 325 MG TAB PO SCH (08:32)
[2022-08-20] MEDS: SENNOSIDES 8.6 MG TAB PO SCH (08:33)
[2022-08-20] MEDS: HYDROPHILIC CREAM 180 GM TUBE TOPICAL SCH (08:33)
[2022-08-20] MEDS: SODIUM CHLORIDE 0.9% 1,000 ML IV SCH (09:16)
--- NOTE | 2022-08-20 09:43 | P.PN ---
Subjective Patient is seen in follow-up for acute kidney injury on chronic kidney disease. Renal function improving with IV fluids. Denies chest pain or shortness of breath. No vomiting or diarrhea. Oral intake is good. Hemodynamically stable. Vital signs are stable. General: No acute distress. HEENT: Head exam is unremarkable. LUNGS: No audible rhonchi or wheezes. HEART: Rate and Rhythm are regular. ABDOMEN: Nontender. EXTREMITITES: No edema. Objective - Vital Signs Vital signs: Vital Signs Temp 97.6 F 08/20/22 07:34 Pulse 90 08/20/22 08:35 Resp 18 08/20/22 08:00 BP 103/60 08/20/22 07:34 Pulse Ox 99 08/20/22 08:25 FiO2 Intake & Output 08/19/22 08/20/22 08/20/22 18:59 06:59 18:59 Intake Total 500 237 Output Total 375 1000 Balance -375 -500 237 Weight 80 kg Intake: Oral 500 237 Output: Urine 375 1000 Other: Voiding Method Bedside Commode Bedside Commode Bedside Commode Urinal Urinal Urinal # Voids 1 - Labs CBC & Chem 7: 08/19/22 06:26 08/20/22 06:09 Labs: Abnormal Lab Results - Last 24 Hours (Table) 08/19/22 08/19/22 08/20/22 Range/Units 06:26 06:26 06:09 WBC 11.32 H (4.50-10.00) X 10*3/uL RBC 3.13 L (4.40-5.60) X 10*6/uL Hgb 9.2 L (13.0-17.0) g/dL Hct 30.5 L (39.6-50.0) % MCV 97.4 H (80.0-97.0) fL MCHC 30.2 L (32.0-37.0) g/dL Immature Gran # 0.11 H (0.00-0.04) X 10*3/uL Neutrophils # 9.34 H (1.80-7.70) X 10*3/uL Sodium 136 L (137-145) mmol/L BUN 83.1 H 71 H (9.0-27.0) mg/dL Creatinine 2.7 H 1.99 H (0.6-1.5) mg/dL Est GFR (CKD-EPI)AfAm 24.6 L (60.0-200.0) Est GFR (CKD-EPI)NonAf 21.2 L (60.0-200.0) BUN/Creatinine Ratio 30.89 H (12.00-20.00) Ratio Glucose 109 H (74-99) mg/dL Calcium 8.3 L 8.1 L (8.7-10.3) mg/dL Microbiology - Last 24 Hours (Table) 08/19/22 12:16 Urine Culture - Preliminary Urine,Clean Catch Assessment and Plan Plan: Assessment: 1. Acute kidney injury secondary to ATN secondary to hypovolemia from vomiting and diuretics and further worsened with the use of Bactrim. Creatinine was 3.53 on admission and is 1.99 today. No hydronephrosis noted on kidney ultrasound. 2. Chronic kidney disease stage IIIB with baseline creatinine near 1.5 secondary to nephrosclerosis. 3. Coronary disease status post cardiac stenting. 4. Hypovolemic hyponatremia improved with IV hydration. 5. Hypokalemia from poor intake and diuretics. Replaced. Improved. 6. Anemia of chronic kidney disease. Iron replete. 7. Chronic systolic CHF with ejection fraction of 35-40%. Plan: Hep-Lock IV fluids. Continue to hold diuretics/[id number]. Add Aranesp. Avoid nephrotoxins. Continue to monitor renal function and urine output.
[2022-08-20] MEDS ORDERED: DARBEPOETIN ALFA 40 MCG/0.4 ML SYRINGE SQ SCH (11:00)
[2022-08-20 11:05] VITALS: BMI 23.9
[2022-08-20 13:50] VITALS: BP 109/66; PULSE 92; TEMP 98.5
--- NOTE | 2022-08-21 22:46 | P.DS ---
Providers Date of admission: 08/17/22 11:19 Attending physician: Bonifacio Eckert Consults: 08/18/22 15:59 Consult Physician Routine Consulting Provider: Tristan Centeno Consult Reason/Comments: acute renal failure Do you want consulting provider notified?: Yes Primary care physician: Shannon Weaver [facility] Course: Final Diagnosis -Abdominal pain with Nausea and Vomiting improved and likely due to the acute kidney injury. -Acute renal failure secondary to nausea vomiting and medications patient was on bumex and bactrim at home. Improving creatinine is now 1.99. -Acute urinary tract infection present on admission, urine culture showing gram negative bacilli. -Leukocytosis improving -Congestive heart failure chronic systolic dysfunction without any acute exacerbation -COPD without acute exacerbation -hyperlipidemia -Hypertension -Benign prostatic hypertrophy -Peripheral vascular disease -Chronic respiratory failure does use 2 L of oxygen at home presently not a smoker. -Obesity -Generalized weakness patient will likely require subacute rehab on discharge -Stage 3 sacral decubitus ulcer follows with wound care -Chronic kidney disease stage 3b -History of coronary artery disease with prior cardiac stenting -Infrarenal abdominal aortic aneurysm 3.4 cm -Formor smoker/alcohol use Full Code Discharge Disposition Patient is stable for discharge home today. He has been recommended for subacute rehab patient did refuse rehab on discharge and does have family support and a caregiver at home uses a walker. Patient will follow up at the wound care center with Dr. Lee per usual appointment time and wound care. He has been evaluated by wound care while inpatient and continued with scheduled wound care to the stage 2 on coccyx. Patients creatinine down to 1.99 near baseline of 1.6 and will follow up with nephrology and repeat labs in 2 to 3 days. Patient has been started on darbepoetin alpha for weekly injections which he did receive injection on 08/20/22 and next injection scheduled for 08/28/22. Patient will continue on oral ceftin for 4 more days to complete course of antibiotic therapy. Patient is recommended to hold zaroxyln on discharge additionally is recommended to stop farxiga on discharge. Hospital Course Patient is a pleasant 81-year-old male came in with complaints of nausea vomiting abdominal discomfort has been going on for last 2 days and found to be in acute renal failure with creatinine of 3.53 recent creatinine of around 1.5. Patient was started on Bactrim for dysuria. Patient is also complaining of right lower quadrant abdominal pain CT of the abdomen did not show any significant acute abnormality did show some 3.5 cm infrarenal stable abdominal light aneurysm and fatty liver. Patient does have history of congestive heart failure EF of around 35-40% in the does use Bumex at home. Patient is also hyponatremic with highly elevated BUN of 114 and hypochloremic. Patient is presently not in CHF clinically. Patient does have stage 3 on the coccyx for which he follows at wound care for. Patient was admitted and received IV fluids did complain of burning with urination and was started on IV ceftraixone. Had improvement in symptoms and creatinine down to 1.99. Patients GFR is now 35, procalcitonin level at 0.22. Urine culture did finalize showing proteus miribilis which is sensitive to ceftriaxone and patient clinically improve with ceftriaxone patient is discharged on oral ceftin to complete course of antibiotics. Other recommendations as above. Patient was recommended for subacute rehab which he refused he is a high risk for readmission. Patient denies chest pain, denies shortness of breath, no chest pain. No nausea vomiting or diarrhea and abdominal pain is gone. Patient is alert x 3 has generalized weakness with no focal deficits. Labs have improved. Patient is afebrile, heart rate 92, blood pressure 109/66, 99% on 2L nasal cannula. Please see medication reconciliation for a list of current medication. Thank you for allowing us to participate in the care of this patient. The impression and plan of care has been dictated by Nela Moreno, Nurse Practitioner as directed. Dr. Babar MD I have performed a history and physical examination and medical decision making of this patient, discussed the same with the dictator, and agree with the dictators assessment and plan as written, documented as a scribe. Based on total visit time, I have performed more than 50% of this visit. Patient Condition at Discharge: Fair Plan - Discharge Summary New Discharge Prescriptions: New Metoprolol Tartrate [Lopressor] 25 mg PO BID #60 tab Cefuroxime [Ceftin] 250 mg PO BID 4 Days #8 tab Epoetin Charles [Procrit] 8,000 unit SQ WEEKLY #1 each Continue Tamsulosin HCl [Flomax] 0.4 mg PO DAILY Sennosides [Senna] 8.6 mg PO BID HYDROcodone/APAP 10-325MG [[place] 10-325] 1 tab PO QID Atorvastatin [Lipitor] 40 mg PO DAILY #90 tab Cyanocobalamin [Vitamin B-12] 500 mcg PO DAILY Clopidogrel [Plavix] 75 mg PO DAILY #90 tab Pantoprazole [Protonix] 40 mg PO BID Nitroglycerin Sl Tabs [Nitrostat] 0.4 mg SL Q5M PRN PRN Reason: Chest Pain Folic Acid 1 mg PO DAILY #30 tab Albuterol Sulfate [Proair Hfa] 2 puff INHALATION RT-Q4H PRN PRN Reason: Shortness Of Breath Ferrous Sulfate [Iron (65 MG Elemental)] 325 mg PO DAILY Finasteride [Proscar] 5 mg PO DAILY Aspirin EC [Ecotrin Low Dose] 81 mg PO DAILY Discontinued carvediloL [Coreg] 6.25 mg PO BID metOLazone [Zaroxolyn] 10 mg PO DAILY Bumetanide [BUMEX] 2 mg PO BID Dapagliflozin Propanediol [Farxiga] 5 mg PO DAILY hydrALAZINE HCL [Apresoline] 25 mg PO DAILY PRN PRN Reason: Blood Pressure Discharge Medication List HYDROcodone/APAP 10-325MG [[place] 10-325] 1 tab PO QID 05/22/21 [History] Sennosides [Senna] 8.6 mg PO BID 05/22/21 [History] Tamsulosin HCl [Flomax] 0.4 mg PO DAILY 05/22/21 [History] Atorvastatin [Lipitor] 40 mg PO DAILY #90 tab 05/29/21 [Rx] Clopidogrel [Plavix] 75 mg PO DAILY #90 tab 05/29/21 [Rx] Nitroglycerin Sl Tabs [Nitrostat] 0.4 mg SL Q5M PRN 06/08/21 [History] Pantoprazole [Protonix] 40 mg PO BID 06/08/21 [History] Folic Acid 1 mg PO DAILY #30 tab 06/11/21 [Rx] Albuterol Sulfate [Proair Hfa] 2 puff INHALATION RT-Q4H PRN 08/07/21 [History] Ferrous Sulfate [Iron (65 MG Elemental)] 325 mg PO DAILY 05/01/22 [History] Aspirin EC [Ecotrin Low Dose] 81 mg PO DAILY 08/17/22 [History] Cyanocobalamin [Vitamin B-12] 500 mcg PO DAILY 08/17/22 [History] Finasteride [Proscar] 5 mg PO DAILY 08/17/22 [History] Cefuroxime [Ceftin] 250 mg PO BID 4 Days #8 tab 08/20/22 [Rx] Metoprolol Tartrate [Lopressor] 25 mg PO BID #60 tab 08/20/22 [Rx] Epoetin Charles [Procrit] 8,000 unit SQ WEEKLY #1 each 08/21/22 [Rx] Follow up Appointment(s)/Referral(s): [facility], [NON-STAFF] - 1 Week Owen Ortega MD [Primary Care Provider] - 08/24/22 2:00 pm [facility] [NON-STAFF] - 08/25/22 9:15 am (This was a previously scheduled appointment. ) Tristan Centeno DO [STAFF PHYSICIAN] - 09/23/22 9:20 am (The office will review records and call if they can or need to see the patient sooner. ) Ambulatory/Diagnostic Orders: Basic Metabolic Panel [LAB.AMB] Time Frame: 3 Days, Location: None Selected Complete Blood Count w/diff [LAB.AMB] Time Frame: 3 Days, Location: None Selected Activity/Diet/Wound Care/Special Instructions: Recommend to see nephrology on discharge and repeat labs in 2 to 3 days Continue holding diuretics and farxiga on discharge Patient to continue with local wound care and follow up with Dr. Lee in the wound center as previous. Continue oral antibiotics for 4 additional days. Blood glucose has remained within normal limits during hospitalization without diabetic medication. Recommend to monitor blood glucose for now and follow up with PCP. Discharge Disposition: HOME WITH HOME HEALTH SERVICES
== END 2022-08-20 14:35 | disposition home health service (06) | DRG 682 ==
LOC: EC 09:05 → 5NMEDONC 11:19
PROVIDERS: ADMIT Internal Medicine; ATTEND Internal Medicine
DX: N17.0 Acute kidney failure with tubular necrosis (principal); L89.153 Pressure ulcer of sacral region, stage 3; I13.0 Hypertensive heart and chronic kidney disease with heart failure and stage 1 through stage 4 chronic kidney disease, or unspecified chronic kidney disease; J96.10 Chronic respiratory failure, unspecified whether with hypoxia or hypercapnia; E87.1 Hypo-osmolality and hyponatremia; I50.22 Chronic systolic (congestive) heart failure; N39.0 Urinary tract infection, site not specified; Z16.24 Resistance to multiple antibiotics; D63.1 Anemia in chronic kidney disease; K76.0 Fatty (change of) liver, not elsewhere classified; E87.8 Other disorders of electrolyte and fluid balance, not elsewhere classified; E66.9 Obesity, unspecified; N18.32 Chronic kidney disease, stage 3b; I73.9 Peripheral vascular disease, unspecified; J44.9 Chronic obstructive pulmonary disease, unspecified; I71.43 Infrarenal abdominal aortic aneurysm, without rupture; E86.0 Dehydration; N40.1 Benign prostatic hyperplasia with lower urinary tract symptoms; E78.5 Hyperlipidemia, unspecified; F10.91 Alcohol use, unspecified, in remission; E86.1 Hypovolemia; L05.92 Pilonidal sinus without abscess; E87.6 Hypokalemia; I25.10 Atherosclerotic heart disease of native coronary artery without angina pectoris; R33.8 Other retention of urine; B96.4 Proteus (mirabilis) (morganii) as the cause of diseases classified elsewhere; Z99.81 Dependence on supplemental oxygen; Z87.891 Personal history of nicotine dependence; Z95.5 Presence of coronary angioplasty implant and graft; Z87.11 Personal history of peptic ulcer disease; Z88.8 Allergy status to other drugs, medicaments and biological substances; Z79.899 Other long term (current) drug therapy; Z79.82 Long term (current) use of aspirin; Z79.51 Long term (current) use of inhaled steroids; Z79.02 Long term (current) use of antithrombotics/antiplatelets; Z79.84 Long term (current) use of oral hypoglycemic drugs; Z79.52 Long term (current) use of systemic steroids; Z90.49 Acquired absence of other specified parts of digestive tract
CPT/HCPCS: 36415; 74176; 76770; 80048; 80053; 81001; 82150; 82728; 83540; 83550; 83605; 83690; 83735; 84145; 84300; 85025; 85027; 86140; 87077; 87086; 87186; 87205; 94640; 94760; 96361; 96374; 96375; 99285

== ENCOUNTER → 2022-09-08 | Outpatient (CLI) | payer MEDICARE ==
--- NOTE | 2022-09-08 13:21 | XR ---
EXAMINATION TYPE: XR Hip Limited LT DATE OF EXAM: 09/08/2022 CLINICAL HISTORY: Pain TECHNIQUE: AP and frogleg views of the left hip are obtained. COMPARISON: None. FINDINGS: There is no acute fracture/dislocation evident in the left hip. Moderate degenerative join t space narrowing. The overlying soft tissue appears unremarkable. IMPRESSION: There is no acute fracture or dislocation in the hip.
== END | disposition home or self-care (01) ==
LOC: RADXRMAIN 11:16
PROVIDERS: ATTEND Internal Medicine
DX: M25.552 Pain in left hip (principal)
CPT/HCPCS: 73501